=== PATIENT | female | born 1945 | race Caucasian/White ===

== ENCOUNTER 2021-09-12 10:03 | Outpatient (REF) | payer MEDICARE, OTHER, SELFPAY ==
--- NOTE | ~2021-09-12 | MR_ITS ---
EXAMINATION: MR LUMBAR SPINE WITHOUT CONTRAST CLINICAL INFORMATION: Low back pain. COMPARISON: MRI dated 10/08/2006. TECHNIQUE: MRI of the lumbar spine was obtained using routine sequences without contrast. FINDINGS: VERTEBRAL BODIES AND PARASPINAL STRUCTURES: The marrow signal is homogeneous. No marrow edema is seen. There is a transitional lumbosacral junction with partial sacralization of L5 vertebra on the left side. No compression fractures evident. There are no subluxations. The paraspinal soft tissues appear normal. There are moderate degenerative changes of the left sacroiliac joint. CONUS MEDULLARIS AND CAUDA EQUINA: Normal, terminating at the level of L1. No lower cord signal abnormality is seen. The cauda equina nerve roots are normal. SPINAL LEVELS: L1-L2: Minimal annular bulge without central canal stenosis or foraminal narrowing. L2-L3: Very mild disc bulge and mild facet arthropathy without central canal stenosis. No significant foraminal encroachment. L3-L4: Mild disc bulge and moderate facet arthropathy with thickening of the ligamentum flavum resulting in worsened xbfa-ox-dqzgruug central canal stenosis. Mild foraminal narrowing. L4-L5: Progressed ocyewdfz-rm-mdypkj facet arthropathy, worse on the right side with slight encroachment upon the central canal. No disc disease. Patent foramina. L5-S1: Small central disc protrusion with an underlying annular fissure, slightly decreased in size compared to prior imaging. Hypertrophic facet arthropathy without central canal stenosis or foraminal narrowing. MR/MR lumbar spine wo con IMPRESSION: Worsened jjxg-bi-hotbzglf central canal stenosis with progressed facet arthropathy and thickening of the ligamentum flavum at the L3-L4 level. Worsened dziotwek-da-haspaz facet arthrosis, more so on the right side at the L4-L5 level with slight encroachment upon the central canal. Mild decrease in size of a small central disc protrusion with an underlying annular fissure at the L5-S1 level.
== END 2021-09-12 10:04 | disposition home or self-care (01) ==
LOC: HO.MRI 10:03
PROVIDERS: PCP Internal Medicine; Visit Provider Internal Medicine
DX: M51.26 Other intervertebral disc displacement, lumbar region (principal); G89.29 Other chronic pain
CPT/HCPCS: 72148

== ENCOUNTER → 2021-11-18 08:49 | Outpatient (BNVA) | payer MEDICARE, MEDICAID, SELFPAY | PROVIDERS: PCP Internal Medicine; Visit Provider Internal Medicine | DX: M51.26 Other intervertebral disc displacement, lumbar region (principal); M48.062 Spinal stenosis, lumbar region with neurogenic claudication; M47.816 Spondylosis without myelopathy or radiculopathy, lumbar region; R63.5 Abnormal weight gain | CPT/HCPCS: 99202 ==

== ENCOUNTER → 2022-01-13 14:56 | Outpatient (BNVA) | payer MEDICARE, OTHER, SELFPAY | PROVIDERS: PCP Internal Medicine; Visit Provider Internal Medicine Pulmonary Disease | DX: J44.9 Chronic obstructive pulmonary disease, unspecified (principal); R91.8 Other nonspecific abnormal finding of lung field | CPT/HCPCS: 94618; 99202 ==

== ENCOUNTER 2022-01-23 07:41 | Outpatient (REF) | payer MEDICARE, OTHER, SELFPAY ==
--- NOTE | ~2022-01-23 | CT_ITS ---
EXAMINATION: CT CHEST SCREENING CLINICAL INFORMATION: Smoker. COMPARISON: CT chest 09/15/2018. TECHNIQUE: Multidetector volumetric CT imaging of the chest is performed without contrast using low dose technique. Additional 2D coronal and sagittal reformatted images and axial 3D maximum intensity projection (MIP) images are generated on the CT workstation. This CT examination was performed using dose optimization techniques as appropriate, variously including the following: *Automated exposure control *Adjustment of mA and/or kV according to patient size (this includes techniques or standardized protocols for targeted exams where dose is matched to indication/reason for exam; i.e. extremities or head) *Use of iterative reconstruction technique DLP: 58 mGy-cm. FINDINGS: LUNGS: There is mild centrilobular and paraseptal emphysema. Focal atelectasis or scarring pleural-based is seen in the superior segment left lower lobe, new. Minimal atelectatic changes are seen in the dependent lung bases. There are bilateral pulmonary nodules similar to previous study in both lungs. The few largest ones to mention are a 3 mL nodule right upper lobe axial image 279/6, a new 1.1 cm ground-glass density right lower lobe axial image 322/6, a new 7 mm groundglass nodule right lower lobe image 331/6. A few calcified tiny nodules are stable. MEDIASTINUM: The thyroid lobes are symmetric and normal. The central trachea and bronchi are widely patent. The heart size and the great vessels are normal caliber. There are trace coronary artery calcifications present. No pericardial effusion seen. No abnormal-sized mediastinal or hilar lymph nodes. PLEURA: There is no pleural effusion. No pleural mass or thickening. AXILLA: No lymphadenopathy. UPPER ABDOMEN: Visualized liver, spleen, pancreas and adrenal glands unremarkable. OSSEOUS STRUCTURES: No lytic or sclerotic process. CT/CT lung screening IMPRESSION: Diffuse emphysema with multiple stable appearing nodules. However, there are 2 new ground-glass nodules seen in the right lower lobe measuring 1.1 cm and 7 mm. No abnormal-sized lymph nodes seen. ASSESSMENT: Lung RADS category 2, benign. RECOMMENDATION: Low-dose annual CT chest.
== END 2022-01-23 07:42 | disposition home or self-care (01) ==
LOC: HO.CT 07:41
PROVIDERS: PCP Internal Medicine; Visit Provider Physician Assistant Medical
DX: Z12.2 Encounter for screening for malignant neoplasm of respiratory organs (principal); F17.210 Nicotine dependence, cigarettes, uncomplicated
CPT/HCPCS: 71271

== ENCOUNTER 2023-05-24 09:40 | Inpatient (IN) | payer MEDICARE, OTHER, MEDICAID, SELFPAY ==
[2023-05-24] VITALS (8 sets, daily range): BP systolic 112–131; BP diastolic 41–84; PULSE 53–80; RESP 15–30; TEMP 36.4–36.5; O2SAT 87–95; BMI 33.4
--- NOTE | ~2023-05-24 | CT_ITS ---
Examination CT chest and CT abdomen pelvis without contrast. Clinical indications: Dyspnea. Weight loss. Left supraclavicular mass. COMPARISON: CT chest 02/15/2022. TECHNIQUE: 5 minutes thin axial and reformatted 3 mm thin sagittal coronal images of chest, abdomen pelvis were obtained without IV contrast. DLP 927. This CT examination was performed using dose optimization technique as appropriate, variously including the following: Automated exposure control Adjustment of MA and/or KV according to patient size(this includes techniques or standardized protocols for targeted exams where dose is matched to indication/reason for exam; extremities or head. Use of iterative reconstruction techniques. FINDINGS: CHEST: LUNGS: There is diffuse centrilobular emphysema with patchy groundglass attenuation, prominent fine interstitial markings, subpleural bullae and small bilateral pulmonary nodules, stable. There is bibasilar atelectasis or scarring. The findings are drastically changed from 01/15/2022. Mediastinum: The thyroid lobes are as symmetrical and normal. The central trachea and the bronchi widely patent. Heart size and the great vessels are normal caliber. There is a benign short axis I.2 cm lymph node with central lucency. There is no pericardial or effusion no abnormal size mediastinal lymph nodes. There are moderate coronary artery calcifications present Pleura: There is minimal bilateral posterior layering slightly greater on the right side no calcified pleural plaques seen. Axilla: No abnormal size lymph nodes seen. The chest wall is grossly unremarkable. The chest wall is unremarkable. Osseous structures: There is maintained thoracic kyphosis. The vertebral heights, alignment and disc heights are normal. No visible acute fracture, dislocation or subluxation seen. Abdomen and pelvis: Liver, ducts and gallbladder: The liver is homogeneous in density, normal size and contour. No focal lesion or intrahepatic ductal dilatation seen. Gallbladder is unremarkable. Spleen: Unremarkable. Pancreas: Unremarkable. Adrenal glands: Both adrenal glands are slightly hypertrophied but otherwise unremarkable. Kidneys and ureter: Both kidneys are normal size, shape and position. The left renal hilar vascular calcifications present. No radiopaque calculi or hydronephrosis seen. Lymphovascular structures: There is arthroscopic calcification of abdominal aorta without aneurysmal dilatation. No abnormal size retroperitoneal lymph nodes seen. Abdominal wall: There is nonspecific soft tissue density infraumbilical left abdomen likely granulation tissue from subcutaneous is injection. GI tract: There is scattered stool, diverticula and gas seen throughout the colon without distention. The small bowel loops are normal caliber. Appendix is normal caliber. No inflammatory process, free air or free fluid seen. Pelvis: The uterus is anteverted and appears unremarkable. No adnexal mass or free fluid seen. The urinary bladder is nondistended. Osseous structures: Unremarkable. CT/CT abdomen pelvis wo IV con IMPRESSION: 1. Centrilobular emphysema with prominent fine interstitial markings, subpleural bullae and small bilateral pulmonary nodules, stable. The findings have progressed since 01/15/2022. 2. No abnormal mediastinal or axillary lymph nodes seen. 3. No acute process seen in the abdomen. 4. Mild constipation with colonic diverticulosis without diverticulitis. 5. Dense left abdominal wall scar
--- NOTE | 2023-05-24 09:44 | ECG_ITS ---
Test Reason : SOB Blood Pressure : / mmHG Vent. Rate : 056 BPM Atrial Rate : 056 BPM P-R Int : 150 ms QRS Dur : 084 ms QT Int : 448 ms P-R-T Axes : 027 021 014 degrees QTc Int : 432 ms Sinus bradycardia with sinus arrhythmia Low voltage QRS Nonspecific ST abnormality Abnormal ECG When compared with ECG of 21-SEP-2019 16:33, ST more depressed Inferior leads Lateral leads Referred By: Wendy Galindo Electronically Signed By:PRATIK XIONG MD
[2023-05-24] MEDS: methylPREDNISolone Sod Succ 125 MG/2 ML VIAL 60 MG IVPUSH (10:03)
--- NOTE | 2023-05-24 10:07 | ED_ITS ---
HPI - SOB/Dyspnea General Chief Complaint: Dyspnea Stated Complaint: sob Time Seen by Provider: 05/24/23 09:43 Source: patient, EMS and old records reviewed Mode of arrival: EMS Limitations: no limitations History of Present Illness HPI Narrative: 77 yo female with PMH of COPD, CAD s/p angioplasty, HLD, chronic back pain, DM who lives alone and since February reports worsening breathing but refuses nebs as it makes her tonsils sore and her heart race. She finally came to the hospital as her son traveled to [place] to see her and begged her to come to the hospital. She notes no fevers but + sputum production and chest tightness. She also has a mass in L upper clavicle area but thought it was a skin tag unknown amount of time and also reports undisclosed amount of weight loss - initally refusing breathing treatments and steroids - RA sat 86%. No O2 at home MD elicited complaint: shortness of breath Pertinent past history: COPD Onset (ago): month(s) (2+) Timing: progressively worsening Severity: severe Exacerbating factors: exertion and coughing Relieving factors: rest Known history of: COPD Associated symptoms: cough, wheezing, sputum production and other (weight loss) Treatment prior to arrival: oxygen and other (IVF) Related Data Home Medications Medication Instructions Recorded Confirmed atenolol 25 mg tablet 25 mg PO DAILY 05/24/23 05/24/23 insulin aspart U-100 100 unit/mL See Rx Instructions subcut .tid ac 05/24/23 05/24/23 subcutaneous solution (Novolog U-100 Insulin aspart) insulin glargine 100 unit/mL 38 - 42 unit subcut BEDTIME 05/24/23 05/24/23 subcutaneous solution (Lantus U-100 Insulin) nitroglycerin 0.4 mg sublingual 0.4 mg sublingual NEEDED angina 05/24/23 05/24/23 tablet Previous Rx's Medication Instructions Recorded blood sugar diagnostic (OneTouch #300 ea 12/11/21 Ultra Test strips) insulin syringe-needle U-100 1 mL #400 ea 12/11/21 30 gauge x 1/2 (BD Insulin Syringe Ultra-Fine) Allergies Allergy/AdvReac Type Severity Reaction Status Date / Time hydrocodone [Vicodin] Allergy Unknown hives Verified 01/13/22 15:04 ibuprofen [IBUPROFEN] Allergy Unknown SWOLLEN Verified 01/13/22 15:04 EYELIDS, CONFUSION lovastatin [Mevacor] Allergy Unknown hives Verified 01/13/22 15:04 naproxen Allergy Unknown hives Verified 01/13/22 15:04 rosuvastatin [Crestor] Allergy Unknown hives Verified 01/13/22 15:04 atorvastatin [From LIPITOR] AdvReac Severe SEVERE Verified 01/13/22 15:04 DEEP BONES PAIN lisinopril AdvReac Unknown hives Verified 01/13/22 15:04 amitriptlyn Allergy Unknown hives Uncoded 12/12/21 00:31 ditripan xl Allergy Unknown headaches Uncoded 12/12/21 00:31 ivp dye Allergy Unknown throat Uncoded 12/12/21 00:31 constriction and hives lipitor Allergy Unknown body pain Uncoded 12/12/21 00:31 Nuprin Allergy Unknown hives Uncoded 12/12/21 00:31 prednisone Allergy Unknown confusion Uncoded 12/12/21 00:31 qvar AdvReac Unknown hives Uncoded 12/12/21 00:31 Review of Systems 2 Review of Systems: Constitutional : No Fever, No Chills, pos weight loss ENT/Mouth : No Hoarseness, No sore throat, No Rhinorrhea Eyes: No Redness, No Discharge, No Vision Changes Cardiovascular : No Chest Pain, positive SOB, positive Dyspnea on Exertion, No Edema Respiratory : positive Cough, pos Sputum, positive Wheezing, Gastrointestinal : No Nausea, No Vomiting, No Diarrhea, No abdominal Pain Genitourinary : No Dysuria, No Hematuria Musculoskeletal : No joint pain, No Myalgias Skin : No rash Neuro : No Weakness, No Numbness, No Headache Psych : No anxiety, depression Heme/Lymph: No Bruising, No Bleeding Endocrine : No Polyuria, No Polydipsia All other systems reviewed and are negative PMFSH Past Medical History Attestation statement: The following information was validated with the patient. Source: old records reviewed Medical History Degenerative lumbar spinal stenosis Colonoscopy refused Osteoporosis Herniated lumbar intervertebral disc CAD (coronary artery disease) Cervical disc herniation Essential hypertension Chronic low back pain Dyslipidemia Diabetes mellitus, with long-term current use of insulin Surgical History S/P cervical spinal fusion S/P angioplasty Family History Family History Father Substance use disorder Brother Substance use disorder Mental health disorder Social History Housing: Apartment Patient Tobacco Use Status: Former Tobacco user Smoked in Last 30 Days: No e-Cigarette/Vaping Use: Never Used Use of substances other than those prescribed or required for medical reasons: No Advance Directives: Yes Advance Directives Information Provided: No Advance Directives on File: No Nutrition Risks: No Nutritional Risk service: No Current occupational status: retired Cognitive needs: No Hearing needs: No Vision needs: Yes Physical Exam 2 Vital Signs: Vital Signs: Last Vital Signs Temp 97.7 F 05/24/23 09:54 Pulse 78 05/24/23 14:23 Resp 17 05/24/23 14:23 BP 124/46 L 05/24/23 14:15 Pulse Ox 91 L 05/24/23 14:15 O2 Del Method Nasal Cannula 05/24/23 14:15 O2 Flow Rate 2 05/24/23 14:15 BMI result Body Mass Index 33.4 Appearance: Alert. Oriented X3. No acute distress. Eyes: Pupils equal, round and reactive to light. ENT: Pharynx normal. Neck: Normal inspection. Neck supple. CVS: Normal heart rate and rhythm. Pulses normal. Chest: L clavicle soft large node felt. Respiratory: No respiratory distress. Breath sounds noted with wheezes throughout exp Abdomen: Soft and non-tender. Skin: Skin warm and dry. Normal skin color. Normal skin turgor. Extremities: No lower extremity edema. No calf ttp Neuro: Oriented X 3. No motor deficit. No sensory deficit. Course Course Course Narrative: 82% on RA after walking to bathroom bounced back with O2 Medications Administered Generic Name Dose Route Start Last Admin Trade Name Freq PRN Reason Stop Dose Admin Enoxaparin Sodium 40 mg 05/24/23 14:00 05/24/23 14:17 Enoxaparin Sodium 40 Mg/0.4 Ml Syringe SUBCUT 40 mg Q24H HAYLEE Administration Azithromycin 500 mg/ Sodium 250 mls @ 125 mls/hr 05/24/23 14:00 05/24/23 14:17 Chloride IV 05/26/23 15:59 125 mls/hr Q24H HAYLEE Administration Levalbuterol HCl 1.25 mg 05/24/23 14:00 05/24/23 14:22 Levalbuterol Hcl 1.25 Mg/3 Ml Vial.Neb INHALE 1.25 mg RTID HAYLEE Administration Discontinued Medications Generic Name Dose Route Start Last Admin Trade Name Jennifer PRN Reason Stop Dose Admin Levalbuterol HCl 2.5 mg/ 0 mg 05/24/23 10:03 05/24/23 10:09 Ipratropium [place] 0.5 mg INHALE 05/24/23 10:04 8.5 dose ONCE ONE Administration Ceftriaxone Sodium 1 gm/ 50 mls @ 100 mls/hr 05/24/23 10:12 05/24/23 11:24 Sodium Chloride IV 05/24/23 10:41 Infused ONCE ONE Infusion Methylprednisolone Sodium Succinate 60 mg 05/24/23 09:57 05/24/23 10:03 Methylprednisolone Sod Succ 125 Mg/2 Ml Vial IVPUSH 05/24/23 09:58 60 mg ONCE ONE Administration Medical Decision Making Medical Decision Making MDM Narrative: 77 yo female with PMH of COPD, CAD s/p angioplasty, HLD, chronic back pain, DM here with 2+ months of worsening dyspnea who does not like to take treatments at home and came because her son begged her to. Initially refusing treatments and interventions but wants to be seen and worked up. We finally agreed upon xopenex and IV solumedrol. I am going to obtain EKG, labs, cultures, resp panel, CXR and treat for presumed COPD but also given L clavicular mass CT scan of abdomen and pelvis/ chest to look for malignancy. She is hypoxic on arrival and does not use home O2. Differential Diagnosis Differential Diagnoses: The differential diagnosis associated with the presentation includes COPD, pneumonia, mass Admission/Observation Consideration of admission/observation: Escalation of care including admission/observation considered admit given hypoxia Consult Healthcare Provider Management of the patient was discussed with: Hospitalist (will admit) Lab Data [facility] Lab Attestation statement: I reviewed the patient's lab results. 05/24/23 10:09 05/24/23 10:09 Labs: Lab Results 05/24/23 05/24/23 05/24/23 Range/Units 10:09 10:15 10:35 WBC 7.0 (4.8-10.8) X10*3/uL RBC 4.74 (4.20-5.50) X10*6/uL Hgb 13.7 (12.0-16.0) g/dl Hct 42.0 (37.0-47.0) % MCV 88.6 (80.0-98.0) fL MCH 28.9 (27.0-33.0) pg MCHC 32.6 (31.0-35.0) g/dl RDW 14.6 (11.0-16.0) % Plt Count 211 (160-400) X10*3/uL MPV 9.1 L (9.4-12.3) fL Immature Gran % (Auto) 0.3 (0.0-0.4) % Neut % (Auto) 80.4 H (45-73) % Lymph % (Auto) 9.7 L (20-40) % [place] % (Auto) 8.4 (2-11) % Eos % (Auto) 0.9 (0-4) % Baso % (Auto) 0.3 (0-2) % Lymph # (Auto) 0.7 L (1.2-4.9) X10*3/uL [place] # (Auto) 0.6 (0.1-1.2) X10*3/uL Eos # (Auto) 0.1 (0.0-0.4) X10*3/uL Baso # (Auto) 0.0 (0.0-0.2) X10*3/uL Abs Immat Gran (auto) 0.02 (0.00-0.03) X10*3/uL Absolute Neuts (auto) 5.6 (2.0-8.3) x10*3/uL Absolute Nucleated RBC 0.000 (0.0-0.012) X10*3/uL Nucleated RBC % (auto) 0.0 (0.0-0.2) /100WBC PT 14.3 H (11.1-13.3) SEC INR 1.2 H (0.9-1.1) VBG pH 7.49 H (7.32-7.43) VBG pCO2 33 mmHg VBG pO2 51 mmHg VBG HCO3 26 (22-26) mmol/L VBG O2 Saturation 83.0 % VBG Base Excess 3.6 mmol/L Sodium 138 (135-145) mmol/L Potassium 3.7 (3.3-5.1) mmol/L Chloride 102 (96-108) mmol/L Carbon Dioxide 25 (22-29) mmol/L Anion Gap 15 (12-20) BUN 12 (9-16) mg/dL Creatinine 0.64 (0.5-1.4) mg/dL Estim Creat Clear Calc 77.9 Estimated GFR > 60 POC Glucose 103 (60-115) mg/dL Random Glucose 101 (60-115) mg/dL Lactic Acid 1.8 (0.5-2.0) mmol/L Calcium 8.7 (8.4-10.2) mg/dL Magnesium 1.8 (1.6-2.6) mg/dL Total Bilirubin 0.9 (0.0-1.0) mg/dL Direct Bilirubin 0.3 (0.0-0.5) mg/dL AST 17 (5-31) U/L ALT 7 (0-31) U/L Alkaline Phosphatase 89 (39-117) U/L Troponin I High Sens 7.1 (<3.5-17.0) ng/L B-Natriuretic Peptide 83 (<100) pg/mL Total Protein 6.7 (6.5-8.0) g/dL Albumin 3.3 L (3.5-5.0) g/dL Lipase 18 (8-78) U/L Procalcitonin 0.08 ng/mL Urine Color Urine Appearance Urine pH (5.0-9.0) Ur Specific [place] (1.005-1.025) Urine Protein (Neg-Trace) mg/dL Urine Glucose (UA) (Negative) mg/dL Urine Ketones (Negative) mg/dL Urine Blood (Negative) Urine Nitrite (Negative) Ur Leukocyte Esterase (Negative) Urine RBC (0-2) /HPF Urine WBC (0-5) /HPF Ur Squamous Epith Cells (0-2) /HPF Urine Bacteria (None Seen) Hyaline Casts (0-2) /LPF Influenza Type A (PCR) NEGATIVE (Negative) Influenza Type B (PCR) NEGATIVE (Negative) RSV RNA Qual (PCR) NEGATIVE (Negative) SARS-CoV-2 RNA (RT-PCR) NEGATIVE (Negative) 05/24/23 Range/Units 11:17 WBC (4.8-10.8) X10*3/uL RBC (4.20-5.50) X10*6/uL Hgb (12.0-16.0) g/dl Hct (37.0-47.0) % MCV (80.0-98.0) fL MCH (27.0-33.0) pg MCHC (31.0-35.0) g/dl RDW (11.0-16.0) % Plt Count (160-400) X10*3/uL MPV (9.4-12.3) fL Immature Gran % (Auto) (0.0-0.4) % Neut % (Auto) (45-73) % Lymph % (Auto) (20-40) % [place] % (Auto) (2-11) % Eos % (Auto) (0-4) % Baso % (Auto) (0-2) % Lymph # (Auto) (1.2-4.9) X10*3/uL [place] # (Auto) (0.1-1.2) X10*3/uL Eos # (Auto) (0.0-0.4) X10*3/uL Baso # (Auto) (0.0-0.2) X10*3/uL Abs Immat Gran (auto) (0.00-0.03) X10*3/uL Absolute Neuts (auto) (2.0-8.3) x10*3/uL Absolute Nucleated RBC (0.0-0.012) X10*3/uL Nucleated RBC % (auto) (0.0-0.2) /100WBC PT (11.1-13.3) SEC INR (0.9-1.1) VBG pH (7.32-7.43) VBG pCO2 mmHg VBG pO2 mmHg VBG HCO3 (22-26) mmol/L VBG O2 Saturation % VBG Base Excess mmol/L Sodium (135-145) mmol/L Potassium (3.3-5.1) mmol/L Chloride (96-108) mmol/L Carbon Dioxide (22-29) mmol/L Anion Gap (12-20) BUN (9-16) mg/dL Creatinine (0.5-1.4) mg/dL Estim Creat Clear Calc Estimated GFR POC Glucose (60-115) mg/dL Random Glucose (60-115) mg/dL Lactic Acid (0.5-2.0) mmol/L Calcium (8.4-10.2) mg/dL Magnesium (1.6-2.6) mg/dL Total Bilirubin (0.0-1.0) mg/dL Direct Bilirubin (0.0-0.5) mg/dL AST (5-31) U/L ALT (0-31) U/L Alkaline Phosphatase (39-117) U/L Troponin I High Sens (<3.5-17.0) ng/L B-Natriuretic Peptide (<100) pg/mL Total Protein (6.5-8.0) g/dL Albumin (3.5-5.0) g/dL Lipase (8-78) U/L Procalcitonin ng/mL Urine Color Yellow Urine Appearance Hazy Urine pH 6.0 (5.0-9.0) Ur Specific [place] 1.010 (1.005-1.025) Urine Protein Trace (Neg-Trace) mg/dL Urine Glucose (UA) Negative (Negative) mg/dL Urine Ketones Trace (Negative) mg/dL Urine Blood Negative (Negative) Urine Nitrite Negative (Negative) Ur Leukocyte Esterase Large (3+) H (Negative) Urine RBC 0-2 (0-2) /HPF Urine WBC >50 H (0-5) /HPF Ur Squamous Epith Cells 6-10 (0-2) /HPF Urine Bacteria 2+ (None Seen) Hyaline Casts 0-2 (0-2) /LPF Influenza Type A (PCR) (Negative) Influenza Type B (PCR) (Negative) RSV RNA Qual (PCR) (Negative) SARS-CoV-2 RNA (RT-PCR) (Negative) Independent Interpretation I performed an independent interpretation of an: EKG and CT Scan (worsening lung disease no pneumonia) Interpretation: Rate: 56 Rhythm: sinus bradycardia [place]: normal Normal P waves. Normal SARAH. Normal QRS complex. ST T wave : no GARRETT, nonspecific lateral ST T wave changes qTC: normal prior studies: no sig ischemia The study has been interpreted contemporaneously by me. . Radiology Impression Discussion of test interpretation with radiology: I have reviewed the radiologist's reading. Independent Historian Clinical information obtained from an independent historian. History obtained from or confirmed by: EMS and Other (son) External Record Review External record reviewed: Office record Discharge Plan Discharge Clinical Impression: Acute exacerbation of chronic obstructive airways disease, Hypoxia, Acute UTI Patient Disposition: Admitted As Inpatient
[2023-05-24] MEDS: levalbuterol HCL 2.5 MG, Ipratropium Bromide 0.5 MG INHALE (10:09)
[2023-05-24 10:16] LABS: MANUAL DIFF FLAG NO
[2023-05-24 10:18] LABS: Basophils Percent Auto 0.3 % (0-2); Eosinophils Absolute Auto 0.1 X10*3/uL (0.0-0.4); Eosinophils Percent Auto 0.9 % (0-4); Hemoglobin 13.7 g/dl (12.0-16.0); Imm Gran Abs Auto 0.02 X10*3/uL (0.00-0.03); Imm Gran Pct Auto 0.3 % (0.0-0.4); Lymphocytes Absolute Auto 0.7 X10*3/uL (1.2-4.9); Lymphocytes Percent Auto 9.7 % (20-40); Mean Corpuscular HGB Conc 32.6 g/dl (31.0-35.0); Mean Corpuscular Hemoglobin 28.9 pg (27.0-33.0); Mean Corpuscular Volume 88.6 fL (80.0-98.0); Mean Platelet Volume 9.1 fL (9.4-12.3); Monocytes Absolute Auto 0.6 X10*3/uL (0.1-1.2); Monocytes Percent Auto 8.4 % (2-11); Neutrophils Absolute Auto 5.6 x10*3/uL (2.0-8.3); Neutrophils Percent Auto 80.4 % (45-73); Platelet Count 211 X10*3/uL (160-400); Red Blood Count 4.74 X10*6/uL (4.20-5.50); Red Cell Distribution Width 14.6 % (11.0-16.0)
[2023-05-24 10:21] LABS: Venous Blood Gas Refer to POC result
[2023-05-24 10:22] LABS: VBG Base Excess 3.6 mmol/L; VBG HCO3 26 mmol/L (22-26); VBG pCO2 33 mmHg; VBG pH 7.49 (7.32-7.43); VBG pO2 51 mmHg
[2023-05-24 10:24] LABS: INTERNATIONAL NORM RATIO 1.2 (0.9-1.1); Prothrombin Time 14.3 SEC (11.1-13.3)
--- NOTE | 2023-05-24 10:24 | PC.NURSE ---
pt comes in from home, her son was here to visit her from [place] and made her come to the hospital for her SOB/cough. pt resistant to care
[2023-05-24 10:30] LABS: Lactic Acid 1.8 mmol/L (0.5-2.0)
[2023-05-24 10:39] LABS: B Type Natriuretic Peptide 83 pg/mL (<100)
[2023-05-24] MEDS: cefTRIAXone sodium 1 GM in 0.9 % Sodium Chloride 50 ML IV (10:40)
[2023-05-24 10:41] LABS: Glucose, Whole Blood 103 mg/dL (60-115)
[2023-05-24 10:42] LABS: Alanine Aminotransferase 7 U/L (0-31); Albumin Level 3.3 g/dL (3.5-5.0); Alkaline Phosphatase 89 U/L (39-117); Anion Gap 15 (12-20); Aspartate Amino Transferase 17 U/L (5-31); Bilirubin Direct 0.3 mg/dL (0.0-0.5); Bilirubin Total 0.9 mg/dL (0.0-1.0); Blood Urea Nitrogen 12 mg/dL (9-16); Calcium 8.7 mg/dL (8.4-10.2); Carbon Dioxide 25 mmol/L (22-29); Chloride 102 mmol/L (96-108); Creatinine Clr Calc Pharmacy 77.9; Estimated Glomerular Filt Rate > 60; Glucose Random 101 mg/dL (60-115); Lipase 18 U/L (8-78); Magnesium 1.8 mg/dL (1.6-2.6); Potassium 3.7 mmol/L (3.3-5.1); Sodium 138 mmol/L (135-145); Total Protein 6.7 g/dL (6.5-8.0)
[2023-05-24 10:43] LABS: Troponin-I High Sensitivity 7.1 ng/L (<3.5-17.0)
[2023-05-24 10:57] LABS: Procalcitonin 0.08 ng/mL
[2023-05-24 11:24] LABS: Appearance Urine Hazy; Color Urine Yellow; Glucose Urine UA Negative (Negative); Urine Blood Negative (Negative)
[2023-05-24 11:25] LABS: Leukocyte Esterase Urine Large (3+) (Negative); Nitrite Urine Negative (Negative); UMIC TRIGGER UACC YES; Urine Ketones Trace mg/dL (Negative); Urine Protein Trace mg/dL (Neg-Trace)
[2023-05-24 11:31] LABS: Bacteria Urine 2+ (None Seen); Hyaline Casts Urine 0-2 /LPF (0-2); RBC Urine 0-2 /HPF (0-2); UACC Culture Trigger YES; WBC Urine >50 /HPF (0-5)
--- NOTE | 2023-05-24 11:36 | PC.NURSE ---
pt ambulated to bathroom with portable O2 and PCT assistance, pt severely SOB, with increased WOB. required O2 increase to 6L to stabilize back to baseline, o2 dropped to 82% on her 2L .
[2023-05-24 12:13] LABS: Influenza A PCR NEGATIVE (Negative); Influenza B PCR NEGATIVE (Negative); Resp Syncy Virus RNA Qual PCR NEGATIVE (Negative); SARS COV2 PCR INHOUSE NEGATIVE (Negative)
[2023-05-24 13:18] LABS: Glucose, Whole Blood 188 mg/dL (60-115)
--- NOTE | 2023-05-24 13:21 | PM.IMHP ---
History of Present Illness Date of Service: 05/24/23 Attending physician on admission: Deangelo Brownlee Chief Complaint: aguilera 69-year-old female with history of insulin-dependent type 2 diabetes, emphysema, coronary artery disease, hypertension, hyperlipidemia, osteoporosis, lumbar and cervical degenerative disc disease presents to the ED from home with her son who was flown in from [place] for evaluation of dyspnea on exertion and hypoxia. She also had productive cough with clear sputum production that has not changed. Occasionally has vomited due to severity of cough. The patient reports that she has been experiencing worsening COPD symptoms over the last 2 months. States she has always had some AGUILERA, but about 2 months ago became worsened and she has had difficulty taking several steps without significant SOB. She has not been leaving the house. She has followed with pulmonology (December 2021- Dr. Ball) who recommended and trialed multiple maintenance inhalers which patient reports caused significant adverse effects so she refused to continue them. She states albuterol causing significant tremors and palpitations and refuses this as well. Has a nebulizer with duonebs at home but will not use these. Her son reports he checked her O2 sat last night and it was 84% at rest and dropped to the 70s with exertion. She is a former smoker with 54 pack year history (wuit 2010). Denies any drug use or etoh use. Denies fevers, chills, sore throat, congestion, abd pain, n/v/d, urinary symptoms, lightheadedness, sob at rest, orthopnea, pnd, or chest pressure. Also reports BLE edema that has been longstanding. On arrival, pt hypoxic to 87% on RA placed on 2L supplemental O2 maintaining oximetry 93-95%. Vitals otherwise wnl. No leukocytosis. Renal function and electrolyte levels normal. Glucose 188. Troponin 7.1, BNP 83. Procalcitonin 0.08. Urinalysis significant for 3+ leukocytes, negative nitrites, negative blood, positive urinary sediment and 2+ bacteria. Negative for COVID-19, RSV, influenza. CT chest noted centrilobular emphysema with prominent fine interstitial markings, subpleural bullae and small bilateral pulmonary nodules which are noted to be stable with overall progressive findings compared to prior imaging. No abnormal lymphadenopathy. CT abdomen/pelvis negative for any acute process. EKG shows sinus bradycardia, rate 56, no acute ischemic changes. Pt reports multiple adverse reactions to many medications but has tolerated 60mg IV methylprednisolone, levalbuterol/ipratropium neb, and 1g iv ceftriaxone in the ED. She will be admitted for COPD exacerbation with acute on chronic hypoxemic respiratory failure. Review of Systems Review of Systems: General: No fevers, malaise, unintentional weight loss HEENT: No blurred vision, diplopia. No sore throat, nasal congestion, rhinorrhea, sinus pain, ear pain Cardiovascular: No chest pain, palpitations. +ble edema Respiratory: +aguilera, wheezing, cough. No sob at rest, orthopnea, pnd GI: No abdominal pain, nausea, vomiting, diarrhea : No dysuria, hematuria, increased urinary frequency MSK: No myalgia, back pain Neuro: No headaches, weakness, paresthesias Skin: No rashes or lesions [facility] Medical History Degenerative lumbar spinal stenosis Colonoscopy refused Osteoporosis Herniated lumbar intervertebral disc CAD (coronary artery disease) Cervical disc herniation Essential hypertension Chronic low back pain Dyslipidemia Diabetes mellitus, with long-term current use of insulin Family History Father Substance use disorder Brother Substance use disorder Mental health disorder Surgical History S/P cervical spinal fusion S/P angioplasty Housing: Apartment Patient Tobacco Use Status: Former Tobacco user Smoked in Last 30 Days: No e-Cigarette/Vaping Use: Never Used Use of substances other than those prescribed or required for medical reasons: No Advance Directives: Yes Advance Directives Information Provided: No Advance Directives on File: No service: No Current occupational status: retired Cognitive needs: No Hearing needs: No Vision needs: Yes Meds Allergies Allergy/AdvReac Type Severity Reaction Status Date / Time hydrocodone [Vicodin] Allergy Unknown hives Verified 01/13/22 15:04 ibuprofen [IBUPROFEN] Allergy Unknown SWOLLEN Verified 01/13/22 15:04 EYELIDS, CONFUSION lovastatin [Mevacor] Allergy Unknown hives Verified 01/13/22 15:04 naproxen Allergy Unknown hives Verified 01/13/22 15:04 rosuvastatin [Crestor] Allergy Unknown hives Verified 01/13/22 15:04 atorvastatin [From LIPITOR] AdvReac Severe SEVERE Verified 01/13/22 15:04 DEEP BONES PAIN lisinopril AdvReac Unknown hives Verified 01/13/22 15:04 amitriptlyn Allergy Unknown hives Uncoded 12/12/21 00:31 ditripan xl Allergy Unknown headaches Uncoded 12/12/21 00:31 ivp dye Allergy Unknown throat Uncoded 12/12/21 00:31 constriction and hives lipitor Allergy Unknown body pain Uncoded 12/12/21 00:31 Nuprin Allergy Unknown hives Uncoded 12/12/21 00:31 prednisone Allergy Unknown confusion Uncoded 12/12/21 00:31 qvar AdvReac Unknown hives Uncoded 12/12/21 00:31 Active Medications: Current Medications Acetaminophen (Acetaminophen 325 Mg Tablet) 650 mg PO Q6H PRN PRN Reason: Pain, Mild (Pain Scale 1-3) Docusate Sodium (Docusate Sodium 100 Mg Capsule) 100 mg PO DAILY PRN PRN Reason: Constipation Enoxaparin Sodium (Enoxaparin Sodium 40 Mg/0.4 Ml Syringe) 40 mg SUBCUT Q24H [facility] Insulin Human Lispro (Insulin Lispro 100 Unit/Ml 3 Ml Vial) 0 unit SUBCUT QIDACHS [facility]; Protocol Levalbuterol HCl (Levalbuterol Hcl 1.25 Mg/3 Ml Vial.Neb) 1.25 mg INHALE RTID [facility] Methylprednisolone Sodium Succinate (Methylprednisolone Sod Succ 40 Mg/Ml Vial) 40 mg IVPUSH Q12H HAYLEE Ondansetron HCl (Ondansetron Hcl 4 Mg/2 Ml Vial) 4 mg IVPUSH Q8H PRN PRN Reason: Nausea and Vomiting Sodium Chloride (0.9 % Sodium Chloride Flush 3 Ml Syringe) 3 ml IVFLUSH QSHIFT [facility] Home Medications Medication Instructions Recorded Confirmed Last Taken Type aspirin 81 mg tablet,delayed 81 mg PO DAILY 07/31/21 11/18/21 Unknown History release (Adult Low Dose Aspirin) omega 9-iwc-[id number]-fish oil 60 mg-90 1 cap PO DAILY 11/18/21 11/18/21 Unknown History mg-500 mg capsule (Fish Oil) Physical Exam Vital Signs and Narrative: Vital Signs: Last Vital Signs Temp 97.7 F 05/24/23 09:54 Pulse 67 05/24/23 10:59 Resp 19 05/24/23 10:59 BP 122/41 L 05/24/23 10:59 Pulse Ox 93 05/24/23 10:59 O2 Del Method Nasal Cannula 05/24/23 10:59 O2 Flow Rate 2 05/24/23 10:59 BMI result Body Mass Index 33.4 Constitutional - Awake and Alert, No apparent distress Eyes - PERRLA, EOMI Cardiovascular - S1S2, RRR, No edema Respiratory - Normal lung expansion, Normal respiratory effort, No respiratory distress, bilateral expiratory crackles with fine crackles noted thoughout Gastrointestinal - NT / ND; +BS; No rebound or guarding Extremities - no calf tenderness bilaterally, no swelling Skin - Warm/Dry Neurological - Alert & oriented x3 Psychological - Appropriate affect Results Labs 05/24/23 10:09 05/24/23 10:09 Labs: Laboratory Results - last 24 hr 05/24/23 05/24/23 05/24/23 10:09 10:15 10:35 MCV 88.6 MCH 28.9 MCHC 32.6 RDW 14.6 Plt Count 211 MPV 9.1 L Immature Gran % (Auto) 0.3 Neut % (Auto) 80.4 H Lymph % (Auto) 9.7 L [place] % (Auto) 8.4 Eos % (Auto) 0.9 Baso % (Auto) 0.3 Lymph # (Auto) 0.7 L [place] # (Auto) 0.6 Eos # (Auto) 0.1 Baso # (Auto) 0.0 Abs Immat Gran (auto) 0.02 Absolute Neuts (auto) 5.6 Absolute Nucleated RBC 0.000 Nucleated RBC % (auto) 0.0 PT 14.3 H INR 1.2 H VBG pH 7.49 H VBG pCO2 33 VBG pO2 51 VBG HCO3 26 VBG O2 Saturation 83.0 VBG Base Excess 3.6 Anion Gap 15 Estim Creat Clear Calc 77.9 Estimated GFR > 60 POC Glucose 103 Random Glucose 101 Lactic Acid 1.8 Calcium 8.7 Magnesium 1.8 Total Bilirubin 0.9 Direct Bilirubin 0.3 AST 17 ALT 7 Alkaline Phosphatase 89 B-Natriuretic Peptide 83 Total Protein 6.7 Albumin 3.3 L Lipase 18 Procalcitonin 0.08 Urine Color Urine Appearance Urine pH Ur Specific Hugo Urine Protein Urine Glucose (UA) Urine Ketones Urine Blood Urine Nitrite Ur Leukocyte Esterase Urine RBC Urine WBC Ur Squamous Epith Cells Urine Bacteria Hyaline Casts Influenza Type A (PCR) NEGATIVE Influenza Type B (PCR) NEGATIVE RSV RNA Qual (PCR) NEGATIVE SARS-CoV-2 RNA (RT-PCR) NEGATIVE 05/24/23 05/24/23 11:17 13:13 MCV MCH MCHC RDW Plt Count MPV Immature Gran % (Auto) Neut % (Auto) Lymph % (Auto) [place] % (Auto) Eos % (Auto) Baso % (Auto) Lymph # (Auto) [place] # (Auto) Eos # (Auto) Baso # (Auto) Abs Immat Gran (auto) Absolute Neuts (auto) Absolute Nucleated RBC Nucleated RBC % (auto) PT INR VBG pH VBG pCO2 VBG pO2 VBG HCO3 VBG O2 Saturation VBG Base Excess Anion Gap Estim Creat Clear Calc Estimated GFR POC Glucose 188 H Random Glucose Lactic Acid Calcium Magnesium Total Bilirubin Direct Bilirubin AST ALT Alkaline Phosphatase B-Natriuretic Peptide Total Protein Albumin Lipase Procalcitonin Urine Color Yellow Urine Appearance Hazy Urine pH 6.0 Ur Specific Hugo 1.010 Urine Protein Trace Urine Glucose (UA) Negative Urine Ketones Trace Urine Blood Negative Urine Nitrite Negative Ur Leukocyte Esterase Large (3+) H Urine RBC 0-2 Urine WBC >50 H Ur Squamous Epith Cells 6-10 Urine Bacteria 2+ Hyaline Casts 0-2 Influenza Type A (PCR) Influenza Type B (PCR) RSV RNA Qual (PCR) SARS-CoV-2 RNA (RT-PCR) Imaging Radiologist's Impressions: Impressions Abdomen/Pelvis CT 05/24/23 11:40 IMPRESSION: 1. Centrilobular emphysema with prominent fine interstitial markings, subpleural bullae and small bilateral pulmonary nodules, stable. The findings have progressed since 01/15/2022. 2. No abnormal mediastinal or axillary lymph nodes seen. 3. No acute process seen in the abdomen. 4. Mild constipation with colonic diverticulosis without diverticulitis. 5. Dense left abdominal wall scar Chest CT 05/24/23 11:40 IMPRESSION: 1. Centrilobular emphysema with prominent fine interstitial markings, subpleural bullae and small bilateral pulmonary nodules, stable. The findings have progressed since 01/15/2022. 2. No abnormal mediastinal or axillary lymph nodes seen. 3. No acute process seen in the abdomen. 4. Mild constipation with colonic diverticulosis without diverticulitis. 5. Dense left abdominal wall scar Assessment and Plan (1) Hypoxia: Status: Acute (2) Acute exacerbation of chronic obstructive airways disease: Status: Acute Plan 69-year-old female with history of insulin-dependent type 2 diabetes, emphysema, coronary artery disease, hypertension, hyperlipidemia, osteoporosis, lumbar and cervical degenerative disc disease admitted for Acute on chronic hypoxemic respiratory failure due to copd exacerbation. #Acute on chronic hypoxemic respiratory failure -87% on RA on arrival, desaturates with ambulation -VBG reassuring -CT chest showing severe emphysema with interstitial changes, no acute infectious process -Continue supplemental O2 to maintain oximetry 90-92% -Will need home O2 eval #Acute COPD exacerbation -neg for covid, flu, rsv. Full viral respiratory panel pending -IV methylprednisolone 40mg BID -Intolerant of albuterol -xopenex 1.25mg neb TID -azithromycin 500mg qd x 3 day (initiated 05/24) -symptomatic management #Suspected right-sided heart failure -without acute excaberation -r/t severe copd likely contributing to patient's AGUILERA and edema -echo ordered -continue bb. PO diuretics if indicated # insulin-dependent type 2 diabetes-without hyperglycemia -dose adjusted basal insulin -POC glucose -diabetic diet -Humalog on sliding scale #HTN -bp reasonably controlled -continue atenolol #CAD -no anginal cp -continue asa, bb #chronic neck/back pain -lidocaine patches DVT prophylaxis- lovenox Attempt resuscitation but no intubation (DNI) Pt requires inpt stay at least 2 midnights for management of acute on chronic hypoxemic respiratory failure with copd exacerbation requiring iv steroids, supplemental O2 and will ultimately require home O2 evaluation Quality Stroke Does the patient have a stroke diagnosis?: No VTE Prior VTE?: No VTE Risk Level:: Medical - moderate - high VTE Device Contraindication: Treatment Not Indicated VTE Drug Contraindication: N/A - Med Ordered
--- NOTE | 2023-05-24 14:05 | PHA.MEDREC ---
Pharmacy Consult ? Medication Reconciliation Pharmacy has completed the medication reconciliation. spoke with patient to confirm medications. She reports not using her insulin today.
[2023-05-24] MEDS: Enoxaparin Sodium 40 MG/0.4 ML SYRINGE SUBCUT (14:17)
[2023-05-24] MEDS: Azithromycin 500 MG in 0.9 % Sodium Chloride 250 ML 125 MG IV (14:17)
[2023-05-24] MEDS: levalbuterol HCL 1.25 MG/3 ML VIAL.NEB INHALE ×2 (14:22→20:00)
--- NOTE | 2023-05-24 15:23 | PC.NURSE ---
pt up to bedside commode. continues with increased WOB on exertion. pt had 1 episode of diarrhea while on the commode. was not previously having diarrhea. informed Shantell UGARTE.
[2023-05-24 17:05] LABS: Glucose, Whole Blood 479 mg/dL (60-115)
--- NOTE | 2023-05-24 17:10 | PC.NURSE ---
vera earl sent to Susana UGARTE r/t pts elevated blood glucose of 479.
[2023-05-24] MEDS: methylPREDNISolone Sod Succ 40 MG/ML VIAL IVPUSH (17:18)
[2023-05-24] MEDS: Insulin Lispro 100 UNIT/ML 3 ML VIAL SUBCUT ×2 (17:19→21:15)
[2023-05-24] MEDS: 0.9 % Sodium Chloride Flush 3 ML SYRINGE IVFLUSH (17:19)
[2023-05-24 18:32] LABS: Glucose, Whole Blood 479 mg/dL (60-115)
[2023-05-24 18:32] LABS: Glucose, Whole Blood 480 mg/dL (60-115)
[2023-05-24] MEDS: Insulin Regular, Human 100 UNIT/ML 3 ML VIAL IVPUSH (18:43)
[2023-05-24 19:49] LABS: Glucose, Whole Blood 383 mg/dL (60-115)
[2023-05-24] MEDS: Insulin Glargine,Hum.rec.anlog 100 UNIT/ML 10 ML VIAL 38 UNIT SUBCUT (21:14)
[2023-05-25] VITALS (10 sets, daily range): BP systolic 128–181; BP diastolic 60–72; PULSE 74–92; RESP 18–24; TEMP 35.8–37; O2SAT 76–98
--- NOTE | 2023-05-25 | ECG_ITS ---
Test Reason : SOB Blood Pressure : / mmHG Vent. Rate : 086 BPM Atrial Rate : 086 BPM P-R Int : 144 ms QRS Dur : 088 ms QT Int : 486 ms P-R-T Axes : 056 021 042 degrees QTc Int : 581 ms Normal sinus rhythm ST & T wave abnormality, consider inferior ischemia ST & T wave abnormality, consider anterior ischemia Prolonged QT Abnormal ECG When compared with ECG of 24-MAY-2023 09:51, Heart rate has increased ST more depressed Inferior leads Lateral leads Referred By: Oralia Glasgow Electronically Signed By:PRATIK XIONG MD
--- NOTE | 2023-05-25 | ECG_ITS ---
Test Reason : cp Blood Pressure : / mmHG Vent. Rate : 085 BPM Atrial Rate : 085 BPM P-R Int : 152 ms QRS Dur : 094 ms QT Int : 384 ms P-R-T Axes : 060 017 -63 degrees QTc Int : 456 ms Normal sinus rhythm ST & T wave abnormality, consider inferior ischemia ST & T wave abnormality, consider anterior ischemia Abnormal ECG When compared with ECG of 25-MAY-2023 06:21, QT has shortened Referred By: Deangelo Brownlee Electronically Signed By:
[2023-05-25 00:07] LABS: Glucose, Whole Blood 349 mg/dL (60-115)
[2023-05-25 02:16] LABS: Glucose, Whole Blood 349 mg/dL (60-115)
[2023-05-25] MEDS: Insulin Lispro 100 UNIT/ML 3 ML VIAL 10 UNIT SUBCUT ×2 (02:57→17:14)
[2023-05-25] MEDS: levalbuterol HCL 1.25 MG/3 ML VIAL.NEB INHALE ×3 (05:02→19:44)
[2023-05-25] MEDS: methylPREDNISolone Sod Succ 40 MG/ML VIAL IVPUSH ×2 (06:35→18:16)
--- NOTE | 2023-05-25 07:00 | CA_ITS ---
Transthoracic Echocardiogram Patient (Last, First, Middle): Kellen Stewart M Gender: Female Date of : 1945 Age: 77 Procedure Date: 05/25/2023 Procedure Type: Transthoracic Echocardiogram Location: [facility] [place] Height: 162.56 cm Weight: 88. kg BSA: 1.93 m2 Heart Rate: bpm BP: 135 / 63 mmHg Retinal Angiographer: SONAL Referring MD: Shantell UGARTE Well Drill Operator Rotary Drill: Calvin Crowder MD Symptoms: ?chf Study Quality: Fair, contrast ECG Rhythm: Sinus Conclusions: - 1. Normal LV ejection fraction 55-60% with elevated filling pressures 2. Normal cardiac valvular Dopplers 3. Upper limits of normal RV systolic pressure with mildly elevated right atrial pressures 4. No gross pericardial effusion Findings Procedure Information Contrast agent, definity, is being given per protocol without apparent complications. Left Ventricle Normal left ventricular size, thickness, and systolic function. The visually estimated ejection fraction is between 55-60%. Spectral Doppler is indicative of an impaired relaxation filling pattern. E/E prime ratio is >15, consistent with elevated filling pressures. Right Ventricle Normal right ventricular cavity size and systolic function. Atria The left atrium is likely dilated. Interatrial shunt cannot be excluded. The right atrium is normal in size. Aortic Valve The aortic valve structure and function is likely normal. There is no aortic valve stenosis. There is no aortic valve regurgitation. Mitral Valve Likely normal mitral valve structure and function. There is mild mitral annular calcification. There is trace mitral valve regurgitation. There is no mitral valve stenosis. Tricuspid Valve Likely normal tricuspid valve structure and function. There is trace tricuspid valve regurgitation. There is no evidence of pulmonary hypertension. Great Vessels All visible segments of the aorta are normal in size. The pulmonary artery was not well visualized. Venous The inferior vena cava is mildly dilated and collapses greater than 50% with inspiration. Pericardium/Pleural There is no evidence of pericardial effusion. Prior Study Comparison Changes noted compared to prior study dated: 08/09/2019. LV filling pressures appear to be elevated on this study Measurements 2D Linear Measurements IVSd: 1.09 0.6-0.9/0.6-1.0 cm LVIDd: 4.13 3.9-5.3/4.2-5.9 cm LVIDd Index: 2.14 2.4-3.2/2.2-3.1 cm/m2 LVIDs: 2.97 2.0-3.6 cm LVPWd: 0.95 0.7-1.1 cm LA Diam: 3.00 2.7-3.8/3.0-4.0 cm LAIDs Index: 1.55 1.5-2.3 cm/m2 LV Mass: 171.26 67-162/88-224 g LV Mass Index: 88.73 43-95/49-115 g/m2 LVOT Diam: 2.00 3.0+(-)1.3 cm Mitral Valve MV Pk E: 1.34 MV PK A: 1.32 MV Decel Time: 163.00 E/A: 1.00 E'Lateral: 10.00 E'Medial: 7.51 E/E' Med: 17.80 E/E' Lat: 13.40 PHT: 48.00 MVA PHT: 4.58 Decel [place]: 8.25 Aortic Valve AoV Pk Kennedy: 1.58 AoV Mn Kennedy: 1.12 AoV VTI: 0.40 AoV Pk Grad: 10.00 Aov Mn Grad: 5.00 GUILLERMO Cont.VTI: 2.00 LVOT LVOT Pk Kennedy: 1.09 LVOT Mn Kennedy: 0.70 LVOT VTI: 0.25 LVOT Pk Grad: 5.00 LVOT Mn Grad: 2.00 LVOT Diam: 2.00 LVOT Area: 3.14 Diastolic Function MV Pk E: 1.34 MV Pk A: 1.32 E/A: 1.00 E'Medial: 7.51 E/E' Med: 17.80 E' Laterial: 10.00 E/E' Lat: 13.40 Right Ventricle TAPSE (mm): 23.40 TVS' Kennedy: 12.30 Tricuspid Valve TR Pk Kennedy: 2.78 TR Pk Grad: 31.00 RA Press: 8.00 RVSP: 39.00 Great Vessels Aorta Sinus of Valsalva: 2.81 2.0-3.5 cm Ao Asc: 3.00 2.1-3.4 cm Updated in Other Vendor System with Status of Final Calvin Crowder MD electronically signed on 05/25/2023 1:38:06 PM with status of Final
[2023-05-25 07:16] LABS: Troponin-I High Sensitivity 6.1 ng/L (<3.5-17.0)
[2023-05-25 07:25] LABS: Alanine Aminotransferase 7 U/L (0-31); Albumin Level 3.3 g/dL (3.5-5.0); Alkaline Phosphatase 82 U/L (39-117); Anion Gap 16 (12-20); Aspartate Amino Transferase 14 U/L (5-31); Bilirubin Total 0.6 mg/dL (0.0-1.0); Blood Urea Nitrogen 14 mg/dL (9-16); Calcium 8.9 mg/dL (8.4-10.2); Carbon Dioxide 25 mmol/L (22-29); Chloride 101 mmol/L (96-108); Creatinine Clr Calc Pharmacy 64.7; Estimated Glomerular Filt Rate > 60; Potassium 3.8 mmol/L (3.3-5.1); Sodium 138 mmol/L (135-145); Total Protein 6.5 g/dL (6.5-8.0)
[2023-05-25 07:26] LABS: Glucose Random 379 mg/dL (60-115)
[2023-05-25 07:48] LABS: Glucose, Whole Blood 343 mg/dL (60-115)
[2023-05-25] MEDS: Insulin Lispro 100 UNIT/ML 3 ML VIAL SUBCUT ×4 (08:13→21:04)
[2023-05-25] MEDS: 0.9 % Sodium Chloride Flush 3 ML SYRINGE IVFLUSH ×2 (08:14→14:25)
[2023-05-25] MEDS: atenoloL 25 MG TABLET PO (08:14)
--- NOTE | 2023-05-25 08:18 | MHC.CM.PN ---
CM met with Patient at bedside and addressed IMM with her, providing Patient with the original and placing a copy on the chart. Patient lives alone in a 2 family house on the first floor and she uses a cane to assist with mobility. Patient receives a [facility] DM Foot RN Q 2 months and MOWs (no home O2). Home/resume said services is the goal and CM has initiated and will follow for dc planning. Patient's Son/Alden is the HCP and he is in the area, visiting from [place]. PCP is Dr. Betzaida Lai.
[2023-05-25 10:23] LABS: Adenovirus PCR Not Detected (Not Detect.); Bordetella parapertussis PCR Not Detected (Not Detect.); Bordetella pertussis PCR Not Detected (Not Detect.); Chlamydia pneumoniae PCR Not Detected (Not Detect.); Coronavirus 229E PCR Not Detected (Not Detect.); Coronavirus HKU1 PCR Not Detected (Not Detect.); Coronavirus NL63 PCR Not Detected (Not Detect.); Coronavirus OC43 PCR Not Detected (Not Detect.); Human metapneumovirus PCR Not Detected (Not Detect.); Influenza A PCR Not Detected (Not Detect.); Influenza B PCR Not Detected (Not Detect.); Mycoplasma pneumoniae PCR Not Detected (Not Detect.); Parainfluenza 1 PCR Not Detected (Not Detect.); Parainfluenza 2 PCR Not Detected (Not Detect.); Parainfluenza 3 PCR Not Detected (Not Detect.); Parainfluenza 4 PCR Not Detected (Not Detect.); RSV PCR Not Detected (Not Detect.); Rhino/Enterovirus PCR Not Detected (Not Detect.)
--- NOTE | 2023-05-25 10:46 | P.PNIM_ITS ---
Subjective Subjective Date of Service: 05/25/23 Interval History: sob improving Physical Exam 2 Vital Signs: Vital Signs: Last Vital Signs Temp 97.8 F 05/25/23 07:44 Pulse 82 05/25/23 07:44 Resp 20 05/25/23 07:44 BP 153/64 H 05/25/23 07:44 Pulse Ox 98 05/25/23 07:44 O2 Del Method Nasal Cannula 05/25/23 07:44 O2 Flow Rate 3 05/25/23 06:08 BMI result Body Mass Index 33.4 General: AO X 3, no acute distress Resp: diminished bilateral, no accessory muscles used CVS: S1,S2,RRR GI: soft, non tender, non distended Neuro: motor grossly intact, alert Psych: appropriate affect, appropriate insight Objective Data Active Medications Acetaminophen (Acetaminophen 325 Mg Tablet) 650 mg PO Q6H PRN PRN Reason: Pain, Mild (Pain Scale 1-3) Atenolol (Atenolol 25 Mg Tablet) 25 mg PO DAILY [facility]; Protocol Last Admin: 05/25/23 08:14 Dose: 25 mg Documented By: RIAN Dextrose (Dextrose 50 % 25 Gm/50 Ml Syringe) 25 gm IVPUSH Q15M PRN; Protocol PRN Reason: per Hypoglycemia Standing Ord. Dextrose (Dextrose 50 % 25 Gm/50 Ml Syringe) 25 gm IVPUSH Q15M PRN; Protocol PRN Reason: per Hypoglycemia Standing Ord. Docusate Sodium (Docusate Sodium 100 Mg Capsule) 100 mg PO DAILY PRN PRN Reason: Constipation Enoxaparin Sodium (Enoxaparin Sodium 40 Mg/0.4 Ml Syringe) 40 mg SUBCUT Q24H [facility] Last Admin: 05/24/23 14:17 Dose: 40 mg Documented By: HANH Glucose (Glucose Gel 15 Gm Gel..Gram.) 15 gm PO Q15M PRN; Protocol PRN Reason: per Hypoglycemia Standing Ord. Glucose (Glucose Gel 15 Gm Gel..Gram.) 15 gm PO Q15M PRN; Protocol PRN Reason: per Hypoglycemia Standing Ord. Guaifenesin (Guaifenesin 200 Mg/10 Ml 10 Ml Liquid) 10 ml PO Q4H PRN PRN Reason: Cough Azithromycin 500 mg/ Sodium (Chloride) 250 mls @ 125 mls/hr IV Q24H [facility] Stop: 05/26/23 15:59 Last Infusion: 05/24/23 17:14 Dose: Infused Documented By: HANH Insulin Glargine (Insulin Glargine,Hum.Rec.Anlog 100 Unit/Ml 10 Ml Vial) 38 unit SUBCUT BEDTIME [facility] Last Admin: 05/24/23 21:14 Dose: 38 unit Documented By: TANNER Insulin Human Lispro (Insulin Lispro 100 Unit/Ml 3 Ml Vial) [facility] Protocol Last Admin: 05/25/23 08:13 Dose: 8 unit Documented By: RIAN Insulin Human Lispro (Insulin Lispro 100 Unit/Ml 3 Ml Vial) 0 unit SUBCUT QIDAS [facility]; Protocol Last Admin: 05/25/23 09:02 Dose: Not Given Documented By: RIAN Non-Admin Reason: Duplicate Order Insulin Human Lispro (Insulin Lispro 100 Unit/Ml 3 Ml Vial) 15 unit SUBCUT QIDACHS [facility] Levalbuterol HCl (Levalbuterol Hcl 1.25 Mg/3 Ml Vial.Neb) 1.25 mg INHALE RTID [facility] Last Admin: 05/25/23 07:49 Dose: Not Given Documented By: JESSICA Non-Admin Reason: neb given at 0500 Methylprednisolone Sodium Succinate (Methylprednisolone Sod Succ 40 Mg/Ml Vial) 40 mg IVPUSH Q12H [facility] Last Admin: 05/25/23 06:35 Dose: 40 mg Documented By: MYKEL Nitroglycerin (Nitroglycerin 0.4 Mg Tab.Subl) 0.4 mg SUBLINGUAL Q5M PRN PRN Reason: chest pain Ondansetron HCl (Ondansetron Hcl 4 Mg/2 Ml Vial) 4 mg IVPUSH Q8H PRN PRN Reason: Nausea and Vomiting Sodium Chloride (0.9 % Sodium Chloride Flush 3 Ml Syringe) 3 ml IVFLUSH QSHIFT [facility] Last Admin: 05/25/23 08:14 Dose: 3 ml Documented By: RIAN Labs 05/24/23 10:09 05/25/23 06:08 Labs: Laboratory Results - last 24 hr 05/24/23 05/24/23 05/24/23 10:09 11:17 13:13 Hold Purple Top Anion Gap Estim Creat Clear Calc Estimated GFR POC Glucose 188 H Random Glucose Calcium Total Bilirubin AST ALT Alkaline Phosphatase Total Protein Albumin Procalcitonin 0.08 Urine Color Yellow Urine Appearance Hazy Urine pH 6.0 Ur Specific [place] 1.010 Urine Protein Trace Urine Glucose (UA) Negative Urine Ketones Trace Urine Blood Negative Urine Nitrite Negative Ur Leukocyte Esterase Large (3+) H Urine RBC 0-2 Urine WBC >50 H Ur Squamous Epith Cells 6-10 Urine Bacteria 2+ Hyaline Casts 0-2 Influenza Type A (PCR) NEGATIVE Influenza Type B (PCR) NEGATIVE RSV RNA Qual (PCR) NEGATIVE SARS-CoV-2 RNA (RT-PCR) NEGATIVE 05/24/23 05/24/23 05/24/23 17:02 18:26 18:28 Hold Purple Top Anion Gap Estim Creat Clear Calc Estimated GFR POC Glucose 479 H* 479 H* 480 H* Random Glucose Calcium Total Bilirubin AST ALT Alkaline Phosphatase Total Protein Albumin Procalcitonin Urine Color Urine Appearance Urine pH Ur Specific [place] Urine Protein Urine Glucose (UA) Urine Ketones Urine Blood Urine Nitrite Ur Leukocyte Esterase Urine RBC Urine WBC Ur Squamous Epith Cells Urine Bacteria Hyaline Casts Influenza Type A (PCR) Influenza Type B (PCR) RSV RNA Qual (PCR) SARS-CoV-2 RNA (RT-PCR) 05/24/23 05/25/23 05/25/23 19:42 00:02 01:59 Hold Purple Top Anion Gap Estim Creat Clear Calc Estimated GFR POC Glucose 383 H* 349 H 349 H Random Glucose Calcium Total Bilirubin AST ALT Alkaline Phosphatase Total Protein Albumin Procalcitonin Urine Color Urine Appearance Urine pH Ur Specific [place] Urine Protein Urine Glucose (UA) Urine Ketones Urine Blood Urine Nitrite Ur Leukocyte Esterase Urine RBC Urine WBC Ur Squamous Epith Cells Urine Bacteria Hyaline Casts Influenza Type A (PCR) Influenza Type B (PCR) RSV RNA Qual (PCR) SARS-CoV-2 RNA (RT-PCR) 05/25/23 05/25/23 06:08 07:28 Hold Purple Top SEE NOTE Anion Gap 16 Estim Creat Clear Calc 64.7 Estimated GFR > 60 POC Glucose 343 H Random Glucose 379 H* Calcium 8.9 Total Bilirubin 0.6 AST 14 ALT 7 Alkaline Phosphatase 82 Total Protein 6.5 Albumin 3.3 L Procalcitonin Urine Color Urine Appearance Urine pH Ur Specific [place] Urine Protein Urine Glucose (UA) Urine Ketones Urine Blood Urine Nitrite Ur Leukocyte Esterase Urine RBC Urine WBC Ur Squamous Epith Cells Urine Bacteria Hyaline Casts Influenza Type A (PCR) Influenza Type B (PCR) RSV RNA Qual (PCR) SARS-CoV-2 RNA (RT-PCR) Assessment and Plan (1) Hypoxia: Status: Acute Plan 69F PMH insulin-dependent type 2 diabetes, emphysema, coronary artery disease, hypertension, hyperlipidemia, osteoporosis, lumbar and cervical degenerative disc disease presented with sob Acute hypoxic respiratory failure due to COPD with acute decompensation IV steroids, bronchodilators, wean O2 as tolerated Lower extremity edema Check echocardiogram Diabetes with hyperglycemia Basal bolus insulin with correction Monitor Hypertension Atenolol Coronary disease Continue aspirin DVT prophylaxis with Lovenox DNI, not DNR Reason continue hospitalization: Still short of breath Quality Stroke Does the patient have a stroke diagnosis?: No VTE Prior VTE?: No VTE Risk Level:: Medical - moderate - high VTE Device Contraindication: Treatment Not Indicated VTE Drug Contraindication: N/A - Med Ordered
[2023-05-25] MEDS: Magnesium Hydrox/Alum Hydrox 30 ML ORAL.SUSP PO ×2 (10:49→16:39)
[2023-05-25 10:51] LABS: SARS-CoV-2 PCR Not Detected (Not Detect.)
[2023-05-25 12:06] LABS: Glucose, Whole Blood 296 mg/dL (60-115)
[2023-05-25] MEDS: Insulin Lispro 100 UNIT/ML 3 ML VIAL 15 UNIT SUBCUT ×3 (12:31→21:06)
[2023-05-25] MEDS: Enoxaparin Sodium 40 MG/0.4 ML SYRINGE SUBCUT (14:25)
[2023-05-25] MEDS: Azithromycin 500 MG in 0.9 % Sodium Chloride 250 ML 125 MG IV (14:25)
[2023-05-25 16:23] LABS: Glucose, Whole Blood 460 mg/dL (60-115)
[2023-05-25 16:24] LABS: Glucose, Whole Blood 456 mg/dL (60-115)
[2023-05-25 20:32] LABS: Glucose, Whole Blood 185 mg/dL (60-115)
[2023-05-25 22:39] LABS: Glucose, Whole Blood 257 mg/dL (60-115)
[2023-05-25] MEDS: Insulin Glargine,Hum.rec.anlog 100 UNIT/ML 10 ML VIAL 38 UNIT SUBCUT (22:40)
[2023-05-26] MEDS: 0.9 % Sodium Chloride Flush 3 ML SYRINGE IVFLUSH ×3 (01:21→15:53)
[2023-05-26] MEDS: methylPREDNISolone Sod Succ 40 MG/ML VIAL IVPUSH ×2 (05:57→17:34)
[2023-05-26 07:09] VITALS: BP 157/81; PULSE 77; RESP 20; TEMP 36.6; O2SAT 92
[2023-05-26 07:27] LABS: Glucose, Whole Blood 336 mg/dL (60-115)
[2023-05-26 07:31] LABS: Hemoglobin 12.6 g/dl (12.0-16.0); Mean Corpuscular HGB Conc 32.3 g/dl (31.0-35.0); Mean Corpuscular Volume 89.7 fL (80.0-98.0); Mean Platelet Volume 9.7 fL (9.4-12.3); Platelet Count 192 X10*3/uL (160-400); Red Blood Count 4.35 X10*6/uL (4.20-5.50); Red Cell Distribution Width 14.6 % (11.0-16.0); White Blood Count 5.7 X10*3/uL (4.8-10.8)
[2023-05-26] MEDS: levalbuterol HCL 1.25 MG/3 ML VIAL.NEB INHALE ×3 (07:45→19:38)
[2023-05-26 07:47] VITALS: PULSE 77; RESP 20; O2SAT 92
[2023-05-26] MEDS: Insulin Lispro 100 UNIT/ML 3 ML VIAL SUBCUT ×3 (07:47→16:38)
[2023-05-26] MEDS: Insulin Lispro 100 UNIT/ML 3 ML VIAL 15 UNIT SUBCUT (07:48)
[2023-05-26] MEDS: atenoloL 25 MG TABLET PO (07:48)
[2023-05-26] MEDS: cefTRIAXone sodium 1 GM in 0.9 % Sodium Chloride 50 ML IV (07:48)
[2023-05-26 08:23] LABS: Anion Gap 13 (12-20); Blood Urea Nitrogen 16 mg/dL (9-16); Calcium 9.2 mg/dL (8.4-10.2); Carbon Dioxide 29 mmol/L (22-29); Chloride 103 mmol/L (96-108); Creatinine Clr Calc Pharmacy 75.5; Estimated Glomerular Filt Rate > 60; Glucose Fasting 368 mg/dL (60-99); Potassium 4.6 mmol/L (3.3-5.1); Sodium 140 mmol/L (135-145)
[2023-05-26] MEDS: Magnesium Hydrox/Alum Hydrox 30 ML ORAL.SUSP PO ×2 (08:31→17:34)
--- NOTE | 2023-05-26 09:36 | HO.PM.IMPN ---
Subjective Subjective Date of Service: 05/26/23 Interval History: improving sob Physical Exam Vital Signs: Vital Signs: Last Vital Signs Temp 97.8 F 05/26/23 07:09 Pulse 77 05/26/23 07:47 Resp 20 05/26/23 07:47 BP 157/81 H 05/26/23 07:09 Pulse Ox 92 05/26/23 07:09 O2 Del Method Nasal Cannula 05/26/23 07:09 O2 Flow Rate 3 05/26/23 07:09 BMI result Body Mass Index 33.4 General: AO X 3, no acute distress Resp: diminished bilateral, no accessory muscles used CVS: S1,S2,RRR GI: soft, non tender, non distended Neuro: motor grossly intact, alert Psych: appropriate affect, appropriate insight Objective Data Active Medications Acetaminophen (Acetaminophen 325 Mg Tablet) 650 mg PO Q6H PRN PRN Reason: Pain, Mild (Pain Scale 1-3) Al Hydroxide/Mg Hydroxide (Magnesium Hydrox/Alum Hydrox 30 Ml Oral.Susp) 30 ml PO Q6H PRN PRN Reason: Heartburn Last Admin: 05/26/23 08:31 Dose: 30 ml Documented By: GLENNY Atenolol (Atenolol 25 Mg Tablet) 25 mg PO DAILY [facility]; Protocol Last Admin: 05/26/23 07:48 Dose: 25 mg Documented By: GLENNY Dextrose (Dextrose 50 % 25 Gm/50 Ml Syringe) 25 gm IVPUSH Q15M PRN; Protocol PRN Reason: per Hypoglycemia Standing Ord. Dextrose (Dextrose 50 % 25 Gm/50 Ml Syringe) 25 gm IVPUSH Q15M PRN; Protocol PRN Reason: per Hypoglycemia Standing Ord. Docusate Sodium (Docusate Sodium 100 Mg Capsule) 100 mg PO DAILY PRN PRN Reason: Constipation Enoxaparin Sodium (Enoxaparin Sodium 40 Mg/0.4 Ml Syringe) 40 mg SUBCUT Q24H [facility] Last Admin: 05/25/23 14:25 Dose: 40 mg Documented By: RIAN Glucose (Glucose Gel 15 Gm Gel..Gram.) 15 gm PO Q15M PRN; Protocol PRN Reason: per Hypoglycemia Standing Ord. Glucose (Glucose Gel 15 Gm Gel..Gram.) 15 gm PO Q15M PRN; Protocol PRN Reason: per Hypoglycemia Standing Ord. Guaifenesin (Guaifenesin 200 Mg/10 Ml 10 Ml Liquid) 10 ml PO Q4H PRN PRN Reason: Cough Azithromycin 500 mg/ Sodium (Chloride) 250 mls @ 125 mls/hr IV Q24H [facility] Stop: 05/26/23 15:59 Last Infusion: 05/25/23 16:35 Dose: Infused Documented By: KEYON Ceftriaxone Sodium 1 gm/ (Sodium Chloride) 50 mls @ 100 mls/hr IV Q24H [facility] Last Infusion: 05/26/23 08:35 Dose: Infused Documented By: GLENNY Insulin Glargine (Insulin Glargine,Hum.Rec.Anlog 100 Unit/Ml 10 Ml Vial) 38 unit SUBCUT BEDTIME [facility] Last Admin: 05/25/23 22:40 Dose: 38 unit Documented By: KEYON Insulin Human Lispro (Insulin Lispro 100 Unit/Ml 3 Ml Vial) 0 unit SUBCUT QIDACHS [facility]; Protocol Last Admin: 05/26/23 07:47 Dose: 8 unit Documented By: GLENNY Insulin Human Lispro (Insulin Lispro 100 Unit/Ml 3 Ml Vial) 15 unit SUBCUT QIDACHS [facility] Last Admin: 05/26/23 07:48 Dose: 15 unit Documented By: GLENNY Levalbuterol HCl (Levalbuterol Hcl 1.25 Mg/3 Ml Vial.Neb) 1.25 mg INHALE RTID [facility] Last Admin: 05/26/23 07:45 Dose: 1.25 mg Documented By: ALFRED Methylprednisolone Sodium Succinate (Methylprednisolone Sod Succ 40 Mg/Ml Vial) 40 mg IVPUSH Q12H [facility] Last Admin: 05/26/23 05:57 Dose: 40 mg Documented By: SOO Nitroglycerin (Nitroglycerin 0.4 Mg Tab.Subl) 0.4 mg SUBLINGUAL Q5M PRN PRN Reason: chest pain Ondansetron HCl (Ondansetron Hcl 4 Mg/2 Ml Vial) 4 mg IVPUSH Q8H PRN PRN Reason: Nausea and Vomiting Sodium Chloride (0.9 % Sodium Chloride Flush 3 Ml Syringe) 3 ml IVFLUSH QSHIFT [facility] Last Admin: 05/26/23 07:55 Dose: 3 ml Documented By: GLENNY Labs 05/26/23 07:07 05/26/23 07:07 Labs: Laboratory Results - last 24 hr 05/24/23 05/25/23 05/25/23 14:09 12:00 15:26 MCV MCH MCHC RDW Plt Count MPV Absolute Nucleated RBC Nucleated RBC % (auto) Anion Gap Estim Creat Clear Calc Estimated GFR POC Glucose 296 H 456 H* Fasting Glucose Calcium Respiratory Panel Hunter See Note Adenovirus (Rapid PCR) Not Detected B.pert (TEM-PCR) Not Detected B.parapertussis DNA PCR Not Detected C. pneumoniae DNA (PCR) Not Detected Coronavirus OC43 (PCR) Not Detected Coronavirus HKU1 (PCR) Not Detected Coronavirus 229E (PCR) Not Detected Coronavirus NL63 (PCR) Not Detected Human Metapneumovir PCR Not Detected Influenza A (RT-PCR) Not Detected Influenza B (RT-PCR) Not Detected M. pneumoniae (PCR) Not Detected Parainfluenza 1 (PCR) Not Detected Parainfluenza 2 (PCR) Not Detected Parainfluenza 3 (PCR) Not Detected Parainfluenza 4 (PCR) Not Detected RSV (PCR) Not Detected Entero/Rhino (PCR) Not Detected SARS-CoV-2 RNA (RT-PCR) Not Detected 05/25/23 05/25/23 05/25/23 16:11 20:25 22:35 MCV MCH MCHC RDW Plt Count MPV Absolute Nucleated RBC Nucleated RBC % (auto) Anion Gap Estim Creat Clear Calc Estimated GFR POC Glucose 460 H* 185 H 257 H Fasting Glucose Calcium Respiratory Panel Hunter Adenovirus (Rapid PCR) B.pert (TEM-PCR) B.parapertussis DNA PCR C. pneumoniae DNA (PCR) Coronavirus OC43 (PCR) Coronavirus HKU1 (PCR) Coronavirus 229E (PCR) Coronavirus NL63 (PCR) Human Metapneumovir PCR Influenza A (RT-PCR) Influenza B (RT-PCR) M. pneumoniae (PCR) Parainfluenza 1 (PCR) Parainfluenza 2 (PCR) Parainfluenza 3 (PCR) Parainfluenza 4 (PCR) RSV (PCR) Entero/Rhino (PCR) SARS-CoV-2 RNA (RT-PCR) 05/26/23 05/26/23 07:07 07:12 MCV 89.7 MCH 29.0 MCHC 32.3 RDW 14.6 Plt Count 192 MPV 9.7 Absolute Nucleated RBC 0.000 Nucleated RBC % (auto) 0.0 Anion Gap 13 Estim Creat Clear Calc 75.5 Estimated GFR > 60 POC Glucose 336 H Fasting Glucose 368 H* Calcium 9.2 Respiratory Panel Hunter Adenovirus (Rapid PCR) B.pert (TEM-PCR) B.parapertussis DNA PCR C. pneumoniae DNA (PCR) Coronavirus OC43 (PCR) Coronavirus HKU1 (PCR) Coronavirus 229E (PCR) Coronavirus NL63 (PCR) Human Metapneumovir PCR Influenza A (RT-PCR) Influenza B (RT-PCR) M. pneumoniae (PCR) Parainfluenza 1 (PCR) Parainfluenza 2 (PCR) Parainfluenza 3 (PCR) Parainfluenza 4 (PCR) RSV (PCR) Entero/Rhino (PCR) SARS-CoV-2 RNA (RT-PCR) Microbiology Microbiology Results: Microbiology 05/24/23 Unknown Urine Culture - Final Urine clean catch - Clean Catch Midstream Enterococcus faecalis 05/24/23 10:32 Blood Culture - Preliminary Blood - Venous No growth after 24 hours. 05/24/23 10:11 Blood Culture - Preliminary Blood - Venous No growth after 24 hours. Assessment and Plan (1) Hypoxia: Status: Acute Plan 69F PMH insulin-dependent type 2 diabetes, emphysema, coronary artery disease, hypertension, hyperlipidemia, osteoporosis, lumbar and cervical degenerative disc disease presented with sob Acute hypoxic respiratory failure due to COPD with acute decompensation continue IV steroids, bronchodilators, wean O2 as tolerated Diabetes with hyperglycemia Basal bolus insulin (increased due to steroid induced hyperglycemia) with correction Monitor Hypertension Atenolol Coronary disease Continue aspirin (doesnt tolerate statins) DVT prophylaxis with Lovenox DNI, not DNR Reason continue hospitalization: Still short of breath Quality Stroke Does the patient have a stroke diagnosis?: No VTE Prior VTE?: No VTE Risk Level:: Medical - moderate - high VTE Device Contraindication: Treatment Not Indicated VTE Drug Contraindication: N/A - Med Ordered
[2023-05-26 11:13] LABS: Glucose, Whole Blood 326 mg/dL (60-115)
[2023-05-26] MEDS: Insulin Lispro 100 UNIT/ML 3 ML VIAL 20 UNIT SUBCUT ×2 (11:58→16:39)
[2023-05-26] MEDS: Azithromycin 500 MG in 0.9 % Sodium Chloride 250 ML 125 MG IV (13:38)
[2023-05-26] MEDS: Enoxaparin Sodium 40 MG/0.4 ML SYRINGE SUBCUT (13:38)
[2023-05-26 14:38] VITALS: PULSE 75; RESP 20; O2SAT 92
[2023-05-26 14:54] LABS: COVID-19 Test Negative (Negative); IDNOW Serial# 9DB6401D
[2023-05-26 16:00] VITALS: BP 112/60; PULSE 84; RESP 18; TEMP 36.3; O2SAT 94
[2023-05-26 16:14] LABS: Glucose, Whole Blood 311 mg/dL (60-115)
[2023-05-26 19:38] VITALS: PULSE 84; RESP 18; O2SAT 98
[2023-05-26 20:03] LABS: Glucose, Whole Blood 126 mg/dL (60-115)
[2023-05-26 20:34] LABS: CDiff Gene PCR NEGATIVE (Negative)
[2023-05-26] MEDS: Insulin Glargine,Hum.rec.anlog 100 UNIT/ML 10 ML VIAL 45 UNIT SUBCUT (21:38)
[2023-05-26 23:15] VITALS: BP 140/65; PULSE 98; RESP 18; TEMP 36.1; O2SAT 96
[2023-05-27] MEDS: 0.9 % Sodium Chloride Flush 3 ML SYRINGE IVFLUSH ×2 (00:15→08:01)
[2023-05-27] MEDS: methylPREDNISolone Sod Succ 40 MG/ML VIAL IVPUSH (05:48)
[2023-05-27 07:24] VITALS: BP 154/81; PULSE 95; RESP 20; TEMP 36; O2SAT 93
[2023-05-27 07:36] LABS: Glucose, Whole Blood 219 mg/dL (60-115)
[2023-05-27 07:42] LABS: Hematocrit 38.6 % (37.0-47.0); Hemoglobin 12.6 g/dl (12.0-16.0); Mean Corpuscular HGB Conc 32.6 g/dl (31.0-35.0); Mean Corpuscular Hemoglobin 29.6 pg (27.0-33.0); Mean Corpuscular Volume 90.6 fL (80.0-98.0); Mean Platelet Volume 9.4 fL (9.4-12.3); Platelet Count 193 X10*3/uL (160-400); Red Blood Count 4.26 X10*6/uL (4.20-5.50); Red Cell Distribution Width 14.6 % (11.0-16.0); White Blood Count 5.9 X10*3/uL (4.8-10.8)
[2023-05-27 07:55] LABS: Anion Gap 14 (12-20); Blood Urea Nitrogen 13 mg/dL (9-16); Calcium 8.7 mg/dL (8.4-10.2); Carbon Dioxide 30 mmol/L (22-29); Chloride 101 mmol/L (96-108); Creatinine Clr Calc Pharmacy 80.3; Estimated Glomerular Filt Rate > 60; Glucose Fasting 268 mg/dL (60-99); Potassium 4.7 mmol/L (3.3-5.1); Sodium 140 mmol/L (135-145)
[2023-05-27] MEDS: Magnesium Hydrox/Alum Hydrox 30 ML ORAL.SUSP PO (08:00)
[2023-05-27] MEDS: atenoloL 25 MG TABLET PO (08:00)
[2023-05-27] MEDS: Acetaminophen 325 MG TABLET 650 MG PO (08:00)
[2023-05-27] MEDS: Insulin Lispro 100 UNIT/ML 3 ML VIAL 20 UNIT SUBCUT (08:01)
[2023-05-27] MEDS: Insulin Lispro 100 UNIT/ML 3 ML VIAL SUBCUT (08:01)
[2023-05-27] MEDS: cefTRIAXone sodium 1 GM in 0.9 % Sodium Chloride 50 ML IV (08:01)
[2023-05-27 09:51] VITALS: BP 154/81; PULSE 95; O2SAT 93
[2023-05-27 10:56] VITALS: PULSE 65; PULSE 72; PULSE 74; O2SAT 87; O2SAT 88; O2SAT 91; O2SAT 92
[2023-05-27] MEDS: levalbuterol HCL 1.25 MG/3 ML VIAL.NEB INHALE (11:21)
[2023-05-27 11:24] VITALS: PULSE 95; RESP 20; O2SAT 94
[2023-05-27 11:41] LABS: Glucose, Whole Blood 40 mg/dL (60-115)
--- NOTE | 2023-05-27 11:51 | MHC.CM.PN ---
Per RN's request, CM met with Patient's Son/Puneet ([phone]) and reviewed the dc plan. Puneet indicated that he would relay this information to the Patient.
[2023-05-27 12:07] LABS: Glucose, Whole Blood 83 mg/dL (60-115)
--- NOTE | 2023-05-27 12:08 | PM.DS ---
DS: Providers Provider Date of Service: 05/27/23 Date of admission: 05/24/23 13:09 Primary care physician: Betzaida Lai MD DS: Diagnosis Discharge Diagnosis (1) Hypoxia: Status: Acute (2) Acute UTI: Status: Acute (3) Acute exacerbation of chronic obstructive airways disease: Status: Acute DS: Summary Hospital Course Hospital Course: Admission note HPI 69-year-old female with history of insulin-dependent type 2 diabetes, emphysema, coronary artery disease, hypertension, hyperlipidemia, osteoporosis, lumbar and cervical degenerative disc disease presents to the ED from home with her son who was flown in from [place] for evaluation of dyspnea on exertion and hypoxia. She also had productive cough with clear sputum production that has not changed. Occasionally has vomited due to severity of cough. The patient reports that she has been experiencing worsening COPD symptoms over the last 2 months. States she has always had some WREN, but about 2 months ago became worsened and she has had difficulty taking several steps without significant SOB. She has not been leaving the house. She has followed with pulmonology (December 2021- Dr. Ball) who recommended and trialed multiple maintenance inhalers which patient reports caused significant adverse effects so she refused to continue them. She states albuterol causing significant tremors and palpitations and refuses this as well. Has a nebulizer with duonebs at home but will not use these. Her son reports he checked her O2 sat last night and it was 84% at rest and dropped to the 70s with exertion. She is a former smoker with 54 pack year history (wuit 2011). Denies any drug use or etoh use. Denies fevers, chills, sore throat, congestion, abd pain, n/v/d, urinary symptoms, lightheadedness, sob at rest, orthopnea, pnd, or chest pressure. Also reports BLE edema that has been longstanding. On arrival, pt hypoxic to 87% on RA placed on 2L supplemental O2 maintaining oximetry 93-95%. Vitals otherwise wnl. No leukocytosis. Renal function and electrolyte levels normal. Glucose 188. Troponin 7.1, BNP 83. Procalcitonin 0.08. Urinalysis significant for 3+ leukocytes, negative nitrites, negative blood, positive urinary sediment and 2+ bacteria. Negative for COVID-19, RSV, influenza. CT chest noted centrilobular emphysema with prominent fine interstitial markings, subpleural bullae and small bilateral pulmonary nodules which are noted to be stable with overall progressive findings compared to prior imaging. No abnormal lymphadenopathy. CT abdomen/pelvis negative for any acute process. EKG shows sinus bradycardia, rate 56, no acute ischemic changes. Pt reports multiple adverse reactions to many medications but has tolerated 60mg IV methylprednisolone, levalbuterol/ipratropium neb, and 1g iv ceftriaxone in the ED. She will be admitted for COPD exacerbation with acute on chronic hypoxemic respiratory failure. Hospital course The patient was admitted for treatment of COPD exacerbation with hypoxia. Treated with IV steroids and bronchodilators with good response over the course of hospital stay as her O2 requirments were reduced to 2L as she reported feeling much better and was able to participate with PT who recommended VNA. evaluated by respiratory therapist for home O2. she will require 2L w ambulation and 1 at rest. To continue Taper Prednisone, Xopenex at home. She was treated for UTI with IV Ceftriaxone. her cultures grew sensitive Enterococcus and was started on PO Doxycycline for 1 more week. Continue Antibiotic as prescribed for 1 more week Prednisone tapering dose as prescribed USe Nebulizer 3 times daily for the next 5 days then as needed Avoid dry air, dust or any other stimuli Time Attestation Discharge coordination time: Greater than 30 minutes Quality: Safe Use of Opioids Does Pt have an Active Cancer Diagnosis on the Problem List?: No Quality: Stroke Does the patient have a stroke diagnosis?: No Physical Exam Vital Signs: Vital Signs: Last Vital Signs Temp 96.8 F 05/27/23 07:24 Pulse 95 05/27/23 11:24 Resp 20 05/27/23 11:24 BP 154/81 H 05/27/23 09:51 Pulse Ox 93 05/27/23 09:51 O2 Del Method Nasal Cannula 05/27/23 07:24 O2 Flow Rate 3 05/27/23 07:24 BMI result Body Mass Index 33.4 Const: Other: Constitutional : Awake, interactive, not in distress Neck : Normal inspection, Supple Cardiovascular : RRR, no JVP, no lower extremity edema Respiratory : fair bilateral air entry, no crackles, no wheezes or rhonchi Gastrointestinal: soft, lax, Normal bowel sounds, Non tender Skin : Warm, Dry Neurological : Alert & oriented x3, No focal deficit , CN 2-12 within normal DS: Data Data Completed and Pending Labs on day of discharge: Laboratory Results - last 24 hr 05/26/23 05/26/23 05/26/23 14:30 16:08 17:41 WBC RBC Hgb Hct MCV MCH MCHC RDW Plt Count MPV Absolute Nucleated RBC Nucleated RBC % (auto) Sodium Potassium Chloride Carbon Dioxide Anion Gap BUN Creatinine Estim Creat Clear Calc Estimated GFR POC Glucose 311 H Fasting Glucose Calcium C. difficile Tox B Gene NEGATIVE COVID-19 ([facility]) Negative COVID-19 Clin RCT Logic See Note 05/26/23 05/27/23 05/27/23 19:58 07:01 07:20 WBC 5.9 RBC 4.26 Hgb 12.6 Hct 38.6 MCV 90.6 MCH 29.6 MCHC 32.6 RDW 14.6 Plt Count 193 MPV 9.4 Absolute Nucleated RBC 0.000 Nucleated RBC % (auto) 0.0 Sodium 140 Potassium 4.7 Chloride 101 Carbon Dioxide 30 H Anion Gap 14 BUN 13 Creatinine 0.62 Estim Creat Clear Calc 80.3 Estimated GFR > 60 POC Glucose 126 H 219 H Fasting Glucose 268 H Calcium 8.7 C. difficile Tox B Gene COVID-19 ([facility]) COVID-19 Apprats 05/27/23 05/27/23 11:32 12:04 WBC RBC Hgb Hct MCV MCH MCHC RDW Plt Count MPV Absolute Nucleated RBC Nucleated RBC % (auto) Sodium Potassium Chloride Carbon Dioxide Anion Gap BUN Creatinine Estim Creat Clear Calc Estimated GFR POC Glucose 40 L* 83 Fasting Glucose Calcium C. difficile Tox B Gene COVID-19 ([facility]) COVID-19 Clin Com Preliminary micro results at discharge 05/24/23 10:32 Blood Culture - Preliminary Blood - Venous No growth after 48 hours. 05/24/23 10:11 Blood Culture - Preliminary Blood - Venous No growth after 48 hours. Imaging Chest x-ray: Radiologist's impression: ITS Impressions Abdomen/Pelvis CT 05/24/23 11:40 IMPRESSION: 1. Centrilobular emphysema with prominent fine interstitial markings, subpleural bullae and small bilateral pulmonary nodules, stable. The findings have progressed since 01/15/2022. 2. No abnormal mediastinal or axillary lymph nodes seen. 3. No acute process seen in the abdomen. 4. Mild constipation with colonic diverticulosis without diverticulitis. 5. Dense left abdominal wall scar Chest CT 05/24/23 11:40 IMPRESSION: 1. Centrilobular emphysema with prominent fine interstitial markings, subpleural bullae and small bilateral pulmonary nodules, stable. The findings have progressed since 01/15/2022. 2. No abnormal mediastinal or axillary lymph nodes seen. 3. No acute process seen in the abdomen. 4. Mild constipation with colonic diverticulosis without diverticulitis. 5. Dense left abdominal wall scar Discharge Plan Discharge Anticipated Discharge Date/Time: 05/27/23 11:55 Patient Disposition: Home Health Service Discharge Diagnosis: UTI COPD exacerbation Referrals: Miky PRITCHARD [Outside] - 1 Week Betzaida Lai MD [Primary Care Provider] - 1 Week Discharge Medications: New guaifenesin 100 mg/5 mL Liquid 10 mg PO Q4H PRN (Reason: Cough) Qty: 473 0RF doxycycline monohydrate 100 mg Capsule 100 mg PO Q12H Qty: 14 0RF levalbuterol HCl 1.25 mg/3 mL Solution For Nebulization 1.25 mg inhalation RTID PRN (Reason: Shortness Of Breath Or Wheezing) Qty: 120 1RF dexamethasone 2 mg tablet See Taper PO DAILY Qty: 10 0RF Taper: Prednisone 4 mg daily for 3 Days and 0 Hour 2 mg daily for 3 Days and 0 Hour Continued nitroglycerin 0.4 mg tablet, sublingual 0.4 mg sublingual NEEDED insulin glargine [Lantus U-100 Insulin] 100 unit/mL solution 38 - 42 unit subcut BEDTIME Rx Instructions: 30 units at bedtime atenolol 25 mg tablet 25 mg PO DAILY insulin aspart U-100 [Novolog U-100 Insulin aspart] 100 unit/mL solution See Rx Instructions subcut .tid ac Protocol: Insulin Correction Scale Less than or equal to 110 ---- Give (units): 0 111 to 150 Give (units): 0 151 to 200 Give (units): 2 201 to 250 Give (units): 4 251 to 300 Give (units): 6 301 to 350 Give (units): 8 Greater than 350 Give (units): 10 Call MD if Blood Glucose > : 350 Rx Instructions: subcutaneously TID AC; sliding scale (DME) insulin syringe-needle U-100 [BD Insulin Syringe Ultra-Fine] 1 mL 30 gauge x 1/2 syringe See Rx Instructions .ROUTE .MEDSUPPLY Qty: 400 4RF Rx Instructions: qid ac (DME) OneTouch Ultra Test Strip See Rx Instructions .Route Qty: 300 4RF Rx Instructions: test blood sugar 3 times per day Discharge Orders: Discharge Order (Routine); Ordered 05/27/23 Ordered By: Sherrell Vanegas Diet: Advance to usual diet Activity on Discharge: As tolerated Stand Alone Forms: Patient Portal Discharge page Care Plan Goals: Read below Health Concerns: Read below Plan of Treatment: Read below Assessment: You were treated in the hospital for COPD exacerbation and Urine infection with good response. Continue Antibiotic as prescribed for 1 more week Prednisone tapering dose as prescribed USe Nebulizer 3 times daily for the next 5 days then as needed Avoid dry air, dust or any other stimuli Discharge Date/Time: 05/27/23 15:13
--- NOTE | 2023-05-27 12:27 | MHC.CM.PN ---
Patient has been medically cleared for dc to home today with services. Patient has been accepted by NA, who has been made aware of today's dc. Last IMM addressed on 05/25/2023.
--- NOTE | 2023-05-27 12:30 | W.MHC.F2F ---
Service Date Service Date: 05/27/23 Encounter Date of encounter: 05/27/23 Reasons for Services Signs and symptoms assessed: [place] O[place] Physical deconditioning Reason for long-term: medication management and teach disease management Reason for physical therapy: home safety and mobility and therapeutic exercises Homebound: Leaving the home is medically contraindicated at this time without the asist of a device and/or another person due th the listed conditions above and below. Reason homebound: unsteady gait / fall risk Certification: Based on the above findings, I certify that this patient is confined to the home and needs intermittent long-term care, physical therapy and/or speech therapy, or continues to need occupational therapy. The patient is under my care, and I have initiated the establishment of the plan of care. The patient will be followed by a physician who will periodically review the plan of care. Time Spent With Patient Time: Total time managing care of this patient today ____ minutes.
[2023-05-27] MEDS: Doxycycline Monohydrate 100 MG CAPSULE PO (12:59)
[2023-05-27 13:02] LABS: Glucose, Whole Blood 180 mg/dL (60-115)
[2023-05-27 13:09] LABS: Adenovirus F 40/41 Not Detected (Not Detect.); Astrovirus Not Detected (Not Detect.); Campylobacter Not Detected (Not Detect.); Cryptosporidium Not Detected (Not Detect.); Cyclospora cayetanensis Not Detected (Not Detect.); E. coli EAEC Not Detected (Not Detect.); E. coli EPEC Not Detected (Not Detect.); E. coli ETEC Not Detected (Not Detect.); E. coli STEC Not Detected (Not Detect.); Entamoeba histolytica Not Detected (Not Detect.); Giardia lamblia Not Detected (Not Detect.); Norovirus GI/GII Not Detected (Not Detect.); Plesiomonas shigelloides Not Detected (Not Detect.); Rotavirus A Not Detected (Not Detect.); Salmonella Not Detected (Not Detect.); Sapovirus Not Detected (Not Detect.); Shigella sp./EIEC Not Detected (Not Detect.); Vibrio Not Detected (Not Detect.); Vibrio Cholerae Not Detected (Not Detect.); Yersinia enterocolitica Not Detected (Not Detect.)
== END 2023-05-27 15:13 | disposition home health service (06) | DRG 190 ==
LOC: HO.ED 11:14 → HO.EDOVER 13:27 → HO.IMC 23:39
PROVIDERS: Internal Medicine; Admitting Provider Physician Assistant; Emergency Provider Emergency Medicine; PCP Internal Medicine; Visit Provider Student in an Organized Health Care Education/Training Program
DX: J43.2 Centrilobular emphysema (principal); J96.01 Acute respiratory failure with hypoxia; N39.0 Urinary tract infection, site not specified; I25.10 Atherosclerotic heart disease of native coronary artery without angina pectoris; B95.2 Enterococcus as the cause of diseases classified elsewhere; Z95.1 Presence of aortocoronary bypass graft; I11.0 Hypertensive heart disease with heart failure; I50.812 Chronic right heart failure; E11.65 Type 2 diabetes mellitus with hyperglycemia; Z20.822 Contact with and (suspected) exposure to COVID-19; Z79.4 Long term (current) use of insulin; Z79.899 Other long term (current) drug therapy
CPT/HCPCS: 0241U; 36415; 71250; 74176; 80048; 80053; 80076; 81001; 82803; 82947; 83605; 83690; 83735; 83880; 84145; 84484; 85025; 85027; 85610; 87040; 87086; 87088; 87186; 87493; 87507; 87633; 87635; 93005; 93306; 94640; 97162; 99285; J0456; J0696; J1650; J2920; J2930; Q9957

== ENCOUNTER 2023-05-24 13:09 | Outpatient (BNV) | payer MEDICARE, MEDICAID, SELFPAY | END 2023-05-25 07:00 | PROVIDERS: Admitting Provider Physician Assistant; Emergency Provider Emergency Medicine; PCP Internal Medicine; Visit Provider Internal Medicine Cardiovascular Disease | DX: I34.81 Nonrheumatic mitral (valve) annulus calcification (principal) | CPT/HCPCS: 93306 ==

== ENCOUNTER → 2023-05-24 13:09 | Outpatient (BNV) | payer MEDICARE, MEDICAID, SELFPAY | PROVIDERS: Admitting Provider Physician Assistant; Emergency Provider Emergency Medicine; PCP Internal Medicine; Visit Provider Physician Assistant | DX: J96.01 Acute respiratory failure with hypoxia (principal); J44.1 Chronic obstructive pulmonary disease with (acute) exacerbation; N39.0 Urinary tract infection, site not specified | CPT/HCPCS: 99223; 99232; 99233; 99239; G0180 ==

== ENCOUNTER 2023-07-09 14:01 | Outpatient (REF) | payer MEDICARE, OTHER, MEDICAID, SELFPAY | END 2023-07-09 14:02 | disposition home or self-care (01) | LOC: HO.HVNA 14:01 | PROVIDERS: Visit Provider Internal Medicine | DX: Z13.89 Encounter for screening for other disorder (principal) | CPT/HCPCS: 87086 ==

== ENCOUNTER 2023-08-14 11:17 | Outpatient (REF) | payer MEDICARE, OTHER, MEDICAID, SELFPAY | END 2023-08-14 11:18 | disposition home or self-care (01) | LOC: HO.LNP 11:17 | PROVIDERS: PCP Internal Medicine; Visit Provider Nurse Practitioner Family | DX: N39.0 Urinary tract infection, site not specified (principal); R33.9 Retention of urine, unspecified | CPT/HCPCS: 51798; 81003; 87086; 87088; 87186; 99202 ==

== ENCOUNTER 2023-08-14 11:19 | Outpatient (AMB) | payer MEDICARE, MEDICAID, SELFPAY ==
--- NOTE | 2023-08-14 11:13 | A.OFFVIS_ITS ---
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 Accompanied by: Self / Same As Patient Allergies hydrocodone [Vicodin] Allergy (Unknown, Verified 08/14/23 12:04) hives ibuprofen [IBUPROFEN] Allergy (Unknown, Verified 08/14/23 12:04) SWOLLEN EYELIDS, CONFUSION lovastatin [Mevacor] Allergy (Unknown, Verified 08/14/23 12:04) hives naproxen Allergy (Unknown, Verified 08/14/23 12:04) hives rosuvastatin [Crestor] Allergy (Unknown, Verified 08/14/23 12:04) hives atorvastatin [From LIPITOR] Adverse Reaction (Severe, Verified 08/14/23 12:04) SEVERE DEEP BONES PAIN lisinopril Adverse Reaction (Unknown, Verified 08/14/23 12:04) hives amitriptlyn Allergy (Unknown, Uncoded 08/14/23 12:04) hives ditripan xl Allergy (Unknown, Uncoded 08/14/23 12:04) headaches ivp dye Allergy (Unknown, Uncoded 08/14/23 12:04) throat constriction and hives lipitor Allergy (Unknown, Uncoded 08/14/23 12:04) body pain Nuprin Allergy (Unknown, Uncoded 08/14/23 12:04) hives prednisone Allergy (Unknown, Uncoded 08/14/23 12:04) confusion qvar Adverse Reaction (Unknown, Uncoded 08/14/23 12:04) hives Medication List - Last Reconciled 08/14/23 by ELIO SuazoP-BC atenolol 25 mg PO DAILY blood sugar diagnostic (D2C Gamesuch Ultra Test strips) test blood sugar 3 times per day clotrimazole 1% appl topical BID doxycycline monohydrate 100 mg PO Q12H insulin aspart U-100 (Novolog U-100 Insulin aspart) See Protocol subcutaneously TID AC; sliding scale insulin glargine (Lantus U-100 Insulin) 38 - 42 units subcut BEDTIME insulin syringe-needle U-100 (BD Insulin Syringe Ultra-Fine) qid ac levalbuterol HCl 1.25 mg (3 mL) inhalation RTID PRN nitrofurantoin macrocrystal 100 mg PO BID 14 days nitroglycerin 0.4 mg sublingual NEEDED HPI HPI Comments History of Present Illness Details Kellen is a very pleasant 77-year-old female patient of Dr. Lai. She has a past medical history of degenerative lumbar spinal stenosis, osteoporosis, COPD, myocardial infarction, herniated lumbar intervertebral disc, coronary artery disease, hypertension, chronic low back pain, dyslipidemia, diabetes, and recurrent urinary tract infections. She presents to the office today as a new patient for recurrent urinary tract infections. In discussion with the patient today she reports having been hospitalized twice in the last four years for a urinary tract infection. She reports typically following up with her PCP and or urgent care for treatment of urinary tract infections however has since been referred to Urology for further assessment and evaluation. When asked she currently reports feeling she has a urinary tract infection. She reports typical symptoms for her when she has or believes she has a urinary tract infection is nocturia and a unique sensation to her vagina which she is currently experiencing. In office urinalysis results reviewed with the patient today 3+ leukocytes negative nitrates. PVR 21 mLs. She otherwise denies urinary urgency, urinary frequency, incontinence, hematuria, dysuria, foul smelling urine, changes to urinary stream, flank pain, fever, and or chills. She is happy with her current voiding parameters when she is not having any UTI like symptoms. She discusses her recent hospitalization for COPD and being on steroids for treatment subsequently her sugars are elevated. She reports increasing dose of insulin this morning and upon appointment today felt dizzy however after drinking her juice she is feeling better. She denies any issues with constipation. Discussed at length potential causes of recurrent urinary tract infections. Discussed further workup with retroperitoneal ultrasound and urine culture. She otherwise offers no other issues or concerns at this time. [facility] Medical History Degenerative lumbar spinal stenosis Colonoscopy refused Osteoporosis Herniated lumbar intervertebral disc CAD (coronary artery disease) Cervical disc herniation Essential hypertension Chronic low back pain Dyslipidemia Diabetes mellitus, with long-term current use of insulin Surgical History S/P cervical spinal fusion S/P angioplasty Family History Father Substance use disorder Brother Substance use disorder Mental health disorder Social History Household Members: None Housing: House Do you presently have visiting nurse or other home services: No Patient Tobacco Use Status: Former Tobacco user e-Cigarette/Vaping Use: Never Used Advance Directives Date on File: 05/25/23 service: No Current occupational status: retired Cognitive needs: No Hearing needs: No Vision needs: Yes Review of Systems Eyes Reports no additional complaints ENT Reports no additional complaints Card Reports as per HPI Resp Reports as per HPI GI Reports no additional complaints Reports as per HPI Musc Reports as per HPI Neuro Reports no additional complaints Psych Reports no additional complaints Endo Reports as per HPI Samuel/Lymph Reports no additional complaints Aller/Immun Reports no additional complaints Physical Exam Vital Signs: Last Vital Signs BP 130/80 08/14/23 11:55 Const General: cooperative, healthy appearing, comfortable, no acute distress, well developed, alert and awake Orientation/consciousness: patient oriented x3 Limitations: no limitations HEENT Head: Yes normal to inspection, Yes normocephalic and Yes atraumatic Ears: hearing grossly normal bilaterally Eyes General: appearance normal, both eyes and all related structures Neck Neck: Yes normal visual inspection and Yes trachea midline Chest Chest palpation & inspection: normal inspection of the chest Resp Effort & Inspection: normal respiratory effort and able to speak in complete sentences Cardio Rate: regular rate GI Inspection: Yes normal to inspection General: Yes no CVA tenderness Back/Spine/Pelvis Back: no CVA tenderness Skin General skin exam: no rashes or lesions noted Neuro General: patient oriented x3 Extrem General: Yes normal to inspection Psych Appearance: grossly normal and well kempt Mental Status: mental status grossly normal Speech and movement: Normal speech and movement present and Clear speech present Affect: normal affect Attitude: cooperative Thought process: Normal thought process present Thought content: Normal thought content present Insight: Fair insight present (Psych) Judgement: Fair judgement present (Psych) Office Procedures Post Void Residual Post Residual Void Post Void Residual (PVR): 21 [id number] Void Residual by ultrasound Results AMB Urinalysis, Automated UA Leukoctes 500 Jorje/uL Last Edit by June Loya CMA on 08/14/23 11:38 UA Nitrite Negative Last Edit by [facility], [facility] on 08/14/23 11: 38 UA Urobilinogen 0.2 mg/dL [facility], [facility] on 4 11:38 UA Protein 30 mg/dL Last Edit by [facility], [facility] on 08/14/23 11:3 8 UA pH 7.0 Last Edit by [facility], [facility] on 08/14/23 11:38 UA Blood 80 Sincere/uL Last Edit by [facility], [facility] on 08/14/23 11:38 UA Specific [place] 1.020 Last Edit by [facility], [facility] on 11:38 UA Ketone Positive Last Edit by [facility], [facility] on 08/14/23 11:3 8 5mg/dl [facility] 08/14/23 11:38 UA Bilirubin 0 mg/dL Last Edit by [facility], [facility] on 08/14/23 11: 38 UA Glucose 0 mg/dL Last Edit by [facility], [facility] on 08/14/23 11:38 Results Reviewed Results Reviewed: Laboratory Last Values Urine pH (Auto) 7.0 08/14/23 11:31 Specific [place] (Auto) 1.020 08/14/23 11:31 Urine Protein (Auto) 30 mg/dL 08/14/23 11:31 Glucose (UA)(Auto) 0 mg/dL 08/14/23 11:31 Urine Ketones (Auto) Positive 08/14/23 11:31 Urine Blood (Auto) 80 Sincere/uL 08/14/23 11:31 Urine Nitrite (Auto) Negative 08/14/23 11:31 Urine Bilirubin (Auto) 0 mg/dL 08/14/23 11:31 Urine Urobilinogen (Auto) 0.2 mg/dL 08/14/23 11:31 Leukocyte Esterase (Auto) 500 Jorje/uL 08/14/23 11:31 Assessment & Plan Assessment & Plan (1) Complicated urinary tract infection: Code(s): N39.0 - Urinary tract infection, site not specified (2) Recurrent UTI: Code(s): N39.0 - Urinary tract infection, site not specified Plan In office urinalysis results reviewed with the patient today; as noted above; will send for urine culture. Discussed at length potential causes for recurrent urinary tract infections. Discussed further treatment options for recurrent urinary tract infections. Will obtain retroperitoneal ultrasound for further assessment evaluation. PVR 21 mL. Start Macrobid as discussed and prescribed. Discussed UTI prevention with D mannose supplement, vitamin-C, increasing fluid intake, behavioral therapy with timed voiding, perineal hygiene and postcoital voiding, and management of constipation with stool softeners and increased fiber intake. Discussed possible near future microgen and in office cystoscopy if symptoms persist, and or worsen. Follow-up in 1 month with imaging to be completed prior; or sooner with any issues, concerns, and or questions Orders: Orders US retroperitoneal comp Today N39.0 - Urinary tract infection, site not specified AMB Post Void Residual by ultrasound Today R33.9 - Retention of urine, unspecified Urine Culture Today N39.0 - Urinary tract infection, site not specified AMB Urinalysis Automated Today R33.9 - Retention of urine, unspecified Medications: New nitrofurantoin macrocrystal 100 mg PO BID 14 days 28 caps 0RF R32 - Unspecified urinary incontinence Patient Instructions: The patient had an opportunity to ask questions regarding the treatment plan. All questions were answered. Physical exam, labs, and imaging were discussed and reviewed in detail. As well as risks, benefits, and discussion of treatment choices. No major barriers to understanding were identified. The patient expressed understanding and agreement with the above treatment plan. The patient was made aware they should contact our office by phone for worsening of their current condition, the appearance of new symptoms, or with any questions or concerns. Compliance is encouraged with any medications and follow up testing that is ordered. It is a privilege to be allowed the opportunity to participate in? your urological care.? Again, if you have any questions or concerns If you have any questions or concerns please do not hesitate to contact me. The office is [phone]. This note is constructed using voice recognition software. While every effort has been made to ensure accuracy renewal specialist errors may have been included. Yours sincerely, MARIANNE Suazo Coding Level of Care Code New Pt Level 4 (48525) Diagnoses Complicated urinary tract infection N39.0 Recurrent UTI N39.0 CPT Codes Post Residual Void - PVR CPT Code: 07783-[id number] Void Residual by ultrasound ([id number])
[2023-08-14 11:55] VITALS: BP 130/80
== END 2023-08-14 13:32 | disposition home or self-care (01) ==
PROVIDERS: PCP Internal Medicine; Visit Provider Nurse Practitioner Family
DX: N39.0 Urinary tract infection, site not specified (principal); R33.9 Retention of urine, unspecified
CPT/HCPCS: 99204

== ENCOUNTER 2023-09-18 14:45 | Outpatient (AMB) | payer MEDICARE, MEDICAID, SELFPAY ==
[2023-09-18 14:58] VITALS: BP 132/60; PULSE 82; O2SAT 95; BMI 33.3
--- NOTE | 2023-09-18 14:58 | A.OFFVIS_ITS ---
Intake Vital Signs 09/18/23 14:58 Height 5 ft 4 in Weight 194 lb BMI 33.3 BP 132/60 Blood Pressure Location Lt brachial Position Sitting Pulse 82 Pulse Source Pulse Oximeter Pulse Oximetry (%) 95 Oxygen Delivery Method Room Air Intake Visit Reasons: COPD Conventional Underwriter Required: No Allergies hydrocodone [Vicodin] Allergy (Unknown, Verified 09/18/23 15:03) hives ibuprofen [IBUPROFEN] Allergy (Unknown, Verified 09/18/23 15:03) SWOLLEN EYELIDS, CONFUSION lovastatin [Mevacor] Allergy (Unknown, Verified 09/18/23 15:03) hives naproxen Allergy (Unknown, Verified 09/18/23 15:03) hives rosuvastatin [Crestor] Allergy (Unknown, Verified 09/18/23 15:03) hives atorvastatin [From LIPITOR] Adverse Reaction (Severe, Verified 09/18/23 15:03) SEVERE DEEP BONES PAIN lisinopril Adverse Reaction (Unknown, Verified 09/18/23 15:03) hives amitriptlyn Allergy (Unknown, Uncoded 09/18/23 15:03) hives ditripan xl Allergy (Unknown, Uncoded 09/18/23 15:03) headaches ivp dye Allergy (Unknown, Uncoded 09/18/23 15:03) throat constriction and hives lipitor Allergy (Unknown, Uncoded 09/18/23 15:03) body pain Nuprin Allergy (Unknown, Uncoded 09/18/23 15:03) hives prednisone Allergy (Unknown, Uncoded 09/18/23 15:03) confusion qvar Adverse Reaction (Unknown, Uncoded 09/18/23 15:03) hives HPI HPI Comments History of Present Illness Details The patient is here for pulmonary evaluation. The patient is a 77 -year-old woman with a known COPD and former smoker. The patient states that she had been having hard time with the breathing. Finally her son came from [place] and she brought her to the [facility] ED where she was admitted to the hospital. Her blood gas was reassuring although hypoxic. The patient did have a COPD exacerbation and was treated effectively for. During the hospitalization the patient did have a CT scan of the chest demonstrating significant emphysema and also evidence of airspace disease suggesting pneumonitis. Her respiratory viral panel was negative. She was treated for COPD exacerbation. She was discharged on oxygen. Now she has been using leave albuterol twice a day with partial improving her symptoms. She had been on prednisone but now tapered off. She also has diabetes which is a problem with the prednisone. She has having a congested cough. [id number]-[id number] severity. The patient is not using her oxygen. Will go ahead and do a 6 minute walk test today to see what her oxygen needs are. The patient does have a component of chronic bronchitis and therefore inhaled cortical steroids will become effective. 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 She tried multiple inhalers in the past and was not successful. Therefore will start her on budesonide nebulized therapy along with levo albuterol that she can do twice a day to see if we can improve her respiratory status. [facility] Medical History Degenerative lumbar spinal stenosis Colonoscopy refused Osteoporosis Herniated lumbar intervertebral disc CAD (coronary artery disease) Cervical disc herniation Essential hypertension Chronic low back pain Dyslipidemia Diabetes mellitus, with long-term current use of insulin Surgical History S/P cervical spinal fusion S/P angioplasty Family History Father Substance use disorder Brother Substance use disorder Mental health disorder Social History Household Members: None Housing: House Do you presently have visiting nurse or other home services: No Patient Tobacco Use Status: Former Tobacco user e-Cigarette/Vaping Use: Never Used Advance Directives Date on File: 05/25/23 service: No Current occupational status: retired Cognitive needs: No Hearing needs: No Vision needs: Yes Review of Systems Const Denies fever(s) Eyes Reports no additional complaints ENT Reports nasal congestion Card Denies chest pain, Reports dyspnea and Reports dyspnea on exertion Resp Reports cough, Reports dyspnea, Reports dyspnea on exertion and Denies wheezing GI Reports no additional complaints Musc Reports as per HPI, Reports abnormal gait and Reports muscle weakness Skin/Breast Denies jaundice Neuro Reports abnormal gait Samuel/Lymph Denies lymphadenopathy Aller/Immun Denies wheezing Physical Exam Vital Signs: Last Vital Signs Pulse 82 09/18/23 14:58 BP 132/60 09/18/23 14:58 Pulse Ox 95 09/18/23 14:58 Oxygen Delivery Method Room Air 09/18/23 14:58 BMI result Body Mass Index 33.3 Const General: comfortable HEENT Head: Yes normocephalic Neck Neck: Yes supple Chest Chest palpation & inspection: normal inspection of the chest Resp Effort & Inspection: normal respiratory effort Auscultation: diminished lung sounds Cardio Heart sounds: S1 normal heart sound present and S2 normal heart sound present GI Palpation (GI): Soft to palpation Skin General skin exam: no rashes or lesions noted Office Procedures 6 Minute Walk Time:: 15:25 SPO2 % at rest: 97 Pulse at rest: 72 SPO2 % during excercise: 95 Pulse during excercise: 88 SPO2 % after excercise: 97 Pulse after excercise: 78 Distance in yards walked: 25 Dannielle Score: 8 Performance Observations:: Patient walked very slowly on level ground using a cane. Patient maintained O2 saturation of 95% or greater with pulse rate of 88 or lower. Patient needed to stop to rest twice during walk..reports back pain with any walking and gets short of breath even on level ground. No supplemental O2 was required. [address]01 - 6 Minute Walk Assessment & Plan Assessment & Plan (1) COPD (chronic obstructive pulmonary disease): Code(s): J44.9 - Chronic obstructive pulmonary disease, unspecified Qualifiers: COPD type: chronic bronchitis Chronic bronchitis type: simple Qualified Code(s): J41.0 - Simple chronic bronchitis (2) Pulmonary nodules: Code(s): R91.8 - Other nonspecific abnormal finding of lung field (3) Spinal stenosis, lumbar region with neurogenic claudication: Code(s): M48.062 - Spinal stenosis, lumbar region with neurogenic claudication Plan continue Xopenex TID Start BUdesonide nebs BID PFTs start Pulmonary rehab F/U 3 months Orders: Orders PFT pulmonary function test 09/18/23 J44.9 - Chronic obstructive pulmonary disease, unspecified Pulmonary Rehab 09/18/23 J44.9 - Chronic obstructive pulmonary disease, uns pecified AMB 6 minute walk 09/18/23 J44.9 - Chronic obstructive pulmonary disease, unspecified Medications: New budesonide 0.5 mg (2 mL) inhalation BID 30 days 120 mL 11RF J44.9 - Chronic obstructive pulmonary disease, unspecified Coding Level of Care Code New Pt Level 4 (72544) Diagnoses Simple chronic bronchitis J41.0 COPD type: chronic bronchitis Chronic bronchitis type: simple Pulmonary nodules R91.8 Spinal stenosis, lumbar region with neurogenic claudication M48.062 CPT Codes Coding ([id number]) Time Spent (min) 40
[2023-09-18 15:52] VITALS: PULSE 72; O2SAT 97
== END 2023-09-18 15:37 | disposition home or self-care (01) ==
PROVIDERS: PCP Internal Medicine; Visit Provider Hospitalist
DX: J41.0 Simple chronic bronchitis (principal); R91.8 Other nonspecific abnormal finding of lung field
CPT/HCPCS: 94618; 99204

== ENCOUNTER → 2023-09-18 14:45 | Outpatient (BNVA) | payer MEDICARE, MEDICAID, SELFPAY | PROVIDERS: PCP Internal Medicine; Visit Provider Hospitalist | DX: J41.0 Simple chronic bronchitis (principal); R91.8 Other nonspecific abnormal finding of lung field; M48.062 Spinal stenosis, lumbar region with neurogenic claudication; Z87.891 Personal history of nicotine dependence | CPT/HCPCS: 94618; 99202 ==

== ENCOUNTER 2023-09-25 10:18 | Outpatient (REF) | payer MEDICARE, MEDICAID, SELFPAY ==
--- NOTE | ~2023-09-25 | US_ITS ---
EXAMINATION: US RETROPERITONEAL COMPLETE (RENAL) CLINICAL INFORMATION: Urinary tract infection, site not specified. COMPARISON: CT abdomen and pelvis 05/24/2023. Renal ultrasound 10/09/2016. TECHNIQUE: Real-time imaging of the kidneys and bladder. FINDINGS: RIGHT KIDNEY: 9.2 x 3.1 x 3.7 cm (SAG x AP x TRV). The kidney is normal in size, contour, and echogenicity. Renal cortical thickness is normal. No calculi or focal parenchymal lesions. No hydronephrosis. LEFT KIDNEY: 9.1 x 4.7 x 4.2 cm (SAG x AP x TRV). The kidney is normal in size, contour, and echogenicity. Renal cortical thickness is normal. No calculi or focal parenchymal lesions. No hydronephrosis. BLADDER: Bladder is decompressed. Bilateral ureteral jets are not demonstrated. Prevoid bladder volume is 29.3 mL. Postvoid bladder volume is 20.2 mL. The patient did not want to fill her bladder due to urinary incontinence. US/US retroperitoneal comp IMPRESSION: 1. Normal appearance of the kidneys. 2. The bladder is decompressed, limiting evaluation.
== END 2023-09-25 10:19 | disposition home or self-care (01) ==
LOC: HO.US 10:18
PROVIDERS: PCP Internal Medicine; Visit Provider Nurse Practitioner Family
DX: N39.0 Urinary tract infection, site not specified (principal)
CPT/HCPCS: 76770

== ENCOUNTER 2023-10-27 | Outpatient (REF) | payer MEDICARE, MEDICAID, SELFPAY ==
[2023-10-27 09:14] VITALS: PULSE 82; RESP 16; O2SAT 97
== END 2023-10-27 00:01 | disposition home or self-care (01) ==
LOC: HO.RESP
PROVIDERS: PCP Internal Medicine; Visit Provider Hospitalist
DX: J44.9 Chronic obstructive pulmonary disease, unspecified (principal)
CPT/HCPCS: 94010; 94640; 94727; 94729

== ENCOUNTER → 2023-11-26 10:03 | Outpatient (BNVA) | payer MEDICARE, OTHER, SELFPAY | PROVIDERS: PCP Internal Medicine; Visit Provider Nurse Practitioner Family | DX: N39.0 Urinary tract infection, site not specified (principal); R32 Unspecified urinary incontinence; R30.0 Dysuria | CPT/HCPCS: 51798; 81003; 99212 ==

== ENCOUNTER → 2023-11-26 10:03 | Outpatient (AMB) | payer MEDICARE, MEDICAID, SELFPAY ==
--- NOTE | 2023-11-26 10:12 | A.OFFVIS_ITS ---
Intake Visit Reasons: 2m follow/US(set) Intake Note: Patient presents today for follow up visit for recurrent uti's Urology Medications: none Blood Thinner: none PVR:0ml's Electrical Wirer Required: No Accompanied by: Self / Same As Patient Allergies hydrocodone [Vicodin] Allergy (Unknown, Verified 11/26/23 10:52) hives ibuprofen [IBUPROFEN] Allergy (Unknown, Verified 11/26/23 10:52) SWOLLEN EYELIDS, CONFUSION lovastatin [Mevacor] Allergy (Unknown, Verified 11/26/23 10:52) hives naproxen Allergy (Unknown, Verified 11/26/23 10:52) hives rosuvastatin [Crestor] Allergy (Unknown, Verified 11/26/23 10:52) hives atorvastatin [From LIPITOR] Adverse Reaction (Severe, Verified 11/26/23 10:52) SEVERE DEEP BONES PAIN lisinopril Adverse Reaction (Unknown, Verified 11/26/23 10:52) hives amitriptlyn Allergy (Unknown, Uncoded 11/26/23 10:52) hives ditripan xl Allergy (Unknown, Uncoded 11/26/23 10:52) headaches ivp dye Allergy (Unknown, Uncoded 11/26/23 10:52) throat constriction and hives lipitor Allergy (Unknown, Uncoded 11/26/23 10:52) body pain Nuprin Allergy (Unknown, Uncoded 11/26/23 10:52) hives prednisone Allergy (Unknown, Uncoded 11/26/23 10:52) confusion qvar Adverse Reaction (Unknown, Uncoded 11/26/23 10:52) hives Medication List - Last Reconciled 11/26/23 by ELIO SuazoP-BC atenolol 25 mg PO DAILY blood sugar diagnostic (Calcula TechnologiesTouch Ultra Test strips) test blood sugar 3 times per day budesonide 0.5 mg (2 mL) inhalation BID 30 days clotrimazole 1% appl topical BID insulin aspart U-100 (Novolog U-100 Insulin aspart) See Protocol subcutaneously TID AC; sliding scale insulin glargine (Lantus U-100 Insulin) 38 - 42 units subcut BEDTIME insulin syringe-needle U-100 (BD Insulin Syringe Ultra-Fine) qid ac levalbuterol HCl 1.25 mg (3 mL) inhalation RTID PRN levalbuterol HCl 1.25 mg (3 mL) inhalation TID 30 days nitroglycerin 0.4 mg sublingual NEEDED HPI Comments Details: Kellen is a very pleasant 78-year-old female patient of Dr. Lai. She has a past medical history of degenerative lumbar spinal stenosis, osteoporosis, COPD, myocardial infarction, herniated lumbar intervertebral disc, coronary artery disease, hypertension, chronic low back pain, dyslipidemia, diabetes, and recurrent urinary tract infections. She presents to the office today for follow-up. Of note, patient was seen approximately 3 months ago as a new patient for recurrent urinary tract infections at which time a retroperitoneal ultrasound was ordered for further assessment evaluation. These results were reviewed with the patient today. Bilateral kidneys with no calculi, lesions, and or hydronephrosis. The bladder is decompressed. Bilateral ureteral jets are not demonstrated. Pre void bladder volume is approximately 30 mL. Postvoid bladder volume is approximately 20 mL. The patient did not want to fill her bladder due to urinary incontinence. During last office visit patient was reporting UTI like symptoms therefore her urine was sent for urine culture. 08/22 urine culture noted Enterococcus faecalis. She has since completed antibiotic therapy of nitrofurantoin. In discussion with the patient today she reports noting intermittent issues of dysuria however it is not consistent. In office urinalysis results reviewed with the patient today. Negative nitrates negative leukocytes. PH 5.5. Discussed importance of drinking water daily. PVR 0 mL. She discusses her ongoing medical issues with her diabetes and COPD. She repor ts sugars to be uncontrolled at times due to steroids for her COPD. Discussed at length affects of uncontrolled diabetes on lower urinary tract symptoms as well as overall health and well-being. She does report episodes of urinary incontinence discussed further treatment options to include pelvic floor therapy, medications, and or in office urodynamics for further assessment evaluation. Patient discusses currently she is on many medications and does not want to add another medication and feels her urinary incontinence is manageable with Yesenia pads. She denies hematuria, dysuria, foul smelling urine, changes to urinary stream, flank pain, fever, and or chills. She denies any issues with constipation. Discussed at length potential causes of recurrent urinary tract infections. She otherwise offers no other issues or concerns at this time. [facility] Medical History Degenerative lumbar spinal stenosis Colonoscopy refused Osteoporosis Herniated lumbar intervertebral disc CAD (coronary artery disease) Cervical disc herniation Essential hypertension Chronic low back pain Dyslipidemia Diabetes mellitus, with long-term current use of insulin Surgical History S/P cervical spinal fusion S/P angioplasty Family History Father Substance use disorder Brother Substance use disorder Mental health disorder Social History Household Members: None Housing: House Do you presently have visiting nurse or other home services: No Patient Tobacco Use Status: Former Tobacco user e-Cigarette/Vaping Use: Never Used Advance Directives Date on File: 05/25/23 service: No Current occupational status: retired Cognitive needs: No Hearing needs: No Vision needs: Yes Review of Systems Eyes Reports no additional complaints ENT Reports no additional complaints Card Reports as per HPI Resp Reports as per HPI GI Reports no additional complaints Reports as per HPI Musc Reports as per HPI Neuro Reports no additional complaints Psych Reports no additional complaints Endo Reports as per HPI Samuel/Lymph Reports no additional complaints Aller/Immun Reports no additional complaints Physical Exam Const General: cooperative, healthy appearing, comfortable, no acute distress, well developed, alert and awake Nutritional Appearance: overweight Orientation/consciousness: patient oriented x3 Limitations: ambulation with cane and other limitations (O2 dependent 2 L via nasal cannula) HEENT Head: Yes normal to inspection, Yes normocephalic and Yes atraumatic Ears: hearing grossly normal bilaterally Eyes General: appearance normal, both eyes and all related structures Neck Neck: Yes normal visual inspection and Yes trachea midline Chest Chest palpation & inspection: normal inspection of the chest Resp Effort & Inspection: normal respiratory effort and able to speak in complete sentences Cardio Rate: regular rate GI Inspection: Yes normal to inspection General: Yes no CVA tenderness Back/Spine/Pelvis Back: no CVA tenderness Skin General skin exam: no rashes or lesions noted Neuro General: patient oriented x3 Extrem General: Yes normal to inspection Psych Appearance: grossly normal and well kempt Mental Status: mental status grossly normal Speech and movement: Normal speech and movement present and Clear speech present Affect: normal affect Attitude: cooperative Thought process: Normal thought process present Thought content: Normal thought content present Insight: Fair insight present (Psych) Judgement: Fair judgement present (Psych) Office Procedures Post Void Residual Post Residual Void Post Void Residual (PVR): 0 [id number]-[id number] Void Residual by ultrasound Results AMB Urinalysis, Automated UA Leukoctes 0 Jorje/uL Last Edit by [employer] on 11/26/23 10:39 UA Nitrite Negative Last Edit by [employer] on 11/26/23 10:39 UA Urobilinogen 0.2 mg/dL Last Edit by [employer] on 11/26/23 10:39 UA Protein 15 mg/dL Last Edit by [employer] on 11/26/23 10:39 UA pH 5.5 Last Edit by [employer] on 11/26/23 10:39 UA Blood 25 Sincere/uL Last Edit by [employer] on 11/26/23 10:39 UA Specific [place] 1.025 Last Edit by [employer] on 11/26/23 10:39 UA Ketone Negative Last Edit by [employer] on 11/26/23 10:39 UA Bilirubin 0 mg/dL Last Edit by [employer] on 11/26/23 10:39 UA Glucose 0 mg/dL Last Edit by [employer] on 11/26/23 10:39 Results Reviewed Results Reviewed: Date of Service: 09/25/23 EXAMINATION: US RETROPERITONEAL COMPLETE (RENAL) FINDINGS: RIGHT KIDNEY: 9.2 x 3.1 x 3.7 cm (SAG x AP x TRV). The kidney is normal in size, contour, and echogenicity. Renal cortical thickness is normal. No calculi or focal parenchymal lesions. No hydronephrosis. LEFT KIDNEY: 9.1 x 4.7 x 4.2 cm (SAG x AP x TRV). The kidney is normal in size, contour, and echogenicity. Renal cortical thickness is normal. No calculi or focal parenchymal lesions. No hydronephrosis. BLADDER: Bladder is decompressed. Bilateral ureteral jets are not demonstrated. Prevoid bladder volume is 29.3 mL. Postvoid bladder volume is 20.2 mL. The patient did not want to fill her bladder due to urinary incontinence. IMPRESSION: 1. Normal appearance of the kidneys. 2. The bladder is decompressed, limiting evaluation. Assessment & Plan Assessment & Plan (1) Recurrent UTI: Code(s): N39.0 - Urinary tract infection, site not specified Category: Medical (2) Urinary incontinence: Code(s): R32 - Unspecified urinary incontinence Category: Medical (3) Dysuria: Code(s): R30.0 - Dysuria Category: Medical Plan In office urinalysis results reviewed with the patient today; as noted above. PVR 0 mL. Discussed, educated, and stressed the importance of drinking water daily. Start Estrace cream as discussed and prescribed. Discussed further treatment options for incontinence; however will continue with surveillance monitoring at this time per patient request. Recent retroperitoneal ultrasound results reviewed with the patient today; as noted above. Discussed at length potential causes of recurrent urinary tract infections. Discussed UTI prevention with D mannose supplement, vitamin-C, increasing fluid intake, behavioral therapy with timed voiding, perineal hygiene and postcoital voiding, and management of constipation with stool softeners and increased fiber intake. Follow-up in 3 months with PVR; or sooner with any issues, concerns, and or questions. Orders: Orders AMB Urinalysis Automated Today Z13.9 - Encounter for screening, unspecified AMB Post Void Residual by ultrasound Today N39.0 - Urinary tract infection, site not specified Medications: New estradiol 0.01%(0.1mg/gram) Daily times one month and then 3 times per week thereafter; pea sized amount to urethra. 30 days 42.5 grams 3RF Patient Instructions: The patient had an opportunity to ask questions regarding the treatment plan. All questions were answered. Physical exam, labs, and imaging were discussed and reviewed in detail. As well as risks, benefits, and discussion of treatment choices. No major barriers to understanding were identified. The patient expressed understanding and agreement with the above treatment plan. The patient was made aware they should contact our office by phone for worsening of their current condition, the appearance of new symptoms, or with any questions or concerns. Compliance is encouraged with any medications and follow up testing that is ordered. It is a privilege to be allowed the opportunity to participate in? your urological care.? Again, if you have any questions or concerns If you have any questions or concerns please do not hesitate to contact me. The office is [phone]. This note is constructed using voice recognition software. While every effort has been made to ensure accuracy grave digger errors may have been included. Yours sincerely, ANDERS Suazo-SHEYLA Coding Level of Care Code Est Pt Level 4 (42968) Complex EM visit Add On G2211 Diagnoses Recurrent UTI N39.0 Urinary incontinence R32 Dysuria R30.0 CPT Codes Post Residual Void - PVR CPT Code: 17053-Uzlm Void Residual by ultrasound ([id number])
== END ==
PROVIDERS: PCP Internal Medicine; Visit Provider Nurse Practitioner Family
DX: N39.0 Urinary tract infection, site not specified (principal); R32 Unspecified urinary incontinence; R30.0 Dysuria; Z13.9 Encounter for screening, unspecified
CPT/HCPCS: 99214; G2211

== ENCOUNTER 2024-02-08 08:37 | Outpatient (REF) | payer MEDICARE, MEDICAID, SELFPAY | END 2024-02-08 08:38 | disposition home or self-care (01) | LOC: HO.HOSX 08:37 | PROVIDERS: Visit Provider Physician Assistant | DX: Z13.89 Encounter for screening for other disorder (principal) ==

== ENCOUNTER 2024-03-01 10:51 | Outpatient (AMB) | payer MEDICARE, MEDICAID, SELFPAY ==
--- NOTE | 2024-03-01 11:25 | AM.OFFWIN_ITS ---
Intake Vital Signs 3 03/01/24 11:27 Height 5 ft 4 in Weight 195 lb BMI 33.5 BP 122/74 Blood Pressure Location Rt brachial Position Sitting Pulse 60 Pulse Source Pulse Oximeter Pulse Oximetry (%) 96 Oxygen Delivery Method Room Air Intake Visit Reasons: EP LT hand injury Intake Note: Patient here for left hand pain/injury that happened January 14. She states she hit her hand and wrist when it happened and pain is now radiating up the arm. Patient Tobacco Use Status: Former Tobacco user Allergies hydrocodone [Vicodin] Allergy (Unknown, Verified 03/01/24 11:29) hives ibuprofen [IBUPROFEN] Allergy (Unknown, Verified 03/01/24 11:29) SWOLLEN EYELIDS, CONFUSION lovastatin [Mevacor] Allergy (Unknown, Verified 03/01/24 11:29) hives naproxen Allergy (Unknown, Verified 03/01/24 11:29) hives rosuvastatin [Crestor] Allergy (Unknown, Verified 03/01/24 11:29) hives atorvastatin [From LIPITOR] Adverse Reaction (Severe, Verified 03/01/24 11:29) SEVERE DEEP BONES PAIN lisinopril Adverse Reaction (Unknown, Verified 03/01/24 11:29) hives amitriptlyn Allergy (Unknown, Uncoded 03/01/24 11:29) hives ditripan xl Allergy (Unknown, Uncoded 03/01/24 11:29) headaches ivp dye Allergy (Unknown, Uncoded 03/01/24 11:29) throat constriction and hives lipitor Allergy (Unknown, Uncoded 03/01/24 11:29) body pain Nuprin Allergy (Unknown, Uncoded 03/01/24 11:29) hives prednisone Allergy (Unknown, Uncoded 03/01/24 11:29) confusion qvar Adverse Reaction (Unknown, Uncoded 03/01/24 11:29) hives Do you need a note to return to daycare/school/sports/work: No HPI EP LT hand injury 2 HPI0 Details This is a 78-year-old female patient who presents to the walk-in clinic today with worsening left lateral hand/wrist and lower arm pain. She had an injury on 01/14, in which the lateral aspect of that left lower arm slammed against a desk. She has been trying to cook treat this conservatively with ice, [id number] wrist brace, Tylenol, without relief. She states in fact the pain has been worsening and radiating up left arm. Reports it is excruciating. COUNT INCLUDES THE [facility] Medical History Degenerative lumbar spinal stenosis Colonoscopy refused Osteoporosis Herniated lumbar intervertebral disc CAD (coronary artery disease) Cervical disc herniation Essential hypertension Chronic low back pain Dyslipidemia Diabetes mellitus, with long-term current use of insulin Surgical History S/P cervical spinal fusion S/P angioplasty Family History Father Substance use disorder Brother Substance use disorder Mental health disorder Social History Household Members: None Housing: House Do you presently have visiting nurse or other home services: No Patient Tobacco Use Status: Former Tobacco user e-Cigarette/Vaping Use: Never Used Advance Directives Date on File: 05/25/23 service: No Current occupational status: retired Cognitive needs: No Hearing needs: No Vision needs: Yes Review of Systems Const All systems reviewed & are unremarkable except as noted in HPI and below Physical Exam Vital Signs: Last Vital Signs Pulse 60 03/01/24 11:27 BP 122/74 03/01/24 11:27 Pulse Ox 96 03/01/24 11:27 Oxygen Delivery Method Room Air 03/01/24 11:27 BMI result Body Mass Index 33.5 Const General: cooperative Resp Effort & Inspection: normal respiratory effort Skin General skin exam: no rashes or lesions noted Extrem Left upper extremity: normal capillary refill, no joint enlargement and wrist (TTP lateral aspect left hand/wrist and distal aspect of ulna) Hand/finger images: 2 1. pain Psych Appearance: grossly normal Mental Status: mental status grossly normal Speech and movement: Normal speech and movement present Assessment & Plan Assessment & Plan (1) Left wrist pain: Code(s): M25.532 - Pain in left wrist Plan: XR of left wrist obtained in the office today - There is advanced degenerative change the first CMC joint. There is advanced arthritic process noted at the second MCP joint. Diffuse osteopenia. Carpal alignment normal. No fracture or dislocation or destructive lesion. Volar vascular calcifications are noted. Results reviewed with patient. I provided her with a left wrist splint which she reports provides some comfort and stability. She [place] [facility] [place] She will continue to utilize ice and Tylenol as needed for comfort. (2) Left wrist injury: Code(s): S69.92XA - Unspecified injury of left wrist, hand and finger(s), initial encounter Qualifiers: Encounter type: initial encounter Qualified Code(s): S69.92XA - Unspecified injury of left wrist, hand and finger(s), initial encounter Plan: As above Coding Level of Care Code Est Pt Level 4 (21858) Diagnoses Left wrist pain M25.532 Injury of left wrist, initial encounter S69.92XA Encounter type: initial encounter
[2024-03-01 11:27] VITALS: BP 122/74; PULSE 60; O2SAT 96; BMI 33.5
== END 2024-03-01 13:00 | disposition home or self-care (01) ==
PROVIDERS: PCP Internal Medicine; Visit Provider Nurse Practitioner Family
DX: M25.532 Pain in left wrist (principal); S69.92XA Unspecified injury of left wrist, hand and finger(s), initial encounter
CPT/HCPCS: 99214

== ENCOUNTER 2024-03-01 12:01 | Outpatient (REF) | payer MEDICARE, MEDICAID, SELFPAY ==
--- NOTE | ~2024-03-01 | XR_ITS ---
EXAMINATION: XR WRIST, LEFT CLINICAL INFORMATION: Left-sided pain COMPARISON: None available. TECHNIQUE: PA, lateral, and oblique views of the left wrist. FINDINGS: There is advanced degenerative change the first CMC joint. There is advanced arthritic process noted at the second MCP joint. Diffuse osteopenia. Carpal alignment normal. No fracture or dislocation or destructive lesion. Volar vascular calcifications are noted. XR/XR wrist LT min 3V IMPRESSION: Degenerative changes noted. No acute findings. Electronically signed by: Miguel Ángel Sparks MD 03/01/2024 01:41 PM EDT
== END 2024-03-01 12:02 | disposition home or self-care (01) ==
LOC: HO.HMGCX 12:01
PROVIDERS: PCP Internal Medicine; Visit Provider Nurse Practitioner Family
DX: M25.532 Pain in left wrist (principal)
CPT/HCPCS: 73110

== ENCOUNTER 2024-03-09 | Outpatient (REF) | payer MEDICARE, MEDICAID, SELFPAY | END 2024-03-09 00:01 | disposition home or self-care (01) | LOC: CF | PROVIDERS: Visit Provider Orthopaedic Surgery | DX: M25.511 Pain in right shoulder (principal) | CPT/HCPCS: 20610; 99202; J1010 ==

== ENCOUNTER 2024-03-09 08:54 | Outpatient (AMB) | payer MEDICARE, MEDICAID, SELFPAY ==
[2024-03-09 08:55] VITALS: BMI 33.5
--- NOTE | 2024-03-09 08:55 | MHC.OFFVIS ---
Vital Signs 03/09/24 08:55 Height 5 ft 4 in Weight 195 lb BMI 33.5 Intake Visit Reasons: [employer]- RT shoulder pain Intake Note: Kellen a 78 year old female who presents today for a new patient evaluation of right shoulder pain. The patient states that she fell onto her right shoulder in January of 2023 when she slipped in her bathroom. She has been doing [id number]-[id number] exercises which have improved her strength somewhat. She reports mild weakness when lifting her right hand above shoulder height. She has taken Tylenol and aspirin which gave her mild relief. She has not had a cortisone injection given into her right shoulder. She did have a cortisone injection given into her left shoulder several years ago which gave her fairly good relief of her left shoulder pain. She wishes to hold off on surgery if at all possible. Allergies hydrocodone [Vicodin] Allergy (Unknown, Verified 03/09/24 09:03) hives ibuprofen [IBUPROFEN] Allergy (Unknown, Verified 03/09/24 09:03) SWOLLEN EYELIDS, CONFUSION lovastatin [Mevacor] Allergy (Unknown, Verified 03/09/24 09:03) hives naproxen Allergy (Unknown, Verified 03/09/24 09:03) hives rosuvastatin [Crestor] Allergy (Unknown, Verified 03/09/24 09:03) hives atorvastatin [From LIPITOR] Adverse Reaction (Severe, Verified 03/09/24 09:03) SEVERE DEEP BONES PAIN lisinopril Adverse Reaction (Unknown, Verified 03/09/24 09:03) hives amitriptlyn Allergy (Unknown, Uncoded 03/01/24 11:29) hives ditripan xl Allergy (Unknown, Uncoded 03/01/24 11:29) headaches ivp dye Allergy (Unknown, Uncoded 03/01/24 11:29) throat constriction and hives lipitor Allergy (Unknown, Uncoded 03/01/24 11:29) body pain Nuprin Allergy (Unknown, Uncoded 03/01/24 11:29) hives prednisone Allergy (Unknown, Uncoded 03/01/24 11:29) confusion qvar Adverse Reaction (Unknown, Uncoded 03/01/24 11:29) hives Medication List - Last Reconciled 03/09/24 by Carlos Shultz MD atenolol 25 mg PO DAILY blood sugar diagnostic ([employer] Ultra Test strips) test blood sugar 3 times per day clotrimazole 1% appl topical BID estradiol 0.01%(0.1mg/gram) Daily times one month and then 3 times per week thereafter; pea sized amount to urethra. 30 days insulin aspart U-100 (Novolog U-100 Insulin aspart) See Protocol subcutaneously TID AC; sliding scale insulin glargine (Lantus U-100 Insulin) 38 - 42 units subcut BEDTIME insulin syringe-needle U-100 (BD Insulin Syringe Ultra-Fine) qid ac levalbuterol HCl 1.25 mg (3 mL) inhalation RTID PRN levalbuterol HCl 1.25 mg (3 mL) inhalation TID 30 days lidocaine 4% (Aspercreme (lidocaine)) 1 patch topical DAILY PRN nitroglycerin 0.4 mg sublingual NEEDED PFSH Medical History Degenerative lumbar spinal stenosis Colonoscopy refused Osteoporosis Herniated lumbar intervertebral disc CAD (coronary artery disease) Cervical disc herniation Essential hypertension Chronic low back pain Dyslipidemia Diabetes mellitus, with long-term current use of insulin Surgical History S/P cervical spinal fusion S/P angioplasty Family History Father Substance use disorder Brother Substance use disorder Mental health disorder Social History Household Members: None Housing: House Do you presently have visiting nurse or other home services: No Patient Tobacco Use Status: Former Tobacco user e-Cigarette/Vaping Use: Never Used Advance Directives Date on File: 05/25/23 service: No Current occupational status: retired Cognitive needs: No Hearing needs: No Vision needs: Yes Physical Exam Vital Signs: BMI result Body Mass Index 33.5 Const Other: Well-nourished well-developed very friendly female awake alert and oriented x3 in no acute distress Extrem Other: Bilateral upper extremity examination shows good capillary refill, no skin lesions noted, normal sensation light touch Right shoulder examination shows almost full range of motion when compared to her left shoulder, 4+ out of 5 strength with supraspinatus testing, positive impingement signs, no instability Office Procedures Joint Injection/Aspiration Joint Injection/Aspiration Primary Site: right shoulder Prep: site was prepped using aseptic technique Injected: 40 mg of, DepoMedrol and 1% plain lidocaine Procedure: The patient tolerated the procedure well Coding - Large joint Procedure code (CPT) selection complete Results Reviewed Results Reviewed: Halle right shoulder MRI report shows evidence of partial-thickness supraspinatus tearing, no full-thickness tear noted, a type 2 acromion, no acute bony abnormalities Assessment & Plan Assessment & Plan (1) Right shoulder pain: Code(s): M25.511 - Pain in right shoulder Category: Medical Plan Ms. Stewart presents with right shoulder pain due to impingement syndrome and partial-thickness rotator cuff tearing. I had a lengthy discussion with the patient regarding the treatment options. The risks and benefits of a right shoulder cortisone injection were discussed at length with the patient. The patient wished to proceed. She tolerated the injection well. She will continue with her home stretching program to prevent stiffness. The do's and don'ts of lifting were discussed at length with the patient. She will contact me prior to her follow-up appointment in 3 months should any questions or concerns arise. Feel free to call me at any time should questions regarding her orthopedic management arise. I spent 21 minutes in reviewing the patient's records and imaging studies, seeing the patient and documenting in the medical record. Orders: Orders XR shoulder RT min 2V Today Carlos Shultz MD M25.511 - Pain in right shoulder AMB Joint Injection/Aspiration Today Carlos Shultz MD M25.511 - Pain in right shoulder XR shoulder RT min 2V 02/08/24 Helio Prince PA-C M25.511 - Pain in right shoulder Coding Level of Care Code New Pt Level 3 (80468) Complex EM visit Add On G2211 Diagnoses Right shoulder pain M25.511 CPT Codes Coding - 47497 Large joint: 99537 - Large joint ([id number])
== END 2024-03-09 09:28 | disposition home or self-care (01) ==
PROVIDERS: PCP Internal Medicine; Visit Provider Orthopaedic Surgery
DX: M25.511 Pain in right shoulder (principal)
CPT/HCPCS: 20610; 99203

== ENCOUNTER 2024-03-14 12:30 | Outpatient (REF) | payer MEDICARE, MEDICAID, SELFPAY ==
[2024-03-14 17:02] LABS: Urine Cytology See Pathology rpt
== END 2024-03-14 12:31 | disposition home or self-care (01) ==
LOC: HO.LNP 12:30
PROVIDERS: PCP Internal Medicine; Visit Provider Nurse Practitioner Family
DX: R31.29 Other microscopic hematuria (principal); R32 Unspecified urinary incontinence; N39.0 Urinary tract infection, site not specified; R35.1 Nocturia
CPT/HCPCS: 51798; 81003; 88112; 99212

== ENCOUNTER 2024-03-14 12:30 | Outpatient (AMB) | payer MEDICARE, MEDICAID, SELFPAY ==
--- NOTE | 2024-03-14 12:55 | MHC.OFFVIS ---
Intake Visit Reasons: 3m/PVR Intake Note: Patient presents today for follow up visit for recurrent uti's Urology Medications: none Blood Thinner: none PVR:0ml's Tooling Mechanic Required: No Accompanied by: Self / Same As Patient Allergies hydrocodone [Vicodin] Allergy (Unknown, Verified 03/14/24 13:25) hives ibuprofen [IBUPROFEN] Allergy (Unknown, Verified 03/14/24 13:25) SWOLLEN EYELIDS, CONFUSION lovastatin [Mevacor] Allergy (Unknown, Verified 03/14/24 13:25) hives naproxen Allergy (Unknown, Verified 03/14/24 13:25) hives rosuvastatin [Crestor] Allergy (Unknown, Verified 03/14/24 13:25) hives atorvastatin [From LIPITOR] Adverse Reaction (Severe, Verified 03/14/24 13:25) SEVERE DEEP BONES PAIN lisinopril Adverse Reaction (Unknown, Verified 03/14/24 13:25) hives amitriptlyn Allergy (Unknown, Uncoded 03/14/24 13:25) hives ditripan xl Allergy (Unknown, Uncoded 03/14/24 13:25) headaches ivp dye Allergy (Unknown, Uncoded 03/14/24 13:25) throat constriction and hives lipitor Allergy (Unknown, Uncoded 03/14/24 13:25) body pain Nuprin Allergy (Unknown, Uncoded 03/14/24 13:25) hives prednisone Allergy (Unknown, Uncoded 03/14/24 13:25) confusion qvar Adverse Reaction (Unknown, Uncoded 03/14/24 13:25) hives Medication List - Last Reconciled 03/14/24 by ANDERS Suazo-SHEYLA atenolol 25 mg PO DAILY blood sugar diagnostic ([employer]ol[employer]Touch Ultra Test strips) test blood sugar 3 times per day clotrimazole 1% appl topical BID estradiol 0.01%(0.1mg/gram) Daily times one month and then 3 times per week thereafter; pea sized amount to urethra. 30 days insulin aspart U-100 (Novolog U-100 Insulin aspart) See Protocol subcutaneously TID AC; sliding scale insulin glargine (Lantus U-100 Insulin) 38 - 42 units subcut BEDTIME insulin syringe-needle U-100 (BD Insulin Syringe Ultra-Fine) qid ac levalbuterol HCl 1.25 mg (3 mL) inhalation RTID PRN levalbuterol HCl 1.25 mg (3 mL) inhalation TID 30 days lidocaine 4% (Aspercreme (lidocaine)) 1 patch topical DAILY PRN nitroglycerin 0.4 mg sublingual NEEDED HPI Comments Details: Kellen is a very pleasant 78-year-old female patient of Dr. Lai. She has a past medical history of degenerative lumbar spinal stenosis, osteoporosis, COPD, myocardial infarction, herniated lumbar intervertebral disc, coronary artery disease, hypertension, chronic low back pain, dyslipidemia, diabetes, and recurrent urinary tract infections. She presents to the office today for follow-up. In discussion with the patient today she reports to be doing and feeling well. She reports since her last office visit here approximately 3 months ago she has not had any UTIs and or UTI like symptoms. In office urinalysis results reviewed with the patient today 2+ microscopic hematuria otherwise within normal limits. PVR 0 mL. When asked she reports compliance with Estrace cream as prescribed. Previous workup has included a retroperitoneal ultrasound 09/19 noting bilateral kidneys with no calculi, lesions, and or hydronephrosis. The bladder is decompressed. Bilateral ureteral jets are not demonstrated. Pre void bladder volume is approximately 30 mL. Postvoid bladder volume is approximately 20 mL. The patient did not want to fill her bladder due to urinary incontinence. Patient with previous positive urine culture 08/22 that noted Enterococcus faecalis. She has since completed antibiotic therapy of nitrofurantoin.She discusses her ongoing medical issues with her diabetes and COPD. She reports sugars to be uncontrolled at times due to steroids for her COPD. Discussed at length affects of uncontrolled diabetes on lower urinary tract symptoms as well as overall health and well-being. She discusses her son's ongoing medical issues who lives out in [place]. She does report episodes of urinary incontinence and nocturia however does not find them bothersome and does not wish to undergo further treatment options at this time. When asked she denies hematuria, dysuria, foul smelling urine, changes to urinary stream, flank pain, fever, and or chills. She denies any issues with constipation. Discussed at length potential causes of recurrent urinary tract infections. She otherwise offers no other issues or concerns at this time. [facility] Medical History Degenerative lumbar spinal stenosis Colonoscopy refused Osteoporosis Herniated lumbar intervertebral disc CAD (coronary artery disease) Cervical disc herniation Essential hypertension Chronic low back pain Dyslipidemia Diabetes mellitus, with long-term current use of insulin Surgical History S/P cervical spinal fusion S/P angioplasty Family History Father Substance use disorder Brother Substance use disorder Mental health disorder Social History Household Members: None Housing: House Do you presently have visiting nurse or other home services: No Patient Tobacco Use Status: Former Tobacco user e-Cigarette/Vaping Use: Never Used Advance Directives Date on File: 05/25/23 service: No Current occupational status: retired Cognitive needs: No Hearing needs: No Vision needs: Yes Review of Systems Eyes Reports no additional complaints ENT Reports no additional complaints Card Reports as per HPI Resp Reports as per HPI GI Reports no additional complaints Reports as per HPI Musc Reports as per HPI Neuro Reports no additional complaints Psych Reports no additional complaints Endo Reports as per HPI Samuel/Lymph Reports no additional complaints Aller/Immun Reports no additional complaints Physical Exam Const General: cooperative, healthy appearing, comfortable, no acute distress, well developed, alert and awake Nutritional Appearance: overweight Orientation/consciousness: patient oriented x3 Limitations: ambulation with cane and other limitations (O2 dependent 2 L via nasal cannula) HEENT Head: Yes normal to inspection, Yes normocephalic and Yes atraumatic Ears: hearing grossly normal bilaterally Eyes General: appearance normal, both eyes and all related structures Neck Neck: Yes normal visual inspection and Yes trachea midline Chest Chest palpation & inspection: normal inspection of the chest Resp Effort & Inspection: normal respiratory effort and able to speak in complete sentences Cardio Rate: regular rate GI Inspection: Yes normal to inspection General: Yes no CVA tenderness Back/Spine/Pelvis Back: no CVA tenderness Skin General skin exam: no rashes or lesions noted Neuro General: patient oriented x3 Extrem General: Yes normal to inspection Psych Appearance: grossly normal and well kempt Mental Status: mental status grossly normal Speech and movement: Normal speech and movement present and Clear speech present Affect: normal affect Attitude: cooperative Thought process: Normal thought process present Thought content: Normal thought content present Insight: Fair insight present (Psych) Judgement: Fair judgement present (Psych) Office Procedures Post Void Residual Post Residual Void Post Void Residual (PVR): 0 [id number] Void Residual by ultrasound Results AMB Urinalysis, Automated UA Leukoctes 0 Jorje/uL Last Edit by Wayne Vega on 03/14/24 13:17 UA Nitrite Last Edit by Wayne Vega on 03/14/24 13:17 UA Urobilinogen 0.2 mg/dL Last Edit by Wayne Vega on 03/14/24 13:17 UA Protein 15 mg/dL Last Edit by [employer] on 03/14/24 13:17 UA pH 6.0 Last Edit by [employer] Vega on 03/14/24 13:17 UA Blood 80 Sincere/uL Last Edit by [employer] Vega on 03/14/24 13:17 UA Specific [place] 1.020 Last Edit by [employer] Vega on 03/14/24 13:17 UA Ketone Negative Last Edit by [employer] Vega on 03/14/24 13:17 UA Bilirubin 0 mg/dL Last Edit by [employer] Vega on 03/14/24 13:17 UA Glucose 0 mg/dL Last Edit by [employer] on 03/14/24 13:17 Results Reviewed Results Reviewed: Laboratory Last Values Urine pH (Auto) 6.0 03/14/24 13:02 Specific [place] (Auto) 1.020 03/14/24 13:02 Urine Protein (Auto) 15 mg/dL 03/14/24 13:02 Glucose (UA)(Auto) 0 mg/dL 03/14/24 13:02 Urine Ketones (Auto) Negative 03/14/24 13:02 Urine Blood (Auto) 80 Sincere/uL 03/14/24 13:02 Urine Bilirubin (Auto) 0 mg/dL 03/14/24 13:02 Urine Urobilinogen (Auto) 0.2 mg/dL 03/14/24 13:02 Leukocyte Esterase (Auto) 0 Jorje/uL 03/14/24 13:02 Assessment & Plan Assessment & Plan (1) Urinary incontinence: Code(s): R32 - Unspecified urinary incontinence Category: Medical (2) Recurrent UTI: Code(s): N39.0 - Urinary tract infection, site not specified Category: Medical (3) Microscopic hematuria: Code(s): R31.29 - Other microscopic hematuria Category: Medical (4) Nocturia: Code(s): R35.1 - Nocturia Category: Medical Plan In office urinalysis results reviewed with the patient today; as noted above; will send for urine cytology. PVR 0 mL Patient currently denies any bothersome urinary issues or concerns. Will continue with Estrace cream as discussed and prescribed. Discussed UTI prevention with D mannose supplement, vitamin-C, increasing fluid intake, behavioral therapy with timed voiding, perineal hygiene and postcoital voiding, and management of constipation with stool softeners and increased fiber intake. Discussed, educated, and stressed the importance of managing diabetes for improvement lower urinary tract symptoms as well as overall health and well-being. Patient does report episodes of incontinence as well as nocturia however will continue with surveillance monitoring at this time as she does not feel symptoms are bothersome to undergo further treatment options. Follow-up in 6 months with PVR; or sooner with any issues, concerns, and or questions. Orders: Orders AMB Urinalysis Automated Today Z13.9 - Encounter for screening, unspecified AMB Post Void Residual by ultrasound Today N39.0 - Urinary tract infection, site not specified Urine Cytology Today R31.29 - Other microscopic hematuria Patient Instructions: The patient had an opportunity to ask questions regarding the treatment plan. All questions were answered. Physical exam, labs, and imaging were discussed and reviewed in detail. As well as risks, benefits, and discussion of treatment choices. No major barriers to understanding were identified. The patient expressed understanding and agreement with the above treatment plan. The patient was made aware they should contact our office by phone for worsening of their current condition, the appearance of new symptoms, or with any questions or concerns. Compliance is encouraged with any medications and follow up testing that is ordered. It is a privilege to be allowed the opportunity to participate in? your urological care.? Again, if you have any questions or concerns If you have any questions or concerns please do not hesitate to contact me. The office is [phone]. This note is constructed using voice recognition software. While every effort has been made to ensure accuracy traffic counter errors may have been included. Yours sincerely, MARIANNE Suazo Coding Level of Care Code Est Pt Level 3 (02056) Complex EM visit Add On G2211 Diagnoses Urinary incontinence R32 Recurrent UTI N39.0 Microscopic hematuria R31.29 Nocturia R35.1 CPT Codes Post Residual Void - PVR CPT Code: 94652-Mnca Void Residual by ultrasound ([id number])
== END 2024-03-14 13:25 | disposition home or self-care (01) ==
LOC: HO.HUSH 12:30
PROVIDERS: PCP Internal Medicine; Visit Provider Nurse Practitioner Family
DX: R32 Unspecified urinary incontinence (principal); N39.0 Urinary tract infection, site not specified; R31.29 Other microscopic hematuria; R35.1 Nocturia; Z13.9 Encounter for screening, unspecified
CPT/HCPCS: 99213; G2211

== ENCOUNTER 2024-03-21 08:32 | Outpatient (AMB) | payer MEDICARE, MEDICAID, SELFPAY ==
--- NOTE | 2024-03-21 09:01 | A.OFFVIS_ITS ---
Vital Signs 03/21/24 09:04 Height 5 ft 4 in Weight 195 lb BMI 33.5 Handedness Right Intake Visit Reasons: NewProb-Left wrist pain, DOI 01/15/24 Intake Note: Kellen is a 78 year old right hand dominant female who presents today for a new problem visit for complaints of left wrist pain s/p DOI: 01/12/2024. 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 She expresses the lateral side of her left hand is what banged against the desk. She feels sharp pain depending on her movements. She sleeps with a pillow under her arm and her left hand on her chest in a recliner chair and expresses occasionally waking up with her hand feeling numb and tingly. She removed her splint when she does dishes or takes a shower and expresses extreme pain that radiates from her 5th digit into her wrist. Her pain is mainly located on her lateral, medial, and dorsal aspect of the left wrist. Patient also mentioned she has occasional trigger finger in the middle finger but hasn't in a while because she has not been using her hand as much. Allergies hydrocodone [Vicodin] Allergy (Unknown, Verified 03/14/24 13:25) hives ibuprofen [IBUPROFEN] Allergy (Unknown, Verified 03/14/24 13:25) SWOLLEN EYELIDS, CONFUSION lovastatin [Mevacor] Allergy (Unknown, Verified 03/14/24 13:25) hives naproxen Allergy (Unknown, Verified 03/14/24 13:25) hives rosuvastatin [Crestor] Allergy (Unknown, Verified 03/14/24 13:25) hives atorvastatin [From LIPITOR] Adverse Reaction (Severe, Verified 03/14/24 13:25) SEVERE DEEP BONES PAIN lisinopril Adverse Reaction (Unknown, Verified 03/14/24 13:25) hives amitriptlyn Allergy (Unknown, Uncoded 03/14/24 13:25) hives ditripan xl Allergy (Unknown, Uncoded 03/14/24 13:25) headaches ivp dye Allergy (Unknown, Uncoded 03/14/24 13:25) throat constriction and hives lipitor Allergy (Unknown, Uncoded 03/14/24 13:25) body pain Nuprin Allergy (Unknown, Uncoded 03/14/24 13:25) hives prednisone Allergy (Unknown, Uncoded 03/14/24 13:25) confusion qvar Adverse Reaction (Unknown, Uncoded 03/14/24 13:25) hives HPI HPI NewProb-Left wrist pain, DOI 01/15/24: Details: Patient is a 78-year-old female who presents for evaluation of left wrist pain after a fall, date of injury 01/15/24. 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 Since that time, the patient reports that she has been experiencing significant pain in her left wrist, primarily in the ulnar aspect from the base of the small finger to the ulnar styloid and moving into the forearm. 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 Of note, the patient reports that she has been wearing a Velcro wrist splint with most daytime activities since previous evaluation, as she feels that this does help her to ?stop my wrist from moving too much and hurting?. Patient reports that she does occasionally wake from sleep with her hand numb and tingly, but this is mostly due to elevation, and that this does not happen during the day. No other acute complaints or concerns at this time. [facility] Medical History Degenerative lumbar spinal stenosis Colonoscopy refused Osteoporosis Herniated lumbar intervertebral disc CAD (coronary artery disease) Cervical disc herniation Essential hypertension Chronic low back pain Dyslipidemia Diabetes mellitus, with long-term current use of insulin Surgical History S/P cervical spinal fusion S/P angioplasty Family History Father Substance use disorder Brother Substance use disorder Mental health disorder Social History Household Members: None Housing: House Do you presently have visiting nurse or other home services: No Patient Tobacco Use Status: Former Tobacco user e-Cigarette/Vaping Use: Never Used Advance Directives Date on File: 05/25/23 service: No Current occupational status: retired Cognitive needs: No Hearing needs: No Vision needs: Yes Review of Systems Const All systems reviewed & are unremarkable except as noted in HPI and below Physical Exam Vital Signs: BMI result Body Mass Index 33.5 Extrem Other: Patient is alert, oriented, and in no acute distress. Neuro: Normal sensation of the tips of all digits of the L hand at this time Vascular: Cap refill brisk Pain: Patient reports significant tenderness to palpation about the ulnar aspect of the left wrist, particularly from the base of the small finger to just proximal to the ulnar styloid. Patient reports significant pain with resisted wrist extension, particularly in the ulnar aspect of the wrist Patient reports some mild tenderness to palpation of the center of the wrist on both the dorsal and volar aspects No tenderness to palpation of the left anatomical snuffbox, radial styloid ROM: Patient has limited flexion and extension of the left wrist due to pain, primarily in the ulnar aspect Skin: No lacerations or abrasions. General: No ecchymosis, erythema, or evidence of infection. Psych: Appears grossly normal Affect normal Attitude cooperative Results Reviewed Results Reviewed: X-rays obtained on 03/01/2024 and independently reviewed by me, David Ascencio, demonstrate no fracture or acute bony abnormality. 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 Assessment & Plan Assessment & Plan (1) Extensor carpi ulnaris tendinitis: Code(s): M77.8 - Other enthesopathies, not elsewhere classified Category: Medical Plan 1. 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 Date of injury 01/15/24 Patient is educated about this condition Patient is educated about the treatment options available Patient is educated that the 1st line treatment available for ECU tendinitis is typically occupational therapy, but states that she does not have any interested occupational therapy at this time Patient was provided with exercises for wrist tendinitis to see if this helps in the meantime If symptoms have not improved in 6-8 weeks of using exercises, patient is instructed that she should call to make another appointment so she can be referred to occupational therapy Patient is amenable to this plan Patient will follow-up as needed with any acute concerns Coding Level of Care Code New Pt Level 3 (31741) Diagnoses Extensor carpi ulnaris tendinitis M77.8
[2024-03-21 09:04] VITALS: BMI 33.5
== END 2024-03-21 09:37 | disposition home or self-care (01) ==
PROVIDERS: PCP Internal Medicine
DX: M77.8 Other enthesopathies, not elsewhere classified (principal)
CPT/HCPCS: 99203

== ENCOUNTER → 2024-03-21 08:32 | Outpatient (BNVA) | payer MEDICARE, MEDICAID, SELFPAY | PROVIDERS: PCP Internal Medicine | DX: M77.8 Other enthesopathies, not elsewhere classified (principal); Z91.81 History of falling | CPT/HCPCS: 99202 ==

== ENCOUNTER 2024-09-12 09:10 | Outpatient (AMB) | payer MEDICARE, MEDICAID, SELFPAY ==
--- NOTE | 2024-09-12 09:14 | A.OFFVIS_ITS ---
Intake Visit Reasons: 6 month follow up/ PVR Intake Note: Patient presents today for follow up visit for recurrent uti's Urology Medications: estrace cream Blood Thinner: none PVR:0ml's Process Improvement Analyst Required: No Accompanied by: Self / Same As Patient Allergies hydrocodone [Vicodin] Allergy (Unknown, Verified 09/12/24 10:06) hives ibuprofen [IBUPROFEN] Allergy (Unknown, Verified 09/12/24 10:06) SWOLLEN EYELIDS, CONFUSION lovastatin [Mevacor] Allergy (Unknown, Verified 09/12/24 10:06) hives naproxen Allergy (Unknown, Verified 09/12/24 10:06) hives rosuvastatin [Crestor] Allergy (Unknown, Verified 09/12/24 10:06) hives atorvastatin [From LIPITOR] Adverse Reaction (Severe, Verified 09/12/24 10:06) SEVERE DEEP BONES PAIN lisinopril Adverse Reaction (Unknown, Verified 09/12/24 10:06) hives amitriptlyn Allergy (Unknown, Uncoded 09/12/24 10:06) hives ditripan xl Allergy (Unknown, Uncoded 09/12/24 10:06) headaches ivp dye Allergy (Unknown, Uncoded 09/12/24 10:06) throat constriction and hives lipitor Allergy (Unknown, Uncoded 09/12/24 10:06) body pain Nuprin Allergy (Unknown, Uncoded 09/12/24 10:06) hives prednisone Allergy (Unknown, Uncoded 09/12/24 10:06) confusion qvar Adverse Reaction (Unknown, Uncoded 09/12/24 10:06) hives Medication List - Last Reconciled 09/12/24 by MARIANNE Suazo atenolol 25 mg PO DAILY blood sugar diagnostic (DubMeNow Ultra Test strips) test blood sugar 3 times per day clotrimazole 1% appl topical BID estradiol 0.01%(0.1mg/gram) Daily times one month and then 3 times per week thereafter; pea sized amount to urethra. 30 days insulin aspart U-100 (Novolog U-100 Insulin aspart) See Protocol subcutaneously TID AC; sliding scale insulin glargine (Lantus U-100 Insulin) 38 - 42 units subcut BEDTIME insulin syringe-needle U-100 (BD Insulin Syringe Ultra-Fine) qid ac levalbuterol HCl 1.25 mg (3 mL) inhalation RTID PRN levalbuterol HCl 1.25 mg (3 mL) inhalation TID 30 days lidocaine 4% (Aspercreme (lidocaine)) 1 patch topical DAILY PRN nitroglycerin 0.4 mg sublingual NEEDED HPI Comments Details: Kellen is a very pleasant 78-year-old female patient of Dr. Lai. She has a past medical history of degenerative lumbar spinal stenosis, osteoporosis, COPD, myocardial infarction, herniated lumbar intervertebral disc, coronary artery disease, hypertension, chronic low back pain, dyslipidemia, diabetes, and recurrent urinary tract infections. She presents to the office today for follow- up. In discussion with the patient today she reports no urological issues or concerns however she does discuss her ongoing issues with her chronic back pain, left wrist pain, and herniated discs in her neck. She reports having followed up with a chef & owner in the past we recommended surgical intervention however she is not looking to undergo surgical intervention at this time. She discusses her upcoming appointment with her laboratory analyst for her history of COPD and O2 dependence. She denies any bothersome urinary issues. She reports compliance w ith Estrace cream as prescribed and is requesting refill today. She reports in the past typical UTI symptoms are low-back pain however given her history with chronic back pain she finds it difficult to differentiate. Previous workup has included a retroperitoneal ultrasound 09/19 noting bilateral kidneys with no calculi, lesions, and or hydronephrosis. The bladder is decompressed. Bilateral ureteral jets are not demonstrated. Pre void bladder volume is approximately 30 mL. Postvoid bladder volume is approximately 20 mL. The patient did not want to fill her bladder due to urinary incontinence. Patient with previous positive urine culture 08/22 that noted Enterococcus faecalis. In office urinalysis results reviewed with the patient today. She does report episodes of urinary incontinence and nocturia however does not find them bothersome and does not wish to undergo further treatment options at this time. When asked she denies hematuria, dysuria, foul smelling urine, changes to urinar y stream, flank pain, fever, and or chills. She denies any issues with constipation. She otherwise offers no other issues or concerns at this time. Urine cytology 03/22 Negative for high-grade urothelial carcinoma. [facility] Medical History Degenerative lumbar spinal stenosis Colonoscopy refused Osteoporosis Herniated lumbar intervertebral disc CAD (coronary artery disease) Cervical disc herniation Essential hypertension Chronic low back pain Dyslipidemia Diabetes mellitus, with long-term current use of insulin Surgical History S/P cervical spinal fusion S/P angioplasty Family History Father Substance use disorder Brother Substance use disorder Mental health disorder Social History Household Members: None Housing: House Do you presently have visiting nurse or other home services: No Patient Tobacco Use Status: Former Tobacco user e-Cigarette/Vaping Use: Never Used Advance Directives Date on File: 05/25/23 service: No Current occupational status: retired Cognitive needs: No Hearing needs: No Vision needs: Yes Review of Systems Eyes Reports no additional complaints ENT Reports no additional complaints Card Reports as per HPI Resp Reports as per HPI GI Reports no additional complaints Reports as per [facility] Musc Reports as per HPI Neuro Reports no additional complaints Psych Reports no additional complaints Endo Reports as per HPI Samuel/Lymph Reports no additional complaints Aller/Immun Reports no additional complaints Physical Exam Const General: cooperative, healthy appearing, comfortable, no acute distress, well developed, alert and awake Nutritional Appearance: overweight Orientation/consciousness: patient oriented x3 Limitations: ambulation with cane and other limitations (O2 dependent 2 L via nasal cannula) HEENT Head: Yes normal to inspection, Yes normocephalic and Yes atraumatic Ears: hearing grossly normal bilaterally Eyes General: appearance normal, both eyes and all related structures Neck Neck: Yes normal visual inspection and Yes trachea midline Chest Chest palpation & inspection: normal inspection of the chest Resp Effort & Inspection: normal respiratory effort and able to speak in complete sentences Cardio Rate: regular rate GI Inspection: Yes normal to inspection General: Yes no CVA tenderness Back/Spine/Pelvis Back: no CVA tenderness Skin General skin exam: no rashes or lesions noted Neuro General: patient oriented x3 Extrem General: Yes normal to inspection Psych Appearance: grossly normal and well kempt Mental Status: mental status grossly normal Speech and movement: Normal speech and movement present and Clear speech present Affect: normal affect Attitude: cooperative Thought process: Normal thought process present Thought content: Normal thought content present Insight: Fair insight present (Psych) Judgement: Fair judgement present (Psych) Office Procedures Post Void Residual Post Residual Void Post Void Residual (PVR): 0 [id number] Void Residual by ultrasound Assessment & Plan Assessment & Plan (1) Urinary incontinence: Code(s): R32 - Unspecified urinary incontinence Category: Medical (2) Recurrent UTI: Code(s): N39.0 - Urinary tract infection, site not specified Category: Medical (3) Microscopic hematuria: Code(s): R31.29 - Other microscopic hematuria Category: Medical (4) Nocturia: Code(s): R35.1 - Nocturia Category: Medical Plan In office urinalysis results reviewed with the patient today; as noted above; will send for urine cytology. PVR 0 mL. Previous urine cytology results reviewed with the patient today; as noted above. Patient currently denies any bothersome urinary issues or concerns. Will continue with Estrace cream as discussed and prescribed; refill provided. Discussed, educated, and stressed the importance of managing diabetes for improvement lower urinary tract symptoms as well as overall health and well- being. Patient does report episodes of incontinence as well as nocturia however will continue with surveillance monitoring at this time as she does not feel symptoms are bothersome to undergo further treatment options. Follow-up in 6 months with PVR; or sooner with any issues, concerns, and or q uestions. Orders: Orders AMB Urinalysis Automated Today Z13.9 - Encounter for screening, unspecified AMB Post Void Residual by ultrasound Today R35.1 - Nocturia Medications: Changed From estradiol 0.01%(0.1mg/gram) Daily times one month and then 3 times per week thereafter; pea sized amount to urethra. 30 days 42.5 grams 3RF To estradiol 0.01%(0.1mg/gram) Daily times one month and then 3 times per week thereafter; pea sized amount to urethra. 90 days 42.5 grams 3RF Patient Instructions: The patient had an opportunity to ask questions regarding the treatment plan. All questions were answered. Physical exam, labs, and imaging were discussed and reviewed in detail. As well as risks, benefits, and discussion of treatment choices. No major barriers to understanding were identified. The patient expressed understanding and agreement with the above treatment plan. The patient was made aware they should contact our office by phone for worsening of their current condition, the appearance of new symptoms, or with any questions or concerns. Compliance is encouraged with any medications and follow up testing that is ordered. It is a privilege to be allowed the opportunity to participate in? your urological care.? Again, if you have any questions or concerns If you have any questions or concerns please do not hesitate to contact me. The office is [phone]. This note is constructed using voice recognition software. While every effort has been made to ensure accuracy letter of credit document examiner errors may have been included. Yours sincerely, MARIANNE Suazo Coding Level of Care Code Est Pt Level 3 (19305) Complex EM visit Add On G2211 Diagnoses Urinary incontinence R32 Recurrent UTI N39.0 Microscopic hematuria R31.29 Nocturia R35.1 CPT Codes Post Residual Void - PVR CPT Code: 33771-Pqih Void Residual by ultrasound ([id number])
--- OUTSIDE RECORDS SUMMARY | 2024-09-12 09:46 | XMS_ITS | Clinical Summary ---
Author Organization [facility] Address [address] [place] [address] Phone Care Team Providers Care Yard Coupler Name Role Phone Betzaida Lai MD Primary Care Provider [phone] Allergies Active Allergy Reactions Criticality Noted Date Comments Albuterol 06/02/2013 Increases heartrate Amitriptyline 06/02/2013 Causes confusion Aspirin,Buffd-Calcium Carb-Mag Swelling 06/02/2013 States reaction was only to coated aspirin not reg aspirin Beclomethasone Dipropionate 06/02/2013 Increases heartrate Celecoxib 02/06/2023 Citalopram 06/02/2013 Causes confusion Hydrocodone 06/02/2013 Ibuprofen 02/06/2023 Iodinated Contrast Media 06/02/2013 Lisinopril 06/02/2013 Muscle aches Nsaids (Non-Steroidal Anti-Inflammatory Drug) 06/02/2013 Eyelid swelling Omeprazole 06/02/2013 Mfg. By [employer] Prednisone 06/02/2013 elavates blood sugar, causes confusion Krdwzoh-Nqm-Dmz Reductase Inhibitors 06/02/2013 Tramadol Nausea And Vomiting 06/10/2023 Medications NovoLOG U-100 Insulin aspart 100 unit/mL injection Inject 6-32 Units as directed 3 (three) times a day before meals. Inject 6-32 Units as directed 3 times daily (before meals). Inject 3 times a day before meal: 70-100: 6units, 101-150: 12 units, 151-200: 16 units, 201-250: 20 units, 251-300: 24 units, 301-350: 28 units, 351-400: 32 units, >400: call me. Plus 1 unit for every 15g of carbs 4 Active insulin syringe-needle U-100 1 mL 30 gauge x 1/2 syringe Inject 1 each under the skin 4 (four) times a day. 4 Active Lantus U-100 Insulin 100 unit/mL injection Inject 40-44 Units under the skin at bedtime. 4 Active atenoloL (TENORMIN) 25 mg tablet Take 1 tablet (25 mg total) by mouth 1 (one) time each day. 4 Active nitroglycerin (NITROSTAT) 0.[address] 1 tablet (0.4 mg total) under the tongue every 5 (five) minutes if needed for chest pain. 4 Active clotrimazole (LOTRIMIN) 1 % cream Apply bid to affected area, 4 Active glucose blood test strip 1 each by Other route 4 (four) times a day. 4 Active estradioL (ESTRACE) 0.01 % (0.1 mg/gram) vaginal cream Insert 1 Application into the vagina 1 (one) time each day. APPLY A PEA SIZED AMOUNT TO URETHRA EVERY DAY FOR 30 DAYS THEN 3 TIMES PER WEEK THEREAFTER 4 Active levalbuterol (XOPENEX) 1.25 mg/3 mL nebulizer solution Take 3 mL by nebulization 3 (three) times a day. 3 Active acetaminophen (TYLENOL 8 HOUR ORAL) Take 1 tablet by mouth every 8 (eight) hours. Active lidocaine (LIDODERM) 5 % patch Place 1 patch on the skin 1 (one) time each day. Place 1 Patch onto the skin every 24 hours. Apply for no more than 12 hours in any 24 hour period. 2 Active B complex tablet Take 1 tablet by mouth 1 (one) time each day. Active omega-3 (FISH OIL) 360-1,200 mg capsule Take 1 capsule (1,200 mg total) by mouth 2 (two) times a day. Active mv-min/folic/vit K/lycop/coQ10 (DAILY MULTIVITAMIN ORAL) Take 1 tablet by mouth 1 (one) time each day. Active lancets lancets 1 each by Not Applicable route. ONE TOUCH LANCETS [facility] [place] Active OneTouch Ultra Test test strip Apply 1 Strip topically 4 times daily., Disp-400 Each, R-2, Normal DX:E11.9. discard previous script Active Active Problems Problem Noted Date Diagnosed Date CAD (coronary artery disease) 05/15/2024 Overview (05/15/2024): s/p NSTEMI (Jul 2019 at [facility]); angioplasty of circumflex artery w/ 50% LAD lesion (1995) Chronic tonsillitis 05/15/2024 Overview (05/15/2024): ent COPD (chronic obstructive pulmonary disease) Overview (05/15/2024): Dr. Houser Diverticulosis 05/15/2024 Fibromyalgia 05/15/2024 Hematuria 05/15/2024 HTN (hypertension) 05/15/2024 Hyperlipidemia 05/15/2024 Osteoporosis 05/15/2024 Overactive bladder 05/15/2024 Raynaud's phenomenon 05/15/2024 Rosacea 05/15/2024 Vitamin D deficiency 05/15/2024 Glaucoma 06/10/2023 Popliteal cyst, right 10/16/2022 Bilateral carotid artery stenosis 04/16/2021 Overview (05/15/2024): 0-49% bilaterally (November 2016) PAD (peripheral artery disease) 04/16/2021 Overview (05/15/2024): with cladication (Dr. Petersen; 2016) Type II diabetes mellitus with peripheral artery disease 04/16/2021 Type II diabetes mellitus with renal manifestati ons 04/16/2021 Microalbuminuria 04/16/2021 Obesity (BMI 30.0-34.9) 04/16/2021 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 11/07/2013 Diabetic neuropathy 06/02/2013 Encounters Date Type Department Care Team Description 08/05/2024 Telephone Adult Medicine [address] [phone] Deandra Millard LPN Fitting for DME (Faxed form from [facility] ) from Last 3 Months Immunizations Name Administration Dates Next Due Moderna SARS-CoV-2 COVID-19, mRNA, LNP-S, preservative free 11/28/2021 PPD Test 04/15/2016 Pneumococcal polysaccharide 23 valent (Pneumovax 23) 2yo and older 04/10/2014,07/13/2002 Td Tetanus diptheria (Tdvax) 7yo and older 04/16 Surgical History Surgery Date Site/Laterality Comments OTHER SURGICAL HISTORY 1967 PROCEDURE: BREAST CYST,FLUID FOR CYTOLOGY EXAM OOPHORECTOMY 1977 PROCEDURE: HISTORICAL OOPHORECTOMY; COMMENT: b/l fallopian tubes and left ovary OTHER SURGICAL HISTORY 1991 PROCEDURE: [place] ANESTHESIA CERVICAL SPINE & CORD NOS; COMMENT: fusion OTHER SURGICAL HISTORY 1995 PROCEDURE: [place] CABG W/ARTERIAL GRAFT THREE ARTERIAL GRAFTS; COMMENT: 3 vessel disease BREAST BIOPSY 1967? Left PROCEDURE: BX BREAST; PERC NEEDLE CORE W/IMAG GUID; COMMENT: cyst excised neg Medical History Medical History Date Comments HTN (hypertension) DX:HTN (hyper tension) Vitamin D deficiency DX:Vitamin D deficiency Diabetes mellitus ([facility]) DX:D iabetes mellitus ([facility]) Rosacea DX:Rosacea; COMM ENT: derm in [place] Fibromyalgia DX:Fibromyalgia Fibrocystic breast DX:Fibrocysti c breast Ectopic DX:Ectopic pre gnancy Dyslipidemia DX:Dyslipidemia COPD (chronic obstructive pu lmonary disease) ([facility]) DX:COPD (chronic obstructive pulmonary disease) ([facility]) Allergic rhinitis DX:Allergic rh initis; COMMENT: lots of chemical sensitivities Chronic tonsillitis DX:Chronic t onsillitis; COMMENT: ent Dr. Octaviano Kat Hematuria DX:Hematuria Overactive bladder DX:Overactive bladder Raynaud's phenomenon DX:Raynaud' s phenomenon Shingles DX:Shingles Arthritis DX:Arthritis DDD (degenerative disc disease) DX:DDD (degenerative disc disease) Diverticulosis DX:Diverticulosi s Osteoporosis DX:Osteoporosis Microscopic hematuria DX:Microsc opic hematuria; COMMENT: dr darren purcell Lipoma DX:Lipoma; COMME NT: Left shoulder H/O CT scan of chest 09/21/2017 DX:H/O CT s can of chest; COMMENT: [place]; severe emphysema, small nodules--fu 1 yr Breast nodule 2018 DX:Breast nodule ; COMMENT: stable noted on LDCt Glaucoma 06/10/2023 DX:Glaucoma Family History Medical History Relation Name Comments Alcohol abuse Brother Coronary artery disease Brother Other: diabetes Father DKA, alcohol ic, CAD, Diabetes Sister 1 Lung cancer Sister 2 dm2 Relation Name Status Comments Brother age 46 of karlene ture CAD Father Mother Sister 1 Sister 2 Social History Tobacco Use Types Packs/Day Years Used Date Smoking Tobacco: Former Cigarettes 0 06/29/1956 - 12/27/2010 Smokeless Tobacco: Never Alcohol Use Standard Drinks/Week Comments No 0 (1 standard drink = 0.6 oz pur e alcohol) Comments Unknown Sex and Gender Information Value Date Recorded Sex Assigned at Not on file Legal Sex Female 12:51 PM EST Gender Identity Not on file Sexual Orientation Not on file Obstetrics History Last Filed Vital Signs Vital Sign Reading Time Taken Comments Blood Pressure 116/56 04/07/2024 10:50 AM EDT Pulse 68 04/07/2024 10:50 AM EDT Temperature - - Respiratory Rate - - Oxygen Saturation - - Inhaled Oxygen Concentration - - Weight 88.8 kg (195 lb 11.2 oz) 024 10:50 AM EDT Height 162.6 cm (5' 4 ) 04/07/2024 10:5 0 AM EDT Body Mass Index 33.59 04/07/2024 10:50 AM EDT Plan of Treatment Upcoming Encounters Date Type Department Care Team (Late st Contact Info) Description 09/26/2024 11:20 AM EDT Office Visit [address] [phone] China Archuleta PA [address] [place] [address] 10/13/2024 11:15 AM EDT Office Visit [facility] [place] [address] [phone] Betzaida Lai MD [address] [place] [address] Health Maintenance Due Date Last Done Comments Diabetes: Annual Foot Exam 1954 Diabetes: Annual Retina Eye Exam 1955 Zoster Vaccines (1 of 2) 1994 Pneumococcal Vaccine: 50+ Years (2 of 2 - PCV) 04/10/2015 04/10/2014, 07/13/2002 RSV Immunization Patients 60 + Years Old (1 - 1-dose 75+ series) 10/22/2019 Osteoporosis Screening (Bone Density Screening) 06/07/2022 Social Influencers of Health Screening 06/07/2022 COVID-19 Vaccine (4 - 2023-2 5 season) 2024 11/28/2021, 05/02/2021, 10/03/2020 Influenza Vaccine (#1) 2024 Diabetes: Blood Sugar Contro l Test (HGBA1C) 10/06/2024 04/07/2024, 04/07/2024, 01/08/2024 Depression Screening 10/12/2024 10/13/2023 Falls Risk Assessment 10/12/2024 10/13/2023 Medicare Annual Wellness Visit 10/12/2024 10/13/2023 Diabetes: Annual Urine Albumin-Creatinine Ratio (uACR) 04/07/2025 04/07/2024 Diabetes: Annual GFR (Glomerular Filtration Rate) 04/07/2025 04/07/2024, 01/08/2024 Hypertension/CHF/CAD Annual BMP Blood Test 04/07/2025 04/07/2024, 01/08/2024 Cholesterol Screening (Lipid Panel) 04/07/2029 04/07/2024, 04/07/2024 DTaP,Tdap,and Td Vaccines (2 - Td or Tdap) 04/16/2031 04/16/2021 Hepatitis C Screening Completed 04/10/2016 HIB Vaccines Aged Out No longer eligi ble based on patient's age to complete this topic HPV Vaccines Aged Out No longer eligi ble based on patient's age to complete this topic Hepatitis A Vaccines Aged Out No long er eligible based on patient's age to complete this topic Hepatitis B Vaccines Aged Out No long er eligible based on patient's age to complete this topic IPV Vaccines Aged Out No longer eligi ble based on patient's age to complete this topic MMR Vaccines Aged Out No longer eligi ble based on patient's age to complete this topic Meningococcal ACWY Vaccine Aged Out N o longer eligible based on patient's age to complete this topic Meningococcal B Vacine Aged Out No lo nger eligible based on patient's age to complete this topic RSV Immunization Patients Under 20 months Aged Out No longer eligible b ased on patient's age to complete this topic Varicella Vaccines Aged Out No longer eligible based on patient's age to complete this topic Procedures Procedure Name Priority Date/Time Associated Diagnosis Comments URINE ALBUMIN CREATININE RATIO Routine 04/07/2024 HEMOGLOBIN A1C Routine 04/07/2024 LIPID PANEL Routine 04/07/2024 HM DEPRESSION SCREENING Routine 10/13/2023 FALLS RISK ASSESSMENT Routine 10/13/2023 HEPATITIS C SCREENING Routine 04/10/2016 from Last 3 Months or Most Recently Relevant to Health Maintenance Results * Urine Albumin Creatinine Ratio (04/07/2024) Pathologist [facility] Urine Albumin Creatinine Ratio Abstracted [facility] Provider HEALTH MAINTENANCE Final Result * (ABNORMAL) Hemoglobin A1c (04/07/2024) Pathologist [facility] Hemoglobin A1C 7.7(A) <=6.5 % Blood Venous blood specimen / Unknown Result [facility] Provider LAB BLOOD ORDERABLES [place] Result * (ABNORMAL) Lipid panel (04/07/2024) Pathologist [facility] LDL/HDL Ratio 4 0 - 4 Triglycerides 241(A) 0 - 150 mg/dL Cholesterol 255(A) 0 - 200 mg/dL HDL 65 >=40 mg/dL LDL Cholesterol 142(A) 0 - 100 mg/dL Blood Venous blood specimen / Unknown Result [facility] Provider LAB BLOOD ORDERABLES [place] Result * Falls Risk Assessment (10/13/2023) Pathologist [facility] Falls Risk Assessment Abstracted Historical Provider HEALTH MAINTENANCE Final Result * Depression Screening (10/13/2023) Pathologist [facility] Depression Screening Abstracted Historical Provider HEALTH MAINTENANCE Final Result * Hepatitis C Screening (04/10/2016) Pathologist [facility] Hepatitis C Screening Abstracted Historical Provider HEALTH MAINTENANCE Final Result from Last 3 Months or Most Recently Relevant to Health Maintenance Insurance MEDICARE MEDICAID - [place] Care Teams Yard Coupler Relationship Specialty Start Date End Date Betzaida Lai MD [address] [place] [id number] PCP - General Internal Medicine 03/18/21
--- OUTSIDE RECORDS SUMMARY | 2024-09-12 09:46 | XMS_ITS | Data Portability ---
Author Organization [place] [facility] Address [address] [place] [id number] Care Team Providers Care Unloader Operator Name Role Phone PATTI RODRIGUEZ Primary Care Provider [phone] Assessment Encounter Date Assessment Date Assessment LastModified by Organization Details LastModified Time 10/02/2022 10/02/2022 Time On Scene with Patient: 00:48:22 Brief Overview: 76 y/o female new to with hx of COPD, CAD, prior MIs, DM, HTN, hyperlipidemia, kidney disease, OA, osteoporosis, DDD, diabetic neuropathy. pt reports almost 1 week ago she tried moving her new recliner she tried pulling it away from the wall and when she pulled on the chair she felt sudden pain in her lower back right side. since she has had pain radiating into her right leg. she states she has severe OA in her right knee and even her right knee has been painful and swollen. pain is sharp and comes and goes. worse with certain movements. she denies fever, chills. no weakness, numbness or incontinence. she denies cp, sob. she has been using her lidocaine patches and taking aspirin for pain. Vital Signs: BP 138/68, HR 80, RR 20, T 97.6, O2 98% RA Exam: very pleasant 76 y/o female well appearing, alert NAD sitting in recliner. eyes: no injection, icterus or discharge. nose: nares patent no discharge. mouth: moist mucous membranes no erythema, uvula is midline. no cervical lymphadenopathy. lungs: CTAB no wheezes rales or rhonchi. heart: RRR no murmur rubs or gallops. no peripheral edema. lumbar spine: normal appearance. + lumbar midline tenderness and right lumbar paraspinous muscle, and SI joint tenderness. ROM limited due to pain tenderness with flexion and rotation. + straight leg raise on the right. strength is normal and equal bilaterally. right knee: mild edema noted. no erythema, abrasions or warmth. no ecchymosis. + tenderness on palpation of the patella and medial aspect of the knee. ROM slightly limited tenderness with flexion and extension. no calf tenderness, edema negative homans. no posterior thigh tenderness. skin: warm and dry no rashes or lesions. DDx considered, with rationale: Cauda Equina: considered but no weakness, no incontinence, numbness or foot drop. Lumbar fracture: considered due to hx of osteoporosis but no trauma. DVT: considered but no calf tenderness, edema, negative homans. results/ work up: xray lumbar spine and right knee pending. Plan: Sciatica and OA right knee/ knee pain: rest and no lifting. recommend applying ice to the knee but not directly on skin. ok to use a heating pad on her lower back but do not sleep with it on. recommend otc Tylenol take as directed on the package for pain. continue using your lidoderm patches as prescribed by pcp. pt will call and schedule appts for her xrays. follow up with pcp in 3-5 days or sooner prn. go to the ER with new or worsening symptoms increased pain, edema, numbness, weakness, incontinence, fever, cp, sob. Proper Personal Protective Equipment (PPE), including gloves, eye protection and masks were donned and doffed appropriately and all equipment cleaned using approved technique with germicidal disposable wipes prior to and after care of this patient according to [facility]'s infection prevention protocols. [email or web address] Not available 10/02/2022 19:14:56 Plan of Treatment Reminders Order Date Submit Date Provider Last Modified By Organization Details Last Modified Time Details Appointments None recorded. Lab None recorded. Referral None recorded. Procedures None recorded. Surgeries None recorded. Imaging XR, knee, 3 view - right knee pain and swelling 2022 023 [place] [employer] ([facility] [address] [place] [address], [place], [address], 16:01:43 XR, lumbosacral spine, 2 or 3 view - lower back pain radiating to right leg 2022 023 [place] [employer] (Formerly [facility]), [address] [facility], [place], [address], 3 16:01:42 Medication Orders None recorded. Patient TargetsNo targets recorded. Patient InstructionsNo instructions recorded. Reason for Referral None Reported. Results Created Date Observation Date Name Description Value Unit Range Abnormal Flag Note LastModifiedBy Organization Detail LastModifiedTime 10/04/19 23 10/03/2022 lumba r spine AP and lat LUMBAR SPINE AP and LAT FINDIN GS: No acute loss of verteb ral body height of signif icance . The osseou s struct ures appear intact . Interv ertebr al disc spaces are narrow ed. Soft tissue s are unrema rkable . CONCLU TICO: No acute fractu re. Consid er MRI if sympto ms are chroni c or contin ue to persis t. ELECTR ONICAL LY SIGNED BY CHARLENE HARRIS M.D. 10/04/19 3:53:5 7 PM EDT. [email or web address], [address], 10/04/2022 10:17:04 10/04/19 23 10/03/2022 knee exam 3V AP lat obliq ue KNEE EXAM 3V AP LAT OBLIQU E, RIGHT FINDIN GS: No acute fractu re or disloc ation. The osseou s struct ures appear intact . Modest joint space narrow ing. Soft tissue s are unrema rkable . CONCLU TICO: No acute osseou s findin gs. Recomm end a repeat multi- view imagin g in 1 week or sooner if clinic ally robin kahn especi ally if sympto ms contin ue to persis t or progre ss. ELECTR ONICAL LY SIGNED BY CHARLENE HARRIS M.D. 10/04/19 3:53:5 7 PM EDT. LUMBAR SPINE AP and LAT Result s: No acute loss of verteb ral body height of signif icance . The osseou s struct ures appear intact . Interv ertebr al disc spaces are narrow ed. Soft tissue s are unrema rkable . Conclu tico: No acute fractu re. Consid er MRI if sympto ms are chroni c or contin ue to persis t. Electr onical ly signed by CHARLENE HARRIS M.D. 10/04/19 3:53:5 7 PM EDT. KNEE EXAM 3V AP LAT OBLIQU E, RIGHT Result s: No acute fractu re or disloc ation. The osseou s struct ures appear intact . Modest joint space narrow ing. Soft tissue s are unrema rkable . Conclu tico: No acute osseou s findin gs. Recomm end a repeat multi- view imagin g in 1 week or sooner if clinic ally robin kahn especi ally if sympto ms contin ue to persis t or progre ss. Electr onical ly signed by CHARLENE HARRIS M.D. 10/04/19 3:53:5 7 PM EDT. [email or web address] [address] [address], [place], [address], 10/04/2022 10:17:12 Result Notes None recorded. Procedures Surgical History Date Name Laterality Status Provider Name and Address Organization Details Recorded Time primary fusion of cervical spine completed TORITO Jacobson [address] [place], [address], [place] [facility] 10/02/2022 16:03:57 oophorectomy completed TORITO Jacobson [address] [place], [address], [place] [facility] 10/02/2022 16:05:39 Imaging Results Imaging Date Name Status LastModified by Organiz [facility] Details LastModified Time 10/03/2022 lumbar spine AP and lat completed [email or web address] [facility] [facility] [address] [facility] [address], [place], [address], 10/04/2022 10:17:04 10/03/2022 knee exam 3V AP lat oblique completed [email or web address] [facility] [address] [facility] [address], [place], [address], 10/04/2022 10:17:12 Procedure Notes None recorded. Medical Equipment None Reported. Allergies Allergen ID Allergen Name Allergen Category Reaction Reaction Severity Criticality Documentation Date Start Date Code Code System Note Provider Name and Address Organization Details Recorded Time 900899 ibuprofen medicatio n Not available Not available Not available 10/02/2022 5640 [facility] Joana Cartagena, PA [address], [place], [address], [place] [facility] 3 15:54:47 010121 prednison e medicatio n Not available Not available Not available 10/02/2022 8640 [facility] Joana Osiel, PA [address], [place], [address], [place] [facility] 3 15:55:05 551537 tramadol medicatio n Not available Not available Not available 10/02/2022 49818 [facility] Joanamariana Cartagena, PA [address], [place], [address], [place] [facility] 3 15:55:12 050797 hydrocodo ne Not available Not available Not available Not available 10/02/2022 5489 [facility] Joanamariana Cartagena, PA [address], [place], [address], [place] [facility] 3 15:55:24 Medications Name Sig Start Date Stop Date Status Note LastModified by Organization Details LastModified Time ipratropium 0.5 mg-albutero l 3 mg (2.5 mg base)/3 mL nebulizatio n soln USE 3 ML VIA NEBULIZER EVERY 8 HOURS active Not Available Not Available No t Available atenolol 25 mg tablet Take 1 tablet every day by oral route. active Not Available Not Available No t Available Lantus U-100 Insulin 100 unit/mL subcutaneou s solution ADMINISTE R 30 UNITS UNDER THE SKIN AT BEDTIME active Not Available Not Available No t Available OneTouch Ultra Test strips TEST BLOOD SUGAR THREE TIMES DAILY 10/02 completed Not Available Not Available Not Available lidocaine 5 % topical patch APPLY 1 PATCH TOPICALLY TO THE SKIN DAILY active Not Available Not Available No t Available nitroglycer in 0.4 mg sublingual tablet TAKE ONE TABLET UNDER TONGUE NEEDED FOR CHEST PAIN EVERY 5 MINUTES active Not Available Not Available No t Available ergocalcife rol (vitamin D2) 1,250 mcg (50,000 unit) capsule TAKE 1 CAPSULE BY MOUTH 1 TIME A WEEK FOR 8 DOSES active Not Available Not Available No t Available Novolog U-100 Insulin aspart 100 unit/mL subcutaneou s solution ADMINISTE R 18 TO 20 UNITS UNDER THE SKIN THREE TIMES DAILY BEFORE A MEAL active Not Available Not Available No t Available lovastatin 20 mg tablet TAKE 1 TABLET BY MOUTH 3 TIMES A WEEK active Not Available Not Available No t Available clotrimazol e 1 % topical cream APPLY TOPICALLY TO THE AFFECTED AREA TWICE DAILY active Not Available Not Available No t Available aspirin active Not Available Not Avail able Not Available BD Insulin Syringe Ultra-Fine 1 mL 30 gauge x 1/2 USE 1 SYRINGE FOUR TIMES DAILY WHEN ADMINISTE RING INSULIN 10/02 completed Not Available Not Available Not Available BinaxNOW COVID-19 Ag Self Test kit TEST DIRECTED TODAY 10/02 completed Not Available Not Available Not Available Vitals Date Recorded Oxygen saturation Oxygen saturation in Arterial blood by Pulse oximetry Heart rate Respiratory rate Body temperature Systolic blood pressure Diastolic blood pressure Provider Name and Address Organization Details Last Updated DateTime 3 98 % 98 % 80 /min 20 /min 97.6 [degF] 138 mm[Hg] 68 mm[Hg] Not Available [facility] 3 15:56:02 Social History Question Answer Notes LastModified by Organizat ion Details LastModified Time Tobacco Smoking Status Former Smoker quit 2010 TORIT[facility] Jacobson [facility] [place], [address], [place] [facility] 10/02/2022 16:02:25 Do You Have An Advance Directive? No Information not available 10/02/2022 What Is Your Level Of Alcohol Consumption? None [email or web address] Information not available 10/02/2022 What Is Your Code Status? Full Code [email or web address] Information not available 10/02/2022 Fall Risk: Do You Feel Unsteady When Standing Or Walking? Yes Information not available 10/02/2022 Excessive Alcohol Or Drug Use No Information not available 10/02/2022 Does This Patient Have A PCP? Yes [email or web address] Information not available 10/02/2022 Is This Patient In Hospice? No Information not available 10/02/2022 ADL: Do You Need Help With Daily Activities Such As Bathing, Preparing Meals, Dressing, Or Cleaning? No Information not available 10/02/2022 Social Support: Do You Feel Safe? Yes [email or web address] Information not available 10/02/2022 What Is Your Housing Situation Today? I Have Housing Information not available 10/02/2022 Do You Use Any Illicit Or Recreational Drugs? No Information not available 10/02/2022 Sex: Unknown Functional Status None recorded. Mental Status None recorded. Family History Relationship Description Onset Age of this Age Resolved Age Notes LastModified by Organization Details LastModified Time Father Coronary arterioscler osis [email or web address] Not available 10/02 16:00:58 Father Diabetes mellitus [email or web address] Not available 10/02 16:01:09 Medical History Condition Response Coronary Artery Disease Y Parkinson's Disease N Depression N COPD Y Hypothyroidism N A-fib N Diabetes Y CHF N Cancer N Dementia N Stroke N Asthma N High Cholesterol Y Rheumatoid Arthritis N Pulmonary Embolism N Hypertension Y Osteoporosis N Kidney Disease Y Gynecological HistoryNo gynecological history recorded. Obstetrics History GPAL:G 0 P 0 0 0 0 Past Encounters Encounter ID Performer Location Encounter Start Date Encounter Closed Date Diagnosis/Indication Diagnosis SNOMED-CT Code Diagnosis ICD10 Code Diagnosis Note [id number] TORITO Jacobson [facility] - [address] [address] 10/02/2022 15:49:56 10/03/2022 11:12:48 Right side sciatica 8411338197 34820 M54.31 Osteoarthr itis of knee 223276212 M17.9 Essential hypertension 81189051 I10 Status of condition: {{Acute Ex acerbation /Acute on chronic Ch ronic Stab le* Worsen ing/Progre ssion Unco ntrolled C ritical: Warrants escalation to ED. Undete rmined: Unclear staging of condition. Needs further evaluation and management by PCP and/or Specialist }}. Testing/Re sults: BP on scene was 138/68. Discussion : Bp controlled on current regimen. she is asymptomat ic. Plan, Medication Management & Follow-up recommenda tions: follow up with pcp as scheduled. go to the ER with new or worsening symptoms cp, sob, weakness, dizziness, HAs, edema, vision changes. Diabetes mellitus [id number] 09 E13.42 Status of condition: {{Acute Ex acerbation /Acute on chronic Ch ronic Stab le* Worsen ing/Progre ssion Unco ntrolled C ritical: Warrants escalation to ED. Undete rmined: Unclear staging of condition. Needs further evaluation and management by PCP and/or Specialist }}. Testing/Re sults: pt states her glucose this morning was 134 fasting. Discussion : pt will continue to monitor sugars closely and keep log for her pcp. dm controlled on current regimen. she is asymptomat ic. Plan, Medication Management & Follow-up recommenda tions: follow up with pcp as scheduled. go to the ER with worsening symptoms cp, sob, dizziness, weakness, polyuria, polydipsia . Health Concerns Section Related Observation LastModified by Organization Detai ls LastModified Time None Recorded Concern Status LastModified by Organization Details LastModified Time None Recorded Advance Directives Directive N: Payers Encounter Date Sequence Insurance Name Policy Number Policy Mott Covered Member ID Mott Member ID Guarantor Name 10/02/2022 1 [place] [employer] Kellen Stewart [id number] Kellen Stewart 10/02/2022 2 MEDICAID-[place]: [facility] Kellen Stewart [id number] Kellen Stewart Notes Date Note Type Note Provider Name and Address Organization Details Recorded Time 10/02/2022 text/html 76 y/o female new to with hx of COPD, CAD, prior MIs, DM, HTN, hyperlipidemia, kidney disease, OA, osteoporosis, DDD, diabetic neuropathy. pt reports almost 1 week ago she tried moving her new recliner she tried pulling it away from the wall and when she pulled on the chair she felt sudden pain in her lower back right side. since she has had pain radiating into her right leg. she states she has severe OA in her right knee and even her right knee has been painful and swollen. pain is sharp and comes and goes. worse with certain movements. she denies fever, chills. no weakness, numbness or incontinence. she denies cp, sob. she has been using her lidocaine patches and taking aspirin for pain. pt reports her glucose this am was 134. she checks her glucose regularly and keeps a log. pt is unable to take NSAIDs and prednisone. herson she injured her back she states she cannot drive her car. TORITO Jacobson [address], [place], [address], [place] [facility] 10/02/2022 19:16:36 OBGyn Episode No OBEpisode recorded.
== END 2024-09-12 10:23 | disposition home or self-care (01) ==
LOC: HO.HUSH 09:11
PROVIDERS: PCP Internal Medicine; Visit Provider Nurse Practitioner Family
DX: R32 Unspecified urinary incontinence (principal); N39.0 Urinary tract infection, site not specified; R31.29 Other microscopic hematuria; R35.1 Nocturia; Z13.9 Encounter for screening, unspecified
CPT/HCPCS: 99213; G2211

== ENCOUNTER → 2024-09-12 09:10 | Outpatient (BNVA) | payer MEDICARE, MEDICAID, SELFPAY | PROVIDERS: PCP Internal Medicine; Visit Provider Nurse Practitioner Family | DX: N39.0 Urinary tract infection, site not specified (principal); R35.1 Nocturia; R32 Unspecified urinary incontinence; R31.29 Other microscopic hematuria; Z13.9 Encounter for screening, unspecified | CPT/HCPCS: 51798; 81003; 99212 ==

== ENCOUNTER 2024-10-25 09:42 | Outpatient (REF) | payer MEDICARE, MEDICAID, SELFPAY ==
--- NOTE | ~2024-10-25 | XR_ITS ---
EXAMINATION: XR SHOULDER 2 OR MORE VIEWS LEFT HISTORY: M25.512 - Pain in left shoulder COMPARISON: There are no prior studies available for comparison. FINDINGS: Two views of the left shoulder are submitted. Osseous mineralization is normal. There is no fracture or dislocation. The glenohumeral joint is maintained. There is mild degenerative change of the AC joint. The soft tissues are unremarkable. XR/XR shoulder LT min 2V IMPRESSION: Mild degenerative change of the AC joint. Electronically signed by: Juan Castillo MD 10/27/2024 09:19 AM EDT
--- OUTSIDE RECORDS SUMMARY | 2024-10-26 10:31 | XMS_ITS | Clinical Summary ---
Author Organization [facility] Address [address] [place] [address] Phone Care Team Providers Care Efficiency Engineer Name Role Phone Betzaida Lai MD Primary Care Provider [phone] Allergies Active Allergy Reactions Criticality Noted Date [...] Prednisone 06/02/2013 elavates blood sugar, causes confusion Pcbrutd-Yto-Iaz Reductase Inhibitors 06/02/2013 Tramadol Nausea And Vomiting [...] :Type II diabetes mellitus with neurological manifestations (CMS/[facility] V24, CMS/HCC V28) Inject 1 each under the skin 4 (four) times a day. 400 each 3 09/27/19 Active Lantus U-100 Insulin 100 unit/mL injectionIndicatio ns:Type II diabetes mellitus with neurological manifestations (CMS/[facility] V24, CMS/HCC V28) Inject 44 Units under [...] area, 30 g 1 10/15/19 25 Active atenoloL (TENORMIN) 25 mg tablet Take 1 tablet (25 mg total) by mouth 1 (one) time each day. 04/07/20 24 025 Discontin ued(Reord er) nitroglycerin (NITROSTAT) 0.[address] 1 tablet (0.4 mg total) under the tongue every 5 (five) minutes if needed for chest pain. 04/07/20 24 025 Discontin ued(Reord er) clotrimazole (LOTRIMIN) 1 % cream Apply bid to affected area, 03/23/20 24 025 Discontin ued(Reord er) lidocaine (LIDODERM) 5 % patch Place 1 patch on the skin 1 (one) time each day. Place 1 Patch onto the skin every 24 hours. Apply for no more than 12 hours in any 24 hour period. 04/16/20 22 025 Discontin ued(Reord er) Active Problems Problem Noted Date Diagnosed Date CAD (coronary artery disease) 05/15/2024 Overview (10/04/2024): [place] [facility] [place] angioplasty of circumflex artery w/ 50% LAD lesion (1995) CABG Assessment & Plan (10/14/2024 10:21 AM EDT): Chronic tonsillitis 05/15/2024 Overview (05/15/2024): ent COPD (chronic obstructive pu lmonary disease) ([facility] V24, [facility] V28) 05/15/2024 Overview (05/15/2024): Dr. Houser Diverticulosis [...] bilaterally (November 2016) PAD (peripheral artery disease) ([facility] V24) Overview (05/15/2024): with cladication (Dr. Petersen; 2017) Type II diabetes mellitus wi th peripheral artery disease ([facility] V24, [facility] V28) 04/16/2021 Type II diabetes mellitus wi th renal manifestations ([facility] V24, [facility] V28) 04/16/2021 Assessment & Plan (10/14/2024 10:21 AM EDT): Microalbuminuria 04/16/2021 Obesity (BMI 30.0-34.9) 04/16/2021 Type II diabetes mellitus wi th neurological manifestations ([facility] V24, [facility] V28) 11/07/2013 Diabetic neuropathy ([facility] V24, [facility] V28) 1 08/03/2012 Encounters Date Type Department Care Team Description 10/14/2024 9:45 AM EDT Office Visit Adult Medicine [address] [phone] Betzaida Lai MD Encounter for annual wellness visit (AWV) in Medicare patient (Primary Dx); Coronary artery disease involving [place] coronary artery of [place] heart without angina pectoris; Vitamin D deficiency; Osteoporosis, unspecified osteoporosis type, unspecified pathological fracture presence; Primary hypertension; Other hyperlipidemia; Type 2 diabetes mellitus with stage 3 chronic kidney disease, with long-term current use of insulin, unspecified whether stage 3a or 3b CKD ([facility] V24, [facility] V28) 09/26/2024 11:20 AM EDT Office Visit Endocrinology [address] [phone] China Archuleta PA Type II diabetes mellitus with neurological manifestations ([facility] V24, [facility] V28) (Primary Dx); Primary hypertension; Hyperlipidemia, unspecified hyperlipidemia type; Microalbuminuria 08/05/2024 Telephone Adult Medicine [address] [phone] Deandra Millard LPN Fitting for DME (Faxed form from [facility] [place] ) from Last 3 Months Immunizations Name [...] Ectopic COPD (chronic obstructive pu lmonary disease) ([facility] V24, [facility]/HCC V28) Chronic tonsillitis : ent Dr. Blum Overactive bladder Raynaud's phenomenon Shingles Arthritis DDD (degenerative disc disease) Diverticulosis Osteoporosis Microscopic hematuria dr darren tan [place] Left shoulder H/O CT scan [...] 10:00 AM EDT Office Visit Adult Medicine [address] [phone] Claudia Albert PA [address] [place] [address] 04/26/2025 10:20 AM EDT Office Visit Endocrinology - [place] [address] [place] [address] China Archuleta PA [address] [place] [address] Health Maintenance Due Date Last Done Comments [...] Type II diabetes mellitus with neurological manifestations ([facility]/HCC V24, CMS/[facility] V28) Primary hypertension HEMOGLOBIN A1C Routine 09/26/2024 12:46 PM EDT Type II diabetes mellitus with neurological manifestations (CMS/[facility] V24, CMS/[facility] V28) HM URINE ALBUMIN CREATININE RATIO Routine 04/07/2024 LIPID PANEL Routine 04/07/2024 HM DEPRESSION SCREENING Routine 10/13/2023 FALLS RISK ASSESSMENT Routine 10/13/2023 from Last 3 Months or Most Recently Relevant to Health Maintenance Results * (ABNORMAL) Hemoglobin A1c (09/26/2024 12:46 PM EDT) Hemoglobin A1C 7.1(H) <6.5 % LAB CHEMISTRY METHOD 09/26/2024 9:29 PM EDT [facility] Mean Bld Glu Estim. 157 mg/dL LAB CHEMISTRY METHOD 09/26/2024 9:29 PM T [facility] Blood Venous blood specimen / Unknown Venipuncture / Unknown 09/26/2024 12:46 PM EDT 09/26/2024 12:46 PM EDT us [place] [facility] LAB BLOOD ORDERABLES Final Resul t [facility] [address] [place] [address], [place] [phone] * (ABNORMAL) Basic metabolic panel (09/26/2024 12:46 PM EDT) Sodium 135 133 - 145 mmol/L LAB CHEMISTRY METHOD 09/26/2024 4:57 PM [facility] Potassium 4.4 3.5 - 5.5 mmol/L LAB CHEMISTRY METHOD 09/26/2024 4:57 PM [facility] Chloride 103 96 - 110 mmol/L LAB CHEMISTRY METHOD 09/26/2024 4:57 PM [facility] CO2 27 21 - 32 mmol/L LAB CHEMISTRY METHOD 09/26/2024 4:57 PM [facility] Anion Gap 5 3 - 11 LAB CHEMISTRY METHOD 09/26/2024 4:57 PM [facility] Glucose 149(H) 70 - 100 mg/dL LAB CHEMISTRY METHOD 09/26/2024 4:57 PM [facility] BUN 16 5 - 25 mg/dL LAB CHEMISTRY METHOD 09/26/2024 4:57 PM [facility] Creatinine 0.78 0.50 - 1.10 mg/dL LAB CHEMISTRY METHOD 09/26/2024 4:57 PM [facility] eGFR 77 >=60 mL/min/1. 73m2 LAB CHEMISTRY METHOD 09/26/2024 4:57 PM EDT [facility] Comment:Calculation based on the??Chronic Kidney Disease Epidemiology Collaboration (CKD-EPI) equation refit??without adjustment for race. BUN/Creatinine Ratio 20.5 LAB CHEMISTRY METHOD 09/26/2024 4:57 PM EDT [facility] Calcium 9.0 8.5 - 10.5 mg/dL LAB CHEMISTRY METHOD 09/26/2024 4:57 PM EDT [facility] Blood Venous blood specimen / Unknown Venipuncture / Unknown 09/26/2024 12:46 PM EDT 09/26/2024 12:[address] [facility] [place] [facility] LAB BLOOD ORDERABLES Final Resul t [facility] [address] [place] [address], [place] [phone] * Urine Albumin Creatinine Ratio (04/07/2024) [facility] Urine Albumin Creatinine Ratio Abstracted Result [facility] [place] Provider HEALTH MAINTENANCE Final Result * (ABNORMAL) Lipid panel (04/07/2024) [facility] LDL/HDL Ratio 4 0 - 4 Triglycerides 241(A) 0 - 150 mg/dL Cholesterol 255(A) 0 - 200 mg/dL HDL 65 >=40 mg/dL LDL Cholesterol 142(A) 0 - 100 mg/dL Blood Venous blood specimen / Unknown Result [facility] [place] Provider LAB BLOOD ORDERABLES Nkechi l Result * Falls Risk Assessment (10/13/2023) [facility] Falls Risk Assessment Abstracted Result [facility] [place] Provider HEALTH MAINTENANCE Final Result * Depression Screening (10/13/2023) [facility] Depression Screening Abstracted Result [facility] [place] Provider HEALTH MAINTENANCE Final Result from Last 3 Months or Most Recently Relevant to Health Maintenance Insurance MEDICARE [place]ICAID [place] Care Teams Efficiency Engineer Relationship Specialty Start Date End Date Betzaida Lai MD [address] [place] [address] PCP - General Internal Medicine 03/18/21
== END 2024-10-25 09:43 | disposition home or self-care (01) ==
LOC: HO.HOSX 09:42
PROVIDERS: Visit Provider Orthopaedic Surgery
DX: M25.512 Pain in left shoulder (principal); M54.50 Low back pain, unspecified; M79.604 Pain in right leg; M79.605 Pain in left leg
CPT/HCPCS: 73030; 99212

== ENCOUNTER 2024-10-25 10:13 | Outpatient (AMB) | payer MEDICARE, MEDICAID, SELFPAY ==
[2024-10-25 10:15] VITALS: BMI 33.5
--- NOTE | 2024-10-25 10:15 | A.OFFVIS_ITS ---
Vital Signs 10/25/24 10:15 Height 5 ft 4 in Weight 195 lb BMI 33.5 Intake Visit Reasons: Newprob-Left shoulder pain-DOI 09/14/24, Low back pain Intake Note: Kellen is an 79 year old female who presents with complaints of progressively worsening low back pain which radiates into the posterior aspects of both of her legs as well as intermittent left shoulder discomfort. The patient states that she fell onto her left shoulder approximately 1 month ago. She has been doing gentle stretching exercises which gave her fairly good relief. She reports mild weakness when lifting her left hand above shoulder height. The patient describes her low back pain as sharp in nature. Her low back pain has gotten worse over the last 3 years in spite of continued non operative treatments. She has seen Dr. Valles for her low back pain in 2021. She reports intermittent weakness in her legs. She does walk with a cane. She has tried Tylenol and anti-inflammatory medicines which gave her minimal relief. Allergies hydrocodone [Vicodin] Allergy (Unknown, Verified 10/25/24 10:41) hives ibuprofen [IBUPROFEN] Allergy (Unknown, Verified 10/25/24 10:41) SWOLLEN EYELIDS, CONFUSION lovastatin [Mevacor] Allergy (Unknown, Verified 10/25/24 10:41) hives naproxen Allergy (Unknown, Verified 10/25/24 10:41) hives rosuvastatin [Crestor] Allergy (Unknown, Verified 10/25/24 10:41) hives atorvastatin [From LIPITOR] Adverse Reaction (Severe, Verified 10/25/24 10:41) SEVERE DEEP BONES PAIN lisinopril Adverse Reaction (Unknown, Verified 10/25/24 10:41) hives amitriptlyn Allergy (Unknown, Uncoded 10/25/24 10:41) hives ditripan xl Allergy (Unknown, Uncoded 10/25/24 10:41) headaches ivp dye Allergy (Unknown, Uncoded 10/25/24 10:41) throat constriction and hives lipitor Allergy (Unknown, Uncoded 10/25/24 10:41) body pain Nuprin Allergy (Unknown, Uncoded 10/25/24 10:41) hives prednisone Allergy (Unknown, Uncoded 10/25/24 10:41) confusion qvar Adverse Reaction (Unknown, Uncoded 10/25/24 10:41) hives Medication List - Last Reconciled 10/25/24 by Carlos Shultz MD atenolol 25 mg PO DAILY blood sugar diagnostic (Qu[employer] InfrastructureTouch Ultra Test strips) test blood sugar 3 times per day clotrimazole 1% appl topical BID estradiol 0.01%(0.1mg/gram) Daily times one month and then 3 times per week thereafter; pea sized amount to urethra. 90 days insulin aspart U-100 (Novolog U-100 Insulin aspart) See Protocol subcutaneously TID AC; sliding scale insulin glargine (Lantus U-100 Insulin) 38 - 42 units subcut BEDTIME insulin syringe-needle U-100 (BD Insulin Syringe Ultra-Fine) qid ac levalbuterol HCl 1.25 mg (3 mL) inhalation RTID PRN levalbuterol HCl 1.25 mg (3 mL) inhalation TID 30 days lidocaine 4% (Aspercreme (lidocaine)) 1 patch topical DAILY PRN nitroglycerin 0.4 mg sublingual NEEDED PFSH Medical History Degenerative lumbar spinal stenosis Colonoscopy refused Osteoporosis Herniated lumbar intervertebral disc CAD (coronary artery disease) Cervical disc herniation Essential hypertension Chronic low back pain Dyslipidemia Diabetes mellitus, with long-term current use of insulin Surgical History S/P cervical spinal fusion S/P angioplasty Family History Father Substance use disorder Brother Substance use disorder Mental health disorder Social History Household Members: None Housing: House Do you presently have visiting nurse or other home services: No Patient Tobacco Use Status: Former Tobacco user e-Cigarette/Vaping Use: Never Used Advance Directives Date on File: 05/25/23 service: No Current occupational status: retired Cognitive needs: No Hearing needs: No Vision needs: Yes Physical Exam Vital Signs: BMI result Body Mass Index 33.5 Back/Spine/Pelvis Other: Low back examination shows bilateral paraspinal muscle tenderness, pain with range of motion, positive straight leg raise test bilaterally at 70 degrees Extrem Other: Left shoulder examination shows slightly decreased range of motion when compared to her right shoulder, 4+ out of 5 strength with supraspinatus testing, positive impingement signs, no instability Results Reviewed Results Reviewed: X-rays of the patient's left shoulder taken today show moderate to severe acr omioclavicular joint narrowing, a type 2 acromion, no acute bony abnormalities Assessment & Plan Assessment & Plan (1) Low back pain radiating to both legs: Code(s): M54.50 - Low back pain, unspecified; M79.604 - Pain in right leg; M79.605 - Pain in left leg Category: Medical Plan Ms. Stewart presents with left shoulder pain due to impingement syndrome as well as low back pain which radiates into both of her legs possibly due to lumbar stenosis or a disc herniation. Thus, I will send the patient for an MRI of her lumbar spine for further evaluation. I will also arrange for her to have a follow-up appointment with Dr. Valles from our pain management department here at [facility]. At this point the patient's left shoulder pain is tolerable to her. We will hold off on a cortisone injection. Feel free to call me at any time should questions regarding her orthopedic management arise. I spent 20 minutes in reviewing the patient's records and imaging studies, seeing the patient and documenting in the medical record. Orders: Orders MR lumbar spine wo con Today M54.50 - Low back pain, unspecified, M79.604 - Pain in right leg, M79.605 - Pain in left leg XR shoulder LT min 2V Today M25.512 - Pain in left shoulder Referrals Pain Management Referral M54.50 - Low back pain, unspecified, M79.604 - Pain in right leg, M79.605 - Pain in left leg Coding Level of Care Code Est Pt Level 3 (56430) Complex EM visit Add On G2211 Diagnoses Low back pain radiating to both legs M54.50; M79.604; M79.605
--- OUTSIDE RECORDS SUMMARY | 2024-10-25 11:41 | XMS_ITS | Clinical Summary ---
Author Organization [facility] Address [address] [place] [address] Phone Care Team Providers Care Vp Strategic Planning Name Role Phone Betzaida Lai MD Primary Care Provider [phone] Allergies Active Allergy Reactions Criticality Noted Date [...] Prednisone 06/02/2013 elavates blood sugar, causes confusion Gthkftr-Ztd-Uox Reductase Inhibitors 06/02/2013 Tramadol Nausea And Vomiting 06/10/2023 Medications estradioL (ESTRACE) 0.01 % (0.1 mg/gram) vaginal cream Insert 1 Application into the vagina 1 (one) time each day. APPLY A PEA SIZED AMOUNT TO URETHRA EVERY DAY FOR 30 DAYS THEN 3 TIMES PER WEEK THEREAFTER 11/26/19 24 Active levalbuterol (XOPENEX) 1.25 mg/3 mL nebulizer solution Take 3 mL by nebulization 3 (three) times a day. 05/27/20 Active acetaminophen (TYLENOL 8 HOUR ORAL) Take 1 tablet by mouth every 8 (eight) hours. Active B complex tablet Take 1 tablet by mouth 1 (one) time each day. Active omega-3 (FISH OIL) 360-1,200 mg capsule Take 1 capsule (1,200 mg total) by mouth 2 (two) times a day. Active mv-min/folic/vit K/lycop/coQ10 (DAILY MULTIVITAMIN ORAL) Take 1 tablet by mouth 1 (one) time each day. Active lancets lancets 1 each by Not Applicable route. ONE TOUCH LANCETS MISC Active insulin syringe-needle U-100 1 mL 30 gauge x 1/2 syringeIndications :Type II diabetes mellitus with neurological manifestations (CMS/[facility] V24, CMS/HCC V28) Inject 1 each under the skin 4 (four) times a day. 400 each 3 09/27/19 Active Lantus U-100 Insulin 100 unit/mL injectionIndicatio ns:Type II diabetes mellitus with neurological manifestations (CMS/[facility] V24, CMS/HCC V28) Inject 44 Units under the skin at bedtime. 20 mL 5 09/27/19 25 Active OneTouch Ultra Test test stripIndications:T ype II diabetes mellitus with neurological manifestations (CMS/HCC V24, CMS/HCC V28) Apply 1 Strip topically 4 times daily., Disp-400 Each, R-2, Normal DX:E11.9 400 each 3 09/27/19 Active NovoLOG U-100 Insulin aspart 100 unit/mL injectionIndicatio ns:Type II diabetes mellitus with neurological manifestations (CMS/HCC V24, CMS/HCC V28) Inject 6-32 Units as directed 3 times daily (before meals). Inject 3 times a day before meal: 70-100: 6units, 101-150: 12 units, 151-200: 16 units, 201-250: 20 units, 251-300: 24 units, 301-350: 28 units, 351-400: 32 units, >400: call me. Plus 1 unit for every 15g of carbs 60 mL 3 09/27/19 25 Active lidocaine (LIDODERM) 5 % patchIndications:P ostherpetic neuralgia Apply 1 patch topically 1 (one) time each day. Place 1 Patch onto the skin every 24 hours. Apply for no more than 12 hours in any 24 hour period. 30 each 2 09/28/19 25 025 Active nitroglycerin (NITROSTAT) 0.[address] 1 tablet (0.4 mg total) under the tongue every 5 (five) minutes if needed for chest pain. 25 tablet 1 10/15/19 25 Active atenoloL (TENORMIN) 25 mg tablet Take 1 tablet (25 mg total) by mouth 1 (one) time each day. 90 tablet 1 10/15/19 25 Active clotrimazole (LOTRIMIN) 1 % cream Apply topically 2 (two) times a day. Apply bid to affected area, 30 g 1 10/15/19 25 Active NovoLOG U-100 Insulin aspart 100 unit/mL injection [...] 1 unit for every 15g of carbs 04/14/20 025 Discontin ued(Reord er) insulin syringe-needle U-100 1 mL 30 gauge x 1/2 syringe Inject 1 each under the skin 4 (four) times a day. 04/14/20 025 Discontin ued(Reord er) Lantus U-100 Insulin 100 unit/mL injection Inject 40-44 Units under the skin at bedtime. 04/14/20 025 Discontin ued(Reord er) atenoloL (TENORMIN) 25 mg tablet Take 1 tablet (25 mg total) by mouth 1 (one) time each day. 04/07/20 24 025 Discontin ued(Reord er) nitroglycerin (NITROSTAT) 0.[address] 1 tablet (0.4 mg total) under the tongue every 5 (five) minutes if needed for chest pain. 04/07/2020 10/18/2 025 Discontin ued(Reord er) clotrimazole (LOTRIMIN) 1 % cream Apply bid to affected area, 03/23/20 24 025 Discontin ued(Reord er) glucose blood test strip 1 each by Other route 4 (four) times a day. 01/12/20 24 025 Discontin ued(Patie nt Discharge ) lidocaine (LIDODERM) 5 % patch Place 1 patch on the skin 1 (one) time each day. Place 1 Patch onto the skin every 24 hours. Apply for no more than 12 hours in any 24 hour period. 04/16/20 22 025 Discontin ued(Reord er) OneTouch Ultra Test test strip Apply 1 Strip topically 4 times daily., Disp-400 Each, R-2, Normal DX:E11.9. discard previous script 025 Discontin ued(Reord er) Active Problems Problem Noted Date Diagnosed Date CAD (coronary artery disease) 05/15/2024 Overview (10/04/2024): s/p NSTEMI (Jul 2019 at [facility]); angioplasty of circumflex artery w/ 50% LAD lesion (1995) CABG Assessment & Plan (10/14/2024 10:21 AM EDT): Chronic tonsillitis 05/15/2024 Overview (05/15/2024): ent COPD (chronic obstructive pu lmonary disease) ([facility] V24, [facility] V28) 05/15/2024 Overview (05/15/2024): Dr. Houser Diverticulosis 05/15/2024 Fibromyalgia 05/15/2024 Hematuria 05/15/2024 HTN (hypertension) 05/15/2024 Assessment & Plan (10/14/2024 10:21 AM EDT): Hyperlipidemia 05/15/2024 Assessment & Plan (10/14/2024 10:21 AM EDT): Osteoporosis 05/15/2024 Assessment & Plan (10/14/2024 10:21 AM EDT): Overactive bladder 05/15/2024 Raynaud's phenomenon 05/15/2024 Rosacea 05/15/2024 Vitamin D deficiency 05/15/2024 Assessment & Plan (10/14/2024 10:21 AM EDT): Glaucoma 06/10/2023 Popliteal cyst, right 10/16/2022 Bilateral carotid artery stenosis 04/16/2021 Overview (05/15/2024): 0-49% bilaterally (November 2016) PAD (peripheral artery disease) ([facility] V24) Overview (05/15/2024): with cladication (Dr. Petersen; 2016) Type II diabetes mellitus wi th peripheral artery disease ([facility] V24, [facility] V28) 04/16/2021 Type II diabetes mellitus wi th renal manifestations ([facility] V24, [facility] V28) 04/16/2021 Assessment & Plan (10/14/2024 10:21 AM EDT): Microalbuminuria 04/16/2021 Obesity (BMI 30.0-34.9) 04/16/2021 Type II diabetes mellitus wi th neurological manifestations ([facility] V24, [facility] V28) 11/07/2013 Diabetic neuropathy ([facility] V24, [facility] V28) 1 08/03/2012 Encounters Date Type Department Care Team Description 10/14/2024 9:45 AM EDT Office Visit Adult Medicine [address] [phone] Betzaida Lai MD Encounter for annual wellness visit (AWV) in Medicare patient (Primary Dx); Coronary artery disease involving rosebud coronary artery of rosebud heart without angina pectoris; Vitamin D deficiency; Osteoporosis, unspecified osteoporosis type, unspecified pathological fracture presence; Primary hypertension; Other hyperlipidemia; Type 2 diabetes mellitus with stage 3 chronic kidney disease, with long-term current use of insulin, unspecified whether stage 3a or 3b CKD ([facility] [place]24, [facility] V28) 09/26/2024 11:20 AM EDT Office Visit Endocrinology [address] [phone] China Archuleta PA Type II diabetes mellitus with neurological manifestations ([facility] [place]24, [facility] V28) (Primary Dx); Primary hypertension; Hyperlipidemia, unspecified hyperlipidemia type; Microalbuminuria 08/05/2024 Telephone Adult Medicine [facility] - [address] [phone] Deandra Millard LPN Fitting for DME (Faxed form from [facility] ) from Last 3 Months Immunizations Name Administration Dates Next Due Moderna SARS-CoV-2 COVID-19, mRNA, LNP-S, preservative free 11/28/2021 PPD Test 04/15/2016 Pneumococcal polysaccharide 23 valent (Pneumovax 23) 2yo and older 04/10/2014,07/13/2002 Td Tetanus diptheria (Tdvax) 7yo and older 04/16 Surgical History Surgery Date Site/Laterality Comments OOPHORECTOMY 1977 b/l fallopian tubes and left ovary OTHER SURGICAL HISTORY 1991 cervical fusion OTHER SURGICAL HISTORY 1995 CABG 3 vessel disease Medical History Medical History Date Comments HTN (hypertension) Vitamin D deficiency Rosacea Fibromyalgia Fibrocystic breast Ectopic COPD (chronic obstructive pu lmonary disease) ([facility] V24, [facility] V28) Chronic tonsillitis : ent Dr. Blum Overactive bladder Raynaud's phenomenon Shingles Arthritis DDD (degenerative disc disease) Diverticulosis Osteoporosis Microscopic hematuria dr [place] Lipoma Left shoulder H/O CT scan of chest 09/21/2017 : [place]; severe emphysema, small nodules--fu 1 yr Breast nodule 2019 stable noted on LDCt Glaucoma 06/10/2023 Family History Medical History Relation Name Comments Coronary artery disease Brother alco hol abuse Diabetes Father DKA, alcoholic, CAD, Diabetes Sister 1 Lung cancer Sister 2 dm2 Relation Name Status Comments Brother Father Mother Sister 1 Sister 2 Social History Tobacco Use Types Packs/Day Years Used Date Smoking Tobacco: Former Cigarettes 0 06/29/1956 - 12/27/2010 Smokeless Tobacco: Never Tobacco Cessation:Counseling Given: Not Answered Alcohol Use Standard Drinks/Week Comments No 0 (1 standard drink = 0.6 oz pur e alcohol) Comments Unknown Sex and Gender Information Value Date Recorded Sex Assigned at Not on file Legal Sex Female 12:51 PM EST Gender Identity Not on file Sexual Orientation Not on file Obstetrics History Last Filed Vital Signs Vital Sign Reading Time Taken Comments Blood Pressure 112/58 10/14/2024 9:59 AM EDT Pulse 67 10/14/2024 9:59 AM EDT Temperature 35.9 ??C (96.7 ??F) 10/14/2024 9:59 AM ED T Respiratory Rate 16 10/14/2024 9:59 AM EDT Oxygen Saturation 94% 10/14/2024 9:59 AM EDT Inhaled Oxygen Concentration - - Weight 91.2 kg (201 lb) 10/14/2024 9:59 AM EDT Height 162.6 cm (5' 4 ) 10/14/2024 9:59 AM EDT Body Mass Index 34.5 10/14/2024 9:59 AM EDT Plan of Treatment Upcoming Encounters Date Type Department Care Team (Late st Contact Info) Description 01/30/2025 10:00 AM EDT Office Visit [facility] - [address] [phone] Claudia Albert PA [address] [place] [phone] 04/26/2025 10:20 AM EDT Office Visit Endocrinology [address] [phone] China Archuleta PA [address] [place] [phone] Health Maintenance Due Date Last Done Comments Diabetes: Annual Foot Exam 1954 Diabetes: Annual Retina Eye Exam 1955 Zoster Vaccines (1 of 2) 1994 Pneumococcal Vaccine: 50+ Years (2 of 2 - PCV) 04/10/2015 04/10/2014, 07/13/2002 RSV Immunization Adult Patients (1 - 1-dose 75+ series) 10/22/2019 Osteoporosis Screening (Bone Density Screening) 06/07/2022 Social Influencers of Health Screening 06/07/2022 COVID-19 Vaccine ( season) 2024 05/16/2022, 11/28/2021, 05/02/2021, Additional history exists Influenza Vaccine (Season Ended) 2025 Diabetes: Blood Sugar Control Test (HGBA1C) 03/28/2025 09/26/2024, 04/07/2024, 04/07/2024, Additional history exists Diabetes: Annual Urine Albumin-Creatinine Ratio (uACR) 04/07/2025 04/07/2024 Diabetes: Annual GFR (Glomerular Filtration Rate) 09/26/2025 09/26/2024, 04/07/2024, 01/08/2024 Hypertension/CHF/CAD Annual BMP Blood Test 09/26/2025 09/26/2024, 04/07/2024, 01/08/2024 Depression Screening 10/14/2025 10/14/2024, 10/13/19 24 Falls Risk Assessment 10/14/2025 10/14/2024, 024 Medicare Annual Wellness Visit 10/14/2025 10/14/2024 Cholesterol Screening (Lipid Panel) 04/07/2029 04/07/2024, 04/07/2024 DTaP,Tdap,and Td Vaccines (2 - Td or Tdap) 04/16/2031 04/16/2021 HIB Vaccines Aged Out No longer eligi [...] age to complete this topic Meningococcal B Vaccine Aged Out No l onger eligible based on patient's age to complete this topic RSV Immunization Patients Under 20 months Aged Out No longer eligible based on patient's age to complete this topic Varicella Vaccines Aged Out No longer eligible based on patient's age to complete this topic Procedures Procedure Name Priority Date/Time Associated Diagnosis Comments BASIC METABOLIC PANEL Routine 09/26/2024 12:46 PM EDT Type II diabetes mellitus with neurological manifestations ([facility] V24, [facility] V28) Primary hypertension HEMOGLOBIN A1C Routine 09/26/2024 12:46 PM EDT Type II diabetes mellitus with neurological manifestations ([facility] V24, [facility] V28) HM URINE ALBUMIN CREATININE RATIO Routine 04/07/2024 LIPID PANEL Routine 04/07/2024 DEPRESSION SCREENING Routine 10/13/2023 FALLS RISK ASSESSMENT Routine 10/13/2023 from Last 3 Months or Most Recently Relevant to Health Maintenance Results * (ABNORMAL) Hemoglobin A1c (09/26/2024 12:46 PM EDT) Hemoglobin A1C 7.1(H) <6.5 % LAB CHEMISTRY METHOD 09/26/2024 9:[address] [facility] Mean Bld Glu Estim. 157 mg/dL LAB CHEMISTRY METHOD 09/26/2024 9:[address] [facility] Blood Venous blood specimen / Unknown Venipuncture / Unknown 09/26/2024 12:46 PM EDT 09/26/2024 12:46 PM EDT us [place] UGARTE LAB BLOOD ORDERABLES Final Resul t [facility] [address] [place] [address], * (ABNORMAL) Basic metabolic panel (09/26/2024 12:46 PM EDT) Sodium 135 133 - 145 mmol/L LAB CHEMISTRY METHOD 09/26/2024 4:57 PM [facility] Potassium 4.4 3.5 - 5.5 mmol/L LAB CHEMISTRY METHOD 09/26/2024 4:57 PM [facility] Chloride 103 96 - 110 mmol/L LAB CHEMISTRY METHOD 09/26/2024 4:57 PM [facility] CO2 27 21 - 32 mmol/L LAB CHEMISTRY METHOD 09/26/2024 4:57 PM [facility] Anion Gap 5 3 - 11 LAB CHEMISTRY METHOD 09/26/2024 4:57 PM [facility] Glucose 149(H) 70 - 100 mg/dL LAB CHEMISTRY METHOD 09/26/2024 4:57 PM [facility] BUN 16 5 - 25 mg/dL LAB CHEMISTRY METHOD 09/26/2024 4:57 PM [facility] Creatinine 0.78 0.50 - 1.10 mg/dL LAB CHEMISTRY METHOD 09/26/2024 4:57 PM [facility] eGFR 77 >=60 mL/min/1. 73m2 LAB CHEMISTRY METHOD 09/26/2024 4:57 PM [facility] Comment:Calculation based on the??Chronic Kidney Disease Epidemiology Collaboration (CKD-EPI) equation refit??without adjustment for race. BUN/Creatinine Ratio 20.5 LAB CHEMISTRY METHOD 09/26/2024 4:57 PM [facility] Calcium 9.0 8.5 - 10.5 mg/dL LAB CHEMISTRY METHOD 09/26/2024 4:57 PM [facility] Blood Venous blood specimen / Unknown Venipuncture / Unknown 09/26/2024 12:46 PM EDT 09/26/2024 12:46 PM EDT us China Geremias PA LAB BLOOD ORDERABLES Final Resul t [facility]) [facility] [address] [place] [address], [place] [phone] * Urine Albumin Creatinine Ratio (04/07/2024) Pathologist [facility] Urine Albumin Creatinine Ratio Abstracted Result [facility] Historical Provider HEALTH MAINTENANCE Final Result * (ABNORMAL) Lipid panel (04/07/2024) [facility] LDL/HDL Ratio 4 0 - 4 Triglycerides 241(A) 0 - 150 mg/dL Cholesterol 255(A) 0 - 200 mg/dL HDL 65 >=40 mg/dL LDL Cholesterol 142(A) 0 - 100 mg/dL Blood Venous blood specimen / Unknown Result [facility] Historical Provider LAB BLOOD ORDERABLES [place] l Result * Falls Risk Assessment (10/13/2023) [facility] Falls Risk Assessment Abstracted Result [facility] Historical Provider HEALTH MAINTENANCE Final Result * Depression Screening (10/13/2023) [facility] Depression Screening Abstracted Result [facility] Historical Provider HEALTH MAINTENANCE Final Result from Last 3 Months or Most Recently Relevant to Health Maintenance Insurance MEDICARE [place]ICAID [place] Care Teams Vp Strategic Planning Relationship Specialty Start Date End Date Betzaida Lai MD [address] [place] [address] PCP - General Internal Medicine 03/18/21
== END 2024-10-25 10:55 | disposition home or self-care (01) ==
LOC: HO.HOS 10:14
PROVIDERS: PCP Internal Medicine; Visit Provider Orthopaedic Surgery
DX: M54.50 Low back pain, unspecified (principal); M79.604 Pain in right leg; M79.605 Pain in left leg; M75.42 Impingement syndrome of left shoulder
CPT/HCPCS: 99213; G2211

== ENCOUNTER → 2024-10-25 10:17 | Outpatient (BNV) | payer MEDICARE, MEDICAID, SELFPAY | PROVIDERS: Visit Provider Radiology Diagnostic Radiology | DX: M25.512 Pain in left shoulder (principal) | CPT/HCPCS: 73030 ==

== ENCOUNTER 2024-10-30 09:57 | Outpatient (REF) | payer MEDICARE, MEDICAID, SELFPAY ==
--- NOTE | ~2024-10-30 | MR_ITS ---
EXAMINATION: MR LUMBAR SPINE WITHOUT CONTRAST CLINICAL INFORMATION: Low back pain, unspecified. COMPARISON: September 12, 2021 TECHNIQUE: MRI of the lumbar spine was obtained using routine sequences without contrast. FINDINGS: Last rib-bearing vertebra labeled T12. No bone marrow STIR signal abnormality. Multilevel disc desiccation more pronounced at L3-4 and L4-5 levels. Grade 1 anterolisthesis at L4-5 on a degenerative basis. Conus medullaris ends at pedicle of L1 with normal signal. T12-L1: No disc herniation. Broad-based disc bulging. Facet joint hypertrophy. No compression upon neural elements. L1-2: Broad-based disc bulging. Facet joint and ligamentum flavum hypertrophy. No compression upon neural elements. L2-3: Broad-based disc bulging. Facet joint and ligamentum flavum hypertrophy. Left-sided facet joint effusion. Reduced AP diameter of the thecal sac and the neural foramina likely encroaching the neural elements. L3-4: Broad-based disc bulging. Facet joint and ligamentum flavum hypertrophy. Central spinal canal and bilateral neuroforamina stenosis encroaching likely compressing the neural elements of the thecal sac. L4-5: Broad-based disc bulging. Facet joint and ligamentum flavum hypertrophy. Reduced AP diameter of the thecal sac and neuroforamina without compressing the neural elements. L5-S1: No compression upon neural elements. No disc herniation. No prevertebral compartment hematoma, mass or fluid collection. Soft tissue fullness in the adrenal glands, bilaterally. MR/MR lumbar spine wo con IMPRESSION: Multilevel lumbar spondylosis more conspicuous at L3-4 encroaching likely compressing the neural elements of the thecal sac. Overall similar since prior exam. Electronically signed by: Lul Sanchez MD 10/31/2024 10:37 AM EDT
--- OUTSIDE RECORDS SUMMARY | 2024-10-30 10:02 | XMS_ITS | Data Portability ---
Author Organization [place] [facility] Address [address] [place] [address] Care Team Providers Care Ship Worker Name Role Phone PATTI RODRIGUEZ Primary Care Provider Assessment Encounter Date Assessment Date Assessment LastModified [...] after care of this patient according to [facility]'s infection prevention protocols. [email or web address] Not available 10/02/2022 19:14:56 Plan of Treatment Reminders Order Date Submit Date Provider Last Modified By Organization Details Last Modified Time Details Appointments None recorded. Lab None recorded. Referral None recorded. Procedures None recorded. Surgeries None recorded. Imaging XR, knee, 3 view - right knee pain and swelling 2022 023 [place] [employer] ([facility]), [address] [place] [address], [place], [address], 16:01:43 XR, lumbosacral spine, 2 or 3 view - lower back pain radiating to right leg 2022 023 [place] [employer] ([facility] [employer]), [address] [facility], [place], [address], 3 16:01:42 Medication Orders None recorded. Patient [...] HARRIS M.D. 10/04/19 3:53:5 7 PM EDT. [email or web address], [address], 10/04/2022 10:17:04 10/04/19 23 10/03/2022 knee exam [...] HARRIS M.D. 10/04/19 3:53:5 7 PM EDT. [email or web address] [address] [address], [place], [address], 10/04/2022 10:17:12 Result Notes None recorded. Procedures Surgical History Date Name Laterality Status Provider Name and Address Organization Details Recorded Time primary fusion of cervical spine completed TORITO Jacobson [address] [place], [address], [place] [facility] 10/02/2022 16:03:57 oophorectomy completed TORITO Jacobson [address] [place], [address], [place] [facility] 10/02/2022 16:05:39 Imaging Results Imaging Date Name Status LastModified by [facility] Details LastModified Time 10/03/2022 lumbar spine AP and lat completed [email or web address] [employer] [address] [facility] [address], [place], [address], 10/04/2022 10:17:04 10/03/2022 knee exam 3V AP lat oblique completed [email or web address] [employer] [address] [facility] [address], [place], [address], 10/04/2022 10:17:12 Procedure Notes None recorded. Medical Equipment None Reported. Allergies Allergen ID Allergen Name Allergen Category Reaction Reaction Severity Criticality Documentation Date Start Date Code Code System Note Provider Name and Address Organization Details Recorded Time [id number] ibuprofen medicatio n Not available Not available Not available 10/02/2022 5640 [facility] Joana Cartagena, PA [address], [place], [address], [place] [facility] 3 15:54:47 [id number] prednison e medicatio n Not available Not available Not available 10/02/2022 8640 [facility] Joana Osiel, PA [address], [place], [address], [place] [facility] 3 15:55:05 [id number] tramadol medicatio n Not available Not available Not available 10/02/2022 98143 [facility] Joanamariana Cartagena, PA [address], [place], [address], [place] [facility] 3 15:55:12 [id number] hydrocodo ne Not available Not available Not available Not available 10/02/2022 5489 [facility] Joanamariana Cartagena, PA [address], [place], [address], [place] [facility] [...] [degF] 138 mm[Hg] 68 mm[Hg] Not Available [facility] 3 15:56:02 Social History Question Answer Notes LastModified by Organizat ion Details LastModified Time Tobacco Smoking Status Former Smoker quit 2010 TORITO Jacobson [facility] [place], [address], [place] [facility] 10/02/2022 16:02:25 Do You Have An Advance Directive? No Information not available 10/02/2022 What Is Your Level Of Alcohol Consumption? None [email or web address] Information not available 10/02/2022 What Is Your Code Status? Full Code [email or web address] Information not available 10/02/2022 Fall Risk: Do You Feel Unsteady When Standing Or Walking? Yes [email or web address] Information not available 10/02/2022 Excessive Alcohol Or Drug Use No Information not available 10/02/2022 Does This Patient Have A PCP? Yes Information not available 10/02/2022 Is This Patient In Hospice? No Information not available 10/02/2022 ADL: Do You Need Help With Daily Activities Such As Bathing, Preparing Meals, Dressing, Or Cleaning? No Information not available 10/02/2022 Social Support: Do You Feel Safe? Yes [email or web address] Information not available 10/02/2022 What Is Your Housing Situation Today? I Have Housing Information not available 10/02/2022 Do You Use Any Illicit Or Recreational Drugs? No Information not available 10/02/2022 Sex: Unknown Functional Status None recorded. Mental Status None recorded. Family History Relationship Description Onset Age of this Age Resolved Age Notes LastModified by Organization Details LastModified Time Father Coronary arterioscler [email or web address] Not available 10/02 16:00:58 Father Diabetes mellitus [email or web address] Not available 10/02 16:01:09 Medical History Condition Response Diabetes Y Coronary Artery Disease Y CHF N Parkinson's Disease N Cancer N Stroke N Dementia N Hypothyroidism N Asthma N COPD Y Depression N High Cholesterol Y Rheumatoid Arthritis N Pulmonary Embolism N Hypertension Y Osteoporosis N A-fib N Kidney Disease Y Gynecological HistoryNo gynecological history recorded. Obstetrics History GPAL:G 0 P 0 0 0 0 Past Encounters Encounter ID Performer Location Encounter Start Date Encounter Closed Date Diagnosis/Indication Diagnosis SNOMED-CT Code Diagnosis ICD10 Code Diagnosis Note [id number] TORITO Jacobson [facility] - [address] [address] 10/02/2022 15:49:56 10/03/2022 11:12:48 Right side sciatica 2204297268 33541 M54.31 Osteoarthr itis of knee 926091379 M17.9 Essential hypertension 74026520 I10 Status of condition: {{Acute Ex acerbation [...] dizziness, HAs, edema, vision changes. Diabetes mellitus 283955 09 E13.42 Status of condition: {{Acute Ex [...] ID Guarantor Name 10/02/2022 1 [place]IC[place] B-[place]: [employer] Kellen Stewart [id number] Kellen Stewart 10/02/2022 2 [place]: [facility] Kellen Stewart [id number] Kellen Stewart Notes Date Note Type Note [...] her car. TORITO Jacobson [address], [place], [address], [place] [facility] 10/02/2022 19:16:36 OBGyn Episode No OBEpisode recorded.
--- OUTSIDE RECORDS SUMMARY | 2024-10-30 10:02 | XMS_ITS | Clinical Summary ---
Author Organization [facility] Address [address] [place] [address] Phone Care Team Providers Care Commercial Loan Processor Name Role Phone Betzaida Lai MD Primary Care Provider [phone] Allergies Active Allergy Reactions Criticality Noted Date [...] Prednisone 06/02/2013 elavates blood sugar, causes confusion Rbrjggf-Bqa-Muy Reductase Inhibitors 06/02/2013 Tramadol Nausea And Vomiting [...] :Type II diabetes mellitus with neurological manifestations (CMS/[facility] V24, CMS/HCC V28) Inject 1 each under the skin 4 (four) times a day. 400 each 3 09/27/19 Active Lantus U-100 Insulin 100 unit/mL injectionIndicatio ns:Type II diabetes mellitus with neurological manifestations (CMS/[facility] V24, CMS/HCC V28) Inject 44 Units [...] area, 03/23/20 24 025 Discontin ued(Reord er) Active Problems Problem Noted Date Diagnosed Date CAD (coronary artery disease) 05/15/2024 Overview (10/04/2024): s/p NSTEMI (Jul 2019 at [facility]); angioplasty of circumflex artery w/ 50% LAD lesion (1995) CABG Assessment & Plan (10/14/2024 10:21 AM EDT): Chronic tonsillitis 05/15/2024 Overview (05/15/2024): ent COPD (chronic obstructive pu lmonary disease) ([facility] V24, [facility] V28) 05/15/2024 Overview (05/15/2024): Dr. Houser [...] bilaterally (November 2016) PAD (peripheral artery disease) ([facility] V24) Overview (05/15/2024): with cladication (Dr. Petersen; 2016) Type II diabetes mellitus wi th peripheral artery disease ([facility] V24, [facility] V28) 04/16/2021 Type II diabetes mellitus wi th renal manifestations ([facility]/HCC V24, CMS/HCC V28) 04/16/2021 Assessment & Plan (10/14/2024 10:21 AM EDT): Microalbuminuria 04/16/2021 Obesity (BMI 30.0-34.9) 04/16/2021 Type II diabetes mellitus wi th neurological manifestations (CMS/HCC V24, CMS/HCC V28) 11/07/2013 Diabetic neuropathy ([facility] V24, CMS/[facility] V28) 1 08/03/2012 Encounters Date Type Department Care Team Description 10/14/2024 9:45 AM EDT Office Visit Adult Medicine [address] [phone] Betzaida Lai MD Encounter for annual wellness visit (AWV) in Medicare patient (Primary Dx); Coronary artery disease involving [place] coronary artery of [place] heart without angina pectoris; Vitamin D deficiency; Osteoporosis, unspecified osteoporosis type, unspecified pathological fracture presence; Primary hypertension; Other hyperlipidemia; Type 2 diabetes mellitus with stage 3 chronic kidney disease, with long-term current use of insulin, unspecified whether stage 3a or 3b CKD ([facility] V24, [facility] V28) 09/26/2024 11:20 AM EDT Office Visit Endocrinology [address] [phone] China Archuleta PA Type II diabetes mellitus with neurological manifestations ([facility] V24, [facility] V28) (Primary Dx); Primary hypertension; Hyperlipidemia, unspecified hyperlipidemia type; Microalbuminuria 08/05/2024 Telephone Adult Medicine [address] [phone] Deandra Millard LPN Fitting for DME (Faxed form from [facility] ) from Last 3 Months Immunizations Name [...] Ectopic COPD (chronic obstructive pu lmonary disease) ([facility] V24, [facility] V28) Chronic tonsillitis : ent Dr. Blum Overactive bladder Raynaud's phenomenon Shingles Arthritis DDD (degenerative disc disease) Diverticulosis Osteoporosis Microscopic hematuria dr banks [place] Lipoma Left shoulder H/O CT scan of chest 09/21/2017 : jazzy; severe emphysema, small nodules--fu 1 yr Breast nodule 2019 stable noted on LDCt Glaucoma 06/10/2023 Family History Medical History Relation Name Comments Coronary artery disease Brother gonzález hol abuse Diabetes Father DKA, alcoholic, CAD, [...] 10:00 AM EDT Office Visit Adult Medicine [address] [phone] Claudia Albert PA [address] [place] [address] 04/26/2025 10:20 AM EDT Office Visit [address] [phone] China Archuleta PA [address] [place] [address] Health Maintenance Due Date Last Done Comments [...] Type II diabetes mellitus with neurological manifestations ([facility] V24, [facility] V28) Primary hypertension HEMOGLOBIN A1C Routine 09/26/2024 12:46 PM EDT Type II diabetes mellitus with neurological manifestations ([facility] V24, [facility] V28) HM URINE ALBUMIN CREATININE RATIO Routine 04/07/2024 LIPID PANEL Routine 04/07/2024 DEPRESSION SCREENING Routine 10/13/2023 FALLS RISK ASSESSMENT Routine 10/13/2023 from Last 3 Months or Most Recently Relevant to Health Maintenance Results * (ABNORMAL) Hemoglobin A1c (09/26/2024 12:46 PM EDT) Hemoglobin A1C 7.1(H) <6.5 % LAB CHEMISTRY METHOD 09/26/2024 9:29 PM EDT [facility] Mean Bld Glu Estim. 157 mg/dL LAB CHEMISTRY METHOD 09/26/2024 9:29 PM EDT [facility] Blood Venous blood specimen / Unknown Venipuncture / Unknown 09/26/2024 12:46 PM EDT 09/26/2024 12:46 PM EDT us [place] [facility] LAB BLOOD ORDERABLES Final Resul t [facility] [address] [place] [address], [place] [phone] * (ABNORMAL) Basic metabolic panel (09/26/2024 12:46 PM EDT) Sodium 135 133 - 145 mmol/L LAB CHEMISTRY METHOD 09/26/2024 4:57 PM EDT [facility] Potassium 4.4 3.5 - 5.5 mmol/L LAB CHEMISTRY METHOD 09/26/2024 4:57 PM EDT [facility] Chloride 103 96 - 110 mmol/L LAB CHEMISTRY METHOD 09/26/2024 4:57 PM EDT [facility] CO2 27 21 - 32 mmol/L LAB CHEMISTRY METHOD 09/26/2024 4:57 PM EDT [facility] Anion Gap 5 3 - 11 LAB CHEMISTRY METHOD 09/26/2024 4:57 PM [facility] Glucose 149(H) 70 - 100 mg/dL LAB CHEMISTRY METHOD 09/26/2024 4:57 PM [facility] BUN 16 5 - 25 mg/dL LAB CHEMISTRY METHOD 09/26/2024 4:57 PM EDT [facility] Creatinine 0.78 0.50 - 1.10 mg/dL LAB CHEMISTRY METHOD 09/26/2024 4:57 PM EDT [facility] eGFR 77 >=60 mL/min/1. 73m2 LAB CHEMISTRY METHOD 09/26/2024 4:57 PM EDT [facility] Comment:Calculation based on the??Chronic Kidney Disease Epidemiology Collaboration (CKD-EPI) equation refit??without adjustment for race. BUN/Creatinine Ratio 20.5 LAB CHEMISTRY METHOD 09/26/2024 4:57 PM EDT [facility] Calcium 9.0 8.5 - 10.5 mg/dL LAB CHEMISTRY METHOD 09/26/2024 4:57 PM EDT [facility] Blood Venous blood specimen / Unknown Venipuncture / Unknown 09/26/2024 12:46 PM EDT 09/26/2024 12:46 PM EDT Result [facility] [place] [facility] LAB BLOOD ORDERABLES Final Resul t [facility] [address] [place] [address], * Urine Albumin Creatinine Ratio (04/07/2024) Pathologist [facility] Urine Albumin Creatinine Ratio Abstracted Result [facility] Provider HEALTH MAINTENANCE Final Result * (ABNORMAL) Lipid panel (04/07/2024) [facility] LDL/HDL Ratio 4 0 - 4 Triglycerides 241(A) 0 - 150 mg/dL Cholesterol 255(A) 0 - 200 mg/dL HDL 65 >=40 mg/dL LDL Cholesterol 142(A) 0 - 100 mg/dL Blood Venous blood specimen / Unknown Result [facility] Provider LAB BLOOD ORDERABLES [place] Result * Falls Risk Assessment (10/13/2023) Pathologist [facility] Falls Risk Assessment Abstracted Result [facility] Historical Provider HEALTH MAINTENANCE Final Result * Depression Screening (10/13/2023) [facility] Depression Screening Abstracted Result [facility] Historical Provider HEALTH MAINTENANCE Final Result from Last 3 Months or Most Recently Relevant to Health Maintenance Insurance MEDICARE [place]ICAID [place] Care Teams Commercial Loan Processor Relationship Specialty Start Date End Date Betzaida Lai MD [address] [place] [address] PCP - General Internal Medicine 03/18/21
== END 2024-10-30 09:58 | disposition home or self-care (01) ==
LOC: HO.MRI 09:57
PROVIDERS: PCP Internal Medicine; Visit Provider Orthopaedic Surgery
DX: M54.50 Low back pain, unspecified (principal); M79.604 Pain in right leg; M79.605 Pain in left leg
CPT/HCPCS: 72148

== ENCOUNTER → 2024-10-30 10:05 | Outpatient (BNV) | payer MEDICARE, MEDICAID, SELFPAY | PROVIDERS: PCP Internal Medicine; Visit Provider Radiology Diagnostic Radiology | DX: M47.816 Spondylosis without myelopathy or radiculopathy, lumbar region (principal) | CPT/HCPCS: 72148 ==

== ENCOUNTER 2025-03-14 09:19 | Outpatient (AMB) | payer MEDICARE, MEDICAID, SELFPAY ==
--- NOTE | 2025-03-14 09:21 | MHC.OFFVIS ---
Intake Visit Reasons: 3m/PVR Intake Note: Patient is present for 3m/PVR Urology Medication:ESTRADIOL,BACTRIM Antibiotic Allergy:ROVASTATIN,ROSUVASTATIN,ATORVASTATIN Blood Thinner:NONE Last PVR:OML'S Todays PVR:10ML'S Utility Appraiser Required: No Allergies hydrocodone (Vicodin) Allergy (Unknown, Verified 03/14/25 22:03) hives ibuprofen (IBUPROFEN) Allergy (Unknown, Verified 03/14/25 22:03) SWOLLEN EYELIDS, CONFUSION lovastatin (Mevacor) Allergy (Unknown, Verified 03/14/25 22:03) hives naproxen Allergy (Unknown, Verified 03/14/25 22:03) hives rosuvastatin (Crestor) Allergy (Unknown, Verified 03/14/25 22:03) hives atorvastatin (From LIPITOR) Adverse Reaction (Severe, Verified 03/14/25 22:03) SEVERE DEEP BONES PAIN lisinopril Adverse Reaction (Unknown, Verified 03/14/25 22:03) hives amitriptlyn Allergy (Unknown, Uncoded 03/14/25 22:03) hives ditripan xl Allergy (Unknown, Uncoded 03/14/25 22:03) headaches ivp dye Allergy (Unknown, Uncoded 03/14/25 22:03) throat constriction and hives lipitor Allergy (Unknown, Uncoded 03/14/25 22:03) body pain Nuprin Allergy (Unknown, Uncoded 03/14/25 22:03) hives prednisone Allergy (Unknown, Uncoded 03/14/25 22:03) confusion qvar Adverse Reaction (Unknown, Uncoded 03/14/25 22:03) hives Medication List - Last Reconciled 03/14/25 by ANDERS Suazo- atenolol 25 mg PO DAILY blood sugar diagnostic (ROBAUTOTouch Ultra Test strips) test blood sugar 3 times per day clotrimazole 1% appl topical BID estradiol 0.01%(0.1mg/gram) Daily times one month and then 3 times per week thereafter; pea sized amount to urethra. 90 days insulin aspart U-100 (Novolog U-100 Insulin aspart) See Protocol subcutaneously TID AC; sliding scale insulin glargine (Lantus U-100 Insulin) 38 - 42 units subcut BEDTIME insulin syringe-needle U-100 (BD Insulin Syringe Ultra-Fine) qid ac levalbuterol HCl 1.25 mg (3 mL) inhalation RTID PRN levalbuterol HCl 1.25 mg (3 mL) inhalation TID 30 days lidocaine 4% (Aspercreme (lidocaine)) 1 patch topical DAILY PRN nitroglycerin 0.4 mg sublingual NEEDED sulfamethoxazole-trimethoprim 800-160 mg (Bactrim DS) 1 tab PO BID 10 days HPI Comments Details: Kellen is a very pleasant 79-year-old female patient of Dr. Lai. She has a past medical history of degenerative lumbar spinal stenosis, osteoporosis, COPD, myocardial infarction, herniated lumbar intervertebral disc, coronary artery disease, hypertension, chronic low back pain, dyslipidemia, diabetes, and recurrent urinary tract infections. She presents to the office today for follow-up. In discussion with the patient today she reports having experienced one urinary tract infections since her last office visit here. She reports having completed antibiotic therapy as prescribed and has had no other bothersome urinary issues or concerns. She does however discuss at length the recent loss of her son. She reports having followed up with her PCP office a few weeks ago and is potentially planning to seek counseling services. In office urinalysis results reviewed with the patient today. PVR 10 mL. She also reports to be following up with pulmonology as well as Gastroenterology for her ongoing issues with her COPD as well as diverticulitis. She reports compliance with Estrace cream as prescribed. Previous workup has included a retroperitoneal ultrasound 09/19 noting bilateral kidneys with no calculi, lesions, and or hydronephrosis. The bladder is decompressed. Bilateral ureteral jets are not demonstrated. Pre void bladder volume is approximately 30 mL. Postvoid bladder volume is approximately 20 mL. The patient did not want to fill her bladder due to urinary incontinence. Patient with previous positive urine culture 08/22 that noted Enterococcus faecalis. She does report infrequent episodes of urinary incontinence and nocturia however does not find them bothersome and does not wish to undergo further treatment options at this time. When asked she denies hematuria, dysuria, foul smelling urine, changes to urinary stream, flank pain, fever, and or chills. She denies any issues with constipation. She otherwise offers no other issues or concerns at this time. Urine cytology 03/22 Negative for high-grade urothelial carcinoma. COUNTS INCLUDE [facility] BEDS AT THE [facility] Medical History Degenerative lumbar spinal stenosis Colonoscopy refused Osteoporosis Herniated lumbar intervertebral disc CAD (coronary artery disease) Cervical disc herniation Essential hypertension Chronic low back pain Dyslipidemia Diabetes mellitus, with long-term current use of insulin Surgical History S/P cervical spinal fusion S/P angioplasty Family History Father Substance use disorder Brother Substance use disorder Mental health disorder Social History Household Members: None Housing: House Do you presently have visiting nurse or other home services: No Patient Tobacco Use Status: Former Tobacco user e-Cigarette/Vaping Use: Never Used Advance Directives Date on File: 05/25/23 service: No Current occupational status: retired Cognitive needs: No Hearing needs: No Vision needs: Yes Review of Systems Eyes Reports no additional complaints ENT Reports no additional complaints Card Reports as per HPI Resp Reports as per HPI GI Reports no additional complaints Reports as per HPI Musc Reports as per HPI Neuro Reports no additional complaints Psych Reports no additional complaints Endo Reports as per HPI Samuel/Lymph Reports no additional complaints Aller/Immun Reports no additional complaints Physical Exam Const General: cooperative, healthy appearing, comfortable, no acute distress, well developed, alert and awake Nutritional Appearance: overweight Orientation/consciousness: patient oriented x3 Limitations: ambulation with cane and other limitations (O2 dependent 2 L via nasal cannula) HEENT Head: Yes normal to inspection, Yes normocephalic and Yes atraumatic Ears: hearing grossly normal bilaterally Eyes General: appearance normal, both eyes and all related structures Neck Neck: Yes normal visual inspection and Yes trachea midline Chest Chest palpation & inspection: normal inspection of the chest Resp Effort & Inspection: normal respiratory effort and able to speak in complete sentences Cardio Rate: regular rate GI Inspection: Yes normal to inspection General: Yes no CVA tenderness Back/Spine/Pelvis Back: no CVA tenderness Skin General skin exam: no rashes or lesions noted Neuro General: patient oriented x3 Extrem General: Yes normal to inspection Psych Appearance: grossly normal and well kempt Mental Status: mental status grossly normal Speech and movement: Normal speech and movement present and Clear speech present Affect: normal affect and Sad affect present Attitude: cooperative Thought process: Normal thought process present Thought content: Normal thought content present Insight: Fair insight present (Psych) Judgement: Fair judgement present (Psych) Office Procedures Post Void Residual Post Residual Void Post Void Residual (PVR): 10 [id number] Void Residual by ultrasound Results AMB Urinalysis, Automated UA Leukoctes 0 Jorje/uL Last Edit by RENUKA Campos on 03/14/25 09:39 UA Nitrite Negative Last Edit by RENUKA Campos on 03/14/25 09:39 UA Urobilinogen 0.2 mg/dL Last Edit by Ray Seth CCM on 03/14/25 09:39 UA Protein 0 mg/dL Last Edit by Ray Seth CCM on 03/14/25 09:39 UA pH 6.0 Last Edit by Ray Seth CCM on 03/14/25 09:39 UA Blood 80 Sincere/uL Last Edit by Ray Seth CCM on 03/14/25 09:39 UA Specific [place] 1.025 Last Edit by Ray Seth [facility] on 03/14/25 09:39 UA Ketone Negative Last Edit by RENUKA Campos on 03/14/25 09:39 UA Bilirubin 0 mg/dL Last Edit by Ray Seth [facility] on 03/14/25 09:39 UA Glucose 0 mg/dL Last Edit by Ray Seth [facility] on 03/14/25 09:39 Results Reviewed Results Reviewed: Laboratory Last Values Urine pH (Auto) 6.0 03/14/25 09:38 Specific [place] (Auto) 1.025 03/14/25 09:38 Urine Protein (Auto) 0 mg/dL 03/14/25 09:38 Glucose (UA)(Auto) 0 mg/dL 03/14/25 09:38 Urine Ketones (Auto) Negative 03/14/25 09:38 Urine Blood (Auto) 80 Sincere/uL 03/14/25 09:38 Urine Nitrite (Auto) Negative 03/14/25 09:38 Urine Bilirubin (Auto) 0 mg/dL 03/14/25 09:38 Urine Urobilinogen (Auto) 0.2 mg/dL 03/14/25 09:38 Leukocyte Esterase (Auto) 0 Jorje/uL 03/14/25 09:38 Assessment & Plan Assessment & Plan (1) Recurrent UTI: Code(s): N39.0 - Urinary tract infection, site not specified Category: Medical (2) Urinary incontinence: Code(s): R32 - Unspecified urinary incontinence Category: Medical (3) Nocturia: Code(s): R35.1 - Nocturia Category: Medical Plan In office urinalysis results reviewed with the patient today; will send for urine cytology. PVR 10 mL. She currently denies any UTI like symptoms. She denies any bothersome urinary issues or concerns. She reports be happy with current voiding parameters. Continue Estrace cream. Will continue with surveillance monitoring. Information provided regarding counseling services. All questions were answered. Follow-up in 3-6 months with PVR; or sooner with any issues, concerns, and or questions. Orders: Orders Urine Cytology Today R31.29 - Other microscopic hematuria AMB Urinalysis Automated Today Z13.9 - Encounter for screening, unspecified Medications: Discontinued sulfamethoxazole-trimethoprim 800-160 mg (Bactrim DS) Discontinued Reason: Patient Completed Course 1 tab PO BID 10 days 20 tabs 0RF Patient Instructions: The patient had an opportunity to ask questions regarding the treatment plan. All questions were answered. Physical exam, labs, and imaging were discussed and reviewed in detail. As well as risks, benefits, and discussion of treatment choices. No major barriers to understanding were identified. The patient expressed understanding and agreement with the above treatment plan. The patient was made aware they should contact our office by phone for worsening of their current condition, the appearance of new symptoms, or with any questions or concerns. Compliance is encouraged with any medications and follow up testing that is ordered. It is a privilege to be allowed the opportunity to participate in? your urological care.? Again, if you have any questions or concerns If you have any questions or concerns please do not hesitate to contact me. The office is [phone]. This note is constructed using voice recognition software. While every effort has been made to ensure accuracy deputy sheriff generalist errors may have been included. Yours sincerely, MARIANNE Suazo Coding Level of Care Code Est Pt Level 4 (26439) Diagnoses Recurrent UTI N39.0 Urinary incontinence R32 Nocturia R35.1 CPT Codes Post Residual Void - PVR CPT Code: 59036-Blnz Void Residual by ultrasound ([id number]) Time Spent (min) 45
--- OUTSIDE RECORDS SUMMARY | 2025-03-14 11:44 | XMS_ITS ---
Author Name [facility] Organization Unknown Care Team Organization Name Specialty Phone Email Start Date End Da te [facility] 02/15/2025 [facility] Betzaida Lai Primary Care 05/06/2022 4
--- OUTSIDE RECORDS SUMMARY | 2025-03-14 11:44 | XMS_ITS | Clinical Summary ---
Author Organization [facility] Address [address] [place] [address] Phone Care Team Providers Care Gas Meter Installer Name Role Phone Betzaida Lai MD Primary Care Provider [phone] Allergies Active Allergy Reactions Criticality Noted Date [...] Prednisone 06/02/2013 elavates blood sugar, causes confusion Ifugjpr-Nyk-Rst Reductase Inhibitors 06/02/2013 Tramadol Nausea And Vomiting [...] nebulization 3 (three) times a day. 05/27/20 23 Active acetaminophen (TYLENOL 8 HOUR ORAL) Take [...] by Not Applicable route. ONE TOUCH LANCETS [facility] Active insulin syringe-needle U-100 1 mL 30 gauge x 1/2 syringeIndications :Type II diabetes mellitus with neurological manifestations (CMS/HCC V24, CMS/HCC V28) Inject 1 each under the skin 4 (four) times a day. 400 each 3 09/27/19 25 Active Lantus U-100 Insulin 100 unit/mL injectionIndicatio ns:Type II diabetes mellitus with neurological manifestations (CMS/HCC V24, CMS/HCC V28) Inject 44 Units under the skin at bedtime. 20 mL 5 09/27/19 25 Active NovoLOG U-100 Insulin aspart 100 [...] carbs 60 mL 3 09/27/19 25 Active nitroglycerin (NITROSTAT) 0.[address] 1 tablet (0.4 mg total) under the tongue every 5 (five) minutes if needed for chest pain. 25 tablet 1 10/15/19 25 Active clotrimazole (LOTRIMIN) 1 % cream Apply topically 2 (two) times a day. Apply bid to affected area, 30 g 1 10/15/19 25 Active [employer] Ultra Test test stripIndications:T ype II diabetes mellitus with neurological manifestations ([facility] V24, [facility] V28) Apply 1 Strip topically 3 times daily., Disp-400 Each, R-2, Normal DX:E11.9 01/07/20 25 Active atenoloL (TENORMIN) 25 mg tablet Take 1 tablet (25 mg total) by mouth 1 (one) time each day. 90 tablet 1 02/23/20 25 Active lidocaine (LIDODERM) 5 % patch Apply topically 1 (one) time each day. Remove & discard patch within 12 hours. 28 patch 02/23/20 25 Active Oxygen Therapy (O2) gas Inhale continuously. via nasal canula Active atenoloL (TENORMIN) 25 mg tablet Take 1 tablet (25 mg total) by mouth 1 (one) time each day. 90 tablet 1 10/15/19 25 025 Discontin ued(Reord er) lidocaine (LIDODERM) 5 % patch 02/22/20 25 025 Discontin ued(Reord er) Active Problems Problem Noted Date Diagnosed Date Grief 02/22/2025 Spondylosis of cervical edenilson on without myelopathy or radiculopathy 02/22/2025 CAD (coronary artery disease) 05/15/2024 Overview (10/04/2024): s/p NSTEMI (Jul 2019 at [facility]); angioplasty of circumflex artery w/ 50% LAD lesion (1995) CABG Assessment & Plan (10/14/2024 10:21 AM EDT): Chronic tonsillitis 05/15/2024 Overview (05/15/2024): ent COPD (chronic obstructive pu lmonary disease) ([facility] V24, [facility] V28) 05/15/2024 Overview (05/15/2024): Dr. Houser [...] bilaterally (November 2016) PAD (peripheral artery disease) ([facility] V24) Overview (05/15/2024): with cladication (Dr. Petersen; 2016) Type II diabetes mellitus wi th peripheral artery disease ([facility] V24, [facility] V28) 04/16/2021 Type II diabetes mellitus wi th renal manifestations ([facility] V24, [facility] V28) 04/16/2021 Assessment & Plan (10/14/2024 10:21 AM EDT): Microalbuminuria 04/16/2021 Obesity (BMI 30.0-34.9) 04/16/2021 Type II diabetes mellitus wi th neurological manifestations ([facility] V24, [facility] V28) 11/07/2013 Diabetic neuropathy ([facility] V24, [facility] V28) 1 08/03/2012 Encounters Date Type Department Care Team Description 02/22/2025 10:00 AM EDT Office Visit Adult Medicine [address] [phone] Claudia Albert PA Primary hypertension (Primary Dx); Other hyperlipidemia; Microalbuminuria; Type II diabetes mellitus with neurological manifestations ([facility] V24, CMS/HCC V28); Spondylosis of cervical region without myelopathy or radiculopathy; Chronic bronchitis, unspecified chronic bronchitis type ([facility] V24, [facility] V28); Grief from Last 3 Months Immunizations Name Administration [...] Ectopic COPD (chronic obstructive pu lmonary disease) ([facility] V24, [facility] V28) Chronic tonsillitis : ent Dr. Peacock Petcu Overactive bladder Raynaud's phenomenon Shingles Arthritis DDD [...] = 0.6 oz pur e alcohol) Comments No Sex and Gender Information Value Date Recorded Sex Assigned at Not on file Legal Sex Female 12:51 PM EST Gender Identity Not on file Sexual Orientation Not on file Obstetrics History Last Filed Vital Signs Vital Sign Reading Time Taken Comments Blood Pressure 107/52 02/22/2025 9:52 AM EDT Pulse 62 02/22/2025 9:52 AM EDT Temperature 36.2 C (97.2 F) 02/22/2025 10:17 AM EDT Respiratory Rate 12 02/22/2025 9:52 AM EDT Oxygen Saturation 96% 02/22/2025 9:52 AM EDT Inhaled Oxygen Concentration - - Weight 88.6 kg (195 lb 6.4 oz) 02/22/2025 9:52 A M EDT Height 162.6 cm (5' 4 ) 02/22/2025 9:52 AM EDT Body Mass Index 33.54 02/22/2025 9:52 AM EDT Plan of Treatment Upcoming Encounters Date Type Department Care Team (Late st Contact Info) Description 04/26/2025 10:20 AM EDT Office Visit Endocrinology [address] [phone] China Archuleta PA [address] [place] [address] 05/24/2025 10:00 AM EST Office Visit Adult Medicine [address] [phone] Claudia Albert PA [address] [place] [address] Health Maintenance Due Date Last Done Comments Diabetes: Annual Retina Eye Exam 1955 RSV Immunization Adult Patients (1 - 1-dose 75+ series) 10/22/2019 Social Influencers of Health Screening 06/07/2022 COVID-19 Vaccine ( season) 2025 05/16/2022, 11/28/2021, 05/02/2021, Additional history exists Influenza Vaccine (#1) 2025 Diabetes: Blood Sugar Control Test (HGBA1C) 03/28/2025 09/26/2024, 04/07/2024, 04/07/2024, Additional history exists Diabetes: Annual Urine Albumin-Creatinine Ratio (uACR) 04/07/2025 04/07/2024 Diabetes: Annual GFR (Glomerular Filtration Rate) 09/26/2025 09/26/2024, 04/07/2024, 01/08/2024 Hypertension/CHF/CAD Annual BMP Blood Test 09/26/2025 09/26/2024, 04/07/2024, 01/08/2024 Falls Risk Assessment 10/14/2025 10/14/2024, 024 Medicare Annual Wellness Visit 10/14/2025 10/14/2024 Diabetes: Annual Foot Exam 02/22/2026 02/22/2025 Cholesterol Screening (Lipid Panel) 04/07/2029 04/07/2024, 04/07/2024 DTaP,Tdap,and Td Vaccines (2 - Td or Tdap) 04/16/2031 04/16/2021 Pneumococcal Vaccine: 50+ Years Discontinued 04/10/2014, 07/13/2002 Depression Screening Completed 10/14/2024, 10/13/19 HIB Vaccines Aged Out No longer eligi [...] on patient's age to complete this topic Osteoporosis Screening (Bone Density Screening) Discontinued RSV Immunization Patients Under 20 months Aged Out No longer eligible based on patient's age to complete this topic Varicella Vaccines Aged Out No longer eligible based on patient's age to complete this topic Zoster Vaccines Discontinued Procedures Procedure Name Priority Date/Time Associated Diagnosis Comments BASIC METABOLIC PANEL Routine 09/26/2024 12:46 PM EDT Type II diabetes mellitus with neurological manifestations (CMS/HCC V24, CMS/HCC V28) Primary hypertension HEMOGLOBIN A1C Routine 09/26/2024 12:46 PM EDT Type II diabetes mellitus with neurological manifestations (CMS/HCC V24, CMS/HCC V28) URINE ALBUMIN CREATININE RATIO Routine 04/07/2024 LIPID PANEL Routine 04/07/2024 DEPRESSION SCREENING Routine 10/13/2023 FALLS RISK ASSESSMENT Routine 10/13/2023 from Last 3 Months or Most Recently Relevant to Health Maintenance Results * (ABNORMAL) Hemoglobin A1c (09/26/2024 12:46 PM EDT) Pathologist [facility] Hemoglobin A1C 7.1(H) <6.5 % LAB CHEMISTRY METHOD 09/26/2024 9:29 PM EDT [facility] Mean Bld Glu Estim. 157 mg/dL LAB CHEMISTRY METHOD 09/26/2024 9:29 PM EDT [facility] Blood Venous blood specimen / Unknown Venipuncture / Unknown 09/26/2024 12:46 PM EDT 09/26/2024 12:46 PM EDT us [place] UGARTE LAB BLOOD ORDERABLES Final Resul t [facility] [address] [place] [address], * (ABNORMAL) Basic metabolic panel (09/26/2024 12:46 PM EDT) Pathologist [facility] Sodium 135 133 - 145 mmol/L LAB CHEMISTRY METHOD 09/26/2024 4:57 PM EDT [facility] Potassium 4.4 3.5 - 5.5 mmol/L LAB CHEMISTRY METHOD 09/26/2024 4:57 PM EDT [facility] Chloride 103 96 - 110 mmol/L LAB CHEMISTRY METHOD 09/26/2024 4:57 PM EDT [facility] CO2 27 21 - 32 mmol/L LAB CHEMISTRY METHOD 09/26/2024 4:57 PM EDT [facility] Anion Gap 5 3 - 11 LAB CHEMISTRY METHOD 09/26/2024 4:57 PM EDT [facility] Glucose 149(H) 70 - 100 mg/dL LAB CHEMISTRY METHOD 09/26/2024 4:57 PM [facility] BUN 16 5 - 25 mg/dL LAB CHEMISTRY METHOD 09/26/2024 4:57 PM EDT [facility] Creatinine 0.78 0.50 - 1.10 mg/dL LAB CHEMISTRY METHOD 09/26/2024 4:57 PM EDT [facility] eGFR 77 >=60 mL/min/1. 73m2 LAB CHEMISTRY METHOD 09/26/2024 4:57 PM T [facility] Comment:Calculation based on the Chronic Kidney Disease Epidemiology Collaboration (CKD-EPI) equation refit without adjustment for race. BUN/Creatinine Ratio 20.5 LAB CHEMISTRY METHOD 09/26/2024 4:57 PM [facility] Calcium 9.0 8.5 - 10.5 mg/dL LAB CHEMISTRY METHOD 09/26/2024 4:57 PM [facility] Blood Venous blood specimen / Unknown Venipuncture / Unknown 09/26/2024 12:46 PM EDT 09/26/2024 12:46 PM EDT [place] UGARTE LAB BLOOD ORDERABLES Final Resul t [facility] [address] [place] [address], [place] [phone] * HM Urine Albumin Creatinine Ratio (04/07/2024) Pathologist [facility] Urine Albumin Creatinine Ratio Abstracted Historical Provider HEALTH MAINTENANCE Final Result * (ABNORMAL) Lipid panel (04/07/2024) Pathologist [facility] LDL/HDL Ratio 4 0 - 4 Triglycerides 241(A) 0 - 150 mg/dL Cholesterol 255(A) 0 - 200 mg/dL HDL 65 >=40 mg/dL LDL Cholesterol 142(A) 0 - 100 mg/dL Blood Venous blood specimen / Unknown Result [facility] Provider LAB BLOOD ORDERABLES [place] l Result * Falls Risk Assessment (10/13/2023) Falls Risk Assessment Abstracted Historical Provider HEALTH MAINTENANCE Final Result * Depression Screening (10/13/2023) Depression Screening Abstracted [facility] Provider HEALTH MAINTENANCE Final Result from Last 3 Months or Most Recently Relevant to Health Maintenance Insurance MEDICARE [place]ICAID [place] Care Teams Gas Meter Installer Relationship Specialty Start Date End Date Betzaida Lai MD [address] [place] [phone] PCP - General Internal Medicine 9/20/21
== END 2025-03-14 10:04 | disposition home or self-care (01) ==
LOC: HO.HUSH 09:19
PROVIDERS: PCP Internal Medicine; Visit Provider Nurse Practitioner Family
DX: N39.0 Urinary tract infection, site not specified (principal); R32 Unspecified urinary incontinence; R35.1 Nocturia; Z13.9 Encounter for screening, unspecified
CPT/HCPCS: 99214

== ENCOUNTER 2025-03-14 09:19 | Outpatient (REF) | payer MEDICARE, MEDICAID, SELFPAY | END 2025-03-14 09:20 | disposition home or self-care (01) | LOC: HO.LAB 09:19 | PROVIDERS: PCP Internal Medicine; Visit Provider Nurse Practitioner Family | DX: R31.29 Other microscopic hematuria (principal); N39.0 Urinary tract infection, site not specified; R32 Unspecified urinary incontinence; R35.1 Nocturia | CPT/HCPCS: 51798; 81003; 88112; 99212 ==

== ENCOUNTER 2025-03-16 08:55 | Outpatient (AMB) | payer MEDICARE, MEDICAID, SELFPAY ==
--- NOTE | 2025-03-16 09:09 | A.OFFVIS_ITS ---
Vital Signs 03/16/25 09:10 Height 5 ft 4 in Weight 201 lb 11.567 oz BMI 34.6 BP 144/50 H Blood Pressure Location Lt brachial Position Sitting Pulse 56 Pulse Source Pulse Oximeter Pulse Oximetry (%) 96 Oxygen Delivery Method Room Air Intake Visit Reasons: COPD Apprentice Plant Attendant Required: No Accompanied by: Self / Same As Patient Allergies hydrocodone (Vicodin) Allergy (Unknown, Verified 03/16/25 09:16) hives ibuprofen (IBUPROFEN) Allergy (Unknown, Verified 03/16/25 09:16) SWOLLEN EYELIDS, CONFUSION lovastatin (Mevacor) Allergy (Unknown, Verified 03/16/25 09:16) hives naproxen Allergy (Unknown, Verified 03/16/25 09:16) hives rosuvastatin (Crestor) Allergy (Unknown, Verified 03/16/25 09:16) hives atorvastatin (From LIPITOR) Adverse Reaction (Severe, Verified 03/16/25 09:16) SEVERE DEEP BONES PAIN lisinopril Adverse Reaction (Unknown, Verified 03/16/25 09:16) hives amitriptlyn Allergy (Unknown, Uncoded 03/14/25 22:03) hives ditripan xl Allergy (Unknown, Uncoded 03/14/25 22:03) headaches ivp dye Allergy (Unknown, Uncoded 03/14/25 22:03) throat constriction and hives lipitor Allergy (Unknown, Uncoded 03/14/25 22:03) body pain Nuprin Allergy (Unknown, Uncoded 03/14/25 22:03) hives prednisone Allergy (Unknown, Uncoded 03/14/25 22:03) confusion qvar Adverse Reaction (Unknown, Uncoded 03/14/25 22:03) hives HPI Comments Details: The patient is a 79-year-old woman with a known COPD and former smoker. The patient states that she had been having hard time with the breathing. Finally her son came from [place] and she brought her to [facility] ED where she was admitted to the hospital. Her blood gas was reassuring although hypoxic. The patient did have a COPD exacerbation and was treated effectively for. During the hospitalization the patient did have a CT scan of the chest demonstrating significant emphysema and also evidence of airspace disease suggesting pneumonitis. Her respiratory viral panel was negative. She was treated for COPD exacerbation. She was discharged on oxygen. Now she has been using leave albuterol twice a day with partial improving her symptoms. She had been on prednisone but now tapered off. She also has diabetes which is a problem with the prednisone. She has having a congested cough. Mild-to- moderate severity. The patient is not using her oxygen. Will go ahead and do a 6 minute walk test today to see what her oxygen needs are. The patient does have a component of chronic bronchitis and therefore inhaled cortical steroids will become effective. 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 She tried multiple inhalers in the past and was not successful. Therefore will start her on budesonide nebulized therapy along with levo albuterol that she can do twice a day to see if we can improve her respiratory status. 03/16/2025 the patient is here for a pulmonary follow-up visit. She is currently grieving the loss of her son. She is distraught. The patient has had a hard time overall with this. She has been focusing on his chronic illness and has not been able to take care of herself. Her the nebulizer treatments had been helping before but she has not been using them. She is going to go back to using them she needs prescriptions refilled. We did talk about the Xopenex and also adding budesonide she can do that twice a day. She does have evidence of chronic bronchitis moderate severity. Will start her on azithromycin 3 times a week to help with the chronic bronchitis. Once she has a little more comfortable will have her come back in we can do additional imaging testing done and do additional testing then but for now will just try to make her feel little better so she can cope with this difficult time. She will get an EKG though to make sure she is tolerating the azithromycin without any conduction abnormalities. Follow-up in 3-4 months. If she has any issues prior to this she will call for further recommendations. [facility] Medical History Degenerative lumbar spinal stenosis Colonoscopy refused Osteoporosis Herniated lumbar intervertebral disc CAD (coronary artery disease) Cervical disc herniation Essential hypertension Chronic low back pain Dyslipidemia Diabetes mellitus, with long-term current use of insulin Surgical History S/P cervical spinal fusion S/P angioplasty Family History Father Substance use disorder Brother Substance use disorder Mental health disorder Social History Household Members: None Housing: House Do you presently have visiting nurse or other home services: No Patient Tobacco Use Status: Former Tobacco user e-Cigarette/Vaping Use: Never Used Advance Directives Date on File: 05/25/23 service: No Current occupational status: retired Cognitive needs: No Hearing needs: No Vision needs: Yes Review of Systems Const Denies fever(s) Eyes Reports no additional complaints ENT Reports nasal congestion Card Denies chest pain, Reports dyspnea and Reports dyspnea on exertion Resp Reports cough, Reports dyspnea, Reports dyspnea on exertion and Denies wheezing GI Reports no additional complaints Musc Reports as per HPI, Reports abnormal gait and Reports muscle weakness Skin/Breast Denies jaundice Neuro Reports abnormal gait Samuel/Lymph Denies lymphadenopathy Aller/Immun Denies wheezing Physical Exam Vital Signs: Last Vital Signs Pulse 56 03/16/25 09:10 BP 144/50 H 03/16/25 09:10 Pulse Ox 96 03/16/25 09:10 Oxygen Delivery Method Room Air 03/16/25 09:10 BMI result Body Mass Index 34.6 Const General: comfortable HEENT Head: Yes normocephalic Neck Neck: Yes supple Chest Chest palpation & inspection: normal inspection of the chest Resp Effort & Inspection: normal respiratory effort Auscultation: diminished lung sounds Cardio Heart sounds: S1 normal heart sound present and S2 normal heart sound present GI Palpation (GI): Soft to palpation Skin General skin exam: no rashes or lesions noted Assessment & Plan Assessment & Plan (1) COPD (chronic obstructive pulmonary disease): Code(s): J44.9 - Chronic obstructive pulmonary disease, unspecified Category: Medical Qualifiers: COPD type: chronic bronchitis Chronic bronchitis type: simple Qualified Code(s): J41.0 - Simple chronic bronchitis (2) Pulmonary nodules: Code(s): R91.8 - Other nonspecific abnormal finding of lung field Category: Medical (3) Spinal stenosis, lumbar region with neurogenic claudication: Code(s): M48.062 - Spinal stenosis, lumbar region with neurogenic claudication Category: Medical Plan continue Xopenex TID BUdesonide nebs BID start azithromycin MWF EKG F/U 4 months Orders: Orders ECG 12 lead EKG Today J44.9 - Chronic obstructive pulmonary disease, unspecified Medications: New azithromycin Take 1 tablet on Thursday/Thursday/Thursday 250 mg PO 3XW 12 tabs 1RF 28 days K21.9 - Gastro-esophageal reflux disease without esophagitis budesonide 0.5 mg (2 mL) inhalation BID 120 mL 11RF 30 days J44.9 - Chronic obstructive pulmonary disease, unspecified Refilled levalbuterol HCl 1.25 mg (3 mL) inhalation TID 270 mL 6RF 30 days J44.9 - Chronic obstructive pulmonary disease, unspecified Coding Level of Care Code Est Pt Level 4 (02290) Diagnoses Simple chronic bronchitis J41.0 COPD type: chronic bronchitis Chronic bronchitis type: simple Pulmonary nodules R91.8 Spinal stenosis, lumbar region with neurogenic claudication M48.062 Time Spent (min) 16
[2025-03-16 09:10] VITALS: BP 144/50; PULSE 56; O2SAT 96; BMI 34.6
--- OUTSIDE RECORDS SUMMARY | 2025-03-16 10:15 | XMS_ITS | Encounter Summary ---
Author Organization [facility] Address [address] [place] [address] Care Team Providers Care Middle School Reading Teacher Name Role Phone Johana Desai DO Primary Care Pro vider Unavailable Betzaida Lai MD Primary Care Provider [phone] Encounter Details Date Type Department Care Team Description 09/21/2019 Dosier Operator Report Medical Records [address] [place] [address] Zaida Brown, ANDERS Social History Tobacco Use Types Packs/Day Years Used Date Smoking Tobacco: Former Cigarettes 0 [birth year]29/1956 - 12/27/2010 Smokeless Tobacco: Never Alcohol Use Standard Drinks/Week Comments No 0 (1 standard drink = 0.6 oz pur e alcohol) Sex Assigned at Date Recorded Female 01/08/2021 10:05 AM EDT Job Start Date Occupation Industry Not on file Not on file Not on file documented as of this encounter Plan of Treatment Not on file documented as of this encounter Visit Diagnoses Not on filedocumented in this encounter Care Teams Middle School Reading Teacher Relationship Specialty Start Date End Date Johana Desai DO PCP - General Internal Medicine 05/05/13 03/17/21 Betzaida Lai MD [address] [place], [place] [phone] PCP - General Internal Medicine 03/18/21 documented as of this encounter
--- OUTSIDE RECORDS SUMMARY | 2025-03-16 10:15 | XMS_ITS | Encounter Summary ---
Author Organization [facility] Address [facility] [place] [address] Care Team Providers Care Greenhouse Worker Name Role Phone Johana Desai DO Primary Care Pro vider Unavailable Betzaida Lai MD Primary Care Provider [phone] Encounter Details Date Type Department Care Team Description 04/22/2016 [facility] Medical Records [address] [place] [id number] Abstract, Provider Social History Tobacco Use Types Packs/Day Years Used Date Smoking Tobacco: Former Comments:quit 10/2015 Alcohol Use Standard Drinks/Week Comments Not Asked 0 (1 standard drink = 0.6 oz pur e alcohol) Sex Assigned at Date Recorded Female 01/08/2021 10:05 AM EDT Job Start Date Occupation Industry Not on file Not on file Not on file documented as of this encounter Plan of Treatment Not on file documented as of this encounter Visit Diagnoses Not on filedocumented in this encounter Care Teams Greenhouse Worker Relationship Specialty Start Date End Date Johana Desai DO PCP - General Internal Medicine 05/05/13 03/17/21 Betzaida Lai MD [address] [place] [phone] PCP - General Internal Medicine 03/18/21 documented as of this encounter
--- OUTSIDE RECORDS SUMMARY | 2025-03-16 10:15 | XMS_ITS | Encounter Summary ---
Author Organization [facility] Address [address] [place] [address] Care Team Providers Care Wine Bottle Inspector Name Role Phone Johana Desai DO Primary Care Pro vider Unavailable Betzaida Lai MD Primary Care Provider [phone] Encounter Details Date Type Department Care Team Description 10/17/2013 Telephone Adult [address] [phone] Johana Desai DO Social History Tobacco Use Types Packs/Day Years Used Date Smoking Tobacco: Former Comments:quit 12/2010 Alcohol Use Standard Drinks/Week Comments Not Asked [...] on filedocumented in this encounter Care Teams Wine Bottle Inspector Relationship Specialty Start Date End Date Johana Desai DO PCP - General Internal Medicine 05/05/13 03/17/21 Betzaida Lai MD [address] [place] [phone] PCP - General Internal Medicine 03/18/21 documented as of this encounter
--- OUTSIDE RECORDS SUMMARY | 2025-03-16 10:15 | XMS_ITS | Encounter Summary ---
Author Organization [facility] Address [facility] [place] [address] Care Team Providers Care Drug Safety Associate Name Role Phone Johana Desai DO Primary Care Pro vider Betzaida Quintanilla MD Primary Care Provider [phone] Encounter Details Date Type Department Care Team Description 04/13/2014 Pt. Non Urgent Medic al Question Adult Medicine [address] [address] Johana Desai DO Social History Tobacco Use Types Packs/Day Years Used Date Smoking Tobacco: Former Comments:quit 12/2010 Alcohol Use Standard Drinks/Week Comments Not Asked 0 (1 standard drink = 0.6 oz pur e alcohol) Sex Assigned at Date Recorded Female 01/08/2021 10:05 AM EDT Job Start Date Occupation Industry Not on file Not on file Not on file documented as of this encounter Progress Notes * Neida Vasquez M.A. - 04/13/2014 4:04 PM EDTFrom: Kellen Stewart To: Johana Bowens DO Sent: 04/13/2014 3:59 PM EDT Subject: Lab results Dear Dr. Anglin, I received your email concerning the results of my lab work, and although I am pleased that all looks good, I am concerned because I feel so ill all of the time. Extreme Fatigue, pain throughout my entire body, Nausea etc., and now the lose of my eyebrows...something is wrong! Do you have any other ideas as to what may be the cause of my distress? Thank you for your time. Kellen Stewart documented in this encounter Plan of Treatment Not on file documented as of this encounter Visit Diagnoses Not on filedocumented in this encounter Care Teams Drug Safety Associate Relationship Specialty Start Date End Date Johana Desai DO PCP - General Internal Medicine 05/05/13 03/17/21 Betzaida Lai MD [address] [place] [address] PCP - General Internal Medicine 03/18/21 documented as of this encounter
--- OUTSIDE RECORDS SUMMARY | 2025-03-16 10:15 | XMS_ITS | Encounter Summary ---
Author Organization [facility] Address [facility] [place] [address] Care Team Providers Care Residency Director Name Role Phone Johana Desai DO Primary Care Pro vider Unavailable Betzaida Lai MD Primary Care Provider [phone] Reason for Visit * Reason Comments E-prescribe Rx Request Encounter Details Date Type Department Care Team Description 07/24/2019 Refill Adult Medicine [address] [address] Johana Desai DO E-prescribe Rx Request Social History Tobacco Use Types Packs/Day Years [...] on file documented as of this encounter Miscellaneous Notes * Telephone Encounter - Lily Henning C.M.A. - 07/25/2019 11:17 AM EST LUCAS 05/25/19 Appt 09/23/19 Lab Results Component Value Date HGBA1C 7.9 05/19/2019 MALBUR 10.7 05/19/2019 MALBCR 11.5 05/19/2019 CHOL 220 05/19/2019 LDL TNP 05/19/2019 HDL 51 05/19/2019 TRIG 518 05/19/2019 GLU 104 05/19/2019 CREAT 0.78 05/19/2019 * Telephone Encounter - Elsy Caseyesvin - 07/25/2019 11:13 AM EST Patient would like script to be: E-PRESCRIBED/FAXED TO PHARMACY WHEN WAS THE PATIENT'S LAST APPOINTMENT IN ADULT MEDICINE? 05/25/20 WHEN WAS THE LAST TIME THE PATIENT SAW THEIR PCP? Same as above Does patient have an upcoming appointment? Yes 09/23/2019 (THE MEDICATION REQUESTED IS ON THE MED LIST ABOVE) All of the medications requested were on the CURRENT MEDS list Did you check the Pharmacy information above?: YES Patient wants: 90 -day supply Is this a mail order prescription request ? NO If the refill is from a FAXED refill request what is the RX # listed on the fax? 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, with long-term current use of insulin Chronic obstructive pulmonary disease, unspecified COPD type (HCC) Dyslipidemia Other and unspecified hyperlipidemia Fibromyalgia Mylagia and myositis, unspecified Other chronic pain Essential hypertension Unspecified essential hypertension History of tobacco use Personal history of tobacco use, presenting hazards to health Microscopic hematuria documented in this encounter Care Teams Residency Director Relationship Specialty Start Date End Date Johana eDsai DO PCP - General Internal Medicine 05/05/13 03/17/21 Betzaida Lai MD [address] [place] [address] PCP - General Internal Medicine 03/18/21 documented as of this encounter
--- OUTSIDE RECORDS SUMMARY | 2025-03-16 10:15 | XMS_ITS | Encounter Summary ---
Author Organization [facility] Address [facility] [place] [address] Care Team Providers Care Review Analyst Name Role Phone Johana Desai DO Primary Care Pro vider Unavailable Betzaida Lai MD Primary Care Provider [phone] Encounter Details Date Type Department Care Team Description 10/26/2019 Refill Adult Medicine [address] [address] Johana Desai DO Social History Tobacco Use [...] encounter Miscellaneous Notes * Telephone Encounter - Kevin Beverly L.P.N. - 10/27/2019 1:47 PM EDT Last office visit 09/23/2019, next office visit 01/23/2020. Lab Results Component Value Date HGBA1C 7.9 08/26/2019 MALBUR 18.8 08/19/2019 MALBCR 47.0 08/19/2019 CHOL 220 05/19/2019 LDL TNP 05/19/2019 HDL 51 05/19/2019 TRIG 518 05/19/2019 GLU 256 08/26/2019 CREAT 0.93 08/26/2019 documented in this encounter Plan of Treatment [...] hematuria documented in this encounter Care Teams Review Analyst Relationship Specialty Start Date End Date Johana Desai DO PCP - General Internal Medicine 05/05/13 03/17/21 Betzaida Lai MD [address] [place] [address] PCP - General Internal Medicine 03/18/21 documented as of this encounter
--- OUTSIDE RECORDS SUMMARY | 2025-03-16 10:15 | XMS_ITS | Encounter Summary ---
Author Organization [facility] Address [facility] [place] [address] Care Team Providers Care Canopy Inspector Name Role Phone Johana Desai DO Primary Care Pro vider Unavailable Betzaida Lai MD Primary Care Provider [phone] Encounter Details Date Type Department Care Team Description 06/20/2016 [facility] Medical Records [address] [place] [address] Abstract, Provider Social History Tobacco Use Types [...] on filedocumented in this encounter Care Teams Canopy Inspector Relationship Specialty Start Date End Date Johana Desai DO PCP - General Internal Medicine 05/05/13 03/17/21 Betzaida Lai MD [address] [place] [address] [id number] PCP - General Internal Medicine 03/18/21 documented as of this encounter
--- OUTSIDE RECORDS SUMMARY | 2025-03-16 10:15 | XMS_ITS | Encounter Summary ---
Author Organization [facility] Address [address] [place] [address] Care Team Providers Care Email Marketing Manager Name Role Phone Johana Desai DO Primary Care Pro vider Unavailable Betzaida Lai MD Primary Care Provider [phone] Encounter Details Date Type Department Care Team Description 04/11/2016 Release of Information Medical Records [address] [place] [address] Abstract, Provider Social History Tobacco Use Types [...] on filedocumented in this encounter Care Teams Email Marketing Manager Relationship Specialty Start Date End Date Johana Desai DO PCP - General Internal Medicine 05/05/13 03/17/21 Betzaida Lai MD [address] [place] [id number] PCP - General Internal Medicine 03/18/21 documented as of this encounter
--- OUTSIDE RECORDS SUMMARY | 2025-03-16 10:15 | XMS_ITS | Encounter Summary ---
Author Organization [facility] Address [address] [place] [address] Care Team Providers Care Master Barber Name Role Phone Johana Desai DO Primary Care Pro vider Unavailable Betzaida Lai MD Primary Care Provider [phone] Encounter Details Date Type Department Care Team Description 10/11/2019 Pt. Non Urgent Medic al Question Adult Medicine [address] [id number] Johana Desai DO Social History Tobacco Use [...] on filedocumented in this encounter Care Teams Master Barber Relationship Specialty Start Date End Date Johana Desai DO PCP - General Internal Medicine 05/05/13 03/17/21 Betzaida Lai MD [address] [place] [address] PCP - General Internal Medicine 03/18/21 documented as of this encounter
--- OUTSIDE RECORDS SUMMARY | 2025-03-16 10:15 | XMS_ITS | Encounter Summary ---
Author Organization [facility] Address [facility]9 [place] [address] Care Team Providers Care Safety Deposit Boxes Custodian Name Role Phone Johana Desai DO Primary Care Pro vider Unavailable Betzaida Lai MD Primary Care Provider [phone] Reason for Visit * Reason Comments E-prescribe Rx Request Encounter Details Date Type Department Care Team Description 06/14/2019 Refill Adult Medicine [address] [address] Johana Desai DO E-prescribe Rx Request Social [...] encounter Miscellaneous Notes * Telephone Encounter - Tasneem Diaz M.A. - 06/14/2019 11:16 AM EST Lab Results Component Value Date NA 137 05/19/2019 K 4.6 05/19/2019 CO2 31 05/19/2019 CL 101 05/19/2019 BUN 23 05/19/2019 CREAT 0.78 05/19/2019 GLU 104 05/19/2019 CA 9.2 05/19/2019 GFR > 60 05/19/2019 Last ov with pcp 05/25/19 * Telephone Encounter - Balbina Lugo - 06/14/2019 10:59 AM EST Patient would like script to be: E-PRESCRIBED/FAXED TO PHARMACY WHEN WAS THE PATIENT'S LAST APPOINTMENT IN ADULT MEDICINE? 05/25/19 WHEN WAS THE LAST TIME THE PATIENT SAW THEIR PCP? Same as above Does patient have an upcoming appointment? Yes 09/22/18 (THE MEDICATION REQUESTED IS ON THE MED LIST ABOVE) All of the medications requested were on the CURRENT MEDS list Did you check the Pharmacy information above?: YES Patient wants: 39 -day supply Is this a mail order prescription request ? NO If the refill is from a FAXED refill request what is the RX # listed on the fax? N/A Patients current insurance carrier is: [place] / [place] / Product Type: MEDICARE [id number] documented in this encounter Plan of Treatment Not on file documented as of this encounter Visit Diagnoses Not on filedocumented in this encounter Care Teams Safety Deposit Boxes Custodian Relationship Specialty Start Date End Date Johana Desai DO PCP - General Internal Medicine 05/05/13 03/17/21 Betzaida Lai MD [address] [place] [address] PCP - General Internal Medicine 03/18/21 documented as of this encounter
--- OUTSIDE RECORDS SUMMARY | 2025-03-16 10:15 | XMS_ITS | Encounter Summary ---
Author Organization [facility] Address [address] [place] [address] Care Team Providers Care Senior Accounting Analyst Name Role Phone Johana Desai DO Primary Care Pro vider Unavailable Betzaida Lai MD Primary Care Provider [phone] Encounter Details Date Type Department Care Team Description 08/29/2019 Orders Only Adult Medicine [address] [phone] Johana Desai DO Social History Tobacco Use [...] on filedocumented in this encounter Care Teams Senior Accounting Analyst Relationship Specialty Start Date End Date Johana Desai DO PCP - General Internal Medicine 05/05/13 03/17/21 Betzaida Lai MD [address] [place] [address] PCP - General Internal Medicine 03/18/21 documented as of this encounter
--- OUTSIDE RECORDS SUMMARY | 2025-03-16 10:15 | XMS_ITS | Encounter Summary ---
Author Organization [facility] Address [facility] [place] [address] Care Team Providers Care Child Advocate Name Role Phone Johana Desai DO Primary Care Pro vider Unavailable Betzaida Lai MD Primary Care Provider [phone] Encounter Details Date Type Department Care Team Description 06/20/2016 Controlled Substance Contract with Plan Medical Records [address] [place] [phone] Abstract, Provider Social History Tobacco Use Types [...] on filedocumented in this encounter Care Teams Child Advocate Relationship Specialty Start Date End Date Johana Desai DO PCP - General Internal Medicine 05/05/13 03/17/21 Betzaida Lai MD [address] [place] [address] PCP - General Internal Medicine 03/18/21 documented as of this encounter
--- OUTSIDE RECORDS SUMMARY | 2025-03-16 10:15 | XMS_ITS | Encounter Summary ---
Author Organization [facility] Address [facility] [place] [address] Care Team Providers Care Slip Injector And Applicator Name Role Phone Johana Desai DO Primary Care Pro vider Unavailable Betzaida Lai MD Primary Care Provider [phone] Encounter Details Date Type Department Care Team Description 09/03/2016 Orders Only Adult Medicine [address] [address] Johana Desai DO Dysuria (Primary Dx) Social History Tobacco Use Types Packs/Day Years [...] on file documented as of this encounter Results * (ABNORMAL) URINALYSIS, COMPLETE (10/13/2016 8:31 AM EDT) SPECIFIC GRAVITY, URINE 1.010 1.005 - 1.030 10/13/2016 10:12 AM EDT [facility] PH, URINE 6.0 5 - 8 10/13/2016 10:12 AM EDT [facility] PROTEIN, URINE NEGATIVE <=TRACE mg/dL 10/13/2016 10:12 AM EDT [facility] GLUCOSE, URINE (UA) NEGATIVE NEGATIVE mg/dL 10/13/2016 10:12 AM EDT [facility] KETONE, URINE NEGATIVE NEGATIVE mg/dL 10/13/2016 10:12 AM EDT [facility] BILIRUBIN URINE NEGATIVE NEGATIVE 10/13/2016 10:12 AM EDT [facility] UROBILINOGEN, URINE 0.2 0.2 - 1.0 E.U./dL 10/13/2016 10:12 AM EDT [facility] BLOOD, URINE MODERATE(A) NEGATIVE 10/13/2016 10:12 AM EDT [facility] NITRITE,URINE NEGATIVE NEGATIVE 10/13/2016 10:12 AM EDT [facility] LEUKOCYTE ESTERASE, URINE NEGATIVE NEGATIVE 10/13/2016 10:12 AM EDT [facility] RBC-Urine 0-1 0 - 4 /hpf 10/13/2016 11:23 AM EDT [facility] WBC, URINE 2-4 0 - 4 /hpf 10/13/2016 11:23 AM EDT [facility] EPITHELIAL CELLS URINE 0-2 0 - 60 10/13/2016 11:23 AM EDT [facility] BACTERIA, URINE LIGHT(A) NEGATIVE 10/13/2016 11:23 AM EDT [facility] 10/13/2016 8:31 AM EDT 10/13/2016 8:32 AM EDT Johana Anglin ColFibroGencco DO LAB Performing Organization Address City/[facility] Co de Phone Number [facility] [address] [facility] * URINE, CULTURE (09/04/2016 10:36 AM EST) Urine (Urine) 09/04/2016 10: 36 AM EST 09/04/2016 10:36 AM EST Narrative CHANDU AGUSTIN - 09/05/2016 9:13 AM EST No growth Johana Anglin Colasacco DO LAB [facility] documented in this encounter Visit Diagnoses Diagnosis Dysuria- Primary documented in this encounter Care Teams Slip Injector And Applicator Relationship Specialty Start Date End Date Johana Desai DO PCP - General Internal Medicine 05/05/13 03/17/21 Betzaida Lai MD [address] [place] [address] PCP - General Internal Medicine 03/18/21 documented as of this encounter
--- OUTSIDE RECORDS SUMMARY | 2025-03-16 10:15 | XMS_ITS | Encounter Summary ---
Author Organization [facility] Address [address] [place] [address] Care Team Providers Care Manager Immunology Name Role Phone Johana Desai DO Primary Care Pro vider Unavailable Betzaida Lai MD Primary Care Provider [phone] Encounter Details Date Type Department Care Team Description 08/12/2019 Hospital Medical Records [address] [place] [id number] Deangelo Brownlee Social History Tobacco Use Types Packs/Day Years [...] on filedocumented in this encounter Care Teams Manager Immunology Relationship Specialty Start Date End Date Johana Desai DO PCP - General Internal Medicine 05/05/13 03/17/21 Betzaida Lai MD [address] [place] [address] [phone] PCP - General Internal Medicine 03/18/21 documented as of this encounter
--- OUTSIDE RECORDS SUMMARY | 2025-03-16 10:15 | XMS_ITS | Encounter Summary ---
Author Organization [facility] Address [facility] [place] [address] Care Team Providers Care Distributing Clerk Name Role Phone Johana Desai DO Primary Care Pro vider Unavailable Betzaida Lai MD Primary Care Provider [phone] Encounter Details Date Type Department Care Team Description 04/21/2016 Pt. Non Urgent Medic al Question Adult Medicine [address] [address] Johana Desai DO Social History Tobacco Use [...] as of this encounter Progress Notes * Angy Barcenas M.A. - 04/21/2016 3:31 PM EDTFrom: Kellen Stewart To: Johana Bowens DO Sent: 04/21/2016 3:17 PM EDT Subject: RE/letter I just received from you concerning referral for PFT I cancelled I told Dr. Anglin during my office visit with her on 04/15/2016 that I was going to cancel thhe PFT scheduled fot 05/06/2016 because I have had three PFT's to date and I didn't think it was neccessary to have a forth one. I know I have COPD and the PFT is a horrible test to go through for someone with this medical condition. My main concern is lung cancer having been a smoker for over [address] Anglin referred me to [facility] to have a low dose CT scan of my lungs to look for cancer, which I completed on 01/02/2016. That's good enough for me! Thank you, Kellen Stewart documented in this encounter Plan of Treatment Not on file documented as of this encounter Visit Diagnoses Not on filedocumented in this encounter Care Teams Distributing Clerk Relationship Specialty Start Date End Date Johana Desai DO PCP - General Internal Medicine 05/05/13 03/17/21 Betzaida Lai MD [address] [place] [address] PCP - General Internal Medicine 03/18/21 documented as of this encounter
--- OUTSIDE RECORDS SUMMARY | 2025-03-16 10:15 | XMS_ITS | Encounter Summary ---
Author Organization [facility] Address [facility] [place] [address] Care Team Providers Care Police Captain Precinct Name Role Phone Johana Desai DO Primary Care Pro vider Unavailable Betzaida Lai MD Primary Care Provider Encounter Details Date Type Department Care Team Description 04/13/2014 Orders Only Adult Medicine [address] [address] Johana Desai DO Hypercalcemia; Dyslipidemia Social History Tobacco Use Types Packs/Day Years [...] documented as of this encounter Results * IONIZED CALCIUM IN BLOOD (07/06/2014 11:13 AM EST) CALCIUM, IONIZED 5.0 4.5 - 5.6 mg/dL 07/07/2014 6:07 PM EST [facility] Comment: Performed at: RN - [facility] [address] [id number] Data Base Design Analyst: Kimberly Daniels MD, Phone: [phone] 07/06/2014 11:1 3 AM EST 07/06/2014 11:13 AM EST Johana Bowens DO LAB [facility] documented in this encounter Visit Diagnoses Diagnosis Hypercalcemia Dyslipidemia Other and unspecified hyperlipidemia documented in this encounter Care Teams Police Captain Precinct Relationship Specialty Start Date End Date Johana Desai DO PCP - General Internal Medicine 05/05/13 03/17/21 Betzaida Lai MD [address] [place] [address] PCP - General Internal Medicine 03/18/21 documented as of this encounter
--- OUTSIDE RECORDS SUMMARY | 2025-03-16 10:15 | XMS_ITS | Encounter Summary ---
Author Organization [facility] Address [facility] [place] [address] Care Team Providers Care Decommissioning Well Site Manager Name Role Phone Johana Desai DO Primary Care Pro vider Unavailable Betzaida Lai MD Primary Care Provider [phone] Reason for Visit * Reason Onset Date Comments Urinary Frequency/Urgency/Burning 09/19/2019 Encounter Details Date Type Department Care Team Description 09/19/2019 Pt. Non Urgent Medic al Question Adult Medicine [address] [address] Johana Desai DO Social History Tobacco Use [...] Telephone Encounter - Tasneem Diaz M.A. - 09/19/2019 9:49 AM EDTFrom: Kellen Stewart To: Johana Bowens DO Sent: 09/19/2019 9:48 AM EDT Subject: UTI I have an upcoming appointment on 09/23/2019 and would like to be tested again for a UTI prior to this visit. I believe I still have the infection and that when I was released from the hospital on 08/12/2019 Istill had it!! They never told me otherwise! I have a burning sensation when urinating!! I was tested at your lab on 08/26/[address] ( It was supposed to be on 08/19/2019, but your lab screwedup!), and was notified on 08/29/2019 that I indeed had a UTI and I was prescribed an antibiotic for5 days, which I finished on 09/03/2019. 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 I certainly do not want to go through at again. He said we need to stay on top of this!! Please arrange for me to go for a Clean Catch test LOLA, before my appointment on Thursday09/23/2019. Thank you, Kellen Stewart documented in this encounter Plan of Treatment Not on file documented as of this encounter Visit Diagnoses Not on filedocumented in this encounter Care Teams Decommissioning Well Site Manager Relationship Specialty Start Date End Date Johana Desai DO PCP - General Internal Medicine 05/05/13 03/17/21 Betzaida Lai MD [address] [place] [address] PCP - General Internal Medicine 03/18/21 documented as of this encounter
--- OUTSIDE RECORDS SUMMARY | 2025-03-16 10:16 | XMS_ITS | Encounter Summary ---
Author Organization [facility] Address [address] [place] [address] Care Team Providers Care Research Investigator Name Role Phone Johana Desai DO Primary Care Pro vider Unavailable Betzaida Lai MD Primary Care Provider [phone] Reason for Referral * Non LEÓN (Routine) - Authorized/Booked Specialty Diagnoses / Procedures Referred By Sivan solano Referred To Contact Endocrinology Procedures REFERRAL TO ENDOCRINOLOGY Johana Desai DO [address] [address] Referral ID Status Reason Start Date Expiration Date V isits Requested Visits Authorized [id number] Authorized/B ooked 11/16/2020 11/16/2021 1 1 Encounter Details Date Type Department Care Team Description 11/16/2020 Orders Only Adult Medicine [address] [address] Johana Desai DO Social History Tobacco Use Types Packs/Day Years Used Date Smoking Tobacco: Former Cigarettes 0 [birth year]29/1957 - 12/27/2010 Smokeless Tobacco: Never Alcohol Use Standard Drinks/Week Comments No 0 (1 standard drink = 0.6 oz pur e alcohol) Sex Assigned at Date Recorded Female 01/08/2021 10:05 AM EDT Job Start Date Occupation Industry Not on file Not on file Not on file COVID-19 Exposure Response Date Recorded In the last month, have you been in contact with someone who was confirmed or suspected to have Coronavirus / COVID-19? No / Unsure 11/13/2020 9:18 AM EDT documented as of this encounter Plan of Treatment Not on file documented as of this encounter Visit Diagnoses Not on filedocumented in this encounter Care Teams Research Investigator Relationship Specialty Start Date End Date Johana Desai DO PCP - General Internal Medicine 05/05/13 03/17/21 Betzaida Lai MD [address] [place] [address] PCP - General Internal Medicine 03/18/21 documented as of this encounter
--- OUTSIDE RECORDS SUMMARY | 2025-03-16 10:16 | XMS_ITS | Clinical Summary ---
Author Organization [facility] Address [address] [place] [address] Phone Care Team Providers Care Casino Cage Cashier Name Role Phone Betzaida Lai MD Primary Care Provider [phone] Allergies Active Allergy Reactions Criticality Noted Date [...] Prednisone 06/02/2013 elavates blood sugar, causes confusion Sbdfgab-Iyk-Wgi Reductase Inhibitors 06/02/2013 Tramadol Nausea And Vomiting [...] by Not Applicable route. ONE TOUCH LANCETS [facility] Active insulin syringe-needle U-100 1 mL 30 [...] area, 30 g 1 10/15/19 25 Active ShipServToIncuvo Ultra Test test stripIndications:T ype II diabetes mellitus with neurological manifestations ([facility] V24, [facility] V28) Apply 1 Strip topically 3 [...] Overview (10/04/2024): [place] [facility] [place]oplasty of circumflex artery w/ 50% LAD lesion (1995) CABG Assessment & Plan (10/14/2024 10:21 AM EDT): Chronic tonsillitis 05/15/2024 Overview (05/15/2024): ent COPD (chronic obstructive pu lmonary disease) ([facility] V24, [facility] V28) 05/15/2024 Overview (05/15/2024): Dr. Houser [...] bilaterally (November 2016) PAD (peripheral artery disease) ([facility] V24) Overview (05/15/2024): with cladication (Dr. Petersen; 2016) Type II diabetes mellitus wi th peripheral artery disease ([facility] V24, [facility] V28) 04/16/2021 Type II diabetes mellitus wi th renal manifestations ([facility] V24, [facility] V28) 04/16/2021 Assessment & Plan (10/14/2024 10:21 AM EDT): Microalbuminuria 04/16/2021 Obesity (BMI 30.0-34.9) 04/16/2021 Type II diabetes mellitus wi th neurological manifestations ([facility] V24, [facility] V28) 11/07/2013 Diabetic neuropathy ([facility] V24, [facility] V28) 1 08/03/2012 Encounters Date Type Department Care Team Description 02/22/2025 10:00 AM EDT Office Visit Adult Medicine [address] [phone] Claudia Albert PA Primary hypertension (Primary Dx); Other hyperlipidemia; Microalbuminuria; Type II diabetes mellitus with neurological manifestations [place] [place] [facility] V28); Spondylosis of cervical region without myelopathy or radiculopathy; Chronic bronchitis, unspecified chronic bronchitis type ([facility] V24, [facility] V28); Grief from Last 3 Months [...] Ectopic COPD (chronic obstructive pu lmonary disease) ([facility] V24, [facility] [place]) Chronic tonsillitis : ent Dr. Peacock [...] 04/26/2025 10:20 AM EDT Office Visit Endocrinology [address] [phone] China Archuleta PA [address] [place] [address] 05/24/2025 10:00 AM EST Office Visit Adult Medicine [address] [phone] Claudia Albert PA [address] [place] [address] Health Maintenance Due Date Last Done Comments [...] LAB CHEMISTRY METHOD 09/26/2024 9:29 PM EDT [facility] Mean Bld Glu Estim. 157 mg/dL LAB CHEMISTRY METHOD 09/26/2024 9:29 PM EDT [facility] Blood Venous blood specimen / Unknown Venipuncture / Unknown 09/26/2024 12:46 PM EDT 09/26/2024 12:46 PM EDT us China UGARTE LAB BLOOD ORDERABLES Final Resul t [facility] [address] [place] [address], * (ABNORMAL) Basic metabolic panel (09/26/2024 12:46 PM EDT) Pathologist [facility] Sodium 135 133 - 145 mmol/L LAB CHEMISTRY METHOD 09/26/2024 4:57 PM EDT [facility] Potassium 4.4 3.5 - 5.5 mmol/L LAB CHEMISTRY METHOD 09/26/2024 4:57 PM EDT [facility] Chloride 103 96 - 110 mmol/L LAB CHEMISTRY METHOD 09/26/2024 4:57 PM EDT [facility] CO2 27 21 - 32 mmol/L LAB CHEMISTRY METHOD 09/26/2024 4:57 PM EDT [facility] Anion Gap 5 3 - 11 LAB CHEMISTRY METHOD 09/26/2024 4:57 PM EDT [facility] Glucose 149(H) 70 - 100 mg/dL LAB CHEMISTRY METHOD 09/26/2024 4:57 PM [facility] BUN 16 5 - 25 mg/dL LAB CHEMISTRY METHOD 09/26/2024 4:57 PM EDT [facility] Creatinine 0.78 0.50 - 1.10 mg/dL LAB CHEMISTRY METHOD 09/26/2024 4:57 PM EDT [facility] eGFR 77 >=60 mL/min/1. 73m2 LAB CHEMISTRY METHOD 09/26/2024 4:57 PM T [facility] Comment:Calculation based on the Chronic Kidney Disease Epidemiology Collaboration (CKD-EPI) equation refit without adjustment for race. BUN/Creatinine Ratio 20.5 LAB CHEMISTRY METHOD 09/26/2024 4:57 PM [facility] Calcium 9.0 8.5 - 10.5 mg/dL LAB CHEMISTRY METHOD 09/26/2024 4:57 PM [facility] Blood Venous blood specimen / Unknown Venipuncture / Unknown 09/26/2024 12:46 PM EDT 09/26/2024 12:46 PM EDT [place] UG[facility] LAB BLOOD ORDERABLES Final Resul t [facility] [address] [place] [address], [place] [phone] * HM Urine Albumin Creatinine Ratio (04/07/2024) Pathologist [facility] Urine Albumin Creatinine Ratio Abstracted Historical Provider [...] * Depression Screening (10/13/2023) Depression Screening Abstracted [facility] Provider HEALTH MAINTENANCE Final Result from Last 3 Months or Most Recently Relevant to Health Maintenance Insurance MEDICARE [place]ICAID [place] Care Teams Casino Cage Cashier Relationship Specialty Start Date End Date Betzaida Lai MD [address] [place] [phone] PCP - General Internal Medicine 9/20/21
--- OUTSIDE RECORDS SUMMARY | 2025-03-16 10:16 | XMS_ITS | Encounter Summary ---
Author Organization [facility] Address [facility] [place] [address] Care Team Providers Care Flight Software Test Engineer Name Role Phone Johana Desai DO Primary Care Pro vider Unavailable Betzaida Lai MD Primary Care Provider [phone] Encounter Details Date Type Department Care Team Description 11/30/2020 Orders Only Adult Medicine [address] [address] Johana Desai DO Diabetic polyneuropathy associated with type 2 diabetes mellitus (HCC); Uncontrolled type 2 diabetes mellitus with diabetic neuropathy, with long-term current use of insulin (HCC); Chronic obstructive pulmonary disease, unspecified COPD type (HCC); Dyslipidemia; Fibromyalgia; Other chronic pain; Essential hypertension; History of tobacco use; Microscopic hematuria Social History Tobacco Use Types Packs/Day Years [...] hematuria documented in this encounter Care Teams Flight Software Test Engineer Relationship Specialty Start Date End Date Johana Desai DO PCP - General Internal Medicine 05/05/13 03/17/21 Betzaida Lai MD [address] [place] [address] PCP - General Internal Medicine 03/18/21 documented as of this encounter
--- OUTSIDE RECORDS SUMMARY | 2025-03-16 10:16 | XMS_ITS | Encounter Summary ---
Author Organization [facility] Address [address] [place] [address] Care Team Providers Care Concrete Vault Maker Name Role Phone Betzaida Lai MD Primary Care Provider [phone] Encounter Details Date Type Department Care Team Description 02/24/2023 Pt. Non Urgent Medical Question Adult Medicine [address] [address] Betzaida Lai MD [address] [place] [address] Social History Tobacco Use Types Packs/Day Years [...] Exposure Response Date Recorded In the last 10 days, have yo u been in contact with someone who was confirmed or suspected to have Coronavirus/COVID-19? No / Unsure 02/13/2023 9:07 AM EDT documented as of this encounter Plan of Treatment Not on file documented as of this encounter Visit Diagnoses Not on filedocumented in this encounter Care Teams Concrete Vault Maker Relationship Specialty Start Date End Date Betzaida Lai MD [address] [place] [address] [place] [address] PCP - General Internal Medicine 03/18/21 documented as of this encounter
--- OUTSIDE RECORDS SUMMARY | 2025-03-16 10:16 | XMS_ITS | Encounter Summary ---
Author Organization [facility] Address [address] [place] [address] Care Team Providers Care Audiovisual Aids Technician Name Role Phone Johana Desai DO Primary Care Pro vider Unavailable Betzaida Lai MD Primary Care Provider [phone] Encounter Details Date Type Department Care Team Description 01/11/2020 Pt. Non Urgent Medic al Question Adult Medicine [address] [id number] Johana Desai DO Social History Tobacco Use [...] on filedocumented in this encounter Care Teams Audiovisual Aids Technician Relationship Specialty Start Date End Date Johana Desai DO PCP - General Internal Medicine 05/05/13 03/17/21 Betzaida Lai MD [address] [place] [address] PCP - General Internal Medicine 03/18/21 documented as of this encounter
--- OUTSIDE RECORDS SUMMARY | 2025-03-16 10:16 | XMS_ITS | Encounter Summary ---
Author Organization [facility] Address [facility] [place] [address] Care Team Providers Care Pain Coordinator Name Role Phone Johana Desai DO Primary Care Pro vider Unavailable Betzaida Lai MD Primary Care Provider [phone] Encounter Details Date Type Department Care Team Description 07/18/2017 Release of Information Medical Records [address] [place] [id number] Abstract, Provider Social History Tobacco Use Types [...] on filedocumented in this encounter Care Teams Pain Coordinator Relationship Specialty Start Date End Date Johana Desai DO PCP - General Internal Medicine 05/05/13 03/17/21 Betzaida Lai MD [address] [place] [id number] PCP - General Internal Medicine 03/18/21 documented as of this encounter
--- OUTSIDE RECORDS SUMMARY | 2025-03-16 10:16 | XMS_ITS | Encounter Summary ---
Author Organization [facility] Address [facility] [place] [address] Care Team Providers Care Branner Machine Tender Name Role Phone Johana Desai DO Primary Care Pro vider Unavailable Betzaida Lai MD Primary Care Provider [phone] Reason for Visit * Reason Onset Date Comments Mychart Rx Refill 01/11/2020 Encounter Details Date Type Department Care Team Description 01/11/2020 Pt. Non Urgent Medic al Question Adult Medicine [address] [address] Johana Desai DO Social History Tobacco Use [...] Telephone Encounter - Tasneem Diaz M.A. - 01/11/2020 11:34 AM EDTFrom: Kellen Stewart To: Johana Bowens DO Sent: 01/11/2020 11:28 AM EDT Subject: Medication renewal fot [employer] I sent a request yesterday for the above medication and because Leora Henley was the last one to approve this med, I am assuming because Dr. Anglin was not available at the time, my request yesterday was redirected to Leora Henley. Can someone please check this out and se e that Dr. Anglin gets it. Thank you, Kellen Stewart documented in this encounter Plan of Treatment Not on file documented as of this encounter Visit Diagnoses Not on filedocumented in this encounter Care Teams Branner Machine Tender Relationship Specialty Start Date End Date Johana Desai DO PCP - General Internal Medicine 05/05/13 03/17/21 Betzaida Lai MD [address] [place] [address] PCP - General Internal Medicine 03/18/21 documented as of this encounter
--- OUTSIDE RECORDS SUMMARY | 2025-03-16 10:16 | XMS_ITS | Encounter Summary ---
Author Organization [facility] Address [facility] [place] [address] Care Team Providers Care Instrumental Music Teacher Name Role Phone Johana Desai DO Primary Care Pro vider Unavailable Betzaida Lai MD Primary Care Provider [phone] Reason for Visit * Reason Onset Date Comments Nuclear Stress Testing 10/28/2017 Encounter Details Date Type Department Care Team Description 10/28/2017 Telephone Cardiology - [address] [address] Johana Desai DO Nuclear Stress Testing Social History Tobacco Use Types Packs/Day Years Used Date Smoking Tobacco: Former Cigarettes 0 [birth year]/29/1956 - 12/27/2010 Smokeless Tobacco: Never Alcohol Use Standard Drinks/Week Comments Not Asked 0 (1 standard drink = 0.6 oz pur e alcohol) Sex Assigned at Date Recorded Female 01/08/2021 10:05 AM EDT Job Start Date Occupation Industry Not on file Not on file Not on file documented as of this encounter Miscellaneous Notes * Telephone Encounter - Divine Salas - 10/28/2017 10:08 AM EDT Patient cancelled her Nuclear Stress Test due to being concerned about radiation, it was discussed with tech and FURNITURE PAINTER, patient states she will check with pcp and discuss. At this time order will be removed from active report however will remain in patients chart for booking if needed in the future. Medicare No auth req km 10/23/17/ documented in this encounter Plan of Treatment Not on file documented as of this encounter Visit Diagnoses Not on filedocumented in this encounter Care Teams Instrumental Music Teacher Relationship Specialty Start Date End Date Johana Desai DO PCP - General Internal Medicine 05/05/13 03/17/21 Betzaida Lai MD [address] [place] [address] PCP - General Internal Medicine 03/18/21 documented as of this encounter
--- OUTSIDE RECORDS SUMMARY | 2025-03-16 10:16 | XMS_ITS | Encounter Summary ---
Author Organization [facility] Address [facility] [place] [address] Care Team Providers Care Housekeeping Worker Name Role Phone Johana Desai DO Primary Care Pro vider Unavailable Betzaida Lai MD Primary Care Provider [phone] Reason for Visit * Reason Onset Date Comments Mychart Rx Refill 09/20/2018 Encounter Details Date Type Department Care Team Description 09/20/2018 Refill Adult Medicine [address] [address] Johana Desai DO Mychart Rx Refill Social History Tobacco Use Types Packs/Day Years [...] Telephone Encounter - Tasneem Diaz M.A. - 09/20/2018 1:15 PM EDT Lab Results Component Value Date HGBA1C 7.4 09/13/2018 MALBUR 22.2 09/17/2018 MALBCR 13.0 09/17/2018 CHOL 212 09/13/2018 LDL 131 09/13/2018 HDL 57 09/13/2018 TRIG 122 09/13/2018 GLU 176 09/13/2018 CREAT 0.70 09/13/2018 Last ov 09/17/18 * Telephone Encounter - Tasneem Diaz M.A. - 09/20/2018 1:15 PM EDTFrom: Kellen Stewart To: Johana Bowens DO Sent: 09/20/2018 11:36 AM EDT Subject: Medication Renewal Request Original authorizing provider: DO Kellen Parham would like a refill of the following medications: B-D INS SYR ULTRAFINE 1CC/30G 30G X 1/2 1 ML Misc [Johana Villalobos DO] [facility] [address] [place] [address] Comment: documented in this encounter Plan of Treatment Not on file documented as of this encounter Visit Diagnoses Not on filedocumented in this encounter Care Teams Housekeeping Worker Relationship Specialty Start Date End Date Johana Desai DO PCP - General Internal Medicine 05/05/13 03/17/21 Betzaida Lai MD [address] [place] [id number] PCP - General Internal Medicine 03/18/21 documented as of this encounter
--- OUTSIDE RECORDS SUMMARY | 2025-03-16 10:16 | XMS_ITS | Clinical Summary ---
Author Organization [facility] Address [address] [place] [address] Care Team Providers Care Color Mixer Name Role Phone Betzaida Lai MD Primary Care Provider [phone] Allergies Active Allergy Reactions Severity Noted Date Comments Albuterol 06/02/2013 Increases heartrate Amitriptyline 06/02/2013 Causes confusion Buffered Aspirin Swelling/Edema 06/02/2013 States reaction was only to coated aspirin not reg aspirin Celecoxib 02/06/2023 Citalopram 06/02/2013 Causes confusion Hydrocodone 06/02/2013 Ibuprofen 02/06/2023 Iv Contrast Dye 06/02/2013 Lisinopril 06/02/2013 Muscle aches Nsaids 06/02/2013 Eyelid swelling Omeprazole 06/02/2013 Mfg. By [employer] Prednisone 06/02/2013 elavates blood sugar, causes confusion Beclomethasone Dipropionate 06/02/2013 Increases heartrate Statins Support Therapy 06/02/2013 Tramadol Nausea and Vomiting 06/10/2023 Medications Medication Sig Dispensed Refills Start Date End Date Status Multiple Vitamins-Minerals (MULTIVITAMIN OR) Take by mouth daily. 0 Active ONE TOUCH LANCETS MISC 1 Each by Does not apply route 3 times daily. 0 Active Beaumont-3 Fatty Acids (FISH OIL) 1200 MG CAPS Take 1,200 mg by mouth 2 times daily. 0 Active B Complex Vitamins (VITAMIN B COMPLEX OR) Take by mouth daily. 0 Active lidocaine (Lidoderm) 5 % Place 1 Patch onto the skin every 24 hours. Apply for no more than 12 hours in any 24 hour period. 30 Patch 5 04/16/2022 Active Acetaminophen (TYLENOL 8 HOUR OR) Take by mouth. 0 A ctive levalbuterol (XOPENEX) 1.25 MG/3ML nebulizer solution 3 mL 3 times daily. 0 05/27/2023 Activ e estradiol (ESTRACE) 0.1 MG/GM vaginal cream APPLY A PEA SIZED AMOUNT TO URETHRA EVERY DAY FOR 30 DAYS THEN 3 TIMES PER WEEK THEREAFTER 0 11/26/2023 Active glucose blood test strips (ASCENSIA AUTODISC ,ONE TOUCH ULTRA TEST ) strip Apply 1 Strip topically 4 times daily. 400 Each 2 01/12/2024 Active clotrimazole (Lotrimin AF) 1 % cream Apply bid to affected area 30 g 0 03/23/2024 Active atenolol (TENORMIN) 25 MG tablet Take 1 Tablet by mouth daily. 90 Tablet 1 04/07/2024 Active nitroGLYCERIN (NITROSTAT) 0.[address] 1 Tablet under the tongue every 5 minutes as needed for Chest pain. 25 Tablet 1 04/07/2024 Active NovoLOG 100 UNIT/ML Solution Inject 6-32 Units as directed 3 times daily (before meals). Inject 3 times a day before meal: 70-100: 6units, 101-150: 12 units, 151-200: 16 units, 201-250: 20 units, 251-300: 24 units, 301-350: 28 units, 351-400: 32 units, >400: call me. 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 Houser Hyperlipidemia Fibromyalgia Rosacea HTN (hypertension) Vitamin D deficiency CAD (coronary artery disease) Overview: s/p NSTEMI (Jul 2019 at [facility] angioplasty of circumflex artery w/ 50% LAD lesion (1995) Osteoporosis Resolved Problems Problem Noted Date Resolved Date Knee effusion, right 10/16/2022 02/13/2023 Microscopic hematuria 04/15/2016 06/04/2020 Family history of breast cancer in mother 201502/13/2022 Dense breast tissue 12/04/2015 04/16/2021 DDD (degenerative disc disease) 04/16/2021 Arthritis 04/16/2021 Shingles 04/16/2021 Oral thrush 04/16/2021 Allergic rhinitis 04/16/2021 Overview: lots of chemical sensitivities H/O angioplasty 04/16/2021 Ectopic 06/02/2013 Fibrocystic breast 06/02/2013 Chronic pain 04/16/2021 Diabetes mellitus 12/04/2015 Allergy to chemicals 04/16/2021 History of tobacco use Overview: Well over 50 pack years. Immunizations Name Administration Dates Next Due COVID-19 (KAREN AND KAREN) 10/03/2020 COVID-19 (Moderna) 11/28/2021,05/02/2021 PPD-RBMG 04/15/2016 Pneumoccoccal(Adult) Polysaccharide PPSV23 04/10,07/13/2002 TD (STATE SUPPLIED FOR ADULTS AND CHILDREN) 03/29 Td, Adsorbed, Preservative F ree, Adult Use, Lf Unspecified 04/16/2021 Family History Medical History Relation Name Comments Alcohol Abuse Brother CAD Brother diabetes[other] Father DKA, alcohol ic, CAD, CA Breast Mother Cancer of the Breast Mother lung di sease Diabetes Sister 1 CA Lung Sister 2 dm2 Relation Name Status Comments [...] file Not on file Not on file Last Filed Vital Signs Vital Sign Reading Time Taken Comments Blood Pressure 116/56 04/07/2024 10:50 AM EDT Pulse 68 04/07/2024 10:50 AM EDT Temperature 36.4 C (97.6 F) 04/07/2024 10:50 AM EDT Respiratory Rate 16 04/07/2024 10:5 0 AM EDT Oxygen Saturation 96% 11/30/2023 10: 10 AM EDT Inhaled Oxygen Concentration - - Weight 88.8 kg (195 lb 11.2 oz) 024 10:50 AM EDT Height 162.6 cm (5' 4 ) 04/07/2024 10:5 0 AM EDT Body Mass Index 33.59 04/07/2024 10:50 AM EDT Plan of Treatment Health Maintenance Due Date Last Done Comments DTAP/TDAP/TD (1 - Tdap) 04/17/2021 04/16/2021, 04/16 DIABETES: ANNUAL FOOT EXAM 01/13/2024 01/12/2023 DIABETES: ANNUAL EYE EXAM 02/13/20242022, 02/12/2023, 04/07/2018 (External Completion), Additional history exists BMI CHECK/ADVISE 06/29/2024 01/11/2024, , 11/30/2023, Additional history exists DIABETES: BLOOD SUGAR CONTROL TEST (HGBA1C) 07/08/2024 04/07/2024, 01/08/2024, 10/06/2023, Additional history exists DEPRESSION SCREEN 10/12/2024 10/13/2023, , 04/16/2022, Additional history exists FALL RISK ASSESSMENT 10/12/2024 10/13/2023, 10/14/2022, 04/16/2021, Additional history exists BONE DENSITY SCREENING 02/13/2025 (Refused), 04/28/2014, 10/05/2009 (External Completion) Covid-19 Vaccine ( season) 2025 11/28/2021, 05/02/2021, 10/03/2020 INFLUENZA (#1) 2025 06/17/2016 (Refused) DIABETES/HEART DISEASE: ANNUAL CHOLESTEROL (LDL) 04/07/2025 04/07/2024, 04/13/2023, 04/11/2022, Additional history exists DIABETES: ANNUAL URINE PROTEIN TEST (MICROALBUMIN) 04/07/2025 04/07/2024, 04/13/2023, 04/11/2022, Additional history exists MAMMOGRAM 04/07/2025 04/07/2024 (Refu sed), 02/13/2023 (Refused), 10/27/2018, Additional history exists PNEUMOCOCCAL VACCINE Addressed 02/22/2019 (Exception), 04/10/2014, 07/13/2002 Overridden with the intention of not completing the topic SHINGLES VACCINE Discontinued Care Teams Color Mixer Relationship Specialty Start Date End Date Betzaida Lai MD [address] [place] [id number] PCP - General Internal Medicine 03/18/21
--- OUTSIDE RECORDS SUMMARY | 2025-03-16 10:16 | XMS_ITS | Encounter Summary ---
Author Organization [facility] Address [facility] [place] [address] Care Team Providers Care Poultry Buyer Name Role Phone Johana Desai DO Primary Care Pro vider Unavailable Betzaida Lai MD Primary Care Provider [phone] Encounter Details Date Type Department Care Team Description 10/29/2017 Orders Only Adult Medicine [address] [address] Johana Desai DO Breast cancer screening Social History Tobacco Use Types Packs/Day Years [...] on file documented as of this encounter Procedures Procedure Name Priority Date/Time Associated Diagnosis Comments SCR MAMMO BI INCL CAD Routine 09/22/2017 Breast cancer screening documented in this encounter Results * SCR MAMMO BI INCL CAD (09/22/2017) Johana Bowens DO MAMMOGRAP HY documented in this encounter Visit Diagnoses Diagnosis Breast cancer screening Breast screening, unspecified documented in this encounter Care Teams Poultry Buyer Relationship Specialty Start Date End Date Johana Desai DO PCP - General Internal Medicine 05/05/13 03/17/21 Betzaida Lai MD [address] [place] [address] PCP - General Internal Medicine 03/18/21 documented as of this encounter
--- OUTSIDE RECORDS SUMMARY | 2025-03-16 10:16 | XMS_ITS | Encounter Summary ---
Author Organization [facility] Address [facility] [place] [address] Care Team Providers Care Focused Factory Manager Name Role Phone Johana Desai DO Primary Care Pro vider Betzaida Quintanilla MD Primary Care Provider [phone] Encounter Details Date Type Department Care Team Description 11/10/2016 Pt. Non Urgent Medic al Question Adult Medicine [address] [address] Johana Desai DO Social History Tobacco Use [...] Progress Notes * Angy Barcenas M.A. - 11/10/2016 9:53 AM EDTFrom: Kellen Stewart To: Johana Bowens DO Sent: 11/10/2016 9:45 AM EDT Subject: [facility] Vascular Surgery Dear Dr. Anglin, I thought you would like to know that I have an appointment with Dr. Petersen on November 21, 2016. I had put off scheduling this appointment because I was hoping that my urological problems would be resolved first, but it appears that this will not happen anytime soon. Thank you, Kellen Stewart documented in this encounter Plan of Treatment Not on file documented as of this encounter Visit Diagnoses Not on filedocumented in this encounter Care Teams Focused Factory Manager Relationship Specialty Start Date End Date Johana Desai DO PCP - General Internal Medicine 05/05/13 03/17/21 Betzaida Lai MD [address] [place] [address] PCP - General Internal Medicine 03/18/21 documented as of this encounter
--- OUTSIDE RECORDS SUMMARY | 2025-03-16 10:16 | XMS_ITS | Encounter Summary ---
Author Organization [facility] Address [address] [place] [address] Care Team Providers Care Bonded Structures Repairer Name Role Phone Betzaida Lai MD Primary Care Provider [phone] Encounter Details Date Type Department Care Team Description 06/17/2023 Pt. Non Urgent Medical Question Adult Medicine [address] [address] Betzaida Lai MD [address] [place] [address] Social History Tobacco Use Types Packs/Day Years [...] on filedocumented in this encounter Care Teams Bonded Structures Repairer Relationship Specialty Start Date End Date Betzaida Lai MD [address] [place] [address] PCP - General Internal Medicine 03/18/21 documented as of this encounter
--- OUTSIDE RECORDS SUMMARY | 2025-03-16 10:16 | XMS_ITS | Encounter Summary ---
Author Organization [facility] Address [facility] [place] [address] Care Team Providers Care Digital Program Manager Name Role Phone Johana Desai DO Primary Care Pro vider Unavailable Betzaida Lai MD Primary Care Provider [phone] Encounter Details Date Type Department Care Team Description 10/30/2014 Pt. Non Urgent Medic al Question Adult Medicine [address] [address] Johana Desai DO Social History Tobacco Use [...] Progress Notes * Neida Vasquez M.A. - 10/30/2014 1:40 PM EDTFrom: Kellen Stewart To: Johana Bowens DO Sent: 10/30/2014 12:18 PM EDT Subject: Prescription for Atenolol 25mg / 90 day supply Please send my pharmacy, [facility], a new prescription for a 90 day supply of Atenolol 25mg tablet, with refills. Thank you Kellen Stewart documented in this encounter Plan of Treatment Not on file documented as of this encounter Visit Diagnoses Not on filedocumented in this encounter Care Teams Digital Program Manager Relationship Specialty Start Date End Date Johana Desai DO PCP - General Internal Medicine 05/05/13 03/17/21 Betzaida Lai MD [address] [place] [address] PCP - General Internal Medicine 03/18/21 documented as of this encounter
--- OUTSIDE RECORDS SUMMARY | 2025-03-16 10:16 | XMS_ITS | Encounter Summary ---
Author Organization [facility] Address [address] [place] [address] Care Team Providers Care Keymodule Assembly Machine Tender Name Role Phone Johana Desai DO Primary Care Pro vider Unavailable Betzaida Lai MD Primary Care Provider [phone] Encounter Details Date Type Department Care Team Description 01/11/2020 Pt. Non Urgent Medic al Question Adult Medicine [address] [id number] Johana Desai DO Social History Tobacco Use [...] on filedocumented in this encounter Care Teams Keymodule Assembly Machine Tender Relationship Specialty Start Date End Date Johana Desai DO PCP - General Internal Medicine 05/05/13 03/17/21 Betzaida Lai MD [address] [place] [address] PCP - General Internal Medicine 03/18/21 documented as of this encounter
--- OUTSIDE RECORDS SUMMARY | 2025-03-16 10:16 | XMS_ITS | Encounter Summary ---
Author Organization [facility] Address [facility] [place] [address] Care Team Providers Care Energy Engineer Name Role Phone Johana Desai DO Primary Care Pro vider Unavailable Betzaida Lai MD Primary Care Provider [phone] Reason for Visit * Reason Onset Date Comments TEST RESULTS 10/20/2018 Encounter Details Date Type Department Care Team Description 10/20/2018 Telephone Adult Medicine [address] [address] Johana Desai DO TEST RESULTS Social History Tobacco Use Types Packs/Day Years [...] encounter Miscellaneous Notes * Telephone Encounter - Angy Barcenas M.A. - 10/20/2018 9:33 AM EDT Fax request sent to [facility] for Ct Scan results. * Telephone Encounter - Balbina Lugo - 10/20/2018 9:19 AM EDT Inform patient: ANY URGENT OR ABNORMAL RESULTS WIILL RESULT IN A CALL BACK TO THE PATIENT LOLA. Type of test: :CT Scan Date test was performed: 09/23/18 Where was the test performed: [facility] Who ordered this test?: Dr Anglin, this is on going testing Is the doctor here today?: YES Can the message wait until the doctor returns?: NO IF PATIENT'S PCP IS NOT IN INSTRUCT PATIENT THAT THEY WILL RECEIVE A CALL BACK WHEN THE PCP IS IN THE OFFICE NEXT. documented in this encounter Plan of Treatment Not on file documented as of this encounter Visit Diagnoses Not on filedocumented in this encounter Care Teams Energy Engineer Relationship Specialty Start Date End Date Johana Desai DO PCP - General Internal Medicine 05/05/13 03/17/21 Betzaida Lai MD [address] [place] [address] PCP - General Internal Medicine 03/18/21 documented as of this encounter
--- OUTSIDE RECORDS SUMMARY | 2025-03-16 10:16 | XMS_ITS | Encounter Summary ---
Author Organization [facility] Address [address] [place] [address] Care Team Providers Care Linux System Admin Name Role Phone Betzaida Lai MD Primary Care Provider [phone] Encounter Details Date Type Department Care Team Description 11/09/2022 Pt. Non Urgent Medical Question Adult Medicine [address] [address] Claudia Albert PA [address] [place] [address] Social History Tobacco Use Types Packs/Day Years [...] suspected to have Coronavirus/COVID-19? No / Unsure 10/24/2022 8:39 AM EDT documented as of this encounter Miscellaneous Notes * Telephone Encounter - Tasneem Diaz M.A. - 11/10/2022 7:55 AM EDTFrom: Kellen Stewart To: Silva Albert Sent: 11/09/2022 10:11 AM EDT Subject: Medication prescribed by AnnSly Nicole on 10/24/2022 Dear Claudia Albert, I thought you should be aware of the fact that the medication prescribed to me by Duy Corey in Orthopedics during my appointment on 10/24/2022, is in a drug class, NSAIDS, that I have allergies to. When I went to my Pharmacy to molded goods spot picker the script after my appointment, my Pharma cist brought it shanice attention. Needless to say, I did not get the script! I thought you should know???I am taking Tylenol, extra strength instead and have improved a little,but my knee is still swollen and painful, and I am able to get around a little better. Slow but sure. I continue to rest, ice and elevate my leg, but compression made it worse, so on the advice of Mr. Nicole, I have stopped it. I have tried to schedule a follow up appointment with Dr. Lai [facility], unsucessfully. I willkeep trying. Thank you, Kellen Stewart documented in this encounter Plan of Treatment Not on file documented as of this encounter Visit Diagnoses Not on filedocumented in this encounter Care Teams Linux System Admin Relationship Specialty Start Date End Date Betzaida Lai MD [address] [place] [address] PCP - General Internal Medicine 03/18/21 documented as of this encounter
--- OUTSIDE RECORDS SUMMARY | 2025-03-16 10:16 | XMS_ITS | Encounter Summary ---
Author Organization [facility] Address [address] [place] [address] Care Team Providers Care Divisional Storekeeper Name Role Phone Betzaida Lai MD Primary Care Provider [phone] Encounter Details Date Type Department Care Team Description 05/27/2023 Telephone Adult Medicine [address] [phone] Betazida Lai MD [address] [place] [address] Social History Tobacco Use Types Packs/Day Years [...] encounter Miscellaneous Notes * Telephone Encounter - Elsy Shaw - 05/28/2023 11:19 AM EST Patient's son Alden returning calling * Telephone Encounter - Pretty Kristian - 05/27/2023 1:14 PM EST Called and left to return my call. * Telephone Encounter - Isaiah William L.P.N. - 05/27/2023 1:00 PM EST Vo given to Loli * Telephone Encounter - Betzaida Lai MD - 05/27/2023 12:57 PM EST Ok for verbal orders; needs to be seen for signed orders; please schedule * Telephone Encounter - Betty [place] R.N. - 05/27/2023 12:54 PM EST I left a message for the patient to return my call. * Telephone Encounter - Isaiah William L.P.NSly - 05/27/2023 12:51 PM EST [facility] called for VO nursing PT and OT Please review and advise Last seen by Dr. Lai 02/13/23 Please book a [facility] follow up appt Thank you documented in this encounter Plan of Treatment Not on file documented as of this encounter Visit Diagnoses Not on filedocumented in this encounter Care Teams Divisional Storekeeper Relationship Specialty Start Date End Date Betzaida Lai MD [address] [place] [address] PCP - General Internal Medicine 03/18/21 documented as of this encounter
--- OUTSIDE RECORDS SUMMARY | 2025-03-16 10:16 | XMS_ITS | Encounter Summary ---
Author Organization [facility] Address [address] [place] [address] Care Team Providers Care Electrical Assembler Name Role Phone Johana Desai DO Primary Care Pro vider Unavailable Betzaida Lai MD Primary Care Provider [phone] Encounter Details Date Type Department Care Team Description 01/02/2015 Customer Sales Specialist Report Medical Records [address] [place] [address] [place], [address] [address] Social History Tobacco Use Types Packs/Day Years [...] on filedocumented in this encounter Care Teams Electrical Assembler Relationship Specialty Start Date End Date Johana Desai DO PCP - General Internal Medicine 05/05/13 03/17/21 Betzaida Lai MD [address] [place], [place] [phone] PCP - General Internal Medicine 03/18/21 documented as of this encounter
--- OUTSIDE RECORDS SUMMARY | 2025-03-16 10:16 | XMS_ITS | Encounter Summary ---
Author Organization [facility] Address [facility] [place] [address] Care Team Providers Care Architecture Manager Name Role Phone Johana Desai DO Primary Care Pro vider Unavailable Betzaida Lai MD Primary Care Provider [phone] Encounter Details Date Type Department Care Team Description 01/25/2017 Goat Farmer Report Medical Records [address] [place] [address] Hal Petersen MD Social History Tobacco Use Types Packs/Day Years [...] on filedocumented in this encounter Care Teams Architecture Manager Relationship Specialty Start Date End Date Johana Desai DO PCP - General Internal Medicine 05/05/13 03/17/21 Betzaida Lai MD [address] [place] [address] PCP - General Internal Medicine 03/18/21 documented as of this encounter
--- OUTSIDE RECORDS SUMMARY | 2025-03-16 10:16 | XMS_ITS | Encounter Summary ---
Author Organization [facility] Address [address] [place] [address] Care Team Providers Care Antiquer Name Role Phone Betzaida Lai MD Primary Care Provider [phone] Encounter Details Date Type Department Care Team Description 05/28/2023 Home Health Certification Medical Records [address] [place], [place] [address] [place] [address] Nurse [facility], [address] [phone] Social History Tobacco Use Types Packs/Day Years [...] on filedocumented in this encounter Care Teams Antiquer Relationship Specialty Start Date End Date Betzaida Lai MD [address] [place] [phone] PCP - General Internal Medicine 03/18/21 documented as of this encounter
--- OUTSIDE RECORDS SUMMARY | 2025-03-16 10:16 | XMS_ITS | Encounter Summary ---
Author Organization [facility] Address [facility] [place] [address] Care Team Providers Care Gas Technician Name Role Phone Johana Desia DO Primary Care Pro vider Unavailable Betzaida Lai MD Primary Care Provider [phone] Reason for Visit * Reason Onset Date Comments Addictions Counselor Assistant Feedback 03/08/2020 LDCT Encounter Details Date Type Department Care Team Description 03/08/2020 Telephone Adult [address] [address] Johana Desai DO Addictions Counselor Assistant Feedback (LDCT) Social History Tobacco Use Types Packs/Day Years [...] encounter Miscellaneous Notes * Telephone Encounter - Severiano Walden M.A. - 03/08/2020 2:43 PM EDT Please review and advise. * Telephone Encounter - Lana Ashton M.A. - 03/08/2020 10:12 AM EDT This is not for the forms department Sent to [facility] * Telephone Encounter - Noemi Ochoa - 03/08/2020 10:02 [address] EDT Low Dose [address] scan * Telephone Encounter - Lana Ashton M.A. - 03/08/2020 8:54 AM EDT What is a LDCT ? * Telephone Encounter - Noemi Ochoa - 03/08/2020 8:37 AM EDT HEEL NAIL RASPER is checking the status of the LDCT form interofficed to [facility]. documented in this encounter Plan of Treatment Not on file documented as of this encounter Visit Diagnoses Not on filedocumented in this encounter Care Teams Gas Technician Relationship Specialty Start Date End Date Johana Desai DO PCP - General Internal Medicine 05/05/13 03/17/21 Betzaida Lai MD [address] [place] [address] PCP - General Internal Medicine 03/18/21 documented as of this encounter
--- OUTSIDE RECORDS SUMMARY | 2025-03-16 10:16 | XMS_ITS | Encounter Summary ---
Author Organization [facility] Address [facility] [place] [address] Care Team Providers Care Fleet Mechanic Name Role Phone Johana Desai DO Primary Care Pro vider Unavailable Betzaida Lai MD Primary Care Provider [phone] Encounter Details Date Type Department Care Team Description 02/06/2017 PNO Controlled Substance Contract Medical Records [address] [place] [id number] Abstract, Provider Social History Tobacco Use Types [...] on filedocumented in this encounter Care Teams Fleet Mechanic Relationship Specialty Start Date End Date Johana Desai DO PCP - General Internal Medicine 05/05/13 03/17/21 Betzaida Lai MD [address] [place] [phone] PCP - General Internal Medicine 03/18/21 documented as of this encounter
--- OUTSIDE RECORDS SUMMARY | 2025-03-16 10:16 | XMS_ITS | Encounter Summary ---
Author Organization [facility] Address [address] [place] [address] Care Team Providers Care Shuffle Board Operator Name Role Phone Betzaida Lai MD Primary Care Provider [phone] Encounter Details Date Type Department Care Team Description 10/16/2022 Pt. Non Urgent Medical Question Adult Medicine [address] [address] Claudia Albert PA [address] [place] [address] Social History Tobacco Use Types Packs/Day Years [...] suspected to have Coronavirus/COVID-19? No / Unsure 10/16/2022 10:26 AM EDT documented as of this encounter Plan of Treatment Not on file documented as of this encounter Visit Diagnoses Not on filedocumented in this encounter Care Teams Shuffle Board Operator Relationship Specialty Start Date End Date Betzaida Lai MD [address] [place] [address] PCP - General Internal Medicine 03/18/21 documented as of this encounter
--- OUTSIDE RECORDS SUMMARY | 2025-03-16 10:16 | XMS_ITS | Encounter Summary ---
Author Organization [facility] Address [address] [place] [address] Care Team Providers Care Hand Scraper Name Role Phone Betzaida Lai MD Primary Care Provider [phone] Reason for Visit * Reason Onset Date Comments Mychart Rx Refill 04/14/2024 Encounter Details Date Type Department Care Team Description 04/14/2024 Refill Endocrinology - [address] [address] China Archuleta PA-C [address] [place] [address] Mychart Rx Refill Social History Tobacco Use [...] encounter Miscellaneous Notes * Telephone Encounter - Charisse Easley M.A. - 04/14/2024 2:32 PM EDT Lab Results Component Value Date HGBA1C 7.7 04/07/2024 MALBUR 15.2 04/07/2024 MALBCR 17.8 04/07/2024 CHOL 255 04/07/2024 LDL 142 04/07/2024 HDL 65 04/07/2024 TRIG 241 04/07/2024 GLU 75 04/07/2024 CREAT 0.78 04/07/2024 LUCAS 01/12/24 NOV 06/21/24 documented in this encounter Plan of Treatment Not on file documented as of this encounter Visit Diagnoses Not on filedocumented in this encounter Care Teams Hand Scraper Relationship Specialty Start Date End Date Betzaida Lai MD [address] [place] [address] PCP - General Internal Medicine 03/18/21 documented as of this encounter
--- OUTSIDE RECORDS SUMMARY | 2025-03-16 10:17 | XMS_ITS | Encounter Summary ---
Author Organization [facility] Address [address] [place] [address] Care Team Providers Care Store Operations Associate Name Role Phone Johana Desai DO Primary Care Pro vider Unavailable Betzaida Lai MD Primary Care Provider [phone] Encounter Details Date Type Department Care Team Description 06/15/2013 Pt. Non Urgent Medic al Question Adult Medicine - [address] [address] Johana Desai DO Social History Tobacco Use [...] as of this encounter Progress Notes * Betzaida Gordon L.P.N. - 06/15/2013 8:45 AM ESTFrom: KELLEN STEWART To: Johana Bowens DO Sent: ThuJun 15, 2013 8:43 AM Subject: Copy of Medical record On 06/02/2013, I had my first appointment with as a new patient. I gave you copies of all of my medical records during that visit. I now find that I neglected to keep a copy of one of the reports and the back-up paperwork. Can your office help me with this by sending me copies of the report(s) in question? The report(s) I need is as follows: 1. A letter from Dr.Robert Davis (Rate Supervisor in [place], [place]), dated, I believe, in 2001 or 2002, concerning my allergies to Chemicals. 2. (The attached) 'Material Safety Data Sheets' of the two known Chemicals I am allergic to... ie: Sludge Buster Tablets and Envirocom . I apologize for any inconvenience this may cause, but I need these reports for my records. I have an appointment with an Embroidery Patternmaker on 07/20/2013 (initially scheduled for 06/15/2013), and I would like to discuss my allergies with him. Please let me know how I can go about getting these reports. Thank you for your assistance. Kellen Stewart documented in this encounter Plan of Treatment Not on file documented as of this encounter Visit Diagnoses Not on filedocumented in this encounter Care Teams Store Operations Associate Relationship Specialty Start Date End Date Johana Desai DO PCP - General Internal Medicine 05/05/13 03/17/21 Betzaida Lai MD [address] [place] [address] PCP - General Internal Medicine 03/18/21 documented as of this encounter
--- OUTSIDE RECORDS SUMMARY | 2025-03-16 10:17 | XMS_ITS | Encounter Summary ---
Author Organization [facility] Address [address] [place] [address] Care Team Providers Care Pressure Dispatcher Name Role Phone Betziada Lai MD Primary Care Provider [phone] Reason for Visit * Reason Onset Date Comments Faxed Order 07/08/2023 [facility] - [id number] Encounter Details Date Type Department Care Team Description 07/08/2023 Telephone Adult Medicine [address] [phone] Betzaida Lai MD [address] [place] [phone] Faxed Order ([facility] - [id number]) Social History Tobacco Use Types Packs/Day Years [...] on filedocumented in this encounter Care Teams Pressure Dispatcher Relationship Specialty Start Date End Date Betzaida Lai MD [address] [place] [address] [phone] PCP - General Internal Medicine 03/18/21 documented as of this encounter
--- OUTSIDE RECORDS SUMMARY | 2025-03-16 10:17 | XMS_ITS | Encounter Summary ---
Author Organization [facility] Address [address] [place] [address] Care Team Providers Care Shower Attendant Name Role Phone Betzaida Lai MD Primary Care Provider [phone] Encounter Details Date Type Department Care Team Description 08/20/2023 Pt. Non Urgent Medical Question [place] [address] China Archuleta PA-C [address] [place] [address] Social History Tobacco Use Types Packs/Day Years [...] Telephone Encounter - Tasneem Diaz M.A. - 08/20/2023 8:51 AM ESTFrom: Kellen Stewart To: Aniket Archuleta Sent: 08/20/2023 8:51 AM EST Subject: Prior Authorization Form for Lantus Insulin from [facility] August 20, 2023 To whom it may concern, I have been waiting for a response, (this is day number four), to two inquiries I made, one on 08/17/2023, the other on 08/18/2023, concerning a Prior Authorization Form [facility] was sending you so they could determine if I could continue getting La ntus Insulin, which they no longer cover as of 06/29/2023, instead of my having to switch to Semglee Insulin. I have been on Lantus for a very long time (over two decades ?) and would like to continue on this Insulin if at all possible. It will be decided by [facility] based on the Prior Authorization Form you fill out and send back to [facility]. ###*Can someone there please let me know whether or not you have received that form kisha use it maybe necessary for me to contact [facility], if in fact you have not received the form. I am awaiting a response from someone there to my inquiry. Thank you for your time and attention to this matter. Kellen Stewart documented in this encounter Plan of Treatment Not on file documented as of this encounter Visit Diagnoses Not on filedocumented in this encounter Care Teams Shower Attendant Relationship Specialty Start Date End Date Betzaida Lai MD [address] [place] [address] PCP - General Internal Medicine 03/18/21 documented as of this encounter
--- OUTSIDE RECORDS SUMMARY | 2025-03-16 10:17 | XMS_ITS | Encounter Summary ---
Author Organization [facility] Address [address] [place] [address] Care Team Providers Care Tank Setter Helper Name Role Phone Johana Desai DO Primary Care Pro vider Unavailable Betzaida Lai MD Primary Care Provider [phone] Encounter Details Date Type Department Care Team Description 04/06/2013 Cranberry Grower Report Medical Records [address] [place] [address] Social History Tobacco Use Types Packs/Day Years Used Date Smoking Tobacco: Never Assessed Sex Assigned at Date Recorded Female 01/08/2021 10:05 AM EDT Job Start Date Occupation Industry Not on file Not on file Not on file documented as of this encounter Plan of Treatment Not on file documented as of this encounter Visit Diagnoses Not on filedocumented in this encounter Care Teams Tank Setter Helper Relationship Specialty Start Date End Date Johana Desai DO PCP - General Internal Medicine 05/05/13 03/17/21 Betzaida Lai MD [address] [place] [address] PCP - General Internal Medicine 03/18/21 documented as of this encounter
--- OUTSIDE RECORDS SUMMARY | 2025-03-16 10:17 | XMS_ITS | Encounter Summary ---
Author Organization [facility] Address [address] [place] [address] Care Team Providers Care Technology Integration Specialist Name Role Phone Betzaida Lai MD Primary Care Provider [phone] Encounter Details Date Type Department Care Team Description 04/26/2021 Orders Only Adult Medicine [address] [address] Elizabeth Coello PA-C [address] [place] [id number] Social History Tobacco Use Types Packs/Day Years [...] have Coronavirus / COVID-19? No / Unsure 04/16/2021 2:15 PM EDT documented as of this encounter Plan of Treatment Not on file documented as of this encounter Visit Diagnoses Not on filedocumented in this encounter Care Teams Technology Integration Specialist Relationship Specialty Start Date End Date Betzaida Lai MD [address] [place] [address] PCP - General Internal Medicine 03/18/21 documented as of this encounter
--- OUTSIDE RECORDS SUMMARY | 2025-03-16 10:17 | XMS_ITS | Encounter Summary ---
Author Organization [facility] Address [address] [place] [address] Care Team Providers Care Campus Ambassador Name Role Phone Johana Desai DO Primary Care Pro vider Unavailable Betzaida Lai MD Primary Care Provider [phone] Encounter Details Date Type Department Care Team Description 06/05/2015 Release of Information Medical Records [address] [place] [id number] Abstract, Provider Social History Tobacco Use Types [...] on filedocumented in this encounter Care Teams Campus Ambassador Relationship Specialty Start Date End Date Johana Desai DO PCP - General Internal Medicine 05/05/13 03/17/21 Betzaida Lai MD [address] [place] [address] [id number] PCP - General Internal Medicine 03/18/21 documented as of this encounter
--- OUTSIDE RECORDS SUMMARY | 2025-03-16 10:17 | XMS_ITS | Encounter Summary ---
Author Organization [facility] Address [facility] [place] [address] Care Team Providers Care Highway Patrol Pilot Name Role Phone Johana Desai DO Primary Care Pro vider Unavailable Betzaida Lai MD Primary Care Provider [phone] Reason for Visit * Reason Comments E-prescribe Rx Request Encounter Details Date Type Department Care Team Description 03/02/2018 Refill Adult Medicine [address] [address] Leora Henley PA-C E-prescribe Rx Request Social History Tobacco Use [...] Telephone Encounter - Tasneem Diaz M.A. - 03/02/2018 3:41 PM EDT Lab Results Component Value Date NA 141 10/19/2017 K 5.1 10/19/2017 CO2 27.5 10/19/2017 CL 100 10/19/2017 BUN 15 10/19/2017 CREAT 0.6 10/19/2017 GLU 162 10/19/2017 CA 9.5 10/19/2017 GFR > 60 10/19/2017 Pending ov 03/29/18- pt requesting a 90 day supply, I set up for #25 please advise * Telephone Encounter - Cathy Lund - 03/02/2018 3:28 PM EDT Patient would like script to be: E-PRESCRIBED/FAXED TO PHARMACY WHEN WAS THE PATIENT'S LAST APPOINTMENT IN ADULT MEDICINE? 10-23-2017 WHEN WAS THE LAST TIME THE PATIENT SAW THEIR PCP? Same as above Does patient have an upcoming appointment? Yes 03-29-2018 (THE MEDICATION REQUESTED IS ON THE MED [...] / Plan[place] / Product Type: MEDICARE [id number] documented in this encounter Plan of Treatment Not on file documented as of this encounter Visit Diagnoses Not on filedocumented in this encounter Care Teams Highway Patrol Pilot Relationship Specialty Start Date End Date Johana Desai DO PCP - General Internal Medicine 05/05/13 03/17/21 Betzaida Lai MD [address] [place] [id number] PCP - General Internal Medicine 03/18/21 documented as of this encounter
--- OUTSIDE RECORDS SUMMARY | 2025-03-16 10:17 | XMS_ITS | Encounter Summary ---
Author Organization [facility] Address [facility] [place] [address] Care Team Providers Care Grinding And Polishing Laborer Name Role Phone Betzaida Lai MD Primary Care Provider [phone] Encounter Details Date Type Department Care Team Description 07/09/2023 Transfer Records Medical Records [address] [place] [id number] [address] Social History Tobacco Use Types Packs/Day Years [...] on filedocumented in this encounter Care Teams Grinding And Polishing Laborer Relationship Specialty Start Date End Date Betzaida Lai MD [address] [place] [address] [id number] PCP - General Internal Medicine 03/18/21 documented as of this encounter
--- OUTSIDE RECORDS SUMMARY | 2025-03-16 10:17 | XMS_ITS | Encounter Summary ---
Author Organization [facility] Address [facility] [place] [address] Care Team Providers Care Gum Mixer Name Role Phone Johana Desai DO Primary Care Pro vider Unavailable Betzaida Lai MD Primary Care Provider [phone] Encounter Details Date Type Department Care Team Description 08/20/2004 Transfer Records Medical Records [address] [place] [address] Dept., [facility] Occupational & Pt Social History Tobacco Use Types Packs/Day Years Used Date Smoking Tobacco: Never Assessed Sex Assigned at Date Recorded Female 01/08/2021 10:05 AM EDT Job Start Date Occupation Industry Not on file Not on file Not on file documented as of this encounter Plan of Treatment Not on file documented as of this encounter Visit Diagnoses Not on filedocumented in this encounter Care Teams Gum Mixer Relationship Specialty Start Date End Date Johana Desai DO PCP - General Internal Medicine 05/05/13 03/17/21 Betzaida Lai MD [address] [place] [id number] PCP - General Internal Medicine 03/18/21 documented as of this encounter
--- OUTSIDE RECORDS SUMMARY | 2025-03-16 10:17 | XMS_ITS | Encounter Summary ---
Author Organization [facility] Address [address] [place] [address] Care Team Providers Care Computerized Table Cutter Name Role Phone Betzaida Lai MD Primary Care Provider [phone] Reason for Visit * Reason Onset Date Comments Prior Authorization 08/30/2021 Encounter Details Date Type Department Care Team Description 08/30/2021 Telephone Adult Medicine [address] [address] Betzaida Lai MD [address] [place] [id number] Prior Authorization Social History Tobacco Use Types Packs/Day Years [...] encounter Miscellaneous Notes * Telephone Encounter - Estrella Aquino M.A. - 09/02/2021 10:21 AM EST Approval for Lidocaine 5% patches. Approved from 09/02/2021-06/28/2022. [facility] notified by fax. * Telephone Encounter - Estrella Aquino M.A. - 09/02/2021 9:36 AM EST Dx code:E11.40 diabetic neuropathy Prior authorization done on [facility] to [facility] for Lidocaine 5% patches. * Telephone Encounter - Samantha Willingham - 08/30/2021 10:38 AM EST Prior Authorization for Medication-do not complete and send this encounter unless you have the fax from the pharmacy. Is this a Cover My Meds request: Yes -- Bernard Code [id number] Name of Medication lidocaine (Lidoderm) 5 % Dose of Medication What is the RX # from the faxed refill? How does patient take this med? Place 1 Patch onto the skin every 24 hours. Apply for no more than 12 hours in any 24 hour period What Pharmacy did the fax come from: [facility] fax #: [phone] [employer] Information from fax: What Prescription Plan does the patient have? BIN/PCN if applicable: Cardholder ID: Person Code: Relationship Code: Help desk phone: documented in this encounter Plan of Treatment Not on file documented as of this encounter Visit Diagnoses Not on filedocumented in this encounter Care Teams Computerized Table Cutter Relationship Specialty Start Date End Date Betzaida Lai MD [address] [place] [id number] PCP - General Internal Medicine 03/18/21 documented as of this encounter
--- OUTSIDE RECORDS SUMMARY | 2025-03-16 10:17 | XMS_ITS | Encounter Summary ---
Author Organization [facility] Address [facility] [place] [address] Care Team Providers Care Mainframe Architect Name Role Phone Johana Desai DO Primary Care Pro vider Unavailable Betzaida Lai MD Primary Care Provider [phone] Encounter Details Date Type Department Care Team Description 08/24/2013 Orders Only Adult Medicine [address] [address] Johana Desai DO Myalgia (Primary Dx); Dyslipidemia Social History Tobacco Use Types Packs/Day [...] documented as of this encounter Results * HEPATIC FUNCTION (LIVER) PANEL (08/25/2013 8:11 AM EST) TOTAL PROTEIN 6.2 6.0 - 8.3 gm/dL 08/25/2013 12:22 PM EST [facility] Albumin 4.3 3.2 - 5.6 gm/dL 08/25/2013 12:18 PM EST [facility] BILI,TOTAL 0.4 0.0 - 1.2 mg/dL 08/25/2013 12:21 PM EST [facility] BILI,DIRECT 0.1 0.0 - 0.3 mg/dL 08/25/2013 12:17 PM EST [facility] BILI,INDIRECT 0.3 0.0 - 1.1 mg/dL 08/25/2013 12:21 PM EST [facility] AST (SGOT) 19 10 - 42 U/L 08/25/2013 12:[address] [facility] ALT( SGPT) 17 10 - 60 U/L 08/25/2013 12:23 PM EST [facility] ALK PHOS 92 42 - 121 U/L 08/25/2013 12:23 PM EST [facility] 08/25/2013 8:11 AM EST 08/25/2013 8:12 AM EST Johana [facility] Performing Organization Address City/[facility] [address]/ZIP Co de Phone Number [address] * (ABNORMAL) CPK WITH ENZYMES (08/25/2013 8:11 AM EST) CREATINE KINASE (CK) 65 22 - 269 U/L 08/25/2013 1:38 PM EST [facility] CKMB 1.8 0 - 5.0 ng/mL 08/25/2013 1:41 PM EST [facility] CK-MB INDEX 2.8(H) 0 - 2.5 % 08/25/2013 1:41 PM EST [facility] 08/25/2013 8:11 AM EST 08/25/2013 8:12 AM EST Johana Principle [employer] [facility] documented in this encounter Visit Diagnoses Diagnosis Myalgia- Primary Mylagia and myositis, unspecified Dyslipidemia Other and unspecified hyperlipidemia Myalgia Mylagia and myositis, unspecified Dyslipidemia Other and unspecified hyperlipidemia documented in this encounter Care Teams Mainframe Architect Relationship Specialty Start Date End Date Johana Desai DO PCP - General Internal Medicine 05/05/13 03/17/21 Betzaida Lai MD [address] [place] [phone] PCP - General Internal Medicine 03/18/21 documented as of this encounter
--- OUTSIDE RECORDS SUMMARY | 2025-03-16 10:17 | XMS_ITS | Encounter Summary ---
Author Organization [facility] Address [address] [place] [address] Care Team Providers Care L Tacker Name Role Phone Johana Desai DO Primary Care Pro vider Unavailable Betzaida Lai MD Primary Care Provider [phone] Encounter Details Date Type Department Care Team Description 06/03/2013 Transfer Records Medical Records [address] [place] [id number] Abstract, Provider Social History Tobacco Use Types [...] on filedocumented in this encounter Care Teams L Tacker Relationship Specialty Start Date End Date Johana Desai DO PCP - General Internal Medicine 05/05/13 03/17/21 Betzaida Lai MD [address] [place] [address] [phone] PCP - General Internal Medicine 03/18/21 documented as of this encounter
== END 2025-03-16 09:37 | disposition home or self-care (01) ==
LOC: HO.HPS 08:56
PROVIDERS: PCP Internal Medicine; Visit Provider Hospitalist
DX: J41.0 Simple chronic bronchitis (principal); R91.8 Other nonspecific abnormal finding of lung field; M48.062 Spinal stenosis, lumbar region with neurogenic claudication
CPT/HCPCS: 99214

== ENCOUNTER → 2025-03-16 08:55 | Outpatient (BNVA) | payer MEDICARE, MEDICAID, SELFPAY | PROVIDERS: PCP Internal Medicine; Visit Provider Hospitalist | DX: J41.0 Simple chronic bronchitis (principal); R91.8 Other nonspecific abnormal finding of lung field; M48.062 Spinal stenosis, lumbar region with neurogenic claudication | CPT/HCPCS: 99212 ==

== ENCOUNTER 2025-06-16 09:24 | Outpatient (AMB) | payer MEDICARE, MEDICAID, SELFPAY ==
--- OUTSIDE RECORDS SUMMARY | 2025-06-14 11:30 | XMS_ITS | Encounter Summary ---
Author Organization [facility] Address [address] [place] [address] Care Team Providers Care Occupational Hygienist Name Role Phone Betzaida Lai MD Primary Care Provider [phone] Reason for Visit * Reason Comments Hypertension Hyperlipidemia Encounter Details Date Type Department Care Team ([facility] st Contact Info) Description 06/14/2025 11:30 AM EST Office Visit Adult Medicine [address] [phone] Claudia Albert PA [address] [place], [place] Primary hypertension (Primary Dx); Other hyperlipidemia; Type 2 diabetes mellitus with diabetic microalbuminuria, with long-term current use of insulin ([facility] V24, [facility] V28); Microalbuminuria; Obesity (BMI 30.0-34.9); Coronary artery disease involving council coronary artery of council heart without angina pectoris; Recurrent UTI; Spondylosis of cervical region without myelopathy or radiculopathy; Chronic bronchitis, unspecified chronic bronchitis type (CMS/HCC V24, CMS/[facility] V28); Grief Social History Tobacco Use Types Packs/Day Years Used Date Smoking Tobacco: Former Cigarettes 54.5 0 06/29/1956 - 12/27/2010 Smokeless Tobacco: Never Tobacco Cessation:Counseling Given: Not Answered Alcohol Use Standard Drinks/Week Comments No 0 (1 standard drink = 0.6 oz pur e alcohol) Housing Instability Answer Date Recorde d Are you worried that in the next 2 months you may not have stable housing? No 06/14/2025 Food Access & Nutrition Answer Date Rec orded Do you have access to a vari ety of food including fruits and vegetables? Yes 06/14/2025 Access to Healthcare Answer Date Record ed Within the last 3 months, ho w many times did you visit the emergency department for your medical care? 0 06/14/2025 Health Literacy Answer Date Recorded How often do you need to hav e someone help you when you read instructions, pamphlets, or other written material from your doctor or pharmacy? Never 06/14/2025 Caregiver: How often do you need to have someone help you when you read instructions, pamphlets, or other written material from your doctor or pharmacy? Not on file 06/14/2025 Financial Risk Answer Date Recorded How hard is it for you to pa y for the very basics like food, housing, medical care, and air conditioning / heating? Not very hard 06/14/2025 Transportation Answer Date Recorded Has the lack of transportati on kept you from meetings, work, or from getting things needed for daily living? No Has the lack of transportati on kept you from medical appointments or from getting medications? No 06/14/2025 Social Isolation Answer Date Recorded How often do you feel lonely or isolated from th ose around you? Never 06/14/2025 Food Risk Answer Date Recorded Within the past 12 months we worried whether our food would run out before we got money to buy more. Never true 06/14/2025 Within the past 12 months th e food we bought just didn't last and we didn't have money to get more. Never true 06/14/2025 Dependent Care Answer Date Recorded Do you need help finding or paying for care for your loved ones. For example, child care center assistant director or elderly care for an older adult? No 06/14/2025 Education Answer Date Recorded Do you think completing more education or training, like finishing a GED, going to college, or learning a trade, would be helpful for you? No 06/14/2025 Employment and Income Answer Date Recor ded During the last four weeks, have you been actively looking for work? No 06/14/2025 Living Situation Answer Date Recorded What is your living situation? Unrecognized valu e 06/14/2025 Comments No Sex and Gender Information Value Date Recorded Sex Assigned at Not on file Legal Sex Female 12:51 PM EST Gender Identity Not on file Sexual Orientation Not on file documented as of this encounter Last Filed Vital Signs Vital Sign Reading Time Taken Comments Blood Pressure 118/52 06/14/2025 11:25 AM EST Pulse 77 06/14/2025 11:25 AM EST Temperature 35.6 C (96 F) 06/14/2025 11:25 AM EST Respiratory Rate 18 06/14/2025 11:25 AM EST Oxygen Saturation 96% 06/14/2025 11:25 AM EST Inhaled Oxygen Concentration - - Weight 92.1 kg (203 lb) 06/14/2025 11:25 AM EST Height 162.6 cm (5' 4 ) 06/14/2025 11:25 AM EST Body Mass Index 34.84 06/14/2025 11:25 AM EST documented in this encounter Progress Notes * TORITO Kendall - 06/14/2025 11:30 AM EST CHIEF COMPLAINT: Hypertension and Hyperlipidemia IDENTIFIER: Kellen Stewart is a 79 y.o. old female. HPI: Patient presents to the office today for evaluation of hypertension, hyperlipidemia, and diabetes. She endorses compliance with atenolol, insulin, and fish oil. Unable to tolerate statins. Has CAD. Has prescription for nitro as needed and has not needed to use. No chest pain. She follows with endocrinology. Fasting blood glucose readings in the low 100s. She has had difficulty scheduling eye exam. Previous provider closed practice. Was then having difficulty finding a provider that accepted herinsurance. Found an office in [place] but they could not see her until 2026. Was then seen with 's office is a further drive for her and will need transportation. Following with [place] urology for recurrent UTI. On Estrace which has been significantly beneficial. Patient has chronic neck pain. She had cervical spine MRI on 12/28/2023 which was with multilevel discogenic degenerative changes. She was seen with physiatry and was not satisfied with evaluation. Shehas also been evaluated with pain management. Surgical intervention was discussed and she has optedto hold off. She tries to avoid medication for pain as she experiences side effects, intolerances. She is using lidocaine patches as needed with benefit. Uses Tylenol as needed. She has COPD and follows with pulmonology at [facility]. Uses levalbuterol as needed. She uses oxygen as needed. Was started on budesonide by pulmonology and did not tolerate due to palpitations. The palpitations discontinued when she stopped using. Has upcoming appointment in [address] Roper to discuss. Patient continues to struggle with grief related to her son's passing by suicide. There are ongoingissues with his estate as there was no will. Patient has no SI, HI, or plan. ROS: GENERAL: No malaise, significant weight loss or fever. No chills HEENT: No changes in hearing or vision, nose bleeds or other nasal problems. No acute URI symptoms. RESPIRATORY: Chronic intermittent coughing, wheezing, shortness of breath. CARDIOVASCULAR: No chest pain, leg swelling. See HPI GI: No abdominal discomfort, N/V, blood in stools or black stools MUSCULOSKELETAL: See HPI SKIN: No lesions, rash or itching ENDO: No polyuria or polydipsia PSYCH: See HPI NEURO: No persistent headache, syncope, seizures, weakness or numbness PAST MEDICAL HISTORY: Patient Active Problem List Diagnosis Date Noted Grief 02/22/2025 Spondylosis of cervical region without myelopathy or radiculopathy 02/22/2025 CAD (coronary artery disease) 05/15/2024 Chronic tonsillitis 05/15/2024 COPD (chronic obstructive pulmonary disease) ([facility] V24, [facility] V28) 05/15/2024 Diverticulosis 05/15/2024 Fibromyalgia 05/15/2024 Hematuria 05/15/2024 HTN (hypertension) 05/15/2024 Hyperlipidemia 05/15/2024 Osteoporosis 05/15/2024 Overactive bladder 05/15/2024 Raynaud's phenomenon 05/15/2024 Rosacea 05/15/2024 Vitamin D deficiency 05/15/2024 Glaucoma 06/10/2023 Popliteal cyst, right 10/16/2022 Bilateral carotid artery stenosis 04/16/2021 PAD (peripheral artery disease) ([facility] V24) 04/16/2021 Type II diabetes mellitus with peripheral artery disease ([facility] V24, [facility] V28) 04/16/2021 Type II diabetes mellitus with renal manifestations ([facility] V24, [facility] V28) 04/16/2021 Microalbuminuria 04/16/2021 Obesity (BMI 30.0-34.9) 04/16/2021 Type II diabetes mellitus with neurological manifestations ([facility] V24, [facility] V28) 11/07/2013 Diabetic neuropathy ([facility] V24, [facility] V28) 06/02/2013 SOCIAL HISTORY: Social History Tobacco Use Smoking status: Former Current packs/day: 0.00 Types: Cigarettes Start date: [birth year]29/1957 Quit date: 12/27/2010 Years since quittin.4 Smokeless tobacco: Never Substance Use Topics Alcohol use: No FAMILY HISTORY: Family Status Relation Name Status Mother Father Sister Sister Brother No partnership data on file Family History Problem Relation Name Age of Onset Diabetes Father DKA, alcoholic, CAD, Diabetes Sister Lung cancer Sister dm2 Coronary artery disease Brother alcohol abuse ACTIVE MEDICATIONS: Outpatient Medications Marked as Taking for the 06/14/25 encounter (Office Visit) with TORITO Kendall Medication Sig Dispense Refill acetaminophen (TYLENOL 8 HOUR ORAL) Take 1 tablet by mouth every 8 (eight) hours. atenoloL (TENORMIN) 25 mg tablet Take 1 tablet (25 mg total) by mouth 1 (one) time each day. 90 tablet 1 B complex tablet Take 1 tablet by mouth 1 (one) time each day. clotrimazole (LOTRIMIN) 1 % cream Apply topically 2 (two) times a day. Apply bid to affected area, 30 g 1 estradioL (ESTRACE) 0.01 % (0.1 mg/gram) vaginal cream Insert 1 Application into the vagina 1 (one)time each day. APPLY A PEA SIZED AMOUNT TO URETHRA EVERY DAY FOR 30 DAYS THEN 3 TIMES PER WEEK THEREAFTER insulin syringe-needle U-100 1 mL 30 gauge x 1/2 syringe Inject 1 each under the skin 4 (four) times a day. 400 each 3 lancets lancets 1 each by Not Applicable route. ONE TOUCH LANCETS MISC Lantus U-100 Insulin 100 unit/mL injection ADMINISTER 44 UNITS UNDER THE SKIN AT BEDTIME 60 mL 1 levalbuterol (XOPENEX) 1.25 mg/3 mL nebulizer solution Take 3 mL by nebulization 3 (three) times a day. lidocaine (LIDODERM) 5 % patch Apply topically 1 (one) time each day. Remove & discard patch within 12 hours. 28 patch 0 mv-min/folic/vit K/lycop/coQ10 (DAILY MULTIVITAMIN ORAL) Take 1 tablet by mouth 1 (one) time each day. nitroglycerin (NITROSTAT) 0.[address] 1 tablet (0.4 mg total) under the tongue every 5 (five) minutes if needed for chest pain. 25 tablet 1 NovoLOG U-100 Insulin aspart 100 unit/mL injection Inject 6-32 Units as directed 3 times daily (before meals). Inject 3 times a day before meal: 70-100: 6units, 101-150: 12 units, 151-200: 16 units, 201-250: 20 units, 251-300: 24 units, 301- 350: 28 units, 351-400: 32 units, >400: call me. Plus 1unit for every 15g of carbs 60 mL 3 omega-3 (FISH OIL) 360-1,200 mg capsule Take 1 capsule (1,200 mg total) by mouth 2 (two) times a day. in2apps Ultra Test test strip Apply 1 Strip topically 3 times daily., Disp-400 Each, R-2, Normal DX:E11.9 Oxygen Therapy (O2) gas Inhale continuously. via nasal canula [DISCONTINUED] azithromycin (ZITHROMAX) 250 mg tablet ALLERGIES: Albuterol; Amitriptyline; Aspirin,buffd-calcium carb-mag; Beclomethasone dipropionate; Budesonide; Celecoxib; Citalopram; Hydrocodone; Ibuprofen; Iodinated contrast media; Lisinopril; Nsaids (non-steroidal anti-inflammatory drug); Omeprazole; Prednisone; Xghteei-lbe-tii reductase inhibitors; and Tra madol PHYSICAL EXAM: Blood pressure 118/52, pulse 77, temperature 35.6 ??C (96 ??F), temperature source Temporal, resp. rate 18, height 1.626 m (64 ), weight 92.1 kg (203 lb), SpO2 96%. Body mass index is 34.84 kg/m??. BMI is greater than 25.0 (above the normal range) - see Plan APPEARANCE: Alert and in no acute distress EYES: Conjunctiva and sclera normal NECK: No midline spinal tenderness. No paraspinal muscle tenderness. HEART: RRR with normal S1 and S2, no murmurs LUNG: Patient is speaking in full, clear sentences. No accessory muscle use. Lungs are clear to auscultation EXTREMITIES: Extremities warm and well perfused without clubbing, cyanosis, or edema. NEURO: Awake, alert and oriented x 3. Ambulating with cane. No focal deficit. SKIN: Skin color, texture, turgor normal. PSYCH: Pleasant. Cooperative. LABS: Lab Results Component Value Date HGBA1C 7.1 (H) 09/26/2024 Lab Results Component Value Date NA 135 09/26/2024 K 4.4 09/26/2024 CL 103 09/26/2024 CO2 27 09/26/2024 GLUCOSE 149 (H) 09/26/2024 BUN 16 09/26/2024 CREATININE 0.78 09/26/2024 CALCIUM 9.0 09/26/2024 EGFR 77 09/26/2024 Lab Results Component Value Date CHOL 255 (A) 04/07/2024 TRIG 241 (A) 04/07/2024 HDL 65 04/07/2024 LDL 142 BP Readings from Last 5 Encounters: 06/14/25 118/52 02/22/25 107/52 10/14/24 112/58 09/26/24 126/73 04/07/24 116/56 IMAGIN12/28/2023 MRI OF CERVICAL SPINE NO CONTRAST MRI CERVICAL SPINE WITHOUT CONTRAST HISTORY: Neck pain on right side. Pain right upper arm. Of cervical spine. Comparison: CT cervical spine 02/06/2023. Technique: MRI of the cervical spine was performed without contrast. Some of the sequences are limited by motion. FINDINGS: The cerebellar tonsils are normal in position. The spinal cord is normal in caliber and signal. There is mild anterolisthesis of 4 on C5. There is minimal anterolisthesis of C7 on T1. Vertebral body heights are preserved. There is a hemangioma of the T2 vertebral body. At C2-C3, there is small central disc/osteophyte complex which effaces the anterior subarachnoid space. There is mild right facet hypertrophy and moderate left facet hypertrophy. At C3-C4, there is no appreciable spinal canal or neuroforaminal stenosis. There is bilateral facet hypertrophy. At C4-C5, there is no appreciable spinal canal stenosis. Severe left neural foraminal narrowing. There is bilateral facet hypertrophy. At C5-C6, there is posterior central disc/osteophyte lateralizing to the left. There is mild right neural foraminal narrowing and moderate left neural foraminal narrowing. There is bilateral facet hypertrophy. At C6-C7, there is moderate disc space narrowing. No significant neural foraminal narrowing or central spinal canal stenosis. At C7-T1, there is no appreciable spinal canal or neuroforaminal stenosis. IMPRESSION: IMPRESSION: Limited exam. Multilevel bony and discogenic degenerative changes as described 7 IMPRESSION: 1. Primary hypertension 2. Other hyperlipidemia 3. Type 2 diabetes mellitus with diabetic microalbuminuria, with long-term current use of insulin ([facility] V24, [facility] V28) 4. Microalbuminuria 5. Obesity (BMI 30.0-34.9) 6. Coronary artery disease involving council coronary artery of council heart without angina pectoris 7. Recurrent UTI 8. Spondylosis of cervical region without myelopathy or radiculopathy 9. Chronic bronchitis, unspecified chronic bronchitis type (CMS/[facility] V24, CMS/[facility] V28) 10. Grief PLAN: Hypertension: Blood pressure is well-controlled. Patient will continue with atenolol as directed. Hyperlipidemia: Previously did not tolerate statins. Has order in place to update lipid panel and LFTs. For now patient will continue with fish oil as directed. Continue to work on low-cholesterol diet, portion control, efforts toward weight loss. Diabetes: Previous A1c adequately controlled. Has lab in place to update A1c, lipid panel, CMP, andurine microalbumin. Patient will keep upcoming appointment with endocrinology. She will continue medication regimen as directed. Continue with low carbohydrate diet. Continue with portion control. Patient to continue to closely monitor blood glucose readings. Having issues scheduling eye exam. She will be contacting [facility] to see if they can see her. Foot exam up-to-date. Microalbuminuria: Previously did not tolerate lisinopril. Has orders in place to urine microalbumin. CAD: Patient will continue with atenolol as instructed. Continue with fish oil. Not able to tolerate statins. Has order in place to update lipid panel. Has nitroglycerin on hand although has not needed to use. Recurrent UTI: Patient will continue care with urology. Cervical spondylosis: Not interested in surgical intervention at this time. She will continue with lidocaine patches as needed. Can continue with Tylenol as needed for pain. COPD: Patient did not tolerate budesonide. She will continue with levalbuterol as needed. Continue supplemental oxygen as needed. She will keep upcoming appointment later this week with pulmonology. Grief: No crisis today. No SI, HI, or plan. Patient is educated on supportive treatment/self-care. Discussed RSV immunization. Discussed COVID-19 booster. Patient understands and agrees to plan. Patient will return to the office in 6 months for routine care. Will contact the office sooner with any further problems or concerns. Myself and my colleagues have maintained a long-term, longitudinal relationship with this patient, overseeing care of chronic conditions including hypertension, hyperlipidemia, diabetes, COPD. This care relationship has significantly influenced my decision making and treatment plans during today's encounter. The total length of this visit was 40 minutes. This includes time reviewing chart prior to the visit, obtaining history, interaction with and evaluation of the patient, review of prior lab work/imaging, documenting clinical information as well as providing extensive counseling regarding the above diagnoses. No orders of the defined types were placed in this encounter. ADDITIONAL ORDERS: None TORITO Kendall on 06/14/2025 at 1:16 PM EST documented in this encounter Plan of Treatment Upcoming Encounters Date Type Department Care Team (Late st Contact Info) Description 06/20/2025 8:45 AM EST Office Visit Endocrinology - [address] [phone] China Archuleta PA [address] [place] [address] 12/14/2025 9:30 AM EDT Office Visit Adult [facility] - [address] [phone] Claudia Albert PA [address] [place] [address] documented as of this encounter Visit Diagnoses Diagnosis Primary hypertension- Primary Unspecified essential hypertension Other hyperlipidemia Type 2 diabetes mellitus with diabetic microalbuminuria, with long-term current use of insulin ([facility] V24, [facility] V28) Microalbuminuria Proteinuria Obesity (BMI 30.0-34.9) Coronary artery disease involving council coronary artery of council heart without angina pectoris Recurrent UTI Urinary tract infection, site not specified Spondylosis of cervical region without myelopathy or radiculopathy Chronic bronchitis, unspecified chronic bronchitis type ([facility] V24, [facility] V28) Grief Adjustment disorder with depressed mood documented in this encounter Discontinued Medications Medication Sig Discontinue Reason Start Date End Da te azithromycin (ZITHROMAX) 250 mg tablet Therapy completed 025 06/14/2025 documented as of this encounter Historical Medications * This list may reflect changes made after this encounter. Medication Sig Dispense Quantity Refills Last Filled Start D ate End Date azithromycin (ZITHROMAX) 250 mg tablet 04/12/2025 06/14/2025 added in this encounter Additional Health Concerns Assessment Noted Time PHQ-9 Depression Total Score: 0 10/15/19 25 9:57 AM EDT A fall risk assessment has been complete d for the patient 10/14/2024 9:54 AM EDT documented as of this encounter Care Teams Occupational Hygienist Relationship Specialty Start Date End Date Betzaida Lai MD [address] [place] [address] PCP - General Internal Medicine 03/18/21 documented as of this encounter
--- NOTE | 2025-06-16 09:27 | A.OFFVIS_ITS ---
Vital Signs 06/16/25 09:28 Height 5 ft 4 in BMI Reason not done Patient refused/unable BP 120/60 Blood Pressure Location Lt brachial Position Sitting Pulse 69 Pulse Source Pulse Oximeter Pulse Oximetry (%) 96 Oxygen Delivery Method Nasal Cannula Oxygen Flow Rate 2 Intake Visit Reasons: COPD Mill Stenciler Required: No Petroleum Products Sales Representative: Petroleum Products Sales Representative offered & declined Accompanied by: Self / Same As Patient Allergies hydrocodone (Vicodin) Allergy (Unknown, Verified 06/16/25 09:32) hives ibuprofen (IBUPROFEN) Allergy (Unknown, Verified 06/16/25 09:32) SWOLLEN EYELIDS, CONFUSION lovastatin (Mevacor) Allergy (Unknown, Verified 06/16/25 09:32) hives naproxen Allergy (Unknown, Verified 06/16/25 09:32) hives rosuvastatin (Crestor) Allergy (Unknown, Verified 06/16/25 09:32) hives atorvastatin (From LIPITOR) Adverse Reaction (Severe, Verified 06/16/25 09:32) SEVERE DEEP BONES PAIN budesonide Adverse Reaction (Intermediate, Verified 06/16/25 09:49) Palpitations lisinopril Adverse Reaction (Unknown, Verified 06/16/25 09:32) hives amitriptlyn Allergy (Unknown, Uncoded 03/14/25 22:03) hives ditripan xl Allergy (Unknown, Uncoded 03/14/25 22:03) headaches ivp dye Allergy (Unknown, Uncoded 03/14/25 22:03) throat constriction and hives lipitor Allergy (Unknown, Uncoded 03/14/25 22:03) body pain Nuprin Allergy (Unknown, Uncoded 03/14/25 22:03) hives prednisone Allergy (Unknown, Uncoded 03/14/25 22:03) confusion qvar Adverse Reaction (Unknown, Uncoded 03/14/25 22:03) hives HPI Comments Details: The patient is a 79-year-old woman with a known COPD and former smoker. The patient states that she had been having hard time with the breathing. Finally her son came from [place] and she brought her to the [facility] ED where she was admitted to the hospital. Her blood gas was reassuring although hypoxic. The patient did have a COPD exacerbation and was treated effectively for. During the hospitalization the patient did have a CT scan of the chest demonstrating significant emphysema and also evidence of airspace disease campos ggesting pneumonitis. Her respiratory viral panel was negative. She was treated for COPD exacerbation. She was discharged on oxygen. Now she has been using leave albuterol twice a day with partial improving her symptoms. She had been on prednisone but now tapered off. She also has diabetes which is a problem with the prednisone. She has having a congested cough. Awpy-od-llemgxab severity. The patient is not using her oxygen. Will go ahead and do a 6 minute walk test today to see what her oxygen needs are. The patient does have a component of chronic bronchitis and therefore inhaled cortical steroids will become effective. 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 She tried multiple inhalers in the past and was not successful. Therefore will start her on budesonide nebulized therapy along with levo albuterol that she can do twice a day to see if we can improve her respiratory status. 03/16/2025 the patient is here for a pulmonary follow-up visit. She is currently grieving the loss of her son. She is distraught. The patient has had a hard time overall with this. She has been focusing on his chronic illness and has not been able to take care of herself. Her the nebulizer treatments had been helping before but she has not been using them. She is going to go back to using them she needs prescriptions refilled. We did talk about the Xopenex and also adding budesonide she can do that twice a day. She does have evidence of chronic bronchitis moderate severity. Will start her on azithromycin 3 times a week to help with the chronic bronchitis. Once she has a little more comfortable will have her come back in we can do additional imaging testing done and do additional testing then but for now will just try to make her feel little better so she can cope with this difficult time. She will get an EKG though to make sure she is tolerating the azithromycin without any conduction abnormalities. Follow-up in 3-4 months. If she has any issues prior to this she will call for further recommendations. 06/16/2025 the patient is here for pulmonary follow-up visit. The patient has been doing fair. She did try the budesonide nebs but it caused her to have significant adverse effects and she had to stop it after the 1st time. She has significant palpitations irritability tachycardia restlessness. She did not take it again. She does use her Xopenex and she does tolerate that. Unfortunately she does have shortness of breath with minimal activity. Moderate severity. She does use oxygen. Although the oxygen tanks to heavy for her to carry specially with her cervical disease and her unstable gait. She does use a cane. We did walking with a portable oxygen concentrator she did well on 2 L pulse. Therefore, will go ahead and request a POC for portability outside of the home for better portability for the patient from [facility]. She should continue to use the concentrator while in the home though. As far as nebulized medications the patient did try and failed inhaled corticosteroids long-acting beta agonist and and long-acting muscarinic antagonist. Therefore will go ahead and start her on Ohtuvayre as a good alternative for her. If she can not tolerate it. [facility] Medical History Degenerative lumbar spinal stenosis Colonoscopy refused Osteoporosis Herniated lumbar intervertebral disc CAD (coronary artery disease) Cervical disc herniation Essential hypertension Chronic low back pain Dyslipidemia Diabetes mellitus, with long-term current use of insulin Surgical History S/P cervical spinal fusion S/P angioplasty Family History Father Substance use disorder Brother Substance use disorder Mental health disorder Social History Household Members: None Housing: House Do you presently have visiting nurse or other home services: No Patient Tobacco Use Status: Former Tobacco user e-Cigarette/Vaping Use: Never Used Advance Directives Date on File: 05/25/23 service: No Current occupational status: retired Cognitive needs: No Hearing needs: No Vision needs: Yes Review of Systems Const Denies fever(s) Eyes Reports no additional complaints ENT Reports nasal congestion Card Denies chest pain, Reports dyspnea and Reports dyspnea on exertion Resp Reports cough, Reports dyspnea, Reports dyspnea on exertion and Denies wheezing GI Reports no additional complaints Musc Reports as per HPI, Reports abnormal gait and Reports muscle weakness Skin/Breast Denies jaundice Neuro Reports abnormal gait Samuel/Lymph Denies lymphadenopathy Aller/Immun Denies wheezing Physical Exam Vital Signs: Last Vital Signs Pulse 69 06/16/25 09:28 BP 120/60 06/16/25 09:28 Pulse Ox 96 06/16/25 09:28 Oxygen Delivery Method Nasal Cannula 06/16/25 09:28 Oxygen Flow Rate 2 06/16/25 09:28 Const General: comfortable HEENT Head: Yes normocephalic Neck Neck: Yes supple Chest Chest palpation & inspection: normal inspection of the chest Resp Effort & Inspection: normal respiratory effort Auscultation: diminished lung sounds Cardio Heart sounds: S1 normal heart sound present and S2 normal heart sound present GI Palpation (GI): Soft to palpation Skin General skin exam: no rashes or lesions noted Assessment & Plan Assessment & Plan (1) COPD (chronic obstructive pulmonary disease): Code(s): J44.9 - Chronic obstructive pulmonary disease, unspecified Category: Medical Qualifiers: COPD type: chronic bronchitis Chronic bronchitis type: simple Qualified Code(s): J41.0 - Simple chronic bronchitis (2) Pulmonary nodules: Code(s): R91.8 - Other nonspecific abnormal finding of lung field Category: Medical (3) Spinal stenosis, lumbar region with neurogenic claudication: Code(s): M48.062 - Spinal stenosis, lumbar region with neurogenic claudication Category: Medical Plan continue Xopenex TID Did not tolerate it BUdesonide nebs start Ohtuvayre (Pt does not tolerate ICS, LABA nor LAMA) CXR F/U 4 months Orders: Orders XR chest 2V 06/16/25 J41.0 - Simple chronic bronchitis Coding Level of Care Code Est Pt Level 4 (40681) Diagnoses Simple chronic bronchitis J41.0 COPD type: chronic bronchitis Chronic bronchitis type: simple Pulmonary nodules R91.8 Spinal stenosis, lumbar region with neurogenic claudication M48.062 Time Spent (min) 16
[2025-06-16 09:28] VITALS: BP 120/60; PULSE 69; O2SAT 96
--- OUTSIDE RECORDS SUMMARY | 2025-06-16 10:04 | XMS_ITS | Encounter Summary ---
Author Organization [facility] Address [address] [place] [address] Care Team Providers Care Independent Freight Agent Name Role Phone Betzaida Lai MD Primary Care Provider [phone] Reason for Visit * Reason Onset Date Comments Med Refill 06/02/2025 Encounter Details Date Type Department Care Team (Late Contact Info) Description 06/02/2025 Telephone Endocrinology - [address] [phone] China Archuleta PA [address] [place] [address] Social History Tobacco Use Types Packs/Day Years [...] as of this encounter Plan of Treatment Upcoming Encounters Date Type Department Care Team (Late Contact Info) Description 06/20/2025 8:45 AM EST Office Visit Endocrinology - [address] [phone] China Archuleta PA [address] [place] [address] 12/14/2025 9:30 AM EDT Office Visit Adult Medicine [facility] [address] [place], [place] [phone] Claudia Albert PA [address] [place], [place] documented as of this encounter Visit Diagnoses Not on filedocumented in this encounter Additional Health Concerns Assessment Noted Time PHQ-9 Depression Total Score: 0 10/15/19 25 9:57 AM EDT A fall risk assessment has been complete d for the patient 10/14/2024 9:54 AM EDT documented as of this encounter Care Teams Independent Freight Agent Relationship Specialty Start Date End Date Betzaida Lai MD [address] [place] [address] PCP - General Internal Medicine 03/18/21 documented as of this encounter
--- OUTSIDE RECORDS SUMMARY | 2025-06-16 10:04 | XMS_ITS | Clinical Summary ---
Author Organization [facility] Address [address] [place] [address] Phone Care Team Providers Care Brass Bobbin Winder Name Role Phone Betzaida Lai MD Primary Care Provider [phone] Allergies Active Allergy Reactions Criticality Noted Date Comments Albuterol 06/02/2013 Increases heartrate Amitriptyline 06/02/2013 Causes confusion Aspirin,Buffd-Calcium Carb-Mag Swelling 06/02/2013 States reaction was only to coated aspirin not reg aspirin Beclomethasone Dipropionate 06/02/2013 Increases heartrate Budesonide Palpitations 06/14/2025 Celecoxib 02/06/2023 Citalopram 06/02/2013 Causes confusion Hydrocodone 06/02/2013 Ibuprofen 02/06/2023 Iodinated Contrast Media 06/02/2013 Lisinopril 06/02/2013 Muscle aches Nsaids (Non-Steroidal Anti-Inflammatory Drug) 06/02/2013 Eyelid swelling Omeprazole 06/02/2013 Mfg. By [employer] Prednisone 06/02/2013 elavates blood sugar, causes confusion Vpulcqj-Trm-Bvv Reductase Inhibitors 06/02/2013 Tramadol Nausea And Vomiting 06/10/2023 Medications estradioL (ESTRACE) 0.01 % (0.1 mg/gram) vaginal cream Insert 1 Application into the vagina 1 (one) time each day. APPLY A PEA SIZED AMOUNT TO URETHRA EVERY DAY FOR 30 DAYS THEN 3 TIMES PER WEEK THEREAFTER 024 Active levalbuterol (XOPENEX) 1.25 mg/3 mL nebulizer solution Take 3 mL by nebulization 3 (three) times a day. 023 Active acetaminophen (TYLENOL 8 HOUR ORAL) Take [...] by Not Applicable route. ONE TOUCH LANCETS [facility] Active insulin syringe-needle U-100 1 mL 30 gauge x 1/2 syringeIndication s:Type II diabetes mellitus with neurological manifestations ([facility] V24, [facility] V28) Inject 1 each under the skin 4 (four) times a day. 400 each 3 025 Active NovoLOG U-100 Insulin aspart 100 unit/mL injectionIndicati ons:Type II diabetes mellitus with neurological manifestations ([facility] V24, [facility] V28) Inject 6-32 Units as directed 3 times daily (before meals). Inject 3 times a day before meal: 70-100: 6units, 101-150: 12 units, 151-200: 16 units, 201-250: 20 units, 251-300: 24 units, 301-350: 28 units, 351-400: 32 units, >400: call me. Plus 1 unit for every 15g of carbs 60 mL 3 025 Active nitroglycerin (NITROSTAT) 0.[address] 1 tablet (0.4 mg total) under the tongue every 5 (five) minutes if needed for chest pain. 25 tablet 1 025 Active clotrimazole (LOTRIMIN) 1 % cream Apply topically 2 (two) times a day. Apply bid to affected area, 30 g 025 Active OneTouch Ultra Test test stripIndications: Type II diabetes mellitus with neurological manifestations ([facility] V24, [facility] V28) Apply 1 Strip topically 3 times daily., Disp-400 Each, R-2, Normal DX:E11.9 025 Active atenoloL (TENORMIN) 25 mg tablet Take 1 tablet (25 mg total) by mouth 1 (one) time each day. 90 tablet 1 Active Oxygen Therapy (O2) gas Inhale continuously. via nasal canula Active lidocaine (LIDODERM) 5 % patchIndications: Spondylosis of cervical region without myelopathy or radiculopathy Apply topically 1 (one) time each day. Remove & discard patch within 12 hours. 28 patch 025 Active Lantus U-100 Insulin 100 unit/mL injectionIndicati ons:Type II diabetes mellitus with neurological manifestations (CMS/HCC V24, CMS/HCC V28) ADMINISTER 44 UNITS UNDER THE SKIN AT BEDTIME 60 mL 1 025 Active Lantus U-100 Insulin 100 unit/mL injectionIndicati ons:Type II diabetes mellitus with neurological manifestations (CMS/HCC V24, CMS/HCC V28) Inject 44 Units under the skin at bedtime. 20 mL 5 025 2024 Discontinued lidocaine (LIDODERM) 5 % patch Apply topically 1 (one) time each day. Remove & discard patch within 12 hours. 28 patch 025 2024 Discontinued(R eorder) Lantus U-100 Insulin 100 unit/mL injectionIndicati ons:Type II diabetes mellitus with neurological manifestations (CMS/HCC V24, CMS/HCC V28) ADMINISTER 44 UNITS UNDER THE SKIN AT BEDTIME 60 mL 1 025 2024 Discontinued(R eorder) azithromycin (ZITHROMAX) 250 mg tablet 025 2024 Discontinued(T herapy completed) Active Problems Problem Noted Date Diagnosed Date Grief 02/22/2025 Spondylosis of cervical edenilson on without myelopathy or radiculopathy 02/22/2025 CAD (coronary artery disease) 05/15/2024 Overview (10/04/2024): s/p NSTEMI (Jul 2019 at [facility] angioplasty of circumflex artery w/ 50% LAD [...] diabetes mellitus with renal manifestati ons 04/16/2021 Assessment & Plan (10/14/2024 10:21 AM EDT): Microalbuminuria 04/16/2021 Obesity (BMI 30.0-34.9) 04/16/2021 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 11/07/2013 Diabetic neuropathy 06/02/2013 Encounters Date Type Department Care Team Description 06/14/2025 11:30 AM EST Office Visit Adult Medicine [address] [phone] Claudia Albert PA Primary hypertension (Primary Dx); Other hyperlipidemia; Type 2 diabetes mellitus with diabetic microalbuminuria, with long-term current use of insulin ([facility] V24, [facility] V28); Microalbuminuria; Obesity (BMI 30.0-34.9); Coronary artery disease involving [place] coronary artery of [place] heart without angina pectoris; Recurrent UTI; Spondylosis of cervical region without myelopathy or radiculopathy; Chronic bronchitis, unspecified chronic bronchitis type ([facility] V24, [facility] V28); Grief 06/02/2025 Telephone Endocrinology [address] [phone] China Archuleta PA 04/26/2025 Telephone Endocrinology [address] [phone] China Archuleta PA from Last 3 Months Immunizations Immunization Administration Dates Next Due Moderna SARS-CoV-2 COVID-19, [...] Ectopic COPD (chronic obstructive pu lmonary disease) ([facility] V24, [facility] V28) Chronic tonsillitis : ent Dr. Blum [...] for your loved ones. For example, child guidance counselor or elderly care for an older adult? [...] on file Sexual Orientation Not on file Last Filed Vital Signs [...] Mass Index 34.84 06/14/2025 11:25 AM EST Plan of Treatment Upcoming Encounters Date Type Department Care Team (Late st Contact Info) Description 06/20/2025 8:45 AM EST Office Visit Endocrinology [address] [phone] China Archuleta PA [address] [place], [place] 12/14/2025 9:30 AM EDT Office Visit Adult Medicine [place] [address] [phone] Claudia Albert PA [address] [place], [place] Health Maintenance Due Date Last Done Comments Diabetes: Annual Retina Eye Exam 1955 RSV Immunization Adult Patients (1 - 1-dose 75+ series) 10/22/2019 DTaP,Tdap,and Td Vaccines (1 - Tdap) 04/16/2021 04/16/2021 COVID-19 Vaccine ( - season) 2025 05/16/2022, 11/28/2021, 05/02/2021, Additional history exists Diabetes: Blood Sugar Control Test (HGBA1C) 03/28/2025 09/26/2024, 04/07/2024, 04/07/2024, Additional history exists Diabetes: Annual Urine Albumin-Creatinine Ratio (uACR) 04/07/2025 04/07/2024 Diabetes: Annual GFR (Glomerular Filtration Rate) 09/26/2025 09/26/2024, 04/07/2024, 01/08/2024 Hypertension/CHF/CAD Annual BMP Blood Test 09/26/2025 09/26/2024, 04/07/2024, 01/08/2024 Falls Risk Assessment 10/14/2025 10/14/2024, 024 Medicare Annual Wellness Visit 10/14/2025 10/14/2024 Influenza Vaccine (#1) 2025 12/12/2011 Postp oned from 02/27/2025 (Patient Refused) Diabetes: Annual Foot Exam 02/22/2026 02/22/2025 Social Influencers of Health Screening 06/14/2026 06/14/2025 Cholesterol Screening (Lipid Panel) 04/07/2029 04/07/2024, 04/07/2024 Pneumococcal Vaccine: 50+ Years Discontinued 04/10/2014, 07/13/2002 Depression Screening Completed 10/14/2024, 10/13/19 24 HIB Vaccines Aged Out No longer eligi [...] Type II diabetes mellitus with neurological manifestations ([facility] V24, [facility] V28) Primary hypertension HEMOGLOBIN A1C Routine 09/26/2024 12:46 PM EDT Type II diabetes mellitus with neurological manifestations ([facility] V24, [facility] V28) URINE ALBUMIN CREATININE RATIO Routine 04/07/2024 [...] 9:29 PM EDT [facility] Blood Venous blood specimen / Unknown Venipuncture / Unknown 09/26/2024 12:46 PM EDT 09/26/2024 12:46 PM EDT us [place] UGARTE LAB BLOOD ORDERABLES Final Resul t [facility] [address] [place] [address], * (ABNORMAL) Basic metabolic panel (09/26/2024 12:46 PM EDT) Sodium 135 133 - 145 mmol/L LAB CHEMISTRY METHOD 09/26/2024 4:57 PM EDT [facility] Potassium 4.4 3.5 - 5.5 mmol/L LAB CHEMISTRY METHOD 09/26/2024 4:57 PM EDT [facility] Chloride 103 96 - 110 mmol/L LAB CHEMISTRY METHOD 09/26/2024 4:57 PM EDT [facility] CO2 27 21 - 32 mmol/L LAB CHEMISTRY METHOD 09/26/2024 4:57 PM EDT [facility] Anion Gap 5 3 - 11 LAB CHEMISTRY METHOD 09/26[facility]24 [facility] Glucose 149(H) 70 - 100 mg/dL LAB CHEMISTRY METHOD 09/26/2024 4:[facility] BUN 16 5 - 25 mg/dL LAB CHEMISTRY METHOD 09/26/2024 4:57 PM T [facility] Creatinine 0.78 0.50 - 1.10 mg/dL LAB CHEMISTRY METHOD 09/26/2024 4:57 PM EDT [facility] eGFR 77 >=60 mL/min/1. 73m2 LAB CHEMISTRY METHOD 09/26/2024 4:57 PM EDT [facility] Comment:Calculation based on the [...] Resul t [facility] [address] [place] [address], * Urine Albumin Creatinine Ratio (04/07/2024) Pathologist [facility] Urine Albumin Creatinine Ratio Abstracted Result [facility] Historical Provider HEALTH MAINTENANCE Final Result * (ABNORMAL) Lipid panel (04/07/2024) [facility] LDL/HDL Ratio 4 0 - 4 Triglycerides 241(A) 0 - 150 mg/dL Cholesterol 255(A) 0 - 200 mg/dL HDL 65 >=40 mg/dL LDL Cholesterol 142(A) 0 - 100 mg/dL Blood Venous blood specimen / Unknown Result [facility] Historical Provider LAB BLOOD ORDERABLES [place] l Result * Falls Risk Assessment (10/13/2023) [facility] Falls Risk Assessment Abstracted Result [facility] Historical Provider HEALTH MAINTENANCE Final Result * Depression Screening (10/13/2023) [facility] Depression Screening Abstracted Historical Provider HEALTH MAINTENANCE Final Result from Last 3 Months or Most Recently Relevant to Health Maintenance Insurance MEDICARE [place]ICAID [place] Care Teams Brass Bobbin Winder Relationship Specialty Start Date End Date Betzaida Lai MD [address] [place] [phone] PCP - General Internal Medicine 03/18/21
--- OUTSIDE RECORDS SUMMARY | 2025-06-16 10:04 | XMS_ITS | Data Portability ---
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 [email or web address] Not available 10/02/2022 19:14:56 Plan of Treatment Reminders Order Date Submit Date Provider Last Modified By Organization Details Last Modified Time Details Appointments None recorded. Lab None recorded. Referral None recorded. Procedures None recorded. Surgeries None recorded. Imaging XR, knee, 3 view - right knee pain and swelling 2022 023 [employer] [address] [facility], [place], [address], 16:01:43 XR, lumbosacral spine, 2 or 3 view - lower back pain radiating to right leg 2022 023 [employer] [address] [facility], [place], [address], 3 16:01:42 Medication Orders None recorded. Patient TargetsNo targets recorded. Patient InstructionsNo instructions recorded. Reason for Referral None Reported. Results Created Date Observation Date Name Description Value Unit Range Abnormal Flag Note LastModifiedBy Organization Detail LastModifiedTime 10/04/1910/03/2022 lumba r spine AP and lat LUMBAR [...] HARRIS M.D. 10/04/19 3:53:5 7 PM EDT. [email or web address] [employer], [address], 10/04/2022 10:17:04 10/04/19 23 10/03/2022 knee exam [...] in 1 week or sooner if clinic talya deckeri ally if sympto ms contin ue to [...] 1 week or sooner if clinic ally warrivana kahn especi ally if sympto ms contin ue to persis t or progre ss. Electr onical ly signed by CHARLENE HARRIS M.D. 10/04/19 3:53:5 7 PM EDT. [email or web address] [employer], [address], 10/04/2022 10:17:12 Result Notes None recorded. Procedures Surgical History Date Name Laterality Status Provider Name and Address Organization Details Recorded Time primary fusion of cervical spine completed TORITO Jacobson [address] [place], [address], [place] [facility] 10/02/2022 16:03:57 oophorectomy completed TORITO Jacobson [address], [place], [address], [place] [facility] 10/02/2022 16:05:39 Imaging Results None recorded. Procedure Notes None recorded. Medical Equipment None Reported. Allergies Allergen ID Allergen Name Allergen Category Reaction Reaction Severity Criticality Documentation Date Start Date Code Code System Note Provider Name and Address Organization Details Recorded Time 747609 ibuprofen medicatio n Not available Not available Not available 10/02/2022 5640 RxNorm TORITO Jacobson [address] [place], [address], [place] [facility] 15:54:47 295126 prednison e medicatio n Not available Not available Not available 10/02/2022 8640 RxNorm TORITO Jacobson [address], [place], [address], [place] [facility] 3 15:55:05 925153 tramadol medicatio n Not available Not available Not available 10/02/2022 21761 RxNorm TORITO Jacobson [address], [place], [address], [place] [facility] 3 15:55:12 [id number] hydrocodo ne Not available Not available Not available Not available 10/02/2022 5489 RxNorm TORITO Jacobson [address], [place], [address], [place] [facility] [...] Not Available Vitals Date Recorded Oxygen saturation Heart rate Respiratory rate Body temperature Systolic And Diastolic Provider Name and Address Organization Details Last Updated DateTime 98 % 80 /min 20 /min 97.6 [degF] 138/68 mm[Hg] Not Available [facility] 15:56:02 Social History Question Answer Notes LastModified by Organizat ion Details LastModified Time Tobacco Smoking Status Former Smoker quit 2010 TORITO Jacobson formerly [facility] [place], [address], [place] [facility] 10/02/2022 16:02:25 Do You Have An Advance Directive? No [email or web address] Information not available 10/02/2022 What Is Your Code Status? Full Code [email or web address] Information not available 10/02/2022 Fall Risk: Do You Feel Unsteady When Standing Or Walking? Yes [email or web address] Information not available 10/02/2022 Excessive Alcohol Or Drug Use No [email or web address] Information not available 10/02/2022 Does This Patient Have A PCP? Yes [email or web address] Information not available 10/02/2022 Is This Patient In Hospice? No [email or web address] Information not available 10/02/2022 ADL: Do You Need Help With Daily Activities Such As Bathing, Preparing Meals, Dressing, Or Cleaning? No [email or web address] Information not available 10/02/2022 Social Support: Do You Feel Safe? Yes [email or web address] Information not available 10/02/2022 What Is Your Housing Situation Today? I Have Housing [email or web address] Information not available 10/02/2022 Sex: Unknown Functional Status Question Answer Note LastModified by Organizat ion Details LastModified Time Do you use any illicit or recreational drugs? No [email or web address] Information not available 10/02/2022 What is your level of alcohol consumption? None Information not available 10/02/2022 Mental Status None recorded. Family History Relationship Description Onset Age of this Age Resolved Age Notes LastModified by Organization Details LastModified Time Father Coronary arterioscler osis [email or web address] Not available 10/02 16:00:58 Father Diabetes mellitus [email or web address] Not available 10/02 16:01:09 Medical History Condition [...] Diagnosis SNOMED-CT Code Diagnosis ICD10 Code Diagnosis IMO Codes Diagnosis Note [id number] TORITO Jacobson [facility] [address] [place] [address] 10/02/2022 15:49:56 10/03/2022 11:12:48 Right side sciatica [id number] 65311 M54.31 Osteoarthr itis of knee 333921994 M17.9 Essential hypertension 14752496 I10 Status of condition: Stable. Testing/Re sults: BP on scene was 138/68. Discussion : Bp controlled on current regimen. she is asymptomat ic. Plan, Medication Management & Follow-up recommenda tions: follow up with pcp as scheduled. go to the ER with new or worsening symptoms cp, sob, weakness, dizziness, HAs, edema, vision changes. Diabetes mellitus [id number] 09 E13.42 Status of condition: Stable. Testing/Re sults: pt states her glucose this [...] None Recorded Advance Directives Directive N: Payers Insurance Date Sequence Insurance Name Policy Number Policy Mott Covered Member ID Mott Member ID Guarantor Name 10/01/2022 2 [place] [facility] Kellen Stewart [id number] Kellen Stewart 10/10/2022 1 [place] [facility] Kellen Stewart [id number] Kellen Stewart 10/01/2022 2 [place]ICAID[place] [facility] Kellen Lovelaceo [id number] Kellen Stewart 10/01/2022 1 *SELF PAY* Kellen Stewart [id number] Kellen Stewart Notes Date Note Type Note [...] her car. TORITO Jacobson [address], [place], [address], [place] [facility] 10/02/2022 19:16:36 OBGyn Episode No OBEpisode recorded.
== END 2025-06-16 10:05 | disposition home or self-care (01) ==
LOC: HO.HPS 09:24
PROVIDERS: PCP Internal Medicine; Visit Provider Hospitalist
DX: J41.0 Simple chronic bronchitis (principal); R91.8 Other nonspecific abnormal finding of lung field; M48.062 Spinal stenosis, lumbar region with neurogenic claudication
CPT/HCPCS: 99214

== ENCOUNTER → 2025-06-16 09:24 | Outpatient (BNVA) | payer MEDICARE, MEDICAID, SELFPAY | PROVIDERS: PCP Internal Medicine; Visit Provider Hospitalist | DX: J41.0 Simple chronic bronchitis (principal); Z87.891 Personal history of nicotine dependence; R91.8 Other nonspecific abnormal finding of lung field; Z99.81 Dependence on supplemental oxygen; M48.062 Spinal stenosis, lumbar region with neurogenic claudication | CPT/HCPCS: 99212 ==